=== PATIENT | male | born 1935 | race Caucasian/White ===

== ENCOUNTER 2019-08-19 17:44 | Observation (INO) | payer MEDICARE, OTHER, SELFPAY ==
[2019-08-19 17:51] VITALS: BP 131/77; PULSE 104; RESP 18; TEMP 36.7; O2SAT 94; BMI 32.8
--- NOTE | 2019-08-19 18:04 | XR_ITS ---
WS: [id number] Portable AP upright chest, 08/19/2019 Clinical Data: sob Comparison: PA and lateral chest, 03/17/2015. Findings: No nodules, masses or effusions are seen. The heart is normal. The pulmonary vascularity is not increased. No pneumonia or pneumothorax is seen. Severe osteoarthritis of the right shoulder amanda nt is noted. There is an old fracture of the lateral aspect of the right eighth rib. The aortic arch and descending aorta show mild tortuosity. The diaphragms are flattened. XR/XR chest 1V portable [id number] Impression: Atherosclerosis and hyperinflation.
--- NOTE | 2019-08-19 18:05 | ED_ITS ---
Documented by User: JOSE Baum 08/19/19 19:31 HPI - General Adult General: Chief complaint: General Medical Stated complaint: fluid build up Time Seen by Provider: 08/19/19 18:00 History of Present Illness: HPI narrative: Mr. Tim sent here by Dr. Justice for increasing shortness of breath and abnormal lung sounds. Dr. Justice did talk to Dr. Dawson. Patient said that he has been feeling worse last 2 to 3 days, had a spider bite to his abdomen also said he feels like he is filling up fluid and short of breath with exertion still complained about constipation but he took a large dose of milk of magnesia and he said he is cleared out now Onset (ago): day(s) Severity: moderate Associated symptoms: Reports no associated symptoms and dyspnea; Deny chest pain, headache(s), nausea, rash or vomiting Review of Systems Const: Denies: fever(s), chills or body aches Eyes: Denies: change in vision or blurry vision ENMT: Denies: throat pain or nasal congestion Card: Reports: other (Edema); Denies: chest pain or dyspnea on exertion Resp: Reports: dyspnea; Denies: productive cough or non-productive cough GI: Denies: abdominal pain, nausea or vomiting : Denies: difficulty urinating Musc: Denies: extremity pain Skin/Breast: Reports: other (Spider bite right abdomen); Denies: rash Neuro: Denies: headache(s) Psych: Denies: anxiety or depression Sergio/Lymph: Denies: easy bruising PFS ED PFSH: Medical History (Updated 08/19/19 @ 21:32 by Juliana Tamayo MD) ASHD (arteriosclerotic heart disease) Diabetes Edema, peripheral GERD (gastroesophageal reflux disease) Gout Hyperlipidemia Hypertension Osteoarthritis Hands, hips, knees and spine, lumbar spondylosis Surgical History History of cataract surgery History of cholecystectomy History of hemorrhoidectomy History of hip surgery History of knee surgery History of rotator cuff surgery Family History Other CAD (coronary artery disease) Cancer Diabetes Hyperlipidemia Hypertension Social History Smoking and tobacco status: former smoker Alcohol intake: never Physical Exam Const: COMMON NORMALS: no acute distress, average body habitus and patient o riented x3 HENMT: COMMON NORMALS: normocephalic HEAD & SCALP: normal to inspection and normocephalic FACE & SINUS: normal facial exam Eye: COMMON NORMALS: conjunctivae normal GENERAL EYE: appearance normal, both eyes and all related structures CONJUNCTIVA: Yes conjunctivae normal Neck/C-Spine: COMMON NORMALS: no JVD Chest: COMMONS NORMALS: normal inspection of the chest Resp: COMMON NORMALS: normal respiratory effort AUSCULTATION: rales Cardio: COMMON NORMALS: no JVD, regular rate and regular rhythm RATE: regular rate RHYTHM: regular rhythm OTHER: 2+ edema pitting lower extremities GI: INSPECTION: Yes other (Some bloating) AUSCULTATION: Yes normoactive bowel sounds PALPATION: Yes Firmness to palpation present (GI) PERCUSSION: normal to percussion Extremity: COMMON NORMALS: normal to inspection and full ROM Neuro: COMMON NORMALS: patient oriented x3 Course Vital Signs: Vital signs: Vital Signs Temperature 98.0 F 08/19/19 17:51 Pulse Rate 84 08/19/19 21:19 Respiratory Rate 22 H 08/19/19 21:19 Blood Pressure 104/55 08/19/19 21:19 Pulse Oximetry 95 08/19/19 21:19 MDM - General Adult MDM Narrative: Medical decision making narrative: Discussed lab results with Dr. Dawson Lab Data: Labs: Lab Results 08/19/19 08/19/19 08/19/19 Range/Units 18:45 18:45 18:45 WBC 12.7 H (4.0-10.0) 10^3/ uL RBC 3.39 L (4.1-5.3) 10^6/u L Hgb 10.1 L (11.7-16.6) g/dL Hct 32.1 L (42.0-52.0) % MCV 94.7 H (80-94) fL MCH 29.8 (28.0-34.0) pg MCHC 31.5 (30.0-36.0) g/dL RDW 13.6 (12.1-15.1) % Plt Count 237 (130-400) 10^3/c mm MPV 10.1 (7.4-10.4) fL Neut % (Auto) 76.7 % Lymph % (Auto) 7.7 % [place] % (Auto) 7.7 % Eos % (Auto) 7.2 % Baso % (Auto) 0.2 % Neut # (Auto) 9.8 H (1.8-7.7) 10^3/u L Lymph # (Auto) 1.0 (0.8-4.8) 10^3/u L [place] # (Auto) 1.0 H (0.2-0.9) 10^3/u L Eos # (Auto) 0.9 H (0.0-0.8) 10^3/u L Baso # (Auto) 0.0 (0.0-0.1) 10^3/u L Nucleated RBC % (a uto) 0 % Nucleated RBCs # 0.0 /100WBC Sodium 133 L (136-145) mmol/L Potassium 5.2 H (3.5-5.1) mmol/L Chloride 101 (98-107) mmol/L Carbon Dioxide 21 L (22-29) mmol/L Anion Gap 16.2 (5-19) BUN 56 H (8-23) mg/dL Creatinine 3.4 H (0.7-1.2) mg/dL Glucose 106 (65-115) mg/dL Calculated Osmolal ity 275 L (285-295) mOsm/k g Calcium 8.5 (8.5-10.5) mg/dL Total Bilirubin 1.2 (0.15-1.2) mg/dL AST 165 H (0-40) U/L ALT 171 H (0-41) U/L Alkaline Phosphata se 324 H (40-130) IU/L NT-Pro-B Natriuret Pep 1975 H (0-450) pg/mL Total Protein 6.8 (6.6-8.7) g/dL Albumin 3.6 (3.5-5.2) g/dL Globulin 3.2 (1.3-4.6) g/dL Urine Color Yellow (Yellow) Urine Appearance Clear (CLEAR) Urine pH 5 (5-7) Ur Specific Gravit y 1.005 (1.005-1.030) Urine Protein Neg (Negative) Urine Glucose (UA) Norm (Normal) Urine Ketones Negative (Negative) Urine Blood Neg (Negative) Urine Nitrate Negative (Negative) Urine Bilirubin 1+ H (NEGATIVE) Urine Urobilinogen Neg (Negative) mg/dL Ur Leukocyte Bernadette ase Negative (Negative) EKG Data^: EKG 1: EKG interpretation date: 08/19/19 EKG interpretation time: 18:25 Interpretation: Sinus rhythm ventricular rate 89 bpm CA interval 200 ms QRS dura tion 95 ms Computer generated interpretation: Abdomen CT 08/19/19 19:30 IMPRESSION: 1. 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 No evidence of bowel obstruction. 3. Recent appearing right hip replacement. 4. Small bilateral pleural effusions. COMMENTS: Consistent with the [employer]'s Incidental Findings Committee white paper (J Am Luzma Radiol 2018): Any incidental renal lesion less than 1.0 cm or classified as too small to characterize, or any incidental cystic renal lesion characterized as simple-appearing, is likely benign. No follow-up imaging is recommended for these lesions per consensus recommendations based on imaging criteria. Radiation Dose CTDIVOL = (mGy): DLP = 1255.35 (mGy-cm) Discharge Plan Discharge Patient Disposition: Admitted As Inpatient Admit Provider: Juliana Tamayo Clinical Impression: Hepatic congestion CHF (congestive heart failure) Qualifiers: Heart failure type: unspecified Heart failure chronicity: unspecified Qualified Code(s): I50.9 - Heart failure, unspecified Acute renal failure Qualifiers: Acute renal failure type: unspecified Qualified Code(s): N17.9 - Acute kidney failure, unspecified Condition: Stable Discharge Orders: Discharge Order (Routine); Ordered 08/19/19 Ordered By: Elmer Calloway Referrals: Salas Quevedo MD [Primary Care Provider] - Additional Instructions: Follow-up with medical provider as directed. Double furosemide potassium and follow-up with your doctor on Sunday return to the ER or your medical provider if condition worsens. Please read and understand discharge instructions. If any questions ask please. Coding Level of Care Code ED Study Coordinator for Chg Fwd Exam Comprehensive Documented by User: Korin Dawson MD 08/19/19 22:27 HPI - General Adult General: Chief complaint: General Medical Stated complaint: fluid build up Time Seen by Provider: 08/19/19 18:00 [facility] ED PFS: Medical History (Updated 08/19/19 @ 21:32 by Juliana Tamayo MD) ASHD (arteriosclerotic heart disease) Diabetes Edema, peripheral GERD (gastroesophageal reflux disease) Gout Hyperlipidemia Hypertension Osteoarthritis Hands, hips, knees and spine, lumbar spondylosis Surgical History History of cataract surgery History of cholecystectomy History of hemorrhoidectomy History of hip surgery History of knee surgery History of rotator cuff surgery Family History Other CAD (coronary artery disease) Cancer Diabetes Hyperlipidemia Hypertension Social History Smoking and tobacco status: former smoker Alcohol intake: never Course ED course: I am seeing this patient along with STAR Payne. The patient was sent to the ER by Dr. Justice. He has been having several days of shortness of breath and swelling. There is concern for CHF although he does not think he has had a history of that in the past. He does take Lasix on a daily basis. He says he has been having quite a bit of difficulty urinating and it is not clear whether that is actually because he is just not producing much urine. He has had some sort of TURP procedure in the past. He denies fever. He has had swelling in his legs. His labs today show poor renal failure with a BUN of 56 and a creatinine of 3.4. The most recent creatinine in the computer is from last year at which time the creatinine was normal. His CO2 is 21 and his potassium is 5.2. Hemoglobin is 10.1. BNP is elevated at 1975. LFTs are also elevated with an AST of 165, ALT of 171, alk phos of 324 and a total bilirubin of 1.2. With the increased fluid retention, poor renal function and elevated LFTs we will admit him to the hospitalist for further management. There is also a CT of his abdomen pending to evaluate the liver. This may be simply due to congestion related to CHF. Vital Signs: Vital signs: Vital Signs Temperature 98.0 F 08/19/19 17:51 Pulse Rate 84 08/19/19 21:19 Respiratory Rate 22 H 08/19/19 21:19 Blood Pressure 104/55 08/19/19 21:19 Pulse Oximetry 95 08/19/19 21:19 MDM - General Adult Lab Data: Labs: Lab Results 08/19/19 08/19/19 08/19/19 Range/Units 18:45 18:45 18:45 WBC 12.7 H (4.0-10.0) 10^3/ uL RBC 3.39 L (4.1-5.3) 10^6/u L Hgb 10.1 L (11.7-16.6) g/dL Hct 32.1 L (42.0-52.0) % MCV 94.7 H (80-94) fL MCH 29.8 (28.0-34.0) pg MCHC 31.5 (30.0-36.0) g/dL RDW 13.6 (12.1-15.1) % Plt Count 237 (130-400) 10^3/c mm MPV 10.1 (7.4-10.4) fL Neut % (Auto) 76.7 % Lymph % (Auto) 7.7 % [place] % (Auto) 7.7 % Eos % (Auto) 7.2 % Baso % (Auto) 0.2 % Neut # (Auto) 9.8 H (1.8-7.7) 10^3/u L Lymph # (Auto) 1.0 (0.8-4.8) 10^3/u L [place] # (Auto) 1.0 H (0.2-0.9) 10^3/u L Eos # (Auto) 0.9 H (0.0-0.8) 10^3/u L Baso # (Auto) 0.0 (0.0-0.1) 10^3/u L Nucleated RBC % (a uto) 0 % Nucleated RBCs # 0.0 /100WBC Sodium 133 L (136-145) mmol/L Potassium 5.2 H (3.5-5.1) mmol/L Chloride 101 (98-107) mmol/L Carbon Dioxide 21 L (22-29) mmol/L Anion Gap 16.2 (5-19) BUN 56 H (8-23) mg/dL Creatinine 3.4 H (0.7-1.2) mg/dL Glucose 106 (65-115) mg/dL Calculated Osmolal ity 275 L (285-295) mOsm/k g Calcium 8.5 (8.5-10.5) mg/dL Total Bilirubin 1.2 (0.15-1.2) mg/dL AST 165 H (0-40) U/L ALT 171 H (0-41) U/L Alkaline Phosphata se 324 H (40-130) IU/L NT-Pro-B Natriuret Pep 1975 H (0-450) pg/mL Total Protein 6.8 (6.6-8.7) g/dL Albumin 3.6 (3.5-5.2) g/dL Globulin 3.2 (1.3-4.6) g/dL Urine Color Yellow (Yellow) Urine Appearance Clear (CLEAR) Urine pH 5 (5-7) Ur Specific Gravit y 1.005 (1.005-1.030) Urine Protein Neg (Negative) Urine Glucose (UA) Norm (Normal) Urine Ketones Negative (Negative) Urine Blood Neg (Negative) Urine Nitrate Negative (Negative) Urine Bilirubin 1+ H (NEGATIVE) Urine Urobilinogen Neg (Negative) mg/dL Ur Leukocyte Bernadette ase Negative (Negative) EKG Data^: EKG 1: Computer generated interpretation: Abdomen CT 08/19/19 19:30 IMPRESSION: 1. 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 No evidence of bowel obstruction. 3. Recent appearing right hip replacement. 4. Small bilateral pleural effusions. COMMENTS: Consistent with the [employer]'s Incidental Findings Committee white paper (J Am Luzma Radiol 2018): Any incidental renal lesion less than 1.0 cm or classified as too small to characterize, or any incidental cystic renal lesion characterized as simple-appearing, is likely benign. No follow-up imaging is recommended for these lesions per consensus recommendations based on imaging criteria. Radiation Dose CTDIVOL = (mGy): DLP = 1255.35 (mGy-cm) Discharge Plan Discharge Patient Disposition: Admitted As Inpatient Admit Provider: Juliana Tamayo Clinical Impression: Hepatic congestion CHF (congestive heart failure) Qualifiers: Heart failure type: unspecified Heart failure chronicity: unspecified Qualified Code(s): I50.9 - Heart failure, unspecified Acute renal failure Qualifiers: Acute renal failure type: unspecified Qualified Code(s): N17.9 - Acute kidney failure, unspecified Condition: Stable Discharge Orders: Discharge Order (Routine); Ordered 08/19/19 Ordered By: Elmer Calloway Referrals: Salas Quevedo MD [Primary Care Provider] - Additional Instructions: Follow-up with medical provider as directed. Double furosemide potassium and follow-up with your doctor on Sunday return to the ER or your medical provider if condition worsens. Please read and understand discharge instructions. If any questions ask please. Coding Level of Care Code ED Study Coordinator for Telly Fwd Exam Comprehensive
--- NOTE | 2019-08-19 18:05 | ECG_ITS ---
Measurements Intervals Kuna Rate: 89 P: 59 GA: 200 QRS: 58 QRSD: 95 T: 55 QT: 337 QTc: 411 SINUS RHYTHM NONSPECIFIC T-WAVE ABNORMALITY Compared to ECG 08/31/2016 09:58:40 T-wave abnormality now present Sinus bradycardia no longer present Electronically Signed On 08-20-2019 6:57:57 CDT by Pedrito Singh M.D. [email or web address]
[2019-08-19 18:12] VITALS: BP 117/61; PULSE 90; RESP 20; O2SAT 95
[2019-08-19 18:53] LABS: Basophils % 0.2 %; Eosinophils # 0.9 10^3/uL (0.0-0.8); Eosinophils % 7.2 %; Hematocrit 32.1 % (42.0-52.0); Hemoglobin 10.1 g/dL (11.7-16.6); Lymphocytes % 7.7 %; Mean Corpuscular HGB Conc 31.5 g/dL (30.0-36.0); Mean Corpuscular Hemoglobin 29.8 pg (28.0-34.0); Mean Corpuscular Volume 94.7 fL (80-94); Mean Platelet Volume 10.1 fL (7.4-10.4); Monocytes % 7.7 %; Neutrophils # 9.8 10^3/uL (1.8-7.7); Neutrophils % 76.7 %; Nucleated Red Blood Cells % 0 %; Platelet Count 237 10^3/cmm (130-400); Red Blood Count 3.39 10^6/uL (4.1-5.3); Red Cell Distribution Width 13.6 % (12.1-15.1); White Blood Count 12.7 10^3/uL (4.0-10.0)
[2019-08-19 19:14] VITALS: BP 107/56; PULSE 86; RESP 18; O2SAT 93
[2019-08-19 19:18] LABS: Alanine Aminotransferase 171 U/L (0-41); Albumin Level 3.6 g/dL (3.5-5.2); Alkaline Phosphatase 324 IU/L (40-130); Anion Gap 16.2 (5-19); Aspartate Amino Transferase 165 U/L (0-40); Blood Urea Nitrogen 56 mg/dL (8-23); Calcium 8.5 mg/dL (8.5-10.5); Carbon Dioxide 21 mmol/L (22-29); Chloride 101 mmol/L (98-107); Globulin 3.2 g/dL (1.3-4.6); Glucose 106 mg/dL (65-115); NT Pro B Type Natriuretic Pept 1975 pg/mL (0-450); Osmolality Calculated 275 mOsm/kg (285-295); Potassium 5.2 mmol/L (3.5-5.1); Sodium 133 mmol/L (136-145); Total Bilirubin 1.2 mg/dL (0.15-1.2); Total Protein 6.8 g/dL (6.6-8.7)
[2019-08-19 19:24] LABS: Add Urine Microscopic? NO
--- NOTE | 2019-08-19 19:30 | CTR_ITS ---
PROCEDURE INFORMATION: Exam: CT Abdomen Without Contrast Exam date and time: 08/19/2019 8:12 PM Age: 83 years old Clinical indication: Bloating; Prior surgery; Additional info: Elevated transaminases, bloating TECHNIQUE: Imaging protocol: Computed tomography images of the abdomen without contrast. Radiation optimization: All CT scans at this facility use at least one of these dose optimization techniques: automated exposure control; mA and/or kV adjustment per patient size (includes targeted exams where dose is matched to clinical indication); or iterative reconstruction. COMPARISON: No relevant prior studies available. RADIATION DOSE METRICS: Total DLP: 1255.35 mGy-cm FINDINGS: Pleural space: There is small bilateral pleural effusions. Liver: There is no focal abnormality within the liver. Gallbladder and bile ducts: There has been a cholecystectomy. Pancreas: Pancreas is atrophic. Spleen: The spleen is normal. Adrenals: The adrenal glands are normal. Kidneys and ureters: There is a 5.6 cm sized benign-appearing simple cyst arising from the lower pole of the right kidney and also a 3 cm sized simple cyst. There are multiple simple left renal cysts. There is a focal cortical calcification in the left kidney which could be in the wall of a cyst. There is no evidence of hydronephrosis. There is no evidence of renal or ureteral calcifications. Stomach and bowel: There is no evidence of colitis/diverticulitis. There is no evidence of intestinal obstruction. Appendix: A normal appendix is identified. Intraperitoneal space: There is a focal sclerotic density in the mid mesentery such as an image number 46 with a few calcifications and a somewhat stellate appearance. This may represent some chronic mesenteric fibromatosis. Lymph nodes: Unremarkable. No enlarged lymph nodes. Vasculature: Unremarkable. No abdominal aortic aneurysm. Reproductive: The prostate demonstrates moderate nonspecific enlargement. The seminal vesicles are normal. Bones/joints: There is a right hip replacement which causes some streak artifact in the pelvis. The lumbar spine demonstrates marked degenerative changes at multiple levels. Soft tissues: Unremarkable. CT/CT abdomen wo con [id number] IMPRESSION: 1. 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 No evidence of bowel obstruction. 3. Recent appearing right hip replacement. 4. Small bilateral pleural effusions. COMMENTS: Consistent with the [employer]'s Incidental Findings Committee white paper (J Am Luzma Radiol 2018): Any incidental renal lesion less than 1.0 cm or classified as too small to characterize, or any incidental cystic renal lesion characterized as simple-appearing, is likely benign. No follow-up imaging is recommended for these lesions per consensus recommendations based on imaging criteria. Radiation Dose CTDIVOL = (mGy): DLP = 1255.35 (mGy-cm)
[2019-08-19 19:34] LABS: Bilirubin Urine 1+ (NEGATIVE); Blood Urine Neg (Negative); Glucose Urine UA Norm (Normal); Ketones Urine Negative (Negative); Leukocyte Esterase Urine Negative (Negative); Nitrate Urine Negative (Negative); Protein Urine Neg (Negative); Specific Gravity, Urine 1.005 (1.005-1.030); Urine Appearance Clear (CLEAR); Urine Color Yellow (Yellow); Urobilinogen Urine Neg (Negative); pH Urine 5 (5-7)
[2019-08-19 20:50] VITALS: BP 98/62; PULSE 83; RESP 18; O2SAT 95
[2019-08-19 21:19] VITALS: BP 104/55; PULSE 84; RESP 22; O2SAT 95
--- NOTE | 2019-08-19 21:28 | PM.HP ---
Providers/Chief Complaint Primary Care Provider: Salas Quevedo MD Chief Complaint: fluid build up History of Present Illness Ryan Tim is a 83 year old male who carries diagnosis of atherosclerotic heart disease, diabetes, hypertension came in today with chief complaint of shortness of breath. Patient is stating that about 4 weeks ago he noticed a spider bite on his abdominal wall, since then he has been having pruritus and some abdominal discomfort. He was started on Bactrim. Lately for last 1 week he has been feeling more short of breath, short of breath get worse on mild exertion, positive orthopnea and PND, he also noticed leg swelling, he thinks he is bloated. Recently he was started on Flomax for his BPH. He does not have any history of [place], CHF, stroke, coronary artery stents. Diagnostics in the ER revealed CHF with high BNP, Mild anemia ALANNAH with abnormal creatinine and potassium EKG does not show ischemic or infarctive changes CT abdomen revealed chronic mesenteric fibromatosis Small bilateral pleural effusions Review of Systems Const: Reports: chills, body aches, change in appetite, change in weight, fatigue and malaise; Denies: fever(s) Eyes: Denies: change in vision ENMT: Denies: throat pain Card: Reports: edema, swelling of feet/ankles, dyspnea on exertion and orthopnea; Denies: chest pain Resp: Reports: dyspnea and non-productive cough GI: Reports: nausea and bloating; Denies: abdominal pain or vomiting : Denies: flank pain Musc: Denies: neck pain Skin/Breast: Reports: rash and lesions Neuro: Denies: headache(s) Psych: Denies: anxiety Endo: Denies: polyuria Sergio/Lymph: Denies: easy bruising All/Imm: Denies: urticaria Medications/Allergies Home Medications Medication Instructions Recorded Confirmed Last Taken Type allopurinol 100 mg tablet 100 mg PO DAILY PRN 04/15/19 08/19/19 08/18/19 History aspirin 81 mg tablet,delayed 162 mg PO DAILY tab 04/15/19 08/19/19 08/19/19 History release carvedilol 12.5 mg tablet 12.5 mg PO BID 04/15/19 08/19/19 08/19/19 History furosemide 20 mg tablet 20 mg PO QAM PRN 04/15/19 08/19/19 08/18/19 History insulin glargine 100 unit/mL (3 25 unit SUBCUT DAILY 04/15/19 08/19/19 08/19/19 History mL) subcutaneous pen lisinopril 40 mg tablet 40 mg PO DAILY 04/15/19 08/19/19 08/19/19 History metformin 1,000 mg tablet 1,000 mg PO BID 04/15/19 08/19/19 08/19/19 History multivitamin 1 tab PO DAILY 04/15/19 08/19/19 08/19/19 History oxazepam 10 mg capsule 10 mg PO BID PRN 04/15/19 08/19/19 Unknown History pantoprazole 40 mg tablet,delayed 40 mg PO DAILY 04/15/19 08/19/19 08/19/19 History release potassium chloride 10 mEq 10 meq PO DAILY PRN 04/15/19 08/19/19 08/18/19 History tablet,extended release pravastatin 40 mg tablet 40 mg PO DAILY 04/15/19 08/19/19 08/18/19 History tamsulosin 0.4 mg PO DAILY 08/19/19 08/19/19 08/18/19 History Allergies Allergy/AdvReac Type Severity Reaction Status Date / Time aspirin Allergy Unknown unknown Verified 08/19/19 17:54 cefuroxime [From Ceftin] Allergy Unknown unknown Verified 08/19/19 17:54 fluvastatin [From Lescol] Allergy Unknown unknown Verified 08/19/19 17:54 Sulfa (Sulfonamide Allergy Unknown unknown Verified 08/19/19 17:54 Antibiotics) povidone-iodine Allergy Unknown Verified 08/19/19 17:54 [From Betadine] soap [From Betadine] Allergy Unknown Verified 08/19/19 17:54 PFSH Acute PFSH: Medical History ASHD (arteriosclerotic heart disease) Diabetes Edema, peripheral GERD (gastroesophageal reflux disease) Gout Hyperlipidemia Hypertension Osteoarthritis Hands, hips, knees and spine, lumbar spondylosis Surgical History History of cataract surgery History of cholecystectomy History of hemorrhoidectomy History of hip surgery History of knee surgery History of rotator cuff surgery Family History Other CAD (coronary artery disease) Cancer Diabetes Hyperlipidemia Hypertension Social History Smoking and tobacco status: former smoker Alcohol intake: never Vitals/I&O/Wt Last Vital Signs Temp 98.0 F 08/19/19 17:51 Pulse 84 08/19/19 21:19 Resp 22 H 08/19/19 21:19 BP 104/55 08/19/19 21:19 Pulse Ox 95 08/19/19 21:19 Weight last 48 hrs Weight 100.698 kg Physical Exam Narrative: EXAM NARRATIVE: Head to toe examination Pleasant male Sitting at the bedside without any active discomfort Saturating well on room Active signs of heart failure with positive bilateral lower extremity edema 2+ Positive JVD S1-S2 no tachycardia Bilateral breath sounds without adventitious sound, diminished breath sounds at the bases Abdomen soft, distended, bloated, non-tender, bowel sound present Mild hyperemia of left lower quadrant no active pruritus or cellulitis No extremity 2+ edema No signs of ischemia gangrene or Neurologically nonfocal Data : 08/19/19 18:45 08/19/19 18:45 A&P Assessment and plan (1) New onset of congestive heart failure: New onset CHF Patient not complaining of any chest pain, no active heart murmur EKG does not show ischemic or infarctive changes, We will check TSH level, troponin pending Low-dose Lasix because he will be na?ve to Lasix Echo in the morning Status: Acute (2) Acute renal failure: Seems secondary to cardiorenal and drug-induced He has been taking lisinopril and potassium supplementation: Currently on hold Anticipating improvement with diuresis Continue tamsulosin, CT abdomen did not reveal hydronephrosis Status: Acute Qualifiers: Acute renal failure type: unspecified Qualified Code(s): N17.9 - Acute kidney failure, unspecified (3) Hyperkalemia: Secondary to use of lisinopril and potassium supplementation EKG does not show any changes, would give him 1 dose of Kayexalate Status: Acute (4) Hepatic congestion: Secondary to CHF exacerbation Status: Acute (5) Edema, peripheral: Status: Acute (6) Hypertension: Monitor for now, would like to monitor his response to Lasix with Status: Acute Qualifiers: Hypertension type: essential hypertension Qualified Code(s): I10 - Essential (primary) hypertension (7) Hyperlipidemia: Status: Acute Qualifiers: Hyperlipidemia type: mixed hyperlipidemia Qualified Code(s): E78.2 - Mixed hyperlipidemia (8) Diabetes: Status: Acute Qualifiers: Diabetes mellitus type: type 2 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 Loo lisinopril, aspirin and pravastatin prescribed by him for atherosclerotic heart disease without coronary ischemia Status: Acute Attestations Medical Necessity Statement*: Anticipating discharge in less than 48 hours currently need Lasix for new onset CHF, needs echo in the morning Time Spent in Patient Care: 50mins Coding Level of Care Code Acute Crm Coordinator for g Fwd Diagnoses New onset of congestive heart failure I50.9 Acute renal failure N17.9 Acute renal failure type: unspecified Hyperkalemia E87.5 Hepatic congestion K76.1 Edema, peripheral R60.9 Hypertension I10 Hypertension type: essential hypertension Hyperlipidemia E78.2 Hyperlipidemia type: mixed hyperlipidemia Diabetes E11.65 Diabetes mellitus type: type 2 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
[2019-08-19 23:00] VITALS: BP 140/71; PULSE 87; RESP 20; TEMP 36.8
[2019-08-20 00:06] LABS: Thyroid Stimulating Hormone 1.94 uIU/mL (0.27-4.20)
--- NOTE | 2019-08-20 00:26 | PC.NURSE ---
Pt brought to room via wheelchair from ED. Pt noted to be slightly dyspneic with exertion from chair to bed. Repositioned and full skin assessment completed. Right lower abd noted to have redness and small dry spot that patient reports is a healing spider bite and actually improved. Pt states that he lives at home with his and does not normally have difficulties moving around or caring for himself. Pt noted to be in sinus rythm on the monior. Lungs diminished throughout and right lower lobe noted to have coarse sounds as well. 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 Denies any pain or discomfort at this time. Educated on use of call light and other controls. No further needs identified at this time.
[2019-08-20] MEDS: heparin 5,000 unit/mL INJ 1 mL 5000 UNIT SUBCUT (00:39)
[2019-08-20 04:15] VITALS: BP 125/61; PULSE 97; RESP 18; TEMP 37
[2019-08-20 04:49] LABS: Basophils % 0.4 %; Eosinophils # 0.9 10^3/uL (0.0-0.8); Eosinophils % 8.3 %; Hematocrit 30.9 % (42.0-52.0); Lymphocytes % 9.2 %; Mean Corpuscular HGB Conc 32.4 g/dL (30.0-36.0); Mean Corpuscular Hemoglobin 31.1 pg (28.0-34.0); Mean Platelet Volume 10.2 fL (7.4-10.4); Monocytes # 0.7 10^3/uL (0.2-0.9); Monocytes % 6.5 %; Neutrophils # 7.9 10^3/uL (1.8-7.7); Nucleated Red Blood Cells % 0 %; Platelet Count 223 10^3/cmm (130-400); Red Blood Count 3.22 10^6/uL (4.1-5.3); Red Cell Distribution Width 13.7 % (12.1-15.1); White Blood Count 10.6 10^3/uL (4.0-10.0)
[2019-08-20 05:12] LABS: Anion Gap 17.3 (5-19); Blood Urea Nitrogen 50 mg/dL (8-23); Carbon Dioxide 23 mmol/L (22-29); Chloride 102 mmol/L (98-107); Glucose 129 mg/dL (65-115); Osmolality Calculated 284 mOsm/kg (285-295); Potassium 5.3 mmol/L (3.5-5.1); Sodium 137 mmol/L (136-145)
[2019-08-20 05:13] LABS: Troponin T (5th) Once 54 ng/L (0-15)
[2019-08-20 06:36] LABS: Glucose Point of Care 120 mg/dL (70-110)
[2019-08-20 07:25] VITALS: BP 108/58; PULSE 94; RESP 18; TEMP 36.7; O2SAT 95
[2019-08-20 08:12] VITALS: BP 108/58; PULSE 94; RESP 18; TEMP 36.7; O2SAT 95
--- NOTE | 2019-08-20 08:55 | PC.NURSE ---
patient discharged home at this time Patient verbalized understanding of discharge instructions IV cath removed min bleeding noted patient assisted to private vehicle via wheel chair by staff all belongings and discharge instructions in hand
--- NOTE | 2019-08-20 10:04 | PC.NURSE ---
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 THIS MORNING, PATIENT STATED HE WAS READY FOR HIS DISCHARGE PAPERWORK. PATIENT STATED HE WAS BEING DISCHARGED. PATIENT WAS DISCHARGED WITH PAPERWORK IN HAND. ATTENDING DOCTOR CALLED FOR WHEREABOUTS OF PATIENT. PHYSICIAN WAS NOTIFIED PATIENT WAS DISCHARGED.
--- NOTE | 2019-08-20 12:12 | PM.DCS ---
Discharge Providers Date of Admission: 08/19/19 21:06 Date of Discharge: August 20, 2019 Attending Provider at Admission: Juliana Tamayo MD Attending Provider at Discharge: Ada Ferrer MD Primary Care Provider: Salas Quevedo MD Diagnoses at Discharge Discharge Diagnosis (1) New onset of congestive heart failure: Status: Acute Problem details: -Echo done, report pending -had previously been prescribed Lasix 20 mg daily PRN due to peripheral edema though no documented hx of CHF (2) Acute renal failure: Status: Acute Problem details: -baseline Cr appears to be around 1.6 -has been on ACEi and potassium supplementation Qualifiers: Acute renal failure type: unspecified Qualified Code(s): N17.9 - Acute kidney failure, unspecified (3) Hyperkalemia: Status: Acute Problem details: -likely secondary to KCl supplements (4) Hepatic congestion: Status: Acute Problem details: -likely secondary to acute CHF exacerbation -CT shows no acute pathology within the liver (5) Edema, peripheral: Status: Acute Problem details: -likely secondary to acute CHF exacerbation (6) Hypertension: Status: Chronic Problem details: -on oral antihypertensives Qualifiers: Hypertension type: essential hypertension Qualified Code(s): I10 - Essential (primary) hypertension (7) Hyperlipidemia: Status: Chronic Problem details: -on statin Qualifiers: Hyperlipidemia type: mixed hyperlipidemia Qualified Code(s): E78.2 - Mixed hyperlipidemia (8) Diabetes: Status: Chronic Problem details: -insulin requiring Qualifiers: Diabetes mellitus type: type 2 Diabetes mellitus half-way insulin use: with half-way use Diabetes mellitus complication status: with hyperglycemia Qualified Code(s): E11.65 - Type 2 diabetes mellitus with hyperglycemia; Z79.4 - MCFP (current) use of insulin (9) ASHD (arteriosclerotic heart disease): Status: Chronic Problem details: -follows up with Dr. Loo Reason for Visit Reason for Visit: fluid build up Hospital Course Hospital Course: Patient had been sent to the ER from his primary care physician's office due to increasing shortness of breath and lower extremity swelling concerning for congestive heart failure exacerbation. This was supported on evaluation with noted hepatic congestion, BNP elevation, extremity edema as previously documented. Plan was to diurese with Lasix, get baseline echo and monitor progress. Unfortunately patient was discharged early this morning before this provider could evaluate him. Physical Exam Narrative: EXAM NARRATIVE: Physical examination not done by this provider because patient was discharged before being seen Discharge Data Data Completed and Pending: Completed Studies During Hospitalization Category Date Time Status CT abdomen wo con [id number] Urgent Cat Scan 08/19/19 19:30 Completed XR chest 1V kenji ble [id number] Urgent Exams 08/19/19 18:04 Completed Pending at discharge Category Date Time Status CV echo complete* [id number] Routine Ultrasound 08/20/19 23:37 Taken Labs from last 24 hours 08/20/19 08/20/19 08/20/19 06:29 04:10 04:10 WBC RBC Hgb Hct MCV MCH MCHC RDW Plt Count MPV Neut % (Auto) Lymph % (Auto) [place] % (Auto) Eos % (Auto) Baso % (Auto) Neut # (Auto) Lymph # (Auto) [place] # (Auto) Eos # (Auto) Baso # (Auto) Nucleated RBC % (a uto) Nucleated RBCs # Sodium 137 Potassium 5.3 H Chloride 102 Carbon Dioxide 23 Anion Gap 17.3 BUN 50 H Creatinine 3.3 H Glucose 129 H POC Glucose 120 Calculated Osmolal ity 284 L Calcium 9.0 Total Bilirubin AST ALT Alkaline Phosphata se Troponin T Gen 5 n g/L 54 H NT-Pro-B Natriuret Pep Total Protein Albumin Globulin TSH Urine Color Urine Appearance Urine pH Ur Specific Gravit y Urine Protein Urine Glucose (UA) Urine Ketones Urine Blood Urine Nitrate Urine Bilirubin Urine Urobilinogen Ur Leukocyte Bernadette ase 08/20/19 08/19/19 08/19/19 04:10 18:45 18:45 WBC 10.6 H RBC 3.22 L Hgb 10.0 L Hct 30.9 L MCV 96.0 H MCH 31.1 MCHC 32.4 RDW 13.7 Plt Count 223 MPV 10.2 Neut % (Auto) 75.0 Lymph % (Auto) 9.2 [place] % (Auto) 6.5 Eos % (Auto) 8.3 Baso % (Auto) 0.4 Neut # (Auto) 7.9 H Lymph # (Auto) 1.0 [place] # (Auto) 0.7 Eos # (Auto) 0.9 H Baso # (Auto) 0.0 Nucleated RBC % (a uto) 0 Nucleated RBCs # 0.0 Sodium Potassium Chloride Carbon Dioxide Anion Gap BUN Creatinine Glucose POC Glucose Calculated Osmolal ity Calcium Total Bilirubin AST ALT Alkaline Phosphata se Troponin T Gen 5 n g/L NT-Pro-B Natriuret Pep Total Protein Albumin Globulin TSH 1.94 Urine Color Yellow Urine Appearance Clear Urine pH 5 Ur Specific Gravit y 1.005 Urine Protein Neg Urine Glucose (UA) Norm Urine Ketones Negative Urine Blood Neg Urine Nitrate Negative Urine Bilirubin 1+ H Urine Urobilinogen Neg Ur Leukocyte Bernadette ase Negative 08/19/19 08/19/19 18:45 18:45 WBC 12.7 H RBC 3.39 L Hgb 10.1 L Hct 32.1 L MCV 94.7 H MCH 29.8 MCHC 31.5 RDW 13.6 Plt Count 237 MPV 10.1 Neut % (Auto) 76.7 Lymph % (Auto) 7.7 [place] % (Auto) 7.7 Eos % (Auto) 7.2 Baso % (Auto) 0.2 Neut # (Auto) 9.8 H Lymph # (Auto) 1.0 [place] # (Auto) 1.0 H Eos # (Auto) 0.9 H Baso # (Auto) 0.0 Nucleated RBC % (a uto) 0 Nucleated RBCs # 0.0 Sodium 133 L Potassium 5.2 H Chloride 101 Carbon Dioxide 21 L Anion Gap 16.2 BUN 56 H Creatinine 3.4 H Glucose 106 POC Glucose Calculated Osmolal ity 275 L Calcium 8.5 Total Bilirubin 1.2 AST 165 H ALT 171 H Alkaline Phosphata se 324 H Troponin T Gen 5 n g/L NT-Pro-B Natriuret Pep 1975 H Total Protein 6.8 Albumin 3.6 Globulin 3.2 TSH Urine Color Urine Appearance Urine pH Ur Specific Gravit y Urine Protein Urine Glucose (UA) Urine Ketones Urine Blood Urine Nitrate Urine Bilirubin Urine Urobilinogen Ur Leukocyte Bernadette ase Vitals: Last Vital Signs Temp 98.0 F 08/20/19 08:12 Pulse 94 08/20/19 08:12 Resp 18 08/20/19 08:12 BP 108/58 08/20/19 08:12 Pulse Ox 95 08/20/19 08:12 Discharge Plan Discharge Patient Disposition: Home, Self-Care Condition: Stable Prescriptions: No Action lisinopril 40 mg tablet 40 mg PO DAILY RF: 0 carvedilol 12.5 mg tablet 12.5 mg PO BID RF: 0 pantoprazole 40 mg tablet,delayed release (DR/EC) 40 mg PO DAILY RF: 0 metformin 1,000 mg tablet 1,000 mg PO BID RF: 0 furosemide [Lasix] 20 mg tablet 20 mg PO QAM PRN (Reason: Edema) RF: 0 potassium chloride [Klor-Con 10] 10 mEq tablet extended release 10 meq PO DAILY PRN (Reason: unknown) RF: 0 aspirin [Adult Low Dose Aspirin] 81 mg tablet,delayed release (DR/EC) 162 mg PO DAILY RF: 0 multivitamin Tablet 1 tab PO DAILY RF: 0 oxazepam 10 mg capsule 10 mg PO BID PRN (Reason: unknown) RF: 0 pravastatin 40 mg tablet 40 mg PO DAILY RF: 0 Basaglar KwikPen U-100 Insulin 100 unit/mL (3 mL) insulin pen 25 unit SUBCUT DAILY RF: 0 allopurinol 100 mg tablet 100 mg PO DAILY PRN (Reason: unknown) RF: 0 tamsulosin 0.4 mg Capsule 0.4 mg PO DAILY RF: 0 Discharge Orders: Discharge Order (Routine); Ordered 08/19/19 Ordered By: Elmer Calloway Referrals: Salas Quevedo MD [Primary Care Provider] - (You have an follow-up appointment with Dr. Quevedo on Sunday, August 24 at 2:30p.m. If you have any questions or need to reschedule. Please, call ) Patient Instructions: Heart Failure (DC), Acute Kidney Injury (DC), Hypertension (DC), Hyperlipidemia (DC), CHF Stoplight Activity Restrictions/Additional Instructions: Follow-up with medical provider as directed. Double furosemide potassium and follow-up with your doctor on Sunday return to the ER or your medical provider if condition worsens. Please read and understand discharge instructions. If any questions ask please. Discharge Date/Time: 08/20/19 08:55 Discharge Attestations Time Spent in Discharge Care*: less than 30 min Specific Discharge Activities: Specific discharge activities: evaluating patient/reviewing data Quality Metrics Clinical Quality Measures During this hospital stay, did patient experience: None Coding Level of Care Code Acute Support Technician for Telly Fwkat Diagnoses New onset of congestive heart failure I50.9 Acute renal failure N17.9 Acute renal failure type: unspecified Hyperkalemia E87.5 Hepatic congestion K76.1 Edema, peripheral R60.9 Hypertension I10 Hypertension type: essential hypertension Hyperlipidemia E78.2 Hyperlipidemia type: mixed hyperlipidemia Diabetes E11.65; Z79.4 Diabetes mellitus type: type 2 Diabetes mellitus half-way insulin use: with half-way use Diabetes mellitus complication status: with hyperglycemia ASHD (arteriosclerotic heart disease) I25.10
--- NOTE | 2019-08-20 14:53 | PC.NURSE ---
Contacted patient about changes in his follow up appointment; spoke with patients ; reports that she feel that patient is doing poorly, has SOB and wheezing however, patient was resting at initial contact with the . encouraged to bring patient back to the ER if he was still SOB. Patient then awoke; spoke with patient when asked how he was feeling Patient stated I don't want to talk about that Patient encouraged and educated that he should not wait to come back to the ER if he is not feeling well. Patient Stated its not so much me but my would like me to come back. Patient encouraged not to wait until his breathing became worse; he should return back to the ER . Patient up dates on new appointment time with Dr Quevedo primary care provider Tomorrow: at 11:00A.M. Patient verbalized understanding and teach back of appointment time noted.
--- NOTE | 2019-08-20 23:37 | USCV_ITS ---
Ryan Tim Age: 83 Gender: M : 1935 Exam Date: 08/20/2019 05:48 Ordering Phys: Juliana Tamayo MD Technologist: Tasha Velez Exam Location: [facility] [place] Indication: NEW ON SET OF CHF BP: 125 / 61 HR: 90 Rhythm: Sinus Technical Quality: Adequate MEASUREMENTS (Male / Female) Normal Values 2D ECHO LV Diastolic Diameter PLAX 5.3 cm 4.2 - 5.9 / 3.9 - 5.3 cm LV Systolic Diameter PLAX 3.3 cm LV Chamber Size 3.3 cm IVS Diastolic Thickness 1.2 cm 0.6 - 1.0 / 0.6 - 0.9 cm IVS Systolic Thickness 1.6 cm LVPW Diastolic Thickness 1.2 cm 0.6 - 1.0 / 0.6 - 0.9 cm LVPW Systolic Thickness 1.3 cm RV Chamber Size 2.6 cm LVOT Diameter 2.1 cm LV Ejection Fraction 2D Teich 66.7 % LV Ejection Fraction MOD 2C 57.9 % LV Ejection Fraction 2C AL 57.8 % LA Diameter 4.7 cm LA Width 3.5 cm LA Height 5.0 cm RA Width 2.9 cm RA Height 3.9 cm Aorta at Sinotubular Diameter 3.4 cm M-MODE LV Diastolic Diameter MM 4.6 cm 4.2 - 5.9 / 3.9 - 5.3 cm LV Systolic Diameter MM 2.7 cm LV Ejection Fraction MM Teich 71.6 % IVS Diastolic Thickness MM 1.2 cm 0.6 - 1.0 / 0.6 - 0.9 cm IVS Systolic Thickness MM 1.6 cm LVPW Diastolic Thickness MM 0.9 cm 0.6 - 1.0 / 0.6 - 0.9 cm LVPW Systolic Thickness MM 1.7 cm RV Diastolic Diameter MM 1.6 cm Aortic Annulus Diameter 4.1 cm LA Ao Ratio MM 1.1 MV E Point Septal Separation 0.5 cm DOPPLER AV Peak Velocity 120.0 cm/s LVOT Peak Velocity 98.0 cm/s AV Area Cont Eq vti 3.3 cm squared AV Area Cont Eq pk 2.7 cm squared MV Area PHT 5.5 cm squared Mitral E to A Ratio 1.2 MV E' Velocity 9.0 cm/s Mitral E to MV E' Ratio 11.4 Mitral E to LV E' Lateral Ratio 12.1 Mitral E to LV E' Septal Ratio 10.7 TR Peak Velocity 287.2 cm/s TR Peak Gradient 33.0 mmHg TR Mean Velocity 219.6 cm/s TR Mean Gradient 20.8 mmHg TR Velocity Time Integral 73.2 cm TV Peak E Velocity 73.0 cm/s Right Atrial Pressure 3.0 mmHg Pulmonary Artery Systolic Pressu 36.0 mmHg PV Peak Velocity 84.0 cm/s FINDINGS Left Ventricle Normal left ventricular size and systolic function, EF 59 %. No regional wall motion abnormalities. Right Ventricle The right ventricle is normal in size and function. Right Atrium The right atrium is normal in size. Left Atrium The left atrium is normal in size. Mitral Valve Mild mitral annular calcification. Aortic Valve No gross abnormalities noted Tricuspid Valve No gross abnormalities noted Pulmonic Valve No gross abnormalities noted.trace pulmonary valve regurgitation. Pericardium Normal pericardium without effusion. Aorta Normal ascending aorta dimension. CONCLUSIONS Normal left ventricular size and systolic function, EF 59 %. No regional wall motion abnormalities. Mild mitral annular calcification. Trace pulmonary valve regurgitation. There are no prior echocardiogram studies to compare. Dr Kevin Loo MD [facility] (Electronically Signed) Final Date: 20 August 2019 16:06 S
== END 2019-08-20 08:55 | disposition home or self-care (01) ==
LOC: ER 21:07 → CSU 08-20 07:24
PROVIDERS: Nurse Practitioner Family; Admitting Provider Internal Medicine; Emergency Provider Emergency Medicine; PCP Family Medicine; Visit Provider Family Medicine
DX: I50.9 Heart failure, unspecified (principal); N17.9 Acute kidney failure, unspecified; E87.5 Hyperkalemia; K76.1 Chronic passive congestion of liver; R60.9 Edema, unspecified; I10 Essential (primary) hypertension; E78.2 Mixed hyperlipidemia; E11.65 Type 2 diabetes mellitus with hyperglycemia; Z79.4 Long term (current) use of insulin; I25.10 Atherosclerotic heart disease of native coronary artery without angina pectoris; K21.9 Gastro-esophageal reflux disease without esophagitis; M19.90 Unspecified osteoarthritis, unspecified site; Z87.891 Personal history of nicotine dependence; Z79.82 Long term (current) use of aspirin
CPT/HCPCS: 12345; 36415; 36416; 71045; 74150; 80048; 80053; 81003; 82962; 83880; 84443; 84484; 85025; 93005; 93306; 96372; 99283; 99285; A9270; G0378; J1644

== ENCOUNTER 2019-10-20 08:02 | Outpatient (CLI) | payer MEDICARE, OTHER, SELFPAY ==
--- NOTE | 2019-10-20 08:12 | CT_ITS ---
WS: [id number] CT ABDOMEN WITH CONTRAST HISTORY: GENERALIZED ABDOMINAL PAIN Contiguous single phase 5 mm axial imaging performed to the abdomen. Oral contrast has been provided. Coronal and sagittal reformats are submitted. All CT scans at [facility] use at least on e of these dose optimization techniques: automated exposure control; mA and/or kV adjustment per greg ent size (includes targeted exams where dose is matched to clinical indication); or iterative reconst ruction. CONTRAST: Visipaque 320; 95 mL IV. DLP: 943.93 mGycm COMPARISON: 08/19/2019 Lower thorax: Lung bases are clear. Mild dependent changes just above the diaphragms. Heart size is n ormal with a small pericardial effusion which is stable. Liver: Normal. No intrahepatic dilatation. Gallbladder: Prior cholecystectomy. Pancreas: Mild atrophy of the pancreas. No acute inflammatory process or mass. Spleen: Normal. Adrenals: Normal. Right kidney: Mild perinephric stranding and atrophy. There are several cysts with the largest medial ly from the inferior kidney measuring 5.6 cm. No solid mass or obstruction. Left kidney: Mild perinephric stranding and moderate atrophy. Cortical calcification in the upper namrata e measures 12 mm. There are small cysts in the mid to lower kidney. No solid mass. There is very slig ht prominence of the LEFT renal pelvis similar to the prior study. No ureteral obstruction. No hydron ephrosis. Aorta: Mild atherosclerosis. No aneurysm. GI tract: Normal appendix. Visualized GI tract is negative for obstruction. There are a few diverticu la noted in the descending colon without acute inflammation. In the central mesentery there is a linear area of increased soft tissue with mesenteric retraction a nd calcification measuring 5.7 x 1.6 cm. There is an additional irregular shaped mesenteric nodule me asuring 2.3 x 1.5 cm more centrally. No interval change in appearance. 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 Differential would include desmoid and fibrosis. No progression. No adjacent lymph n odes. Abdominal wall: No hernia. Visualized osseous structures: Advanced degenerative changes in the lower lumbar spine. L3 and L4 ret rolisthesis by [address]/CT abdomen w con* [id number] IMPRESSION: 1. Fibrosis with calcification and tethering in the central mesentery is uncha nged since 08/19/2019. 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 2. Bilateral renal cysts and bilateral mild renal atrophy. 3. Mild atherosclerosis aorta. 4. Prior cholecystectomy. 5. No interval change since 08/19/2019.
[2019-10-20] MEDS: iodixanol 320 mg/mL 100mL Btl IV (09:05)
== END 2019-10-20 08:03 | disposition home or self-care (01) ==
LOC: RADWPI 08:07
PROVIDERS: PCP Family Medicine; Visit Provider Family Medicine
DX: R10.84 Generalized abdominal pain (principal); I70.0 Atherosclerosis of aorta; N28.1 Cyst of kidney, acquired; N26.1 Atrophy of kidney (terminal)
CPT/HCPCS: 74160; Q9967

== ENCOUNTER 2020-03-26 08:29 | Outpatient (CLI) | payer MEDICARE, OTHER, SELFPAY ==
--- NOTE | 2020-03-26 08:57 | CT_ITS ---
WS: [id number] CT ABDOMEN WITH CONTRAST HISTORY: ABDOMINAL MASS Contiguous single phase 5 mm axial imaging performed to the abdomen. Oral contrast has been provided. Coronal and sagittal reformats are submitted. All CT scans at [facility] use at least on e of these dose optimization techniques: automated exposure control; mA and/or kV adjustment per greg ent size (includes targeted exams where dose is matched to clinical indication); or iterative reconst ruction. CONTRAST: Visipaque 320; 95 mL IV. DLP: 866.72 mGycm COMPARISON: 10/20/2019 and 08/19/2019 Lower thorax: Mild enlargement of the heart chambers. Small hiatal hernia. Liver: Normal. No intrahepatic dilatation. Gallbladder: 2 Pancreas: Moderate atrophy of the pancreas. No pancreatitis or mass. Spleen: Normal. Adrenals: Normal. Right kidney: Mild cortical thinning and perinephric stranding. Renal cysts with the largest extendin g medially measuring 5.7 x 4.6 cm. No solid mass or obstruction. Left kidney: Multiple renal cysts. Extrarenal pelvis on the LEFT. Nonobstructing calcification in the upper pole measures 8 mm. Aorta: 2 GI tract: As visualized no obstructive pattern. Increased fecal material in the RIGHT colon. No adenopathy or ascites. Again noted is the area of mesenteric thickening and fibrosis with calcific ation centrally measuring 5.9 x 1.0 cm. No progression since the prior study. Abdominal wall: No hernia. Visualized osseous structures: Moderate spondylitic changes in the lumbar spine. Disc space narrowing and desiccation. CT/CT abdomen w con* [id number] IMPRESSION: 1. 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 2. No increasing lymph nodes or adenopathy or ascites. 3. Prior cholecystectomy. 4. Small hiatal hernia. 5. Bilateral renal cysts.
[2020-03-26] MEDS: iohexol 300 mg/mL 50 mL Btl PO (09:18)
[2020-03-26] MEDS: iodixanol 320 mg/mL 100mL Btl IV (09:48)
== END 2020-03-26 08:30 | disposition home or self-care (01) ==
LOC: RADWPI 08:36
PROVIDERS: PCP Family Medicine; Visit Provider Family Medicine
DX: R19.00 Intra-abdominal and pelvic swelling, mass and lump, unspecified site (principal); N28.1 Cyst of kidney, acquired; K44.9 Diaphragmatic hernia without obstruction or gangrene; Z90.49 Acquired absence of other specified parts of digestive tract; M72.9 Fibroblastic disorder, unspecified
CPT/HCPCS: 74160; Q9967

== ENCOUNTER 2020-05-26 07:49 | Outpatient (CLI) | payer MEDICARE, OTHER, SELFPAY ==
[2020-05-26 08:09] VITALS: BMI 32.5
--- NOTE | 2020-05-26 08:53 | ECG_ITS ---
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 Interpretive Statements NAME OF STUDY: LEXISCAN SESTAMIBI STRESS TEST INDICATION: CHF, PROCEDURE: At the baseline, the EKG revealed normal sinus rhythm with some nonspecific ST changes in the precordial and inferior leads.. The baseline blood pressure was 168/86 mm Hg with a heart rate of 23 beats/min. Lexiscan was infused over a period of 20 seconds. A total of 0.4 milligrams of Lexiscan was infused. The stress phase was continued for a total of 5 minutes. Heart rate at the end of the stress phase was 92 with a blood pressure 162/71. The EKG at the peak infusion revealed more prominent ST changes in the inferior and precordial leads. Some PVCs also were noted during the Lexiscan infusion. Sestamibi was injected 20 seconds after the Lexiscan infusion. Blood pressure at the end of the recovery phase was 157/70 with a heart rate of 89 per minute. CONCLUSION: 1. Nonspecific EKG changes with the LexiScan infusion 2. No LexiScan induced chest pain or cardiac arrhythmia 3. Normal blood pressure and heart rate response 4. Sestamibi/sestamibi perfusion scan pending; see separate report. Electronically Signed On 05-27-2020 8:46:51 CDT by Kevin Loo M.D. [email or web address]
--- NOTE | 2020-05-26 08:53 | NMCV_ITS ---
NM carli perf SPECT r/s* [id number] Ryan Tim Age: 84 Gender: M : 1935 Exam Date: 05/26/2020 08:53 Ordering Phys: Kevin Loo MD ([email or web address]) Technologist: FREDERICK Munoz Exam Location: [facility] Indications: SOB STRESS TEST [facility] IMAGE PROTOCOL Rest/Stress 1 Lexiscan Day Radiopharmaceutical Dose (mCi) Administration Site Administered by Rest: Tc-99m 10.7 IV FREDERICK Munoz Sestamibi Stress:Tc-99m 32.8 IV FREDERICK Munoz Sestamiabdirizak Rest: 26-May-2020 60 Discovery 630 Stress: 26-May-2020 45 Discovery 630 0.4mg Lexiscan. Images obtained in supine and prone position. SPECT RESULTS Technical Quality: Good Raw Data Analysis: Normal Image Corrections: No attenuation or motion correction applied Summed Stress Score: 2 Summed Rest Score: 9 Summed Difference Score: 0 PERFUSION FINDINGS Moderate area of slightly decreased tracer uptake in the inferior, inferolateral and inferoseptal regions. No significant segmental wall motion analysis revealing no gross wall motion normalities. Reversibility was noted in these regions. FUNCTIONAL RESULTS (calculated via Gated SPECT) Stress Image LV EF (%): 74 Stress EDV (mL):84 TID: 0.87 Stress ESV (mL):22 FUNCTIONAL FINDINGS: Segmental wall motion analysis revealing no gross wall motion normalities IMPRESSIONS 1. Myocardial perfusion may revealing moderate area of slightly decreased persistent tracer uptake in the inferior, inferoseptal infero-lateral regions, suggestive of medical scarring versus attenuation artifact. 2. Normal ejection fraction 74%. 3. LV wall motion analysis revealing no gross wall motion normalities. 4. Normal LV volume. No significant coronary ischemia, based on the above findings Dr Kevin Loo MD [facility] (Electronically Signed) Final Date: 26 May 2020 19:01 S
[2020-05-26 10:07] VITALS: BP 157/70; PULSE 90
== END 2020-05-26 07:50 | disposition home or self-care (01) ==
LOC: CDL 07:57
PROVIDERS: PCP Family Medicine; Visit Provider Internal Medicine Cardiovascular Disease
DX: R06.02 Shortness of breath (principal); I25.10 Atherosclerotic heart disease of native coronary artery without angina pectoris; I50.9 Heart failure, unspecified
CPT/HCPCS: 78452; 93017; A9500; J2785

== ENCOUNTER → 2020-09-28 11:27 | Outpatient (BNVA) | payer MEDICARE, OTHER, SELFPAY | PROVIDERS: PCP Family Medicine; Referring Provider Family Medicine; Visit Provider Orthopaedic Surgery | DX: M19.011 Primary osteoarthritis, right shoulder (principal); M25.511 Pain in right shoulder | CPT/HCPCS: 73030 ==

== ENCOUNTER 2020-11-28 11:57 | Outpatient (CLI) | payer MEDICARE, OTHER, SELFPAY ==
--- NOTE | 2020-11-28 12:40 | XRR_ITS ---
PROCEDURE INFORMATION: Exam: XR Chest Exam date and time: 11/28/2020 12:40 PM Age: 84 years old Clinical indication: Shortness of breath; Additional info: Cough TECHNIQUE: Imaging protocol: XR of the chest. Views: 2 views. COMPARISON: CR XR chest 1V portable [id number] 08/19/2019 6:26 PM FINDINGS: Lungs: Bilateral lower lobe atelectasis No consolidation. Pleural spaces: Unremarkable. No pleural effusion. No pneumothorax. Heart/Mediastinum: Unremarkable. No cardiomegaly. Bones/joints: Metallic hardware cervical spine XR/XR chest 2V* [id number] IMPRESSION: 1. No acute findings. 2. Metallic hardware cervical spine
== END 2020-11-28 11:58 | disposition home or self-care (01) ==
PROVIDERS: PCP Family Medicine; Visit Provider Registered Nurse Neonatal Intensive Care
DX: R05 Cough (principal)
CPT/HCPCS: 71046

== ENCOUNTER 2020-11-28 15:32 | Emergency (ER) | payer MEDICARE, OTHER, SELFPAY ==
[2020-11-28 15:40] VITALS: BP 127/58; PULSE 75; RESP 18; TEMP 36.6; O2SAT 93; BMI 32.5
--- NOTE | 2020-11-28 15:45 | W.ED.SOB ---
Documented by User: Indra Miller MD 11/30/20 22:07 HPI - SOB/Dyspnea General: Chief Complaint: Shortness of Breath/Dyspnea Stated Complaint: Difficulty breathing, cough Time Seen by Provider: 11/28/20 15:44 History of Present Illness: HPI Narrative: Mr. Tim is an 84-year-old gentleman with history of hypertension, hyperlipidemia, heart failure, diabetes, and history of kidney disease who presents the emergency department due to shortness of breath and cough. Symptom onset was approximately 1 week ago. He began having respiratory symptoms after pulling up old carpet in the house with a lot of dust. He had congestion, cough, and shortness of breath with this that was moderate in intensity. He saw his PCP and was started on antibiotics and steroids which she completed today. He endorses continued symptoms however has also noted lower extremity edema and orthopnea the past 2 nights. Overall the course of symptoms has been worsening over the past 2 days. No infectious symptoms. No other changes in health reported. He does have Lasix at home but does not routinely take it and has not taken it for this. No other specific exacerbating or alleviating factors identified. Review of Systems General: Reports: 10 or more systems reviewed and unremarkable except in HPI and below PFSH ED PFSH: Medical History ASHD (arteriosclerotic heart disease) -follows up with Dr. Loo Atherosclerotic heart disease of [place] coronary artery without angina pectoris EKG in August 2019- NSR with some non specific T wave changes Diabetes -insulin requiring Edema, peripheral -likely secondary to acute CHF exacerbation GERD (gastroesophageal reflux disease) Gout Hyperlipidemia -on statin Hypertension -on oral antihypertensives Osteoarthritis Hands, hips, knees and spine, lumbar spondylosis Type 2 diabetes mellitus Surgical History History of cataract surgery History of cholecystectomy History of hemorrhoidectomy History of hip surgery History of knee surgery History of rotator cuff surgery Family History Other CAD (coronary artery disease) Cancer Diabetes Hyperlipidemia Hypertension Social History Smoking and tobacco status: former smoker Alcohol intake: never Physical Exam Narrative: EXAM NARRATIVE: GENERAL/CONSTITUTIONAL -mildly ill-appearing. No acute distress. Eyes - PERRL, no conjunctival injection ENMT - Atraumatic external nose and ears. Moist mucous membranes NECK - supple. trachea midline CARDIOVASCULAR - regular rate and rhythm. Peripheral pulses 2+ and equal RESPIRATORY -clear to auscultation bilaterally. No retractions or accessory muscle use. ABDOMEN/GI - Nontender/Nondistended. No tenderness to percussion or evidence of peritonitis MSK - Extremities without obvious deformity or tenderness to palpation SKIN - Warm, Dry NEURO - alert and appropriately oriented. strength and sensation intact. Moves all extremities equally. PSYCH - Appropriate mood and affect Course ED course: - Patient was seen and evaluated by me at bedside - Patient placed on cardiac monitors, IV access obtained - Initial evaluation notable for no acute distress, nontoxic appearance. -Patient previously vaccinated against Covid. - Labs notable for mild leukocytosis, difficult to interpret in the context of recent steroid use. Near baseline normocytic anemia. Creatinine improved from prior though this was greater than 1 year ago. - Imaging notable for no lobar consolidation - Upon serial reexamination after treatment the patient was similar - Patient care handed off to Dr. Vicente pending repeat troponin with likely plan to discharge on course of antibiotics. Vital Signs: Vital signs: Vital Signs Temperature 97.9 F 11/28/20 19:05 Pulse Rate 79 11/28/20 19:05 Respiratory Rate 20 H 11/28/20 19:05 Blood Pressure 125/61 11/28/20 19:05 Pulse Oximetry 93 11/28/20 19:05 MDM - SOB/Dyspnea Medical Records: Attestation: I reviewed the patient's medical records. Lab Data: Attestation: I reviewed the patient's lab results. Labs: Lab Results 11/28/20 11/28/20 11/28/20 16:06 16:06 16:06 WBC 12.7 10^3/uL H 10 ^3/uL (4.0-10.0) RBC 3.47 10^6/uL L 10 ^6/uL (4.1-5.3) Hgb 10.8 g/dL L g/dL (11.7-16.6) Hct 34.2 % L % (42.0-52.0) MCV 98.6 fl H fl (80-94) MCH 31.1 pg pg (28.0-34.0) MCHC 31.6 g/dL g/dL (30.0-36.0) RDW 14.2 % % (12.1-15.1) Plt Count 210 10^3/cmm 10^3 /cmm (130-400) MPV 9.9 fL fL (7.4-10.4) Neut % (Auto) 79.8 % % Lymph % (Auto) 10.1 % % [place] % (Auto) 7.1 % % Eos % (Auto) 2.1 % % Baso % (Auto) 0.4 % % Neut # (Auto) 10.16 10^3/uL H 1 0^3/uL (1.8-7.7) Lymph # (Auto) 1.3 10^3/uL 10^3/ uL (0.8-4.8) [place] # (Auto) 0.9 10^3/uL 10^3/ uL (0.2-0.9) Eos # (Auto) 0.3 10^3/uL 10^3/ uL (0.0-0.8) Baso # (Auto) 0.1 10^3/uL 10^3/ uL (0.0-0.1) Nucleated RBC % (a uto) 0 % % Nucleated RBCs # 0.0 /100WBC /100W BC Sodium 138 mmol/L mmol/L (136-145) Potassium 4.5 mmol/L mmol/L (3.5-5.1) Chloride 102 mmol/L mmol/L (98-107) Carbon Dioxide 25 mmol/L mmol/L (22-29) Anion Gap 15.5 (5-19) BUN 38 mg/dL H mg/dL (8-23) Creatinine 1.6 mg/dL H mg/dL (0.7-1.2) GFR Calculation Not Reportable Glucose 114 mg/dL mg/dL (65-115) Calculated Osmolal ity 296 mOsm/kg H mOs m/kg (285-295) Lactic Acid 1.4 mmol/L mmol/L (0.5-2.2) Calcium 8.2 mg/dL L mg/dL (8.5-10.5) Total Bilirubin 0.4 mg/dL mg/dL (0.15-1.2) AST 39 U/L U/L (0-40) ALT 29 U/L U/L (0-41) Alkaline Phosphata se 87 IU/L IU/L (40-130) Troponin T Baselin e Troponin T 120 Min [place] Delta Troponin T NT-Pro-B Natriuret Pep 277 pg/mL pg/mL (0-450) Total Protein 6.0 g/dL L g/dL (6.6-8.7) Albumin 3.3 g/dL L g/dL (3.5-5.2) Globulin 2.7 g/dL g/dL (1.3-4.6) 11/28/20 11/28/20 16:06 18:25 WBC RBC Hgb Hct MCV MCH MCHC RDW Plt Count MPV Neut % (Auto) Lymph % (Auto) [place] % (Auto) Eos % (Auto) Baso % (Auto) Neut # (Auto) Lymph # (Auto) [place] # (Auto) Eos # (Auto) Baso # (Auto) Nucleated RBC % (a uto) Nucleated RBCs # Sodium Potassium Chloride Carbon Dioxide Anion Gap BUN Creatinine GFR Calculation Glucose Calculated Osmolal ity Lactic Acid Calcium Total Bilirubin AST ALT Alkaline Phosphata se Troponin T Baselin e 57 ng/L H ng/L (0-15) Troponin T 120 Min [place] 46.25 ng/L H ng/L (0-15) Delta Troponin T -10.75 ABS# L ABS # (0-10) NT-Pro-B Natriuret Pep Total Protein Albumin Globulin EKG Data^: EKG 1: Attestation: I personally reviewed and interpreted this EKG as follows: EKG Interpretation Date: 11/28/20 EKG interpretation time: 16:00 Interpretation: Twelve-lead EKG shows a regular sinus rhythm at a rate of 75. CA interval 191, QRS duration 98, QTc 399. Normal axis. Interpretation sinus rhythm. Slightly limited evaluation of lead III secondary to baseline though no contiguous leads have concerning elevation. Discharge Plan Discharge Patient Disposition: Home Clinical Impression: Shortness of breath, Malaise and fatigue Condition: Stable Prescriptions: New doxycycline hyclate 100 mg tablet 100 mg PO BID 7 Days Qty: 14 RF: 0 No Action Levemir FlexTouch U-100 Insuln 100 unit/mL (3 mL) insulin pen 50 unit SUBCUT DAILY Qty: 15 RF: 3 benzonatate [Tessalon Perles] 100 mg capsule 100 mg PO BID PRN (Reason: cough) Qty: 10 RF: 0 lisinopril 40 mg tablet 40 mg PO DAILY RF: 0 pantoprazole 40 mg tablet,delayed release (DR/EC) 40 mg PO DAILY RF: 0 furosemide [Lasix] 20 mg tablet 20 mg PO DAILY PRN (Reason: Edema) RF: 0 potassium chloride [Klor-Con 10] 10 mEq tablet extended release 10 meq PO DAILY PRN (Reason: unknown) RF: 0 aspirin [Adult Low Dose Aspirin] 81 mg tablet,delayed release (DR/EC) 81 mg PO BID RF: 0 multivitamin Tablet 1 tab PO DAILY RF: 0 pravastatin 40 mg tablet 40 mg PO DAILY RF: 0 allopurinol 100 mg tablet 100 mg PO DAILY PRN (Reason: Gout) RF: 0 metformin 1,000 mg tablet 500 mg PO BID RF: 0 ezetimibe [Zetia] 10 mg tablet 10 mg PO DAILY Qty: 30 RF: 5 Mucinex D Maximum Strength 120-1,200 mg Tablet Extended Release 12 Hr 1 tab PO Q12H PRN (Reason: cold/cough symptoms) RF: 0 tamsulosin 0.4 mg Capsule 0.4 mg PO DAILY RF: 0 azithromycin 250 mg Tablet See Rx Instructions .ROUTE .COMPLEX RF: 0 montelukast 10 mg Tablet 10 mg PO DAILY RF: 0 carvedilol 12.5 mg tablet 12.5 mg PO BID RF: 0 Discharge Orders: Discharge ED (Routine); Ordered 11/28/20 Ordered By: Ta Vicente Referrals: Salas Quevedo MD [Primary Care Provider] - 1-3 days Discharge Diet: Usual diet Discharge Activity: Resume usual activity Patient Instructions: Dyspnea (ED), Fatigue (ED) Activity Restrictions/Additional Instructions: Thank you for visiting the emergency department. You were seen and evaluated for continued shortness of breath. The exact cause of your symptoms is unclear, it is possibly related to increased inflammation from environmental exposure, a viral illness, or atypical bacterial infection. Please followup with your PCP. Please return to the ED for worsening of symptoms or anything else that you are concerned about and feel needs ED evaluation. Coding Level of Care Code ED Fire[employer] C[employer] for Telly Fermind Documented by User: Ta Vicente MD 11/28/20 19:04 HPI - SOB/Dyspnea General: Chief Complaint: Shortness of Breath/Dyspnea Stated Complaint: Difficulty breathing, cough Time Seen by Provider: 11/28/20 15:44 PFSH ED PFSH: Medical History ASHD (arteriosclerotic heart disease) -follows up with Dr. Loo Atherosclerotic heart disease of [place] coronary artery without angina pectoris EKG in August 2019- NSR with some non specific T wave changes Diabetes -insulin requiring Edema, peripheral -likely secondary to acute CHF exacerbation GERD (gastroesophageal reflux disease) Gout Hyperlipidemia -on statin Hypertension -on oral antihypertensives Osteoarthritis Hands, hips, knees and spine, lumbar spondylosis Type 2 diabetes mellitus Surgical History History of cataract surgery History of cholecystectomy History of hemorrhoidectomy History of hip surgery History of knee surgery History of rotator cuff surgery Family History Other CAD (coronary artery disease) Cancer Diabetes Hyperlipidemia Hypertension Social History Smoking and tobacco status: former smoker Alcohol intake: never Course Vital Signs: Vital signs: Vital Signs Temperature 97.9 F 11/28/20 19:05 Pulse Rate 79 11/28/20 19:05 Respiratory Rate 20 H 11/28/20 19:05 Blood Pressure 125/61 11/28/20 19:05 Pulse Oximetry 93 11/28/20 19:05 MDM - SOB/Dyspnea MDM Narrative: Medical decision making narrative: Patient presents here with cough with likely bronchitis. He is well-appearing here and his blood work usually normal along with normal x-ray. We will place him on doxycycline. He is to follow-up his PCP and return if worsening. Lab Data: Labs: Lab Results 11/28/20 11/28/20 11/28/20 16:06 16:06 16:06 WBC 12.7 10^3/uL H 10 ^3/uL (4.0-10.0) RBC 3.47 10^6/uL L 10 ^6/uL (4.1-5.3) Hgb 10.8 g/dL L g/dL (11.7-16.6) Hct 34.2 % L % (42.0-52.0) MCV 98.6 fl H fl (80-94) MCH 31.1 pg pg (28.0-34.0) MCHC 31.6 g/dL g/dL (30.0-36.0) RDW 14.2 % % (12.1-15.1) Plt Count 210 10^3/cmm 10^3 /cmm (130-400) MPV 9.9 fL fL (7.4-10.4) Neut % (Auto) 79.8 % % Lymph % (Auto) 10.1 % % [place] % (Auto) 7.1 % % Eos % (Auto) 2.1 % % Baso % (Auto) 0.4 % % Neut # (Auto) 10.16 10^3/uL H 1 0^3/uL (1.8-7.7) Lymph # (Auto) 1.3 10^3/uL 10^3/ uL (0.8-4.8) [place] # (Auto) 0.9 10^3/uL 10^3/ uL (0.2-0.9) Eos # (Auto) 0.3 10^3/uL 10^3/ uL (0.0-0.8) Baso # (Auto) 0.1 10^3/uL 10^3/ uL (0.0-0.1) Nucleated RBC % (a uto) 0 % % Nucleated RBCs # 0.0 /100WBC /100W BC Sodium 138 mmol/L mmol/L (136-145) Potassium 4.5 mmol/L mmol/L (3.5-5.1) Chloride 102 mmol/L mmol/L (98-107) Carbon Dioxide 25 mmol/L mmol/L (22-29) Anion Gap 15.5 (5-19) BUN 38 mg/dL H mg/dL (8-23) Creatinine 1.6 mg/dL H mg/dL (0.7-1.2) GFR Calculation Not Reportable Glucose 114 mg/dL mg/dL (65-115) Calculated Osmolal ity 296 mOsm/kg H mOs m/kg (285-295) Lactic Acid 1.4 mmol/L mmol/L (0.5-2.2) Calcium 8.2 mg/dL L mg/dL (8.5-10.5) Total Bilirubin 0.4 mg/dL mg/dL (0.15-1.2) AST 39 U/L U/L (0-40) ALT 29 U/L U/L (0-41) Alkaline Phosphata se 87 IU/L IU/L (40-130) Troponin T Baselin e Troponin T 120 Min [place] Troponin T NT-Pro-B Natriuret Pep 277 pg/mL pg/mL (0-450) Total Protein 6.0 g/dL L g/dL (6.6-8.7) Albumin 3.3 g/dL L g/dL (3.5-5.2) Globulin 2.7 g/dL g/dL (1.3-4.6) 11/28/20 11/28/20 16:06 18:25 WBC RBC Hgb Hct MCV MCH MCHC RDW Plt Count MPV Neut % (Auto) Lymph % (Auto) [place] % (Auto) Eos % (Auto) Baso % (Auto) Neut # (Auto) Lymph # (Auto) [place] # (Auto) Eos # (Auto) Baso # (Auto) Nucleated RBC % (a uto) Nucleated RBCs # Sodium Potassium Chloride Carbon Dioxide Anion Gap BUN Creatinine GFR Calculation Glucose Calculated Osmolal ity Lactic Acid Calcium Total Bilirubin AST ALT Alkaline Phosphata se Troponin T Baselin e 57 ng/L H ng/L (0-15) Troponin T 120 Min [place] 46.25 ng/L H ng/L (0-15) Delta Troponin T -10.75 ABS# L ABS # (0-10) NT-Pro-B Natriuret Pep Total Protein Albumin Globulin Discharge Plan Discharge Patient Disposition: Home Clinical Impression: Shortness of breath, Malaise and fatigue Condition: Stable Prescriptions: New doxycycline hyclate 100 mg tablet 100 mg PO BID 7 Days Qty: 14 RF: 0 No Action Levemir FlexTouch U-100 Insuln 100 unit/mL (3 mL) insulin pen 50 unit SUBCUT DAILY Qty: 15 RF: 3 benzonatate [Tessalon Perles] 100 mg capsule 100 mg PO BID PRN (Reason: cough) Qty: 10 RF: 0 lisinopril 40 mg tablet 40 mg PO DAILY RF: 0 pantoprazole 40 mg tablet,delayed release (DR/EC) 40 mg PO DAILY RF: 0 furosemide [Lasix] 20 mg tablet 20 mg PO DAILY PRN (Reason: Edema) RF: 0 potassium chloride [Klor-Con 10] 10 mEq tablet extended release 10 meq PO DAILY PRN (Reason: unknown) RF: 0 aspirin [Adult Low Dose Aspirin] 81 mg tablet,delayed release (DR/EC) 81 mg PO BID RF: 0 multivitamin Tablet 1 tab PO DAILY RF: 0 pravastatin 40 mg tablet 40 mg PO DAILY RF: 0 allopurinol 100 mg tablet 100 mg PO DAILY PRN (Reason: Gout) RF: 0 metformin 1,000 mg tablet 500 mg PO BID RF: 0 ezetimibe [Zetia] 10 mg tablet 10 mg PO DAILY Qty: 30 RF: 5 Mucinex D Maximum Strength 120-1,200 mg Tablet Extended Release 12 Hr 1 tab PO Q12H PRN (Reason: cold/cough symptoms) RF: 0 tamsulosin 0.4 mg Capsule 0.4 mg PO DAILY RF: 0 azithromycin 250 mg Tablet See Rx Instructions .ROUTE .COMPLEX RF: 0 montelukast 10 mg Tablet 10 mg PO DAILY RF: 0 carvedilol 12.5 mg tablet 12.5 mg PO BID RF: 0 Discharge Orders: Discharge ED (Routine); Ordered 11/28/20 Ordered By: Ta Vicente Referrals: Salas Quevedo MD [Primary Care Provider] - 1-3 days Discharge Diet: Usual diet Discharge Activity: Resume usual activity Patient Instructions: Dyspnea (ED), Fatigue (ED) Activity Restrictions/Additional Instructions: Thank you for visiting the emergency department. You were seen and evaluated for continued shortness of breath. The exact cause of your symptoms is unclear, it is possibly related to increased inflammation from environmental exposure, a viral illness, or atypical bacterial infection. Please followup with your PCP. Please return to the ED for worsening of symptoms or anything else that you are concerned about and feel needs ED evaluation. Coding Level of Care Code ED [employer] C[employer] for Telly Tatum
--- NOTE | 2020-11-28 15:46 | ECG_ITS ---
[facility] Test Date: 2020-11-28 Pat Name: Ryan Tim Department: Room: Gender: Male Biological Inspector: : 1935 Requested By: Indra Miller Order Number: [id number] Vicente MD: Kevin Loo M.D. Measurements Intervals [place] Rate: 75 P: 47 WI: 191 QRS: 52 QRSD: 98 T: 55 QT: 356 QTc: 399 Interpretive Statements SINUS RHYTHM Compared to ECG 08/19/2019 18:30:21 T-wave abnormality no longer present Electronically Signed On 11-28-2020 18:07:22 CDT by Kevin Loo M.D. [id number]
[2020-11-28 16:24] VITALS: BP 115/55; PULSE 75; RESP 18; O2SAT 92
[2020-11-28 16:36] LABS: Basophils # 0.1 10^3/uL (0.0-0.1); Basophils % 0.4 %; Eosinophils # 0.3 10^3/uL (0.0-0.8); Eosinophils % 2.1 %; Hematocrit 34.2 % (42.0-52.0); Hemoglobin 10.8 g/dL (11.7-16.6); Lymphocytes # 1.3 10^3/uL (0.8-4.8); Lymphocytes % 10.1 %; Mean Corpuscular HGB Conc 31.6 g/dL (30.0-36.0); Mean Corpuscular Hemoglobin 31.1 pg (28.0-34.0); Mean Corpuscular Volume 98.6 fl (80-94); Mean Platelet Volume 9.9 fL (7.4-10.4); Monocytes # 0.9 10^3/uL (0.2-0.9); Monocytes % 7.1 %; Neutrophils # 10.16 10^3/uL (1.8-7.7); Neutrophils % 79.8 %; Nucleated Red Blood Cells % 0 %; Platelet Count 210 10^3/cmm (130-400); Red Blood Count 3.47 10^6/uL (4.1-5.3); Red Cell Distribution Width 14.2 % (12.1-15.1); White Blood Count 12.7 10^3/uL (4.0-10.0)
[2020-11-28 16:48] LABS: Lactic Sepsis W/Reflex 1.4 mmol/L (0.5-2.2)
[2020-11-28 16:50] LABS: Troponin(5th) Baseline 57 ng/L (0-15)
[2020-11-28 16:53] LABS: Alanine Aminotransferase 29 U/L (0-41); Albumin Level 3.3 g/dL (3.5-5.2); Alkaline Phosphatase 87 IU/L (40-130); Anion Gap 15.5 (5-19); Aspartate Amino Transferase 39 U/L (0-40); Blood Urea Nitrogen 38 mg/dL (8-23); Calcium 8.2 mg/dL (8.5-10.5); Carbon Dioxide 25 mmol/L (22-29); Chloride 102 mmol/L (98-107); Globulin 2.7 g/dL (1.3-4.6); Glucose 114 mg/dL (65-115); NT Pro B Type Natriuretic Pept 277 pg/mL (0-450); Osmolality Calculated 296 mOsm/kg (285-295); Potassium 4.5 mmol/L (3.5-5.1); Sodium 138 mmol/L (136-145); Total Bilirubin 0.4 mg/dL (0.15-1.2)
[2020-11-28 16:58] VITALS: BP 115/55; PULSE 70; RESP 19; O2SAT 95
[2020-11-28 18:50] LABS: Troponin 5 2HR 46.25 ng/L (0-15)
[2020-11-28 18:52] LABS: Troponin 5 2HR Delta -10.75 ABS# (0-10)
[2020-11-28 19:05] VITALS: BP 125/61; PULSE 79; RESP 20; TEMP 36.6; O2SAT 93
== END 2020-11-28 19:06 | disposition home or self-care (01) ==
PROVIDERS: Emergency Medicine; Emergency Provider Emergency Medicine; PCP Family Medicine
DX: R06.02 Shortness of breath (principal); R53.81 Other malaise; R53.83 Other fatigue; Z79.4 Long term (current) use of insulin; Z79.82 Long term (current) use of aspirin; I25.10 Atherosclerotic heart disease of native coronary artery without angina pectoris; E11.9 Type 2 diabetes mellitus without complications; E78.5 Hyperlipidemia, unspecified; I10 Essential (primary) hypertension; Z87.891 Personal history of nicotine dependence; R05 Cough
CPT/HCPCS: 80053; 83605; 83880; 84484; 85025; 93005; 99284

== ENCOUNTER 2020-11-30 12:10 | Inpatient (IN) | payer MEDICARE, OTHER, SELFPAY ==
[2020-11-30] VITALS (8 sets, daily range): BP systolic 122–151; BP diastolic 53–75; PULSE 77–88; RESP 17–20; TEMP 36.7–37.2; O2SAT 87–93; BMI 32.5
--- NOTE | 2020-11-30 13:06 | W.ED.SOB ---
HPI - SOB/Dyspnea General: Chief Complaint: Shortness of Breath/Dyspnea Stated Complaint: FEELING WORSE: LAST SEEN 11.28, DIFF BREATHING Time Seen by Provider: 11/30/20 13:05 History of Present Illness: HPI Narrative: Mr Tim is a 84 yo gentleman with history of htn, hld, chf, dm who returns to the ED for respiratory symptoms. Symptom onset about 1 week ago after pulling up old carpet. Cough and SOB which is worse with exertion associated general malaise. Moderate to severe intensity. Tried steroids and zpack outpatient and returned to ED 2 days ago and discharged on doxycycline. Worsening again since then. Worse at night. Moderate to severe intensity. No new symptoms otherwise reported. Review of Systems General: Reports: 10 or more systems reviewed and unremarkable except in HPI and below PFSH ED PFSH: Medical History ASHD (arteriosclerotic heart disease) -follows up with Dr. Loo Atherosclerotic heart disease of [place] coronary artery without angina pectoris EKG in August 2019- NSR with some non specific T wave changes Diabetes -insulin requiring Edema, peripheral -likely secondary to acute CHF exacerbation GERD (gastroesophageal reflux disease) Gout Hyperlipidemia -on statin Hypertension -on oral antihypertensives Osteoarthritis Hands, hips, knees and spine, lumbar spondylosis Type 2 diabetes mellitus Surgical History History of cataract surgery History of cholecystectomy History of hemorrhoidectomy History of hip surgery History of knee surgery History of rotator cuff surgery Family History Other CAD (coronary artery disease) Cancer Diabetes Hyperlipidemia Hypertension Social History Smoking and tobacco status: former smoker Alcohol intake: never Physical Exam Narrative: EXAM NARRATIVE: GENERAL/CONSTITUTIONAL - somewhat ill-appearing. No acute distress. O2 in place Eyes - PERRL, no conjunctival injection ENMT - Atraumatic external nose and ears. Moist mucous membranes NECK - supple. trachea midline CARDIOVASCULAR - regular rate and rhythm. Peripheral pulses 2+ and equal RESPIRATORY -deminished and course to auscultation bilaterally. No retractions or accessory muscle use. ABDOMEN/GI - Nontender/Nondistended. No tenderness to percussion or evidence of peritonitis MSK - Extremities without obvious deformity or tenderness to palpation SKIN - Warm, Dry NEURO - alert and appropriately oriented. strength and sensation intact. Moves all extremities equally. PSYCH - Appropriate mood and affect Course ED course: - Patient was seen and evaluated by me at bedside - Patient placed on cardiac monitors, IV access obtained - Initial evaluation notable for mildly ill, new O2 requirement - Labs notable for leukocytosis, covid positive. Procalcitonin borderline high. - Imaging notable for pneumonia - Upon serial reexamination after treatment the patient was mildly improved with symptom treatment - Based on patient history, evaluation, labs, and imaging as interpreted the most likely cause of the patient's condition is pneumonia with hypoxemia - The results of ED evaluation were discussed with the patient including plan for admission due to requirement for level of care not available if discharged to prevent significant worsening/deterioration. - Hospitalist service contacted and agreed to admit the patient - Patient was admitted without further deterioration or significant events. Vital Signs: Vital signs: Vital Signs Temperature 97.3 F L 12/02/20 11:20 Pulse Rate 76 12/02/20 11:20 Respiratory Rate 20 H 12/02/20 11:20 Blood Pressure 149/77 12/02/20 11:20 Pulse Oximetry 91 12/02/20 11:20 MDM - SOB/Dyspnea Medical Records: Attestation: I reviewed the patient's medical records. Lab Data: Attestation: I reviewed the patient's lab results. Labs: Lab Results 11/30/20 11/30/20 11/30/20 13:30 14:00 14:00 WBC 18.0 10^3/uL H 10 ^3/uL (4.0-10.0) RBC 3.51 10^6/uL L 10 ^6/uL (4.1-5.3) Hgb 10.8 g/dL L g/dL (11.7-16.6) Hct 33.9 % L % (42.0-52.0) MCV 96.6 fl H fl (80-94) MCH 30.8 pg pg (28.0-34.0) MCHC 31.9 g/dL g/dL (30.0-36.0) RDW 14.3 % % (12.1-15.1) Plt Count 275 10^3/cmm 10^3 /cmm (130-400) MPV 10.0 fL fL (7.4-10.4) Neut % (Auto) 89.2 % % Lymph % (Auto) 4.4 % % [place] % (Auto) 4.8 % % Eos % (Auto) 0.2 % % Baso % (Auto) 0.3 % % Neut # (Auto) 16.07 10^3/uL H 1 0^3/uL (1.8-7.7) Lymph # (Auto) 0.8 10^3/uL 10^3/ uL (0.8-4.8) [place] # (Auto) 0.9 10^3/uL 10^3/ uL (0.2-0.9) Eos # (Auto) 0.0 10^3/uL 10^3/ uL (0.0-0.8) Baso # (Auto) 0.1 10^3/uL 10^3/ uL (0.0-0.1) Nucleated RBC % (a uto) 0 % % Nucleated RBCs # 0.0 /100WBC /100W BC D-Dimer 1.10 ug/mIFEU H u g/mIFEU (0-0.59) Specimen Type Arterial Sample Site Radial, left ABG pH 7.44 (7.35-7.45) ABG pCO2 33.1 mmHg L mmHg (35-45) ABG pO2 61.3 mmHg L mmHg (80.0-100.0) ABG HCO3 22.6 mmol/L mmol/ L (22-26) ABG Base Excess -1.1 mmol/L mmol/ L (-2.0-2.0) Messi Test Pos Hematocrit 32.6 % L % (42-52) Hgb O2 Saturation 91.1 % L % (95-100) Carboxyhemoglobin 0.8 %THgb %THgb (0.4-20.1) Methemoglobin 0.3 % L % (0.4-1.5) Total Hemoglobin 10.6 g/dL L g/dL (14-18) O2 Delivery Device Nc O2 Liters/Min 3.0 % % FiO2 32.0 % % [employer] ID Ed Sodium Potassium Chloride Carbon Dioxide Anion Gap BUN Creatinine GFR Calculation Glucose Calculated Osmolal ity Lactic Acid Calcium Total Bilirubin AST ALT Alkaline Phosphata se Creatine Kinase Troponin T Baselin e Troponin T 120 Min [place] Troponin T C-Reactive Protein NT-Pro-B Natriuret Pep Total Protein Albumin Globulin Procalcitonin SARS-CoV-2 Ag (Rap id) 11/30/20 11/30/20 11/30/20 14:00 14:00 14:00 WBC RBC Hgb Hct MCV MCH MCHC RDW Plt Count MPV Neut % (Auto) Lymph % (Auto) [place] % (Auto) Eos % (Auto) Baso % (Auto) Neut # (Auto) Lymph # (Auto) [place] # (Auto) Eos # (Auto) Baso # (Auto) Nucleated RBC % (a uto) Nucleated RBCs # D-Dimer Specimen Type Sample Site ABG pH ABG pCO2 ABG pO2 ABG HCO3 ABG Base Excess Messi Test Hematocrit Hgb O2 Saturation Carboxyhemoglobin Methemoglobin Total Hemoglobin O2 Delivery Device O2 Liters/Min FiO2 [employer] [place] [employer] ID Sodium 136 mmol/L mmol/L (136-145) Potassium 5.0 mmol/L mmol/L (3.5-5.1) Chloride 101 mmol/L mmol/L (98-107) Carbon Dioxide 21 mmol/L L mmol/ L (22-29) Anion Gap 19.0 (5-19) BUN 44 mg/dL H mg/dL (8-23) Creatinine 1.7 mg/dL H mg/dL (0.7-1.2) GFR Calculation Not Reportable Glucose 131 mg/dL H mg/dL (65-115) Calculated Osmolal ity 295 mOsm/kg mOsm/ kg (285-295) Lactic Acid 1.4 mmol/L mmol/L (0.5-2.2) Calcium 8.6 mg/dL mg/dL (8.5-10.5) Total Bilirubin 0.4 mg/dL mg/dL (0.15-1.2) AST 36 U/L U/L (0-40) ALT 28 U/L U/L (0-41) Alkaline Phosphata se 125 IU/L IU/L (40-130) Creatine Kinase Troponin T Baselin e 49 ng/L H ng/L (0-15) Troponin T 120 Min [place] Troponin T C-Reactive Protein 290.8 mg/L H mg/L (0.0-4.9) NT-Pro-B Natriuret Pep 976 pg/mL H pg/mL (0-450) Total Protein 6.2 g/dL L g/dL (6.6-8.7) Albumin 3.2 g/dL L g/dL (3.5-5.2) Globulin 3.0 g/dL g/dL (1.3-4.6) Procalcitonin 0.50 ng/mL ng/mL (0-0.5) SARS-CoV-2 Ag (Rap id) 11/30/20 11/30/20 11/30/20 14:00 14:00 15:58 WBC RBC Hgb Hct MCV MCH MCHC RDW Plt Count MPV Neut % (Auto) Lymph % (Auto) [place] % (Auto) Eos % (Auto) Baso % (Auto) Neut # (Auto) Lymph # (Auto) [place] # (Auto) Eos # (Auto) Baso # (Auto) Nucleated RBC % (a uto) Nucleated RBCs # D-Dimer Specimen Type Sample Site ABG pH ABG pCO2 ABG pO2 ABG HCO3 ABG Base Excess Messi Test Hematocrit Hgb O2 Saturation Carboxyhemoglobin Methemoglobin Total Hemoglobin O2 Delivery Device O2 Liters/Min FiO2 [employer] [place] [employer] ID Sodium Potassium Chloride Carbon Dioxide Anion Gap BUN Creatinine GFR Calculation Glucose Calculated Osmolal ity Lactic Acid Calcium Total Bilirubin AST ALT Alkaline Phosphata se Creatine Kinase 150 U/L U/L (39-308) Troponin T Baselin e Troponin T 120 Min [place] 43.73 ng/L H ng/L (0-15) Delta Troponin T -5.27 ABS# L ABS# (0-10) C-Reactive Protein NT-Pro-B Natriuret Pep Total Protein Albumin Globulin Procalcitonin SARS-CoV-2 Ag (Rap id) Positive H (Negative) EKG Data^: EKG 1: Attestation: I personally reviewed and interpreted this EKG as follows: EKG Interpretation Date: 11/30/20 EKG interpretation time: 13:52 Interpretation: Twelve-lead EKG shows a regular rhythm at a rate of 78. NH interval 182. QRS duration 100. QTc 388. nasim Zullinger. . Interpretation: sinus Rhythm. EKG 2: Attestation: I personally reviewed and interpreted this EKG as follows: EKG Interpretation Date: 11/30/20 EKG interpretation time: 15:57 Interpretation: Twelve-lead EKG shows a sinus rhythm at a rate of 88. NH interval 184. QRS duration 99. QTc 400. normal Zullinger. . Interpretation: sinus Rhythm. similar to prior. Discharge Plan Discharge Admit Provider: Liu Pollack Coding Level of Care Code ED Air Brush Operator for Telly Tatum
--- NOTE | 2020-11-30 13:11 | XRR_ITS ---
PROCEDURE INFORMATION: Exam: XR Chest Exam date and time: 11/30/2020 1:11 PM Age: 84 years old Clinical indication: Shortness of breath; Additional info: SOB, hypoxemia TECHNIQUE: Imaging protocol: XR of the chest. Views: 1 view. COMPARISON: CR XR chest 2V* [id number] 11/28/2020 12:55 PM FINDINGS: Lungs: Mild airspace disease within the left lung base. Pleural spaces: Unremarkable. No pleural effusion. No pneumothorax. Heart/Mediastinum: Unremarkable. No cardiomegaly. Bones/joints: Prior surgical fixation of the caudal aspect of the cervical spine. XR/XR chest 1V portable [id number] IMPRESSION: Mild airspace disease within the left lung base. Subpulmonic effusions bilaterally. Mild atelectasis in the right costophrenic angle.
--- NOTE | 2020-11-30 13:12 | ECG_ITS ---
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 Measurements Intervals Oral Rate: 78 P: 35 RI: 182 QRS: 33 QRSD: 100 T: 38 QT: 355 QTc: 404 Interpretive Statements SINUS RHYTHM INTERPRETATION BASED ON A DEFAULT AGE OF 40 YEARS Compared to ECG 11/28/2020 15:53:43 No significant changes Electronically Signed On 12-01-2020 23:19:06 CDT by Kevin Loo M.D. [id number] f
[2020-11-30 13:39] LABS: ABG PCO2 33.1 mmHg (35-45); ABG PH Result 7.44 (7.35-7.45); Arterial Blood Gas Hematocrit 32.6 % (42-52); Base Excess ABG -1.1 mmol/L (-2.0-2.0); Blood Gas Allen Test Pos; Blood Gas Sample Type Arterial; Carboxyhemoglobin 0.8 %THgb (0.4-20.1); HCO3 ABG 22.6 mmol/L (22-26); HGB O2 Sat 91.1 % (95-100); Methemoglobin 0.3 % (0.4-1.5); PO2 ABG 61.3 mmHg (80.0-100.0); Total Hemoglobin 10.6 g/dL (14-18)
[2020-11-30 13:41] LABS: Blood Gas Operator Identificat ED; Blood Gas Sample Site Radial, left; Oxygen Device NC
[2020-11-30 14:19] LABS: Basophils # 0.1 10^3/uL (0.0-0.1); Basophils % 0.3 %; Eosinophils % 0.2 %; Hematocrit 33.9 % (42.0-52.0); Hemoglobin 10.8 g/dL (11.7-16.6); Lymphocytes # 0.8 10^3/uL (0.8-4.8); Lymphocytes % 4.4 %; Mean Corpuscular HGB Conc 31.9 g/dL (30.0-36.0); Mean Corpuscular Hemoglobin 30.8 pg (28.0-34.0); Mean Corpuscular Volume 96.6 fl (80-94); Monocytes # 0.9 10^3/uL (0.2-0.9); Monocytes % 4.8 %; Neutrophils # 16.07 10^3/uL (1.8-7.7); Neutrophils % 89.2 %; Nucleated Red Blood Cells % 0 %; Platelet Count 275 10^3/cmm (130-400); Red Blood Count 3.51 10^6/uL (4.1-5.3); Red Cell Distribution Width 14.3 % (12.1-15.1)
[2020-11-30 14:33] LABS: Lactic Sepsis W/Reflex 1.4 mmol/L (0.5-2.2)
[2020-11-30 14:34] LABS: Troponin(5th) Baseline 49 ng/L (0-15)
[2020-11-30 14:44] LABS: NT Pro B Type Natriuretic Pept 976 pg/mL (0-450)
[2020-11-30 14:55] LABS: Alanine Aminotransferase 28 U/L (0-41); Albumin Level 3.2 g/dL (3.5-5.2); Alkaline Phosphatase 125 IU/L (40-130); Blood Urea Nitrogen 44 mg/dL (8-23); C Reactive Protein 290.8 mg/L (0.0-4.9); Calcium 8.6 mg/dL (8.5-10.5); Carbon Dioxide 21 mmol/L (22-29); Chloride 101 mmol/L (98-107); Glucose 131 mg/dL (65-115); Osmolality Calculated 295 mOsm/kg (285-295); Sodium 136 mmol/L (136-145); Total Bilirubin 0.4 mg/dL (0.15-1.2); Total Protein 6.2 g/dL (6.6-8.7)
[2020-11-30 14:59] LABS: Aspartate Amino Transferase 36 U/L (0-40)
[2020-11-30 15:01] LABS: SARS Covid-2 Antigen Positive (Negative)
--- NOTE | 2020-11-30 15:12 | ECG_ITS ---
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 Measurements Intervals [place] Rate: 88 P: 46 PA: 184 QRS: 47 QRSD: 99 T: 46 QT: 354 QTc: 430 Interpretive Statements SINUS RHYTHM MINIMAL ST DEPRESSION [0.025+ mV ST DEPRESSION] INTERPRETATION BASED ON A DEFAULT AGE OF 40 YEARS Compared to ECG 11/30/2020 13:44:37 ST (T wave) deviation now present Electronically Signed On 12-01-2020 23:44:59 CDT by Kevin Loo M.D. [id number] f
--- NOTE | 2020-11-30 15:13 | CT_ITS ---
WS: [id number] CTA OF THE CHEST WITH PULMONARY EMBOLISM PROTOCOL TECHNIQUE: High-resolution contrast enhanced CTA of the chest with coronal and sagittal reformatted i mages with pulmonary embolism protocol. MIP images are also reviewed. CLINICAL INFORMATION: elevated d dimer COMPARISON: None. DLP: 617.[address] scans at [facility] use at least one of these dose optimization techniques: automated e xposure control; mA and/or kV adjustment per patient size (includes targeted exams where dose is matc hed to clinical indication); or iterative reconstruction. FINDINGS: Proximal main pulmonary arteries are normal. Normal segmental and subsegmental pulmonary arteries. No evidence of pulmonary embolus. Normal caliber thoracic aorta. Coronary calcification. Tiny pericardi al effusion. Small esophageal hiatal hernia. Moderate chronic emphysematous changes. Tiny bilateral pleural effusions with compressive atelectasis in the lung bases. Interstitial edema with compressive atelectasis right upper lobe. Right hilar bro nchovascular thickening with prominent hilar lymph nodes nonspecific but may be reactive. Right hilar lymph node measuring 15 mm. Enlarged subcarinal lymph nodes. Adrenal glands are normal. Cholecystectomy clips. Small esophageal hiatal hernia. Fatty atrophy of th e pancreas. Hypertrophic changes thoracic spine. CT/CT angio chest PE protcl [id number] IMPRESSION: 1. Proximal main pulmonary arteries are normal. No evidence of pulmonary embol us. 2. Moderate chronic emphysematous changes. 3. Interstitial thickening in the right upper lobe with compressive atelectasi s in the anteromedial right upper lobe. Recommend correlation for pneumonia and interval follow-up to assess for resolution. 4. Bronchovascular thickening right hilum with prominent right hilar lymph nod e measuring 15 mm nonspecific but may be reactive. Enlarged subcarinal lymph no aleshia. 5. Trace bilateral pleural fluid with compressive atelectasis in the lung base s.
[2020-11-30] MEDS: iodixanol 320 mg/mL 100mL Btl IV (15:41)
[2020-11-30 16:30] LABS: Troponin 5 2HR 43.73 ng/L (0-15)
[2020-11-30 16:34] LABS: Troponin 5 2HR Delta -5.27 ABS# (0-10)
[2020-11-30] MEDS: dexamethasone 10 mg/mL INJ 6 MG IVP (17:44)
[2020-11-30] MEDS: remdesivir 200 MG in sodium chloride 0.9% (100 ml) 60 ML 100 MG IV (17:44)
--- NOTE | 2020-11-30 18:19 | P.HP_ITS ---
Providers/Chief Complaint Primary Care Provider: Salas Quevedo MD Chief Complaint: FEELING WORSE: LAST SEEN 11.28, DIFF BREATHING History of Present Illness Ryan Tim is a 84 year old male with a past medical history of insulin- dependent type 2 diabetes mellitus, hypertension, hyperlipidemia, CAD, chronic kidney disease, history of Covid vaccinations in May, who presents to [facility] due to a week history of fevers, cough, shortness of breath. Patient tells me that for the last week he has been feeling feverish, cough, denies any chest pain, no palpitations, has a remote history of smoking, no calf pain, no calf swelling, no recent travel, he tells me that he was helping cleaning out the apartment of her friend, who they think was positive for Covid who later actually from an [place]. His is also sick, but has not tested positive for Covid. In the emergency room patient was found to have acute hypoxia secondary to COVID-19 pneumonia, concerns for secondary bacterial pneumonia, hospitalist team was called for admission Review of Systems Const: Reports: fever(s), chills, fatigue and malaise Eyes: Denies: change in vision or blurry vision ENMT: Denies: nasal congestion Card: Denies: chest pain or palpitations Resp: Reports: dyspnea and non-productive cough; Denies: productive cough or wheezing GI: Denies: abdominal pain, nausea, vomiting, hematemesis, diarrhea, constipation, hematochezia or melena : Denies: flank pain, difficulty urinating, dysuria or urinary frequency Musc: Denies: neck pain or back pain Skin/Breast: Denies: rash Neuro: Denies: headache(s), dizziness or vertigo Psych: Denies: anxiety or depression Endo: Denies: polyuria or polydipsia Medications/Allergies Home Medications Medication Instructions Recorded Confirmed Last Taken Type allopurinol 100 mg tablet 100 mg PO DAILY PRN 04/15/19 11/30/20 11/29/20 History aspirin 81 mg tablet,delayed 81 mg PO BID tab 04/15/19 11/30/20 11/29/20 History release furosemide 20 mg tablet 20 mg PO DAILY PRN 04/15/19 11/30/20 08/18/19 History lisinopril 40 mg tablet 40 mg PO DAILY 04/15/19 11/30/2021 History multivitamin 1 tab PO DAILY 04/15/19 11/30/20 11/29/20 History pantoprazole 40 mg tablet,delayed 40 mg PO DAILY 04/15/19 11/30/20 11/29/20 History release potassium chloride 10 mEq 10 meq PO DAILY PRN 04/15/19 11/30/20 08/18/19 History tablet,extended release pravastatin 40 mg tablet 40 mg PO DAILY 04/15/19 11/30/20 11/29/20 History tamsulosin 0.4 mg PO DAILY 08/19/19 11/30/20 11/29/20 History insulin detemir U-100 100 unit/mL 50 unit SUBCUT DAILY #15 ml 03/19/20 11/30/20 11/29/20 Rx (3 mL) subcutaneous pen metformin 1,000 mg tablet 500 mg PO BID tab 04/15/20 11/30/20 11/29/20 History ezetimibe 10 mg tablet 10 mg PO DAILY #30 tab 09/14/20 11/30/20 11/28/20 Rx benzonatate 100 mg capsule 100 mg PO BID PRN #10 cap 11/26/20 11/30/20 Unknown Rx azithromycin See Rx Instructions .ROUTE .COMPLEX 11/28/20 11/30/20 11/30/20 History carvedilol 12.5 mg PO BID 11/28/20 11/30/20 11/29/20 History doxycycline hyclate 100 mg PO BID 7 Days #14 tab 11/28/20 11/30/20 11/30/20 Rx montelukast 10 mg PO DAILY 11/28/20 11/30/20 11/29/20 History pseudoephedrine-guaifenesin 1 tab PO Q12H PRN 11/30/20 11/30/20 11/30/20 History [Mucinex D Maximum Strength] Allergies Allergy/AdvReac Type Severity Reaction Status Date / Time aspirin Allergy Unknown unknown Verified 11/28/20 11:05 cefuroxime [From Ceftin] Allergy Unknown unknown Verified 11/28/20 11:05 fluvastatin [From Lescol] Allergy Unknown unknown Verified 11/28/20 11:05 Sulfa (Sulfonamide Allergy Unknown unknown Verified 11/28/20 11:05 Antibiotics) povidone-iodine Allergy Unknown Verified 11/28/20 11:05 [From Betadine] soap [From Betadine] Allergy Unknown Verified 11/28/20 11:05 PFSH Acute PFSH: Medical History ASHD (arteriosclerotic heart disease) -follows up with Dr. Loo Atherosclerotic heart disease of [place] coronary artery without angina pectoris EKG in August 2019- NSR with some non specific T wave changes Diabetes -insulin requiring Edema, peripheral -likely secondary to acute CHF exacerbation GERD (gastroesophageal reflux disease) Gout Hyperlipidemia -on statin Hypertension -on oral antihypertensives Osteoarthritis Hands, hips, knees and spine, lumbar spondylosis Type 2 diabetes mellitus Surgical History History of cataract surgery History of cholecystectomy History of hemorrhoidectomy History of hip surgery History of knee surgery History of rotator cuff surgery Family History Other CAD (coronary artery disease) Cancer Diabetes Hyperlipidemia Hypertension Social History Smoking and tobacco status: former smoker Alcohol intake: never Vitals/I&O/Wt Last Vital Signs Temp 98.9 F 11/30/20 12:37 Pulse 88 11/30/20 17:58 Resp 18 11/30/20 17:58 BP 133/57 11/30/20 17:58 Pulse Ox 92 11/30/20 17:58 Weight last 48 hrs Weight 99.79 kg Physical Exam Const: COMMON NORMALS: no acute distress and patient oriented x3 GENERAL APPEARANCE: cooperative and comfortable HENMT: COMMON NORMALS: normocephalic HEAD & SCALP: normocephalic Eye: COMMON NORMALS: Equal, round and reactive pupils present and EOMs intact bilaterally GENERAL EYE: appearance normal, both eyes and all related structures PUPIL: Yes Equal, round and reactive pupils present Neck/C-Spine: COMMON NORMALS: full ROM and no lymphadenopathy THYROID: Thyroid normal Lymph: LYMPHATIC: no lymphadenopathy noted Resp: COMMON NORMALS: normal respiratory effort, No retractions, No use of accessory muscles and clear to auscultation bilaterally AUSCULTATION: clear to auscultation bilaterally Cardio: COMMON NORMALS: regular rate, regular rhythm, S1 normal heart sound present, S2 normal heart sound present, No gallops present (Cardio), No clicks present (Cardio) and No murmurs present (Cardio) RATE: regular rate RHYTHM: regular rhythm HEART SOUNDS: S1 normal heart sound present and S2 normal heart sound present GI: COMMON NORMALS: Normal to inspection, nondistended, normoactive bowel sounds present, Soft to palpation, non-tender and No hepatosplenomegaly present PALPATION: Yes Soft to palpation and Yes No hepatosplenomegaly present Extremity: COMMON NORMALS: normal to inspection, full ROM and no pedal edema Neuro: COMMON NORMALS: patient oriented x3, CN's II-XII intact bilaterally, moves all extremities and no focal motor deficits Psych: COMMON NORMALS: mental status grossly normal, Normal thought process present and cooperative THOUGHT PROCESS: Normal thought process present Data : 11/30/20 14:00 11/30/20 14:00 A&P Assessment and plan (1) Pneumonia due to COVID-19 virus: Pneumonia secondary COVID-19 -Decadron 6 mg IV push daily -Remdesivir -Broad-spectrum antibiotic therapy, vancomycin, Levaquin -Follow blood cultures, sputum cultures, urine bacterial antigens, -Vitamin D, zinc, vitamin C -Incentive spirometer, flutter valve -Oxygen therapy -Lovenox for DVT prophylaxis -Full code 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, creatinine has actually decreased to 1.7, continue to monitor Type 2 diabetes mellitus, continue Levemir 20 units daily, insulin sliding scale History of CHF, BNP slightly elevated, no evidence of fluid overload, hold off on Lasix Type II NSTEMI, elevated troponins, likely supply demand ischemia from hypoxia, however cannot rule out underlying cardiac etiology, continue aspirin, statin if CPK is normal, monitor for chest pain, telemetry monitoring Status: Acute (2) Secondary bacterial pneumonia: Status: Acute (3) Dyslipidemia (high LDL; low HDL): Status: Acute (4) Benign essential HTN: Status: Acute (5) Type 2 diabetes mellitus: Status: Acute Qualifiers: Diabetes mellitus mcc insulin use: with mcc use Diabetes mellitus complication status: without complication Qualified Code(s): E11.9 - Type 2 diabetes mellitus without complications; Z79.4 - long-term (current) use of insulin (6) Atherosclerotic heart disease of [place] coronary artery without angina pectoris: Status: Acute Qualifiers: [place] vs. transplanted heart: [place] heart Qualified Code(s): I25.10 - Atherosclerotic heart disease of [place] coronary artery without angina pectoris (7) New onset of congestive heart failure: Status: Acute (8) Acute renal failure: Status: Acute Qualifiers: Acute renal failure type: unspecified Qualified Code(s): N17.9 - Acute kidney failure, unspecified Attestations Medical Necessity Statement*: Patient course hospitalization, inpatient, greater than 2 midnights, due to hypoxia secondary to COVID-19 pneumonia Coding Level of Care Code Acute Measuring Clerk for [facility] Fwd Diagnoses Pneumonia due to COVID-19 virus U07.1; J12.82 Secondary bacterial pneumonia J15.9 Dyslipidemia (high LDL; low HDL) E78.5 Benign essential HTN I10 Type 2 diabetes mellitus E11.9; Z79.4 Diabetes mellitus mcc insulin use: with assistant terminal manager use Diabetes mellitus complication status: without complication Atherosclerotic heart disease of [place] coronary artery without angina pectoris I25.10 [place] vs. transplanted heart: [place] heart New onset of congestive heart failure I50.9 Acute renal failure N17.9 Acute renal failure type: unspecified
--- NOTE | 2020-11-30 19:12 | ECG_ITS ---
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 Measurements Intervals [place] Rate: 74 P: 98 LA: 189 QRS: 35 QRSD: 102 T: 96 QT: 405 QTc: 450 Interpretive Statements SINUS RHYTHM ABNORMAL QRS-T ANGLE [QRS-T AXIS DIFFERENCE > 60] Compared to ECG 11/30/2020 15:55:51 ST (T wave) deviation no longer present Electronically Signed On 12-01-2020 23:47:14 CDT by Kevin Loo M.D. [id number]
[2020-11-30] MEDS: levofloxacin-dextrose 5 % 750 MG/150 ML PREMIX 100 MG IV (19:13)
[2020-11-30 19:40] LABS: Glucose Point of Care 143 mg/dL (70-110)
[2020-11-30 19:41] LABS: Creatine Phosphokinase 150 U/L (39-308)
[2020-11-30 20:32] LABS: Troponin 5 6HR 40.98 ng/L (0-15)
[2020-11-30 20:34] LABS: Troponin 5 6HR Delta -8.02 ng/L (0-12)
--- NOTE | 2020-11-30 20:48 | PC.PHAR ---
Pharmacokinetic dosing service Date: 11/30/20 Time: 2100 Objective: Patient: Ryan Tim Floor: 273-1 Age: 84 yo Serum creatinine: 1.7 mg/dL Height: 69.0 Inches Weight (kg): 99.79 Diagnosis: Relevant medical/social history: Cultures and sensitivities: Other labs: Assessment: IBW (kg): 70.70 Dosing wt(kg): 99.79 Estimated Creatinine clearance (ml/min): 31.8 CRCL method: Cockcroft and Gault using ibw(default). Drug selected: Vancomycin Loading dose (mg): 0 Vd (liters): 89.8 (factor used: 0.9 L/kg) Lionel (hr-1): 0.031 Half life (hrs): 22.36 Recommended dose: 1500 mg Interval: 24 hrs Infusion time (hrs): 1.5 Predicted peak (mcg/mL): 31.1 Predicted trough (mcg/mL): 15.48 Total body weight is being used for vancomycin dosing. Renal function is stable [ ] /unstable [ ] Recommendations: Give Vancomycin 1500 mg q 24 hrs with an expected Cpeak of 31.1 mcg/ml and an expected Ctrough of 15.48 mcg/ml Renal dosing of other antibiotics (review renal dosing of other medications and list guidelines here): Thank you for the consult, will continue to follow. Signature: Bonnie Basilio [facility]
[2020-11-30 21:00] LABS: Thyroid Stimulating Hormone 1.58 uIU/mL (0.27-4.20)
[2020-11-30 21:04] LABS: Glucose Point of Care 206 mg/dL (70-110)
[2020-11-30] MEDS: aspirin 81 mg EC Tablet PO (22:55)
[2020-11-30] MEDS: enoxaparin 40 mg/0.4 mL Syringe SUBCUT (22:55)
[2020-11-30] MEDS: ascorbic acid 500 mg Tablet PO (22:55)
[2020-11-30] MEDS: vancomycin 1,500 MG/300 ML PIGGYBACK 200 MG IV (23:00)
[2020-11-30] MEDS: docusate sodium 100 mg Capsule PO (23:00)
[2020-12-01] VITALS (13 sets, daily range): BP systolic 120–154; BP diastolic 56–81; PULSE 66–92; RESP 18–22; TEMP 36.4–37.1; O2SAT 85–94
[2020-12-01 05:59] LABS: Basophils % 0.2 %; Eosinophils # 0.1 10^3/uL (0.0-0.8); Eosinophils % 0.3 %; Hematocrit 32.1 % (42.0-52.0); Hemoglobin 10.1 g/dL (11.7-16.6); Lymphocytes # 0.7 10^3/uL (0.8-4.8); Lymphocytes % 3.8 %; Mean Corpuscular HGB Conc 31.5 g/dL (30.0-36.0); Mean Corpuscular Hemoglobin 30.4 pg (28.0-34.0); Mean Corpuscular Volume 96.7 fl (80-94); Mean Platelet Volume 9.6 fL (7.4-10.4); Monocytes # 0.4 10^3/uL (0.2-0.9); Monocytes % 2.2 %; Neutrophils % 92.4 %; Nucleated Red Blood Cells % 0 %; Platelet Count 267 10^3/cmm (130-400); Red Blood Count 3.32 10^6/uL (4.1-5.3); Red Cell Distribution Width 14.2 % (12.1-15.1); White Blood Count 18.3 10^3/uL (4.0-10.0)
[2020-12-01 06:15] LABS: Alanine Aminotransferase 27 U/L (0-41); Albumin Level 2.9 g/dL (3.5-5.2); Alkaline Phosphatase 142 IU/L (40-130); Aspartate Amino Transferase 31 U/L (0-40); Blood Urea Nitrogen 53 mg/dL (8-23); C Reactive Protein 316.7 mg/L (0.0-4.9); Calcium 8.9 mg/dL (8.5-10.5); Carbon Dioxide 20 mmol/L (22-29); Chloride 102 mmol/L (98-107); Globulin 3.6 g/dL (1.3-4.6); Glucose 197 mg/dL (65-115); Magnesium 2.5 mg/dL (1.7-2.3); Osmolality Calculated 300 mOsm/kg (285-295); Phosphorus 3.9 mg/dL (2.5-4.5); Sodium 135 mmol/L (136-145); Total Bilirubin 0.2 mg/dL (0.15-1.2); Total Protein 6.5 g/dL (6.6-8.7)
[2020-12-01 06:24] LABS: NT Pro B Type Natriuretic Pept 1054 pg/mL (0-450); Procalcitonin 0.49 ng/mL (0-0.5)
[2020-12-01 06:31] LABS: Glucose Point of Care 221 mg/dL (70-110)
[2020-12-01 06:35] LABS: Creatine Phosphokinase 121 U/L (39-308)
[2020-12-01] MEDS: dexamethasone 10 mg/mL INJ 6 MG IVP (10:04)
[2020-12-01] MEDS: cholecalciferol (vitamin D3) 1,000 unit Tablet 1000 UNIT PO (10:05)
[2020-12-01] MEDS: pantoprazole DR 40 mg Tablet PO (10:05)
[2020-12-01] MEDS: tamsulosin 0.4 mg Capsule PO (10:05)
[2020-12-01] MEDS: ascorbic acid 500 mg Tablet PO ×2 (10:05→17:32)
[2020-12-01] MEDS: carvedilol 12.5 mg Tablet PO ×2 (10:05→17:33)
[2020-12-01] MEDS: zinc gluconate 50 mg Tablet PO (10:05)
[2020-12-01] MEDS: montelukast sodium 10 mg Tablet PO (10:05)
[2020-12-01] MEDS: aspirin 81 mg EC Tablet PO ×2 (10:05→17:33)
--- NOTE | 2020-12-01 10:05 | PC.RESP ---
RT Shift Note Frequent safety and respiratory rounds continue. Orders completed as indicated. Patient monitored pre and post treatments throughout shift. Patient [Did.] tolerate treatments appropriately. Condition [.DidNotChange]. Patient and/or patient accounting representative educated on respiratory treatment and medications. Patient and/or patient accounting representative [verbalized understanding]. Will continue to monitor patient progress.
--- NOTE | 2020-12-01 10:41 | PC.RESP ---
Pt palced on 8 lpm hfnc due to low sats.Spoke with Dr. Pollack in [facility].
[2020-12-01 12:08] LABS: Glucose Point of Care 222 mg/dL (70-110)
--- NOTE | 2020-12-01 15:22 | PM.PN ---
Subjective Subjective: Interval history: Patient was seen this morning, he tells me that he had a difficult night, did not get any sleep overnight, currently up to 8 L, no fevers, no chills, no nausea, no vomiting, no chest pain Vitals/I&O/Wt Last Vital Signs Temp 98.2 F 12/01/20 12:00 Pulse 70 12/01/20 12:00 Resp 18 12/01/20 12:00 BP 123/56 12/01/20 12:00 Pulse Ox 92 12/01/20 12:00 12/01/20 12/01/20 12/01/20 06:59 14:59 22:59 Intake Total 600 / 860 570 / 570 Output Total 200 / 400 Balance 400 / 460 570 / 570 Weight last 48 hrs Weight 99.79 kg Weight 99.79 kg Physical Exam Const: COMMON NORMALS: no acute distress and patient oriented x3 Resp: COMMON NORMALS: normal respiratory effort, No retractions, No use of accessory muscles and clear to auscultation bilaterally AUSCULTATION: clear to auscultation bilaterally Cardio: COMMON NORMALS: regular rate, regular rhythm, S1 normal heart sound present and S2 normal heart sound present RATE: regular rate RHYTHM: regular rhythm HEART SOUNDS: S1 normal heart sound present and S2 normal heart sound present GI: COMMON NORMALS: Normal to inspection, nondistended, normoactive bowel sounds present, Soft to palpation and non-tender PALPATION: Yes Soft to palpation Extremity: COMMON NORMALS: no pedal edema Neuro: COMMON NORMALS: patient oriented x3 Psych: COMMON NORMALS: mental status grossly normal Data : 12/01/20 05:45 12/01/20 05:45 Micro: Microbiology 11/30/20 22:12 Bacterial Antigens - Final Urine,Clean Catch 11/30/20 19:25 Blood Culture - Preliminary Blood SPECIMEN COLLECTED 11/30/20 19:10 Blood Culture - Preliminary Blood SPECIMEN COLLECTED A&P Assessment and plan (1) Pneumonia due to COVID-19 virus: Pneumonia secondary COVID-19 -Decadron 6 mg IV push daily -Remdesivir -Broad-spectrum antibiotic therapy, vancomycin, Levaquin -Follow blood cultures, sputum cultures, urine bacterial antigens, -Vitamin D, zinc, vitamin C -Incentive spirometer, flutter valve -Oxygen therapy -Lovenox for DVT prophylaxis -Full code 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, creatinine has actually decreased to 1.5, continue to monitor Evidence of fluid overload Type 2 diabetes mellitus, continue Levemir 20 units daily, insulin sliding scale History of CHF, BNP is elevated, no wheezing on exam, but is up to 8 L, will try 40 mg IV Lasix Type II NSTEMI, elevated troponins, likely supply demand ischemia from hypoxia, however cannot rule out underlying cardiac etiology, continue aspirin, statin if CPK is normal, monitor for chest pain, telemetry monitoring Plan for today, continue remdesivir, antibiotic therapy, Decadron, monitor cultures, treat fevers, monitor oxygen requirements trial of Lasix Status: Acute (2) Secondary bacterial pneumonia: Status: Acute (3) Dyslipidemia (high LDL; low HDL): Status: Acute (4) Benign essential HTN: Status: Acute (5) Type 2 diabetes mellitus: Status: Acute Qualifiers: Diabetes mellitus correction insulin use: with termite control technician use Diabetes mellitus complication status: without complication Qualified Code(s): E11.9 - Type 2 diabetes mellitus without complications; Z79.4 - continuous churn buttermaker (current) use of insulin (6) Atherosclerotic heart disease of [place] coronary artery without angina pectoris: Status: Acute Qualifiers: [place] vs. transplanted heart: [place] heart Qualified Code(s): I25.10 - Atherosclerotic heart disease of [place] coronary artery without angina pectoris (7) New onset of congestive heart failure: Status: Acute (8) Acute renal failure: Status: Acute Qualifiers: Acute renal failure type: unspecified Qualified Code(s): N17.9 - Acute kidney failure, unspecified Attestations Medical Necessity Statement*: Patient requires hospitalization for pneumonia secondary COVID-19, concerns for secondary bacterial pneumonia Coding Level of Care Code Acute Rental Counter Clerk for [facility] Diagnoses Pneumonia due to COVID-19 virus U07.1; J12.82 Secondary bacterial pneumonia J15.9 Dyslipidemia (high LDL; low HDL) E78.5 Benign essential HTN I10 Type 2 diabetes mellitus E11.9; Z79.4 Diabetes mellitus termite control technician insulin use: with correction use Diabetes mellitus complication status: without complication Atherosclerotic heart disease of [place] coronary artery without angina pectoris I25.10 [place] vs. transplanted heart: [place] heart New onset of congestive heart failure I50.9 Acute renal failure N17.9 Acute renal failure type: unspecified
[2020-12-01] MEDS: FUROsemide 10 mg/mL SDV 4mL 40 MG IVP (17:33)
[2020-12-01] MEDS: atorvastatin 40 mg Tablet 20 MG PO (17:36)
[2020-12-01] MEDS: remdesivir 100 MG in sodium chloride 0.9% (100 ml) 80 ML IV (17:36)
[2020-12-01 18:08] LABS: Glucose Point of Care 150 mg/dL (70-110)
[2020-12-01] MEDS: vancomycin 1,500 MG/300 ML PIGGYBACK 200 MG IV (21:56)
[2020-12-01] MEDS: enoxaparin 40 mg/0.4 mL Syringe SUBCUT (21:56)
[2020-12-01 22:37] LABS: Glucose Point of Care 197 mg/dL (70-110)
[2020-12-02] VITALS (14 sets, daily range): BP systolic 103–160; BP diastolic 60–79; PULSE 71–89; RESP 16–20; TEMP 36.3–36.8; O2SAT 87–92
[2020-12-02] MEDS: levofloxacin-dextrose 5 % 750 MG/150 ML PREMIX 100 MG IV (01:18)
[2020-12-02 05:49] LABS: Basophils % 0.2 %; Hematocrit 33.3 % (42.0-52.0); Hemoglobin 10.8 g/dL (11.7-16.6); Lymphocytes # 0.9 10^3/uL (0.8-4.8); Lymphocytes % 4.7 %; Mean Corpuscular HGB Conc 32.4 g/dL (30.0-36.0); Mean Corpuscular Hemoglobin 30.9 pg (28.0-34.0); Mean Corpuscular Volume 95.1 fl (80-94); Monocytes # 0.8 10^3/uL (0.2-0.9); Monocytes % 4.2 %; Neutrophils # 16.32 10^3/uL (1.8-7.7); Neutrophils % 89.9 %; Nucleated Red Blood Cells % 0 %; Platelet Count 322 10^3/cmm (130-400); Red Cell Distribution Width 14.1 % (12.1-15.1); White Blood Count 18.2 10^3/uL (4.0-10.0)
[2020-12-02 06:23] LABS: Alanine Aminotransferase 26 U/L (0-41); Albumin Level 2.9 g/dL (3.5-5.2); Alkaline Phosphatase 163 IU/L (40-130); Anion Gap 17.7 (5-19); Aspartate Amino Transferase 31 U/L (0-40); Blood Urea Nitrogen 63 mg/dL (8-23); C Reactive Protein 224.2 mg/L (0.0-4.9); Carbon Dioxide 21 mmol/L (22-29); Chloride 102 mmol/L (98-107); Glucose 151 mg/dL (65-115); Magnesium 2.3 mg/dL (1.7-2.3); Osmolality Calculated 303 mOsm/kg (285-295); Phosphorus 4.2 mg/dL (2.5-4.5); Potassium 4.7 mmol/L (3.5-5.1); Sodium 136 mmol/L (136-145); Total Bilirubin 0.2 mg/dL (0.15-1.2); Total Protein 6.9 g/dL (6.6-8.7)
[2020-12-02 06:26] LABS: Glucose Point of Care 153 mg/dL (70-110)
[2020-12-02 06:32] LABS: NT Pro B Type Natriuretic Pept 588 pg/mL (0-450); Procalcitonin 0.33 ng/mL (0-0.5)
[2020-12-02 06:43] LABS: Creatine Phosphokinase 90 U/L (39-308)
[2020-12-02] MEDS: tamsulosin 0.4 mg Capsule PO (08:27)
[2020-12-02] MEDS: pantoprazole DR 40 mg Tablet PO (08:27)
[2020-12-02] MEDS: dexamethasone 10 mg/mL INJ 6 MG IVP (08:27)
[2020-12-02] MEDS: cholecalciferol (vitamin D3) 1,000 unit Tablet 1000 UNIT PO (08:27)
[2020-12-02] MEDS: montelukast sodium 10 mg Tablet PO (08:27)
[2020-12-02] MEDS: zinc gluconate 50 mg Tablet PO (08:27)
[2020-12-02] MEDS: aspirin 81 mg EC Tablet PO ×2 (08:27→17:37)
[2020-12-02] MEDS: atorvastatin 40 mg Tablet 20 MG PO (08:27)
[2020-12-02] MEDS: ascorbic acid 500 mg Tablet PO ×2 (08:27→17:37)
[2020-12-02] MEDS: carvedilol 12.5 mg Tablet PO ×2 (08:27→17:37)
[2020-12-02] MEDS: FUROsemide 10 mg/mL SDV 2mL 20 MG IVP (11:36)
[2020-12-02 12:27] LABS: Glucose Point of Care 245 mg/dL (70-110)
[2020-12-02] MEDS: ipratropium-albuterol 3 mL Neb INHALATION ×2 (14:06→20:30)
--- NOTE | 2020-12-02 16:55 | P.PN_ITS ---
Subjective Subjective: Interval history: Patient was seen this morning, he tells me that he continues to feel fatigued, tired, no fevers night, he feels short of breath, feels a bit anxious at times, he tells me he wakes up in the middle night short of breath, he was placed on heated high flow in the afternoon 40 L, 50% Vitals/I&O/Wt Last Vital Signs Temp 97.8 F 12/02/20 15:20 Pulse 76 12/02/20 15:20 Resp 20 H 12/02/20 15:20 BP 121/70 12/02/20 15:20 Pulse Ox 90 12/02/20 15:20 12/02/20 12/02/20 12/02/20 06:59 14:59 22:59 Intake Total 690 / 2340 Output Total 1050 / 1450 Balance -360 / 890 Weight last 48 hrs Weight 99.79 kg Physical Exam Const: COMMON NORMALS: no acute distress and patient oriented x3 Resp: COMMON NORMALS: normal respiratory effort, No retractions and No use of accessory muscles AUSCULTATION: diminished lung sounds Cardio: COMMON NORMALS: regular rate, regular rhythm, S1 normal heart sound present and S2 normal heart sound present RATE: regular rate RHYTHM: regular rhythm HEART SOUNDS: S1 normal heart sound present and S2 normal heart sound present GI: COMMON NORMALS: Normal to inspection, nondistended, normoactive bowel sounds present, Soft to palpation and non-tender PALPATION: Yes Soft to palpation Extremity: COMMON NORMALS: no pedal edema Neuro: COMMON NORMALS: patient oriented x3 Psych: COMMON NORMALS: mental status grossly normal Data : 12/02/20 05:25 12/02/20 05:25 Micro: Microbiology 12/01/20 22:17 Gram Stain - Final Sputum - Expectorated Sputum 11/30/20 19:25 Blood Culture - Preliminary Blood NEGATIVE TO DATE 11/30/20 19:10 Blood Culture - Preliminary Blood NEGATIVE TO DATE A&P Assessment and plan (1) Pneumonia due to COVID-19 virus: Pneumonia secondary COVID-19 -Currently on high flow, wean as tolerated -Decadron 6 mg IV push daily -Remdesivir -Broad-spectrum antibiotic therapy, vancomycin, stop Levaquin, switched to Primaxin -As there is concerns for secondary bacterial pneumonia, patient does not qualify for Actemra -Follow blood cultures, sputum cultures, urine bacterial antigens, -Vitamin D, zinc, vitamin C -Incentive spirometer, flutter valve -Oxygen therapy -We will give 1 more dose of Lasix, order cardiac echocardiogram -Xanax 0.25 mg twice daily for anxiety -Lovenox for DVT prophylaxis -Full code 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, creatinine decreased to 1.4, continue to monitor Evidence of fluid overload Type 2 diabetes mellitus, continue Levemir 20 units daily, insulin sliding scale History of CHF, BNP is elevated, no wheezing on exam, but is up to 8 L, will try 40 mg IV Lasix Type II NSTEMI, elevated troponins, likely supply demand ischemia from hypoxia, however cannot rule out underlying cardiac etiology, continue aspirin, statin if CPK is normal, monitor for chest pain, telemetry monitoring Plan for today, continue remdesivir, antibiotic therapy, Decadron, 1 dose of Lasix, order cardiac echo monitor cultures, treat fevers, trial of Lasix Status: Acute (2) Secondary bacterial pneumonia: Status: Acute (3) Dyslipidemia (high LDL; low HDL): Status: Acute (4) Benign essential HTN: Status: Acute (5) Type 2 diabetes mellitus: Status: Acute Qualifiers: Diabetes mellitus water valve repairer insulin use: with water valve repairer use Diabetes mellitus complication status: without complication Qualified Code(s): E11.9 - Type 2 diabetes mellitus without complications; Z79.4 - retirement (current) use of insulin (6) Atherosclerotic heart disease of [place] coronary artery without angina pectoris: Status: Acute Qualifiers: [place] vs. transplanted heart: [place] heart Qualified Code(s): I25.10 - Atherosclerotic heart disease of [place] coronary artery without angina pectoris (7) New onset of congestive heart failure: Status: Acute (8) Acute renal failure: Status: Acute Qualifiers: Acute renal failure type: unspecified Qualified Code(s): N17.9 - Acute kidney failure, unspecified Attestations Medical Necessity Statement*: Patient requires hospitalization due to pneumonia secondary COVID-19, increased oxygen requirements, Coding Level of Care Code Acute Regional Account Manager for [facility] Diagnoses Pneumonia due to COVID-19 virus U07.1; J12.82 Secondary bacterial pneumonia J15.9 Dyslipidemia (high LDL; low HDL) E78.5 Benign essential HTN I10 Type 2 diabetes mellitus E11.9; Z79.4 Diabetes mellitus water valve repairer insulin use: with water valve repairer use Diabetes mellitus complication status: without complication Atherosclerotic heart disease of [place] coronary artery without angina pectoris I25.10 [place] vs. transplanted heart: [place] heart New onset of congestive heart failure I50.9 Acute renal failure N17.9 Acute renal failure type: unspecified
[2020-12-02] MEDS: docusate sodium 100 mg Capsule PO (17:37)
[2020-12-02 17:52] LABS: Glucose Point of Care 140 mg/dL (70-110)
[2020-12-02] MEDS: remdesivir 100 MG in sodium chloride 0.9% (100 ml) 80 ML IV (18:20)
[2020-12-02 20:36] LABS: Glucose Point of Care 270 mg/dL (70-110)
[2020-12-02] MEDS: enoxaparin 40 mg/0.4 mL Syringe SUBCUT (21:14)
[2020-12-02 21:57] LABS: Vancomycin Trough 13.1 ug/mL (10-15)
[2020-12-02] MEDS: vancomycin 1,500 MG/300 ML PIGGYBACK 200 MG IV (22:07)
[2020-12-03] VITALS (56 sets, daily range): BP systolic 109–165; BP diastolic 51–84; PULSE 66–91; RESP 16–32; TEMP 36.2–37.1; O2SAT 87–93
[2020-12-03] MEDS: ipratropium-albuterol 3 mL Neb INHALATION ×4 (03:16→20:41)
[2020-12-03 05:04] LABS: ABG PCO2 31.1 mmHg (35-45); ABG PH Result 7.43 (7.35-7.45); Arterial Blood Gas Hematocrit 35.9 % (42-52); Blood Gas Allen Test Pos; Blood Gas Sample Type Arterial; HCO3 ABG 20.5 mmol/L (22-26); PO2 ABG 53.1 mmHg (80.0-100.0)
[2020-12-03 05:05] LABS: Blood Gas Sample Site Radial, right; Oxygen Device HAG
--- NOTE | 2020-12-03 05:33 | PC.RESP ---
RT increased pt's Fi02 on HHF to 60% att.
[2020-12-03 05:38] LABS: Basophils % 0.1 %; Hematocrit 33.2 % (42.0-52.0); Hemoglobin 10.7 g/dL (11.7-16.6); Lymphocytes # 1.1 10^3/uL (0.8-4.8); Lymphocytes % 7.2 %; Mean Corpuscular HGB Conc 32.2 g/dL (30.0-36.0); Mean Corpuscular Hemoglobin 30.7 pg (28.0-34.0); Mean Corpuscular Volume 95.1 fl (80-94); Mean Platelet Volume 9.7 fL (7.4-10.4); Monocytes # 0.9 10^3/uL (0.2-0.9); Monocytes % 5.5 %; Neutrophils # 13.36 10^3/uL (1.8-7.7); Neutrophils % 85.9 %; Nucleated Red Blood Cells % 0 %; Platelet Count 334 10^3/cmm (130-400); Red Blood Count 3.49 10^6/uL (4.1-5.3); Red Cell Distribution Width 14.2 % (12.1-15.1); White Blood Count 15.6 10^3/uL (4.0-10.0)
[2020-12-03 05:50] LABS: INR 1.29 (0.8-1.2)
[2020-12-03 06:01] LABS: Lactate (Lactic Acid level) 0.9 mmol/L (0.5-2.2)
[2020-12-03 06:19] LABS: Alanine Aminotransferase 40 U/L (0-41); Albumin Level 2.7 g/dL (3.5-5.2); Alkaline Phosphatase 123 IU/L (40-130); Anion Gap 17.4 (5-19); Aspartate Amino Transferase 50 U/L (0-40); Blood Urea Nitrogen 59 mg/dL (8-23); C Reactive Protein 119.6 mg/L (0.0-4.9); Calcium 8.7 mg/dL (8.5-10.5); Carbon Dioxide 19 mmol/L (22-29); Chloride 103 mmol/L (98-107); Globulin 3.6 g/dL (1.3-4.6); Glucose 146 mg/dL (65-115); NT Pro B Type Natriuretic Pept 320 pg/mL (0-450); Osmolality Calculated 299 mOsm/kg (285-295); Phosphorus 3.9 mg/dL (2.5-4.5); Potassium 4.4 mmol/L (3.5-5.1); Sodium 135 mmol/L (136-145); Total Bilirubin 0.2 mg/dL (0.15-1.2); Total Protein 6.3 g/dL (6.6-8.7)
[2020-12-03 06:31] LABS: Creatine Phosphokinase 90 U/L (39-308); Ferritin 521 ng/mL (30-400)
[2020-12-03 06:33] LABS: Glucose Point of Care 147 mg/dL (70-110)
--- NOTE | 2020-12-03 07:00 | XRR_ITS ---
PROCEDURE INFORMATION: Exam: XR Chest Exam date and time: 12/03/2020 7:00 AM Age: 84 years old Clinical indication: Shortness of breath; Patient HX: Covid follow up; Difficulty breathing; Weak; Additional info: SOB TECHNIQUE: Imaging protocol: XR of the chest. Views: 1 view. COMPARISON: CR XR chest 1V portable [id number] 11/30/2020 1:20 PM FINDINGS: Lungs: Stable interstitial infiltrates are present predominantly in the right upper lobe and left base. Pleural spaces: Costophrenic angles are blunted consistent with small effusions. No pneumothorax. Heart/Mediastinum: Unremarkable. No cardiomegaly. Bones/joints: Unremarkable. XR/XR chest 1V portable [id number] IMPRESSION: Stable bilateral interstitial infiltrates and small effusions.
[2020-12-03] MEDS: zinc gluconate 50 mg Tablet PO (08:56)
[2020-12-03] MEDS: cholecalciferol (vitamin D3) 1,000 unit Tablet 1000 UNIT PO (08:56)
[2020-12-03] MEDS: dexamethasone 10 mg/mL INJ 6 MG IVP (08:56)
[2020-12-03] MEDS: atorvastatin 40 mg Tablet 20 MG PO (08:57)
[2020-12-03] MEDS: carvedilol 12.5 mg Tablet PO ×2 (08:57→17:22)
[2020-12-03] MEDS: aspirin 81 mg EC Tablet PO ×2 (08:57→17:22)
[2020-12-03] MEDS: tamsulosin 0.4 mg Capsule PO (08:57)
[2020-12-03] MEDS: ascorbic acid 500 mg Tablet PO ×2 (08:57→17:22)
[2020-12-03] MEDS: pantoprazole DR 40 mg Tablet PO (08:57)
--- NOTE | 2020-12-03 09:20 | PC.SOCIAL ---
Pg 2 IMM. Explained to pt Pg 2 IMM. No questions voiced. Provided pt a copy. Initialed, dated, & timed a copy & placed in chart.
--- NOTE | 2020-12-03 10:27 | PC.NURSE ---
1010 Pt arrived to ICU, on NRB, via bed with nursing and RT at bedside. Pt able to move self to ICU bed. Connected to ICU monitors. VSS. Placed on HHFNC at 50L/60%. Answers all questions appropriately. AAOx4. Ying cath in place draining clear bahman urine to BSD. No other issues noted. HOB elevated, SR up x 3, CLWR. IS and flutter valve at bedside. Will monitor.
[2020-12-03 11:01] LABS: Glucose Point of Care 239 mg/dL (70-110)
--- NOTE | 2020-12-03 11:25 | USCV_ITS ---
Glenroy Ryan Age: 84 Gender: M : 1935 Exam Date: 12/03/2020 13:35 Ordering Phys: Liu Pollack MD Technologist: [place] [facility] [place]: BILAT EDEMA HISTORY: Lower extremity edema. PROCEDURES: The venous duplex Doppler examination of both lower extremities was performed in the standard fashion. The following venous structures were evaluated: common femoral vein, profunda vein, proximal portion of the greater saphenous vein, superficial femoral vein, and the popliteal vein. Bilaterally, the common femoral, superficial femoral, profunda femoral, popliteal, posterior tibial, greater saphenous veins, and the peroneal trunk were identified and interrogated in the standard fashion. These veins were found to be easily compressible with spontaneous blood flow. No evidence of insufficiency or thrombus noted. FINDINGS: Normal 2-D Doppler and augmentation and compressibility throughout the lower extremity venous structures. Additional imaging through the proximal calf veins also reveals no thrombus. Limited evaluation of the greater saphenous vein is patent with no thrombus.. CONCLUSIONS No evidence of DVT in the above-mentioned identifiable veins. Dr Kevin Loo MD [facility] (Electronically Signed) Final Date: 06 December 2020 17:03 S
--- NOTE | 2020-12-03 11:25 | PM.PN ---
Subjective Subjective: Interval history: This morning patient was seen he is complaining of shortness of breath, overnight his oxygen requirements increased to 50 L, 60% O2, no fevers overnight, no chest pain, no palpitations, he is alert oriented x3, I discussed his worsening respiratory status, I readdressed his CODE STATUS, he wants to remain a full code, I discussed in case of his worsening respiratory status elective intubation, he is agreeable to elective intubation if required Vitals/I&O/Wt Last Vital Signs Temp 98.8 F 12/03/20 08:00 Pulse 75 12/03/20 08:41 Resp 18 12/03/20 08:25 BP 150/67 12/03/20 08:00 Pulse Ox 90 12/03/20 08:25 12/02/20 12/03/20 12/03/20 22:59 06:59 14:59 Intake Total 180 / 180 400 / 580 Output Total 1800 / 1800 Balance 180 / 180 -1400 / -1220 Physical Exam Const: GENERAL APPEARANCE: cooperative ORIENTATION/CONSCIOUSNESS: Yes awake, Yes oriented to person, Yes oriented to place and Yes oriented to time Resp: COMMON NORMALS: normal respiratory effort, No retractions and No use of accessory muscles AUSCULTATION: diminished lung sounds diffuse Cardio: COMMON NORMALS: regular rate, regular rhythm, S1 normal heart sound present and S2 normal heart sound present RATE: regular rate RHYTHM: regular rhythm HEART SOUNDS: S1 normal heart sound present and S2 normal heart sound present GI: COMMON NORMALS: Normal to inspection, nondistended, normoactive bowel sounds present, Soft to palpation and non-tender PALPATION: Yes Soft to palpation Extremity: COMMON NORMALS: no pedal edema Neuro: SENSORIUM/ORIENTATION: Yes oriented to person, Yes oriented to place and Yes oriented to time Urinary Catheter Management^: Ying: Cath Placed During This Visit: yes Urinary Catheter Date of Insertion: 12/03/20 Urinary Catheter Time of Insertion: 10:46 Data : 12/03/20 05:28 12/03/20 05:28 Micro: Microbiology 12/01/20 22:17 Gram Stain - Final Sputum - Expectorated Sputum Sputum Culture - Preliminary A&P Assessment and plan (1) Pneumonia due to COVID-19 virus: Acute hypoxic respiratory failure secondary to pneumonia secondary COVID-19 with evidence of acute respiratory distress syndrome -Due to increased oxygen requirements, complains of shortness of breath, will moved to ICU -Currently on high flow, 60 L 50% -Decadron 6 mg IV push daily -Remdesivir -Broad-spectrum antibiotic therapy, vancomycin, Primaxin -Initially there was concerns for secondary bacterial pneumonia, however his pro-Christopher remains negative, remains afebrile, all cultures have been unremarkable, will consider baricitinib -Follow blood cultures, sputum cultures, urine bacterial antigens, -Vitamin D, zinc, vitamin C -Incentive spirometer, flutter valve -Oxygen therapy -Appears euvolemic -Xanax 0.25 mg twice daily for anxiety -Order cardiac echocardiogram, bilateral lower extremity venous ultrasound -Lovenox for DVT prophylaxis -Full code 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, 1.5, continue to monitor Type 2 diabetes mellitus, continue Levemir 20 units daily, insulin sliding scale History of CHF, hold diuretic therapy Type II NSTEMI, elevated troponins, likely supply demand ischemia from hypoxia, however cannot rule out underlying cardiac etiology, continue aspirin, statin if CPK is normal, monitor for chest pain, telemetry monitoring Plan for today, continue remdesivir, antibiotic therapy, Decadron, follow ultrasound, consider baricitinib Status: Acute (2) Secondary bacterial pneumonia: -As pro-Christopher is negative, he remains afebrile, all his cultures have been unremarkable, it is very unlikely that he has a secondary bacterial pneumonia likely respiratory failure from COVID-19 pneumonia Status: Acute (3) Dyslipidemia (high LDL; low HDL): Status: Acute (4) Benign essential HTN: Status: Acute (5) Type 2 diabetes mellitus: Status: Acute Qualifiers: Diabetes mellitus fdc insulin use: with fdc use Diabetes mellitus complication status: without complication Qualified Code(s): E11.9 - Type 2 diabetes mellitus without complications; Z79.4 - rat exterminator (current) use of insulin (6) Atherosclerotic heart disease of [place] coronary artery without angina pectoris: Status: Acute Qualifiers: [place] vs. transplanted heart: [place] heart Qualified Code(s): I25.10 - Atherosclerotic heart disease of [place] coronary artery without angina pectoris (7) New onset of congestive heart failure: Status: Acute (8) Acute renal failure: Status: Acute Qualifiers: Acute renal failure type: unspecified Qualified Code(s): N17.9 - Acute kidney failure, unspecified (9) Acute on chronic respiratory failure with hypoxia: Status: Acute (10) Acute respiratory distress syndrome: Status: Acute Attestations Medical Necessity Statement*: Patient requires hospitalization for pneumonia sec to COVID-19, with acute respiratory failure, with acute respiratory distress syndrome Coding Level of Care Code Acute Ship Self Defense System Mk1 Operator for [facility] Diagnoses Pneumonia due to COVID-19 virus U07.1; J12.82 Secondary bacterial pneumonia J15.9 Dyslipidemia (high LDL; low HDL) E78.5 Benign essential HTN I10 Type 2 diabetes mellitus E11.9; Z79.4 Diabetes mellitus termite exterminator helper insulin use: with termite exterminator helper use Diabetes mellitus complication status: without complication Atherosclerotic heart disease of [place] coronary artery without angina pectoris I25.10 [place] vs. transplanted heart: [place] heart New onset of congestive heart failure I50.9 Acute renal failure N17.9 Acute renal failure type: unspecified Acute on chronic respiratory failure with hypoxia J96.21 Acute respiratory distress syndrome J80
--- NOTE | 2020-12-03 15:04 | PC.CHAP ---
Pastoral Care Encounter/Spiritual Assessment Type of Contact [] Declined lead ingot molder visit [] Patient/Family/Request visit [] Outpatient visit [xx] Follow-up visit [] Physician referral [] Code/Alert [] Routine visit [] Staff referral [] Actively dying [] Patient sleeping [] Family support [] [] Out of room [] Palliative care [] [] Receiving care in room [] Pre-surgical visit [] Trauma [xx] Long length of stay [xx] ICU visit [] Other: Relational/Emotional Strength [] Patient feels connected with others/family/visitors/staff [] Distress [] Loneliness/isolation [] Abandonment Spirituality of Patient [] Person of Carie [] Attends Rastafarian of their Carie [] Believes in Prayer [] Reads Bible or Latter Day materials [] There are Spiritual issues to be addressed Vinyl Installer Interventions [xx] Prayer [] Active listening [] Non-anxious presence [] Spiritual/emotional support [] Crisis/trauma care [] Spiritual counseling [] Bereavement support [] Provided bereavement packet [] Provided Bible/devotional materials [] Provided toy/stuffed animal, coloring book to patient or family member [] Provided Communion [] Anointing/[place]well [] Salvation [] Completed spiritual assessment [] Other: Impact on Illness or Injury [] Angry [] Fearful [] Anxious [] Often cries [] Exhaustion [] Unable to work [] Unable to attend orthodox [] Unable to walk/stand [] Unable to read [] Unable to drive [] Unable to eat/drink [] Unable to sleep [] Unable to be with family [] Patient intubated [] Other: Summary Patient was moved from Med/Surg. Vinyl Installer not allowed to visit in room. Vinyl Installer prayed outside room. Time spent with patient 2 minutes
--- NOTE | 2020-12-03 16:57 | USCV_ITS ---
Ryan Tim Age: 84 Gender: M : 1935 Exam Date: 12/03/2020 13:21 Ordering Phys: Liu Pollack MD Technologist: Exam Location: [facility] – [place] Indication: SOB BP: 140 / 73 HR: 74 Rhythm: Sinus Technical Quality: Adequate MEASUREMENTS (Male / Female) Normal Values 2D ECHO LV Diastolic Diameter PLAX 3.4 cm 4.2 - 5.9 / 3.9 - 5.3 cm LV Systolic Diameter PLAX 2.4 cm IVS Diastolic Thickness 1.0 cm 0.6 - 1.0 / 0.6 - 0.9 cm IVS Systolic Thickness 1.1 cm LVPW Diastolic Thickness 1.1 cm 0.6 - 1.0 / 0.6 - 0.9 cm LVPW Systolic Thickness 1.3 cm LVOT Diameter 2.0 cm LV Ejection Fraction 2D Teich 59.0 % LV Ejection Fraction MOD 2C 64.6 % LV Ejection Fraction 2C AL 64.8 % LA Diameter 3.6 cm LA Width 4.3 cm LA Height 5.3 cm RA Width 3.1 cm RA Height 4.2 cm Aorta at Sinotubular Diameter 3.1 cm DOPPLER AV Peak Velocity 129.0 cm/s LVOT Peak Velocity 107.0 cm/s AV Area Cont Eq vti 3.1 cm squared AV Area Cont Eq pk 2.6 cm squared MV Area PHT 5.0 cm squared Mitral E to A Ratio 0.7 MV E' Velocity 38.5 cm/s Mitral E to MV E' Ratio 10.8 Mitral E to LV E' Lateral Ratio 11.9 Mitral E to LV E' Septal Ratio 10.0 TR Peak Velocity 171.7 cm/s TR Peak Gradient 11.8 mmHg FINDINGS Left Ventricle Normal left ventricular size and systolic function, EF 59 %. No regional wall motion abnormalities. Grade I/IV diastolic dysfunction (abnormal relaxation filling pattern), normal to mildly elevated filling pressures. Right Ventricle The right ventricle is normal in size and function. Right Atrium The right atrium is normal in size. Left Atrium The left atrium is normal in size. Mitral Valve Thickened mitral valve. Mild mitral annular calcification. Trace mitral valve regurgitation. Aortic Valve Thickened aortic valve. Tricuspid Valve Trace tricuspid valve regurgitation. Pulmonic Valve Structurally normal pulmonic valve without significant stenosis. There is no pulmonic regurgitation. Pericardium Normal pericardium without effusion. Aorta Normal ascending aorta dimension. CONCLUSIONS Normal left ventricular size and systolic function, EF 59 %. No regional wall motion abnormalities. Grade I/IV diastolic dysfunction (abnormal relaxation filling pattern), normal to mildly elevated filling . Thickened mitral valve. Mild mitral annular calcification. Trace mitral valve regurgitation. Thickened aortic valve. Trace tricuspid valve regurgitation. Estimated pulmonary artery peak systolic pressure of 18 mmHg There is no pericardial effusion. There are no intracardiac masses. Compared to the study from 08/20/2019, there may not be a significant change Dr Kevin Loo MD [facility] (Electronically Signed) Final Date: 06 December 2020 17:01 S
[2020-12-03] MEDS: docusate sodium 100 mg Capsule PO (17:22)
[2020-12-03 17:31] LABS: Glucose Point of Care 204 mg/dL (70-110)
[2020-12-03] MEDS: remdesivir 100 MG in sodium chloride 0.9% (100 ml) 80 ML IV (17:58)
--- NOTE | 2020-12-03 18:18 | PC.NURSE ---
Shift Note Frequent safety and comfort rounds continue. Orders and/or nursing care completed as indicated. Patient monitored for response to intervention and treatment(s). Education provided includes treatment plan, medications and breathing exercises. Patient and/or sales representative metals [ResponseToTeaching]. Pt uses IS and flutter valve well. Denies any needs. Very [place]. Will continue to monitor.
[2020-12-03 19:39] LABS: Glucose Point of Care 281 mg/dL (70-110)
[2020-12-03] MEDS: vancomycin 1,500 MG/300 ML PIGGYBACK 200 MG IV (20:17)
[2020-12-03] MEDS: enoxaparin 40 mg/0.4 mL Syringe SUBCUT (20:18)
[2020-12-04] VITALS (60 sets, daily range): BP systolic 86–148; BP diastolic 50–82; PULSE 60–86; RESP 15–28; TEMP 36.8–37; O2SAT 84–93
[2020-12-04] MEDS: ipratropium-albuterol 3 mL Neb INHALATION ×4 (02:44→20:07)
--- NOTE | 2020-12-04 03:52 | PC.NURSE ---
NURSING NOTE: SHIFT SUMMARY: PT ALERT AND ORIENTED X4, MOVES ALL EXTREMITIES AND FOLLOWS COMMANDS. 02 @ 35L PER HHFNC., FI02 OF 45% WITH SATS BETWEEN 88% AND 94%. SOB WITH MINIMAL EXERTION WITH 02 SATS DROPPING TO MID 80'S/EVEN WHEN SPEAKING. PT DENIES PAIN THIS SHIFT. ALL VS AND ASSESSMENTS CHARTED. CURRENTLY RESTING WITH EYES CLOSED. BORREGO PATENT TO DD. NO DISTRESS NOTED AT THIS TIME. WILL CONTINUE TO MONITOR.
[2020-12-04 04:57] LABS: ABG PCO2 31.5 mmHg (35-45); ABG PH Result 7.42 (7.35-7.45); Arterial Blood Gas Hematocrit 21.2 % (42-52); Base Excess ABG -3.4 mmol/L (-2.0-2.0); Blood Gas Allen Test Pos; Blood Gas Sample Type Arterial; HCO3 ABG 20.6 mmol/L (22-26); PO2 ABG 56.2 mmHg (80.0-100.0)
[2020-12-04 04:58] LABS: Blood Gas Sample Site Radial, right
[2020-12-04 05:27] LABS: Basophils % 0.2 %; Eosinophils % 0.1 %; Hematocrit 33.9 % (42.0-52.0); Hemoglobin 10.9 g/dL (11.7-16.6); Lymphocytes # 1.4 10^3/uL (0.8-4.8); Lymphocytes % 9.1 %; Mean Corpuscular HGB Conc 32.2 g/dL (30.0-36.0); Mean Corpuscular Hemoglobin 30.4 pg (28.0-34.0); Mean Corpuscular Volume 94.7 fl (80-94); Mean Platelet Volume 10.3 fL (7.4-10.4); Monocytes % 6.5 %; Neutrophils # 12.31 10^3/uL (1.8-7.7); Neutrophils % 81.4 %; Nucleated Red Blood Cells % 0 %; Platelet Count 348 10^3/cmm (130-400); Red Blood Count 3.58 10^6/uL (4.1-5.3); Red Cell Distribution Width 14.3 % (12.1-15.1); White Blood Count 15.1 10^3/uL (4.0-10.0)
[2020-12-04 05:35] LABS: Oxygen Device HHFNC
[2020-12-04 05:40] LABS: INR 1.32 (0.8-1.2)
[2020-12-04 05:51] LABS: Alanine Aminotransferase 61 U/L (0-41); Albumin Level 2.7 g/dL (3.5-5.2); Alkaline Phosphatase 136 IU/L (40-130); Anion Gap 16.3 (5-19); Aspartate Amino Transferase 62 U/L (0-40); Blood Urea Nitrogen 55 mg/dL (8-23); C Reactive Protein 76.7 mg/L (0.0-4.9); Calcium 8.8 mg/dL (8.5-10.5); Carbon Dioxide 20 mmol/L (22-29); Chloride 107 mmol/L (98-107); Glucose 136 mg/dL (65-115); Magnesium 2.2 mg/dL (1.7-2.3); Osmolality Calculated 305 mOsm/kg (285-295); Phosphorus 3.9 mg/dL (2.5-4.5); Potassium 4.3 mmol/L (3.5-5.1); Sodium 139 mmol/L (136-145); Total Bilirubin 0.3 mg/dL (0.15-1.2); Total Protein 6.7 g/dL (6.6-8.7)
[2020-12-04 05:56] LABS: NT Pro B Type Natriuretic Pept 261 pg/mL (0-450); Procalcitonin 0.15 ng/mL (0-0.5)
[2020-12-04 06:08] LABS: Creatine Phosphokinase 100 U/L (39-308); Ferritin 523 ng/mL (30-400)
[2020-12-04 07:39] LABS: Glucose Point of Care 128 mg/dL (70-110)
[2020-12-04] MEDS: docusate sodium 100 mg Capsule PO ×2 (08:21→17:10)
[2020-12-04] MEDS: aspirin 81 mg EC Tablet PO ×2 (08:21→17:10)
[2020-12-04] MEDS: carvedilol 12.5 mg Tablet PO ×2 (08:21→17:10)
[2020-12-04] MEDS: cholecalciferol (vitamin D3) 1,000 unit Tablet 1000 UNIT PO (08:21)
[2020-12-04] MEDS: ascorbic acid 500 mg Tablet PO ×2 (08:21→17:10)
[2020-12-04] MEDS: tamsulosin 0.4 mg Capsule PO (08:21)
[2020-12-04] MEDS: atorvastatin 40 mg Tablet 20 MG PO (08:21)
[2020-12-04] MEDS: pantoprazole DR 40 mg Tablet PO (08:22)
[2020-12-04] MEDS: zinc gluconate 50 mg Tablet PO (08:22)
[2020-12-04] MEDS: montelukast sodium 10 mg Tablet PO (08:22)
[2020-12-04] MEDS: dexamethasone 10 mg/mL INJ 6 MG IVP (08:22)
[2020-12-04 11:30] LABS: Glucose Point of Care 174 mg/dL (70-110)
--- NOTE | 2020-12-04 12:08 | PC.NURSE ---
PT up to chairs for meals, tolerated fair. Desat into 70's this AM. At lunch, desat to 84%. Quickly recovered with no adjustment to FIO2. Will monitor.
--- NOTE | 2020-12-04 14:27 | P.PN_ITS ---
Subjective Subjective: Interval history: Patient was seen this morning, he sitting up in a chair, is on 65%, 40 L he tells me that he feels fine sitting up in the chair, no fevers, chills, nausea, vomiting, he is trying to stay positive he tells me Vitals/I&O/Wt Last Vital Signs Temp 98.2 F 12/04/20 12:00 Pulse 71 12/04/20 14:00 Resp 25 H 12/04/20 12:00 BP 122/63 12/04/20 12:00 Pulse Ox 90 12/04/20 12:00 12/03/20 12/04/20 12/04/20 22:59 06:59 14:59 Intake Total 1200 / 1300 220 / 1520 220 / 220 Output Total 925 / 925 1350 / 2275 Balance 275 / 375 -1130 / -755 220 / 220 Physical Exam Const: COMMON NORMALS: no acute distress and patient oriented x3 Resp: COMMON NORMALS: normal respiratory effort, No retractions, No use of accessory muscles and clear to auscultation bilaterally AUSCULTATION: clear to auscultation bilaterally Cardio: COMMON NORMALS: regular rate, regular rhythm, S1 normal heart sound present and S2 normal heart sound present RATE: regular rate RHYTHM: regular rhythm HEART SOUNDS: S1 normal heart sound present and S2 normal heart sound present GI: COMMON NORMALS: Normal to inspection, nondistended, normoactive bowel sounds present, Soft to palpation and non-tender PALPATION: Yes Soft to palpa tion Extremity: COMMON NORMALS: no pedal edema Neuro: COMMON NORMALS: patient oriented x3 Psych: COMMON NORMALS: mental status grossly normal Urinary Catheter Management^: Ying: Cath Placed During This Visit: yes Reason for Continuing Indwelling Catheter: Accurate Measurement of Urinary Output in Critically Ill Patients Urinary Catheter Date of Insertion: 12/03/20 Urinary Catheter Time of Insertion: 10:46 Data : 12/04/20 04:45 12/04/20 04:45 Micro: Microbiology 12/01/20 22:17 Gram Stain - Final Sputum - Expectorated Sputum Sputum Culture - Final 12/03/20 12:45 MRSA Culture - Final Nose A&P Assessment and plan (1) Pneumonia due to COVID-19 virus: Acute hypoxic respiratory failure secondary to pneumonia secondary COVID- 19 with evidence of acute respiratory distress syndrome -Due to increased oxygen requirements, complains of shortness of breath, will moved to ICU -Currently on high flow, 40 L, 65% -Decadron 6 mg IV push daily -Remdesivir -Broad-spectrum antibiotic therapy, vancomycin, Primaxin -Initially there was concerns for secondary bacterial pneumonia, however his pro-Christopher remains negative, remains afebrile, all cultures have been unremarkable, will monitor clinical progress in the next 24 hours, if respiratory status does not improve we will start barcitinib -Follow blood cultures, sputum cultures, urine bacterial antigens, -Vitamin D, zinc, vitamin C -Incentive spirometer, flutter valve -Oxygen therapy -Appears euvolemic, hold off on Lasix -Xanax 0.25 mg twice daily for anxiety -Order cardiac echocardiogram, bilateral lower extremity venous ultrasound -Lovenox for DVT prophylaxis -Full code 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, 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, continue to monitor Type 2 diabetes mellitus, continue Levemir 20 units daily, insulin sliding scale History of CHF, hold diuretic therapy Type II NSTEMI, elevated troponins, likely supply demand ischemia from hypoxia, however cannot rule out underlying cardiac etiology, continue aspirin, statin if CPK is normal, monitor for chest pain, telemetry monitoring Plan for today, continue remdesivir, antibiotic therapy, Decadron, follow ultrasound, consider baricitinib Status: Acute (2) Secondary bacterial pneumonia: -As pro-Christopher is negative, he remains afebrile, all his cultures have been unremarkable, it is very unlikely that he has a secondary bacterial pneumonia likely respiratory failure from COVID-19 pneumonia Status: Acute (3) Dyslipidemia (high LDL; low HDL): Status: Acute (4) Benign essential HTN: Status: Acute (5) Type 2 diabetes mellitus: Status: Acute Qualifiers: Diabetes mellitus jail insulin use: with jail use Diabetes mellitus complication status: without complication Qualified Code(s): E11.9 - Type 2 diabetes mellitus without complications; Z79.4 - terminologist (current) use of insulin (6) Atherosclerotic heart disease of [place] coronary artery without angina pectoris: Status: Acute Qualifiers: [place] vs. transplanted heart: [place] heart Qualified Code(s): I25.10 - Atherosclerotic heart disease of [place] coronary artery without angina pectoris (7) New onset of congestive heart failure: Status: Acute (8) Acute renal failure: Status: Acute Qualifiers: Acute renal failure type: unspecified Qualified Code(s): N17.9 - Acute kidney failure, unspecified (9) Acute on chronic respiratory failure with hypoxia: Status: Acute (10) Acute respiratory distress syndrome: Status: Acute Attestations Medical Necessity Statement*: Patient requires hospitalization for pneumonia sec to COVID-19, acute respiratory distress syndrome Coding Level of Care Code Acute Ux Specialist for [facility] Diagnoses Pneumonia due to COVID-19 virus U07.1; J12.82 Secondary bacterial pneumonia J15.9 Dyslipidemia (high LDL; low HDL) E78.5 Benign essential HTN I10 Type 2 diabetes mellitus E11.9; Z79.4 Diabetes mellitus termite technician insulin use: with jail use Diabetes mellitus complication status: without complication Atherosclerotic heart disease of [place] coronary artery without angina pectoris I25.10 [place] vs. transplanted heart: [place] heart New onset of congestive heart failure I50.9 Acute renal failure N17.9 Acute renal failure type: unspecified Acute on chronic respiratory failure with hypoxia J96.21 Acute respiratory distress syndrome J80
--- NOTE | 2020-12-04 14:41 | PC.RESP ---
RT Shift Note Frequent safety and respiratory rounds continue. Orders completed as indicated. Patient monitored pre and post treatments throughout shift. Patient [Did.] tolerate treatments appropriately. Condition [.DidNotChange]. Patient and/or surgical sales representative educated on respiratory treatment and medications. Patient and/or surgical sales representative [verbalized understanding]. Will continue to monitor patient progress.
--- NOTE | 2020-12-04 15:20 | PC.NURSE ---
Pt tolerating chair well. Stood with nurse for a minute and cushion placed under buttocks before sitting in chair.
[2020-12-04 17:20] LABS: Glucose Point of Care 206 mg/dL (70-110)
--- NOTE | 2020-12-04 17:37 | PC.NURSE ---
Shift Note Frequent safety and comfort rounds continue. Orders and/or nursing care completed as indicated. Patient monitored for response to intervention and treatment(s). Education includes treatment plan, medication regimen, ambulation safety and breathing techniques. Patient and/or collections representative verbalizes understanding. Denies any needs at this time. 45L and 70% FIO2. No s/s of SOB. Sitting up in bed eating dinner. 20g PIV started to LAC. Tolerated well. Pt ambulates fair with min to mod assist. Will continue to monitor.
[2020-12-04] MEDS: remdesivir 100 MG in sodium chloride 0.9% (100 ml) 80 ML IV (17:43)
[2020-12-04 20:14] LABS: Glucose Point of Care 286 mg/dL (70-110)
[2020-12-04] MEDS: vancomycin 1,500 MG/300 ML PIGGYBACK 200 MG IV (20:41)
[2020-12-04] MEDS: enoxaparin 40 mg/0.4 mL Syringe SUBCUT (20:41)
[2020-12-05] VITALS (48 sets, daily range): BP systolic 113–151; BP diastolic 55–81; PULSE 62–88; RESP 16–31; TEMP 36.7–36.8; O2SAT 84–100
[2020-12-05] MEDS: benzonatate 100 mg Capsule PO ×3 (00:03→20:27)
[2020-12-05] MEDS: ipratropium-albuterol 3 mL Neb INHALATION ×4 (03:18→20:12)
[2020-12-05 07:03] LABS: Basophils # 0.1 10^3/uL (0.0-0.1); Basophils % 0.3 %; Eosinophils # 0.1 10^3/uL (0.0-0.8); Eosinophils % 0.5 %; Hematocrit 34.5 % (42.0-52.0); Hemoglobin 11.3 g/dL (11.7-16.6); Lymphocytes # 1.4 10^3/uL (0.8-4.8); Lymphocytes % 7.2 %; Mean Corpuscular HGB Conc 32.8 g/dL (30.0-36.0); Mean Corpuscular Hemoglobin 30.8 pg (28.0-34.0); Mean Platelet Volume 9.4 fL (7.4-10.4); Monocytes # 0.8 10^3/uL (0.2-0.9); Monocytes % 4.3 %; Neutrophils # 16.37 10^3/uL (1.8-7.7); Neutrophils % 84.9 %; Nucleated Red Blood Cells % 0 %; Platelet Count 391 10^3/cmm (130-400); Red Blood Count 3.67 10^6/uL (4.1-5.3); Red Cell Distribution Width 14.3 % (12.1-15.1); White Blood Count 19.3 10^3/uL (4.0-10.0)
[2020-12-05 07:33] LABS: Alanine Aminotransferase 56 U/L (0-41); Albumin Level 2.7 g/dL (3.5-5.2); Alkaline Phosphatase 128 IU/L (40-130); Anion Gap 16.4 (5-19); Aspartate Amino Transferase 52 U/L (0-40); Blood Urea Nitrogen 49 mg/dL (8-23); C Reactive Protein 93.2 mg/L (0.0-4.9); Calcium 8.6 mg/dL (8.5-10.5); Carbon Dioxide 18 mmol/L (22-29); Chloride 107 mmol/L (98-107); Globulin 3.7 g/dL (1.3-4.6); Glucose 86 mg/dL (65-115); INR 1.22 (0.8-1.2); Magnesium 2.1 mg/dL (1.7-2.3); Osmolality Calculated 296 mOsm/kg (285-295); Phosphorus 3.5 mg/dL (2.5-4.5); Potassium 4.4 mmol/L (3.5-5.1); Sodium 137 mmol/L (136-145); Total Bilirubin 0.3 mg/dL (0.15-1.2); Total Protein 6.4 g/dL (6.6-8.7)
[2020-12-05 07:44] LABS: NT Pro B Type Natriuretic Pept 137 pg/mL (0-450); Procalcitonin 0.22 ng/mL (0-0.5)
[2020-12-05 07:55] LABS: Creatine Phosphokinase 89 U/L (39-308); Ferritin 579 ng/mL (30-400)
[2020-12-05 07:58] LABS: Lactate (Lactic Acid level) 2.1 mmol/L (0.5-2.2)
[2020-12-05] MEDS: aspirin 81 mg EC Tablet PO ×2 (08:15→17:44)
[2020-12-05] MEDS: cholecalciferol (vitamin D3) 1,000 unit Tablet 1000 UNIT PO (08:15)
[2020-12-05] MEDS: carvedilol 12.5 mg Tablet PO ×2 (08:15→17:44)
[2020-12-05] MEDS: pantoprazole DR 40 mg Tablet PO (08:15)
[2020-12-05] MEDS: docusate sodium 100 mg Capsule PO ×2 (08:15→17:44)
[2020-12-05] MEDS: zinc gluconate 50 mg Tablet PO (08:16)
[2020-12-05] MEDS: tamsulosin 0.4 mg Capsule PO (08:16)
[2020-12-05] MEDS: ascorbic acid 500 mg Tablet PO ×2 (08:16→17:44)
[2020-12-05] MEDS: atorvastatin 40 mg Tablet 20 MG PO (08:16)
[2020-12-05] MEDS: dexamethasone 10 mg/mL INJ 6 MG IVP (08:16)
[2020-12-05] MEDS: montelukast sodium 10 mg Tablet PO (08:37)
[2020-12-05 09:55] LABS: Glucose Point of Care 100 mg/dL (70-110)
--- NOTE | 2020-12-05 10:06 | PC.SOCIAL ---
IMM update IMM not updated as patient isn't expected to DC in the next 24-48 hours.
--- NOTE | 2020-12-05 11:04 | P.PN_ITS ---
Subjective Subjective: Interval history: Patient was seen this morning, he is a bit frustrated on his slow progress, he tells me he is short of breath, but no fevers overnight, has a cough, no fevers, chills, no chest pain Vitals/I&O/Wt Last Vital Signs Temp 98.6 F 12/04/20 19:00 Pulse 87 12/05/20 09:07 Resp 24 H 12/05/20 08:54 BP 150/75 12/05/20 08:30 Pulse Ox 89 L 12/05/20 08:54 12/04/20 12/05/20 12/05/20 22:59 06:59 14:59 Intake Total 900 / 1120 340 / 340 Output Total 850 / 850 1475 / 2325 Balance 50 / 270 -1475 / -1205 340 / 340 Physical Exam Const: COMMON NORMALS: no acute distress and patient oriented x3 Resp: COMMON NORMALS: normal respiratory effort, No retractions and No use of accessory muscles AUSCULTATION: diminished lung sounds diffuse Cardio: COMMON NORMALS: regular rate, regular rhythm, S1 normal heart sound present and S2 normal heart sound present RATE: regular rate RHYTHM: regular rhythm HEART SOUNDS: S1 normal heart sound present and S2 normal heart sound present GI: COMMON NORMALS: Normal to inspection, nondistended, normoactive bowel so unds present, Soft to palpation and non-tender PALPATION: Yes Soft to palpation Extremity: COMMON NORMALS: no pedal edema Neuro: COMMON NORMALS: patient oriented x3 Psych: COMMON NORMALS: mental status grossly normal Urinary Catheter Management^: Ying: Cath Placed During This Visit: yes Reason for Continuing Indwelling Catheter: Accurate Measurement of Urinary Output in Critically Ill Patients Urinary Catheter Date of Insertion: 12/03/20 Urinary Catheter Time of Insertion: 10:46 Data : 12/05/20 06:55 12/05/20 06:55 Micro: Microbiology 12/01/20 22:17 Gram Stain - Final Sputum - Expectorated Sputum Sputum Culture - Final A&P Assessment and plan (1) Pneumonia due to COVID-19 virus: Acute hypoxic respiratory failure secondary to pneumonia secondary COVID- 19 with evidence of acute respiratory distress syndrome -Plan -Currently being managed in ICU -Currently on high flow, on 45 L 75% FiO2 -Decadron 6 mg IV push daily -Completed remdesivir -Broad-spectrum antibiotic therapy, vancomycin, Primaxin -WBC up to 19.3, afebrile, pro-Christopher 0.22, CRP 93.2 -Initially there was concerns for secondary bacterial pneumonia, however his pro-Christopher remains negative, remains afebrile, all cultures have been unremarkable, discussed with patient baricitinib, discussed the risks and benefits, voiced understanding, all questions answered, agreed to proceed we will start barcitinib -We will consider adding antifungal coverage -Follow blood cultures, sputum cultures, urine bacterial antigens, -Vitamin D, zinc, vitamin C -Incentive spirometer, flutter valve -Oxygen therapy -Appears euvolemic, hold off on Lasix -Xanax 0.25 mg twice daily for anxiety -Order cardiac echocardiogram, bilateral lower extremity venous ultrasound pending -Lovenox for DVT prophylaxis -Full code 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, 1.1, continue to monitor Type 2 diabetes mellitus, continue Levemir 20 units daily, insulin sliding scale History of CHF, hold diuretic therapy Type II NSTEMI, elevated troponins, likely supply demand ischemia from hypoxia, however cannot rule out underlying cardiac etiology, continue aspirin, statin if CPK is normal, monitor for chest pain, telemetry monitoring Plan for today, add baricitinib, continue Decadron, awaiting cardiac echo and venous ultrasound Status: Acute (2) Secondary bacterial pneumonia: -As pro-Christopher is negative, he remains afebrile, all his cultures have been unremarkable, it is very unlikely that he has a secondary bacterial pneumonia likely respiratory failure from COVID-19 pneumonia Status: Acute (3) Dyslipidemia (high LDL; low HDL): Status: Acute (4) Benign essential HTN: Status: Acute (5) Type 2 diabetes mellitus: Status: Acute Qualifiers: Diabetes mellitus usp insulin use: with intermediate teacher use Diabetes mellitus complication status: without complication Qualified Code(s): E11.9 - Type 2 diabetes mellitus without complications; Z79.4 - half-way (current) use of insulin (6) Atherosclerotic heart disease of [place] coronary artery without angina pectoris: Status: Acute Qualifiers: [place] vs. transplanted heart: [place] heart Qualified Code(s): I25.10 - Atherosclerotic heart disease of [place] coronary artery without angina pectoris (7) New onset of congestive heart failure: Status: Acute (8) Acute renal failure: Status: Acute Qualifiers: Acute renal failure type: unspecified Qualified Code(s): N17.9 - Acute kidney failure, unspecified (9) Acute on chronic respiratory failure with hypoxia: Status: Acute (10) Acute respiratory distress syndrome: Status: Acute Attestations 2 Medical Necessity Statement*: Patient requires hospitalization for acute respiratory distress syndrome, acute hypoxic respiratory failure secondary COVID-19 pneumonia Coding Level of Care Code Acute Activity Therapy Teacher for [facility] Fwd Diagnoses Pneumonia due to COVID-19 virus U07.1; J12.82 Secondary bacterial pneumonia J15.9 Dyslipidemia (high LDL; low HDL) E78.5 Benign essential HTN I10 Type 2 diabetes mellitus E11.9; Z79.4 Diabetes mellitus usp insulin use: with intermediate teacher use Diabetes mellitus complication status: without complication Atherosclerotic heart disease of [place] coronary artery without angina pectoris I25.10 [place] vs. transplanted heart: [place] heart New onset of congestive heart failure I50.9 Acute renal failure N17.9 Acute renal failure type: unspecified Acute on chronic respiratory failure with hypoxia J96.21 Acute respiratory distress syndrome J80
[2020-12-05 12:39] LABS: Glucose Point of Care 157 mg/dL (70-110)
[2020-12-05 17:24] LABS: Glucose Point of Care 307 mg/dL (70-110)
[2020-12-05] MEDS: vancomycin 1,500 MG/300 ML PIGGYBACK 125 MG IV (19:59)
[2020-12-05] MEDS: enoxaparin 40 mg/0.4 mL Syringe SUBCUT (19:59)
[2020-12-05 20:27] LABS: Glucose Point of Care 283 mg/dL (70-110)
[2020-12-05 20:38] LABS: Vancomycin Trough 14.6 ug/mL (10-15)
[2020-12-06] VITALS (52 sets, daily range): BP systolic 99–142; BP diastolic 52–76; PULSE 62–757; RESP 14–28; TEMP 36.9–37.1; O2SAT 77–94
[2020-12-06] MEDS: ipratropium-albuterol 3 mL Neb INHALATION ×3 (03:17→14:23)
[2020-12-06 03:24] LABS: ABG PCO2 30.5 mmHg (35-45); ABG PH Result 7.42 (7.35-7.45); Arterial Blood Gas Hematocrit 33.8 % (42-52); Base Excess ABG -3.7 mmol/L (-2.0-2.0); Blood Gas Allen Test Pos; Blood Gas Sample Site Radial, right; Blood Gas Sample Type Arterial; HCO3 ABG 19.9 mmol/L (22-26); Oxygen Device NC; PO2 ABG 65.6 mmHg (80.0-100.0)
[2020-12-06 04:44] LABS: Basophils % 0.2 %; Eosinophils # 0.1 10^3/uL (0.0-0.8); Eosinophils % 0.3 %; Hematocrit 32.7 % (42.0-52.0); Hemoglobin 10.6 g/dL (11.7-16.6); Lymphocytes # 1.4 10^3/uL (0.8-4.8); Lymphocytes % 8.2 %; Mean Corpuscular HGB Conc 32.4 g/dL (30.0-36.0); Mean Corpuscular Hemoglobin 30.5 pg (28.0-34.0); Monocytes # 0.6 10^3/uL (0.2-0.9); Monocytes % 3.5 %; Neutrophils # 14.66 10^3/uL (1.8-7.7); Nucleated Red Blood Cells % 0 %; Platelet Count 389 10^3/cmm (130-400); Red Blood Count 3.48 10^6/uL (4.1-5.3); Red Cell Distribution Width 14.3 % (12.1-15.1); White Blood Count 17.4 10^3/uL (4.0-10.0)
[2020-12-06 05:18] LABS: Alanine Aminotransferase 44 U/L (0-41); Albumin Level 2.5 g/dL (3.5-5.2); Alkaline Phosphatase 125 IU/L (40-130); Anion Gap 16.6 (5-19); Aspartate Amino Transferase 40 U/L (0-40); Blood Urea Nitrogen 55 mg/dL (8-23); C Reactive Protein 69.6 mg/L (0.0-4.9); Calcium 8.4 mg/dL (8.5-10.5); Carbon Dioxide 19 mmol/L (22-29); Chloride 106 mmol/L (98-107); Globulin 3.7 g/dL (1.3-4.6); Glucose 151 mg/dL (65-115); Magnesium 2.4 mg/dL (1.7-2.3); Osmolality Calculated 302 mOsm/kg (285-295); Phosphorus 3.7 mg/dL (2.5-4.5); Potassium 4.6 mmol/L (3.5-5.1); Sodium 137 mmol/L (136-145); Total Bilirubin 0.3 mg/dL (0.15-1.2); Total Protein 6.2 g/dL (6.6-8.7)
[2020-12-06 05:26] LABS: NT Pro B Type Natriuretic Pept 164 pg/mL (0-450); Procalcitonin 0.18 ng/mL (0-0.5)
[2020-12-06 05:36] LABS: Creatine Phosphokinase 62 U/L (39-308)
[2020-12-06 05:38] LABS: INR 1.32 (0.8-1.2)
--- NOTE | 2020-12-06 07:00 | XRR_ITS ---
PROCEDURE INFORMATION: Exam: XR Chest Exam date and time: 12/06/2020 7:00 AM Age: 84 years old Clinical indication: Shortness of breath; Patient HX: Covid; Additional info: SOB TECHNIQUE: Imaging protocol: XR of the chest. Views: 1 view. COMPARISON: CR XR chest 1V portable [id number] 12/03/2020 6:23 AM FINDINGS: Lungs: Low lung volumes. Persistent hazy airspace opacities, predominantly in the right lung apex and left lung base. Pleural spaces: Possible trace bilateral pleural effusions. No pneumothorax. Heart/Mediastinum: Stable cardiomediastinal silhouette. Bones/joints: Degenerative changes of the spine and shoulder joints noted. Cervical spine fusion hardware noted. XR/XR chest 1V portable [id number] IMPRESSION: Nonspecific imaging findings, which can be seen with pulmonary congestion or pneumonia. Clinical correlation is recommended.
[2020-12-06] MEDS: dexamethasone 10 mg/mL INJ 6 MG IVP (07:39)
[2020-12-06] MEDS: tamsulosin 0.4 mg Capsule PO (08:51)
[2020-12-06] MEDS: docusate sodium 100 mg Capsule PO ×2 (08:51→17:22)
[2020-12-06] MEDS: aspirin 81 mg EC Tablet PO ×2 (08:51→17:22)
[2020-12-06] MEDS: ascorbic acid 500 mg Tablet PO ×2 (08:51→17:22)
[2020-12-06] MEDS: cholecalciferol (vitamin D3) 1,000 unit Tablet 1000 UNIT PO (08:51)
[2020-12-06] MEDS: zinc gluconate 50 mg Tablet PO (08:51)
[2020-12-06] MEDS: atorvastatin 40 mg Tablet 20 MG PO (08:51)
[2020-12-06] MEDS: pantoprazole DR 40 mg Tablet PO (08:52)
[2020-12-06] MEDS: carvedilol 12.5 mg Tablet PO ×2 (08:52→17:22)
[2020-12-06] MEDS: montelukast sodium 10 mg Tablet PO (08:56)
--- NOTE | 2020-12-06 09:54 | PC.CHAP ---
Pastoral Care Encounter/Spiritual Assessment Type of Contact [] Declined compensation intern visit [] Patient/Family/Request visit [] Outpatient visit [] Follow-up visit [] Physician referral [] Code/Alert [x] Routine visit [] Staff referral [] Actively dying [] Patient sleeping [] Family support [] [] Out of room [] Palliative care [] [] Receiving care in room [] Pre-surgical visit [] Trauma [] Long length of stay [x] ICU visit [x] Other: patient setting up in chair, eating breakfast Relational/Emotional Strength [] Patient feels connected with others/family/visitors/staff [] Distress [] Loneliness/isolation [] Abandonment Spirituality of Patient [] Person of Carie [] Attends Religious of their Carie [] Believes in Prayer [] Reads Bible or Holiness materials [] There are Spiritual issues to be addressed College Football Coach Interventions [x] Prayer [] Active listening [] Non-anxious presence [] Spiritual/emotional support [] Crisis/trauma care [] Spiritual counseling [] Bereavement support [] Provided bereavement packet [] Provided Bible/devotional materials [] Provided toy/stuffed animal, coloring book to patient or family member [] Provided Communion [] Anointing/[place] [] Salvation [x] Completed spiritual assessment [] Other: Impact on Illness or Injury [] Angry [] Fearful [] Anxious [] Often cries [] Exhaustion [] Unable to work [] Unable to attend pentecostalism [] Unable to walk/stand [] Unable to read [] Unable to drive [] Unable to eat/drink [] Unable to sleep [] Unable to be with family [] Patient intubated [] Other: Summary Time spent with patient
--- NOTE | 2020-12-06 10:26 | P.PN_ITS ---
Subjective Subjective: Interval history: Patient was seen this morning, says that still has sob which has not improved much, he is slow with I.s and flutter valve because of nagging cough. currently he is on 70 % FIO2 @ 45Ls/Min Medications: Reviewed: Yes Vitals/I&O/Wt Last Vital Signs Temp 98.8 F 12/06/20 08:00 Pulse 82 12/06/20 08:55 Resp 20 H 12/06/20 08:55 BP 136/59 12/06/20 08:00 Pulse Ox 90 12/06/20 08:55 12/05/20 12/06/20 12/06/20 22:59 06:59 14:59 Intake Total 640 / 1320 100 / 1420 Output Total 1000 / 1000 1100 / 2100 Balance -360 / 320 -1000 / -680 Physical Exam Const: COMMON NORMALS: patient oriented x3 HENMT: COMMON NORMALS: normocephalic and atraumatic HEAD & SCALP: normocephalic and atraumatic Resp: OTHER: Fine B/L Basal crackles, diminished air entry b/l Cardio: COMMON NORMALS: regular rate, regular rhythm, S1 normal heart sound present, S2 normal heart sound present, No gallops present (Cardio), No murmurs present (Cardio), No rub (Cardio) and Peripheral pulses 2+ throughout RATE: regular rate RHYTHM: regular rhythm HEART SOUNDS: S1 normal heart sound present and S2 normal heart sound present PERIPHERAL PULSES: Peripheral pulses 2+ throughout GI: COMMON NORMALS: Normal to inspection, nondistended, normoactive bowel sounds present, Soft to palpation, non-tender, No hepatosplenomegaly present and no masses AUSCULTATION: Yes normoactive bowel sounds PALPATION: Yes Soft to palpation and Yes No hepatosplenomegaly present RECTAL EXAM: Yes deferred Extremity: COMMON NORMALS: no clubbing, cyanosis or edema and no pedal edema Neuro: COMMON NORMALS: patient oriented x3 Urinary Catheter Management^: Ying: Cath Placed During This Visit: yes Reason for Continuing Indwelling Catheter: Accurate Measurement of Urinary Output in Critically Ill Patients Urinary Catheter Date of Insertion: 12/03/20 Urinary Catheter Time of Insertion: 10:46 Data : 12/06/20 03:39 12/06/20 03:39 Micro: Microbiology 11/30/20 19:25 Blood Culture - Final Blood NO GROWTH AFTER 5 DAYS 11/30/20 19:10 Blood Culture - Final Blood NO GROWTH AFTER 5 DAYS A&P Assessment and plan (1) Pneumonia due to COVID-19 virus: Acute hypoxic respiratory failure secondary to pneumonia secondary COVID- 19 with evidence of acute respiratory distress syndrome -Plan -Decadron 6 mg IV push daily for 10 days -Completed remdesivir -Broad-spectrum antibiotic therapy, vancomycin, Primaxin -WBC up to 19.3, afebrile, pro-Christopher 0.22, CRP 93.2 -Initially there was concerns for secondary bacterial pneumonia, however his pro-Christopher remains negative, remains afebrile, all cultures have been unremarkable, discussed with patient baricitinib, discussed the risks and benefits, voiced understanding, all questions answered, agreed to proceed we will start barcitinib -We will consider adding antifungal coverage -Follow blood cultures, sputum cultures, urine bacterial antigens, -Vitamin D, zinc, vitamin C -Incentive spirometer, flutter valve -Oxygen therapy -Appears euvolemic, hold off on Lasix -Xanax 0.25 mg twice daily for anxiety -2D Echocardiogram: Normal LV Size and systolic function with EF of 59 %.No RWMA,Grade I/IV diastolic dysfunction, No Gross valvular abnormality. - bilateral lower extremity venous ultrasound: No evidence of DVT -Lovenox for DVT prophylaxis -Full code 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, 1.1, continue to monitor Type 2 diabetes mellitus, continue Levemir 20 units daily, insulin sliding scale H/O HFpEF: Currently Euvolemic. Type II NSTEMI, elevated troponins, likely supply demand ischemia from hypoxia, however cannot rule out underlying cardiac etiology, continue aspirin, statin. Status: Acute (2) Secondary bacterial pneumonia: -As pro-Christopher is negative, he remains afebrile, all his cultures have been unremarkable, it is very unlikely that he has a secondary bacterial pneumonia likely respiratory failure from COVID-19 pneumonia Status: Acute (3) Dyslipidemia (high LDL; low HDL): Status: Acute (4) Benign essential HTN: Status: Acute (5) Type 2 diabetes mellitus: Status: Acute Qualifiers: Diabetes mellitus prison insulin use: with prison use Diabetes mellitus complication status: without complication Qualified Code(s): E11.9 - Type 2 diabetes mellitus without complications; Z79.4 - company doctor (current) use of insulin (6) Atherosclerotic heart disease of [place] coronary artery without angina pectoris: Status: Acute Qualifiers: [place] vs. transplanted heart: [place] heart Qualified Code(s): I25.10 - Atherosclerotic heart disease of 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 coronary artery without angina pectoris I25.10 [place] vs. transplanted heart: [place] heart New onset of congestive heart failure I50.9 Acute renal failure N17.9 Acute renal failure type: unspecified Acute on chronic respiratory failure with hypoxia J96.21 Acute respiratory distress syndrome J80
[2020-12-06 11:32] LABS: Glucose Point of Care 296 mg/dL (70-110)
[2020-12-06] MEDS: benzonatate 100 mg Capsule PO ×2 (11:33→22:08)
[2020-12-06 16:56] LABS: Glucose Point of Care 207 mg/dL (70-110)
[2020-12-06 20:14] LABS: Glucose Point of Care 221 mg/dL (70-110)
[2020-12-06] MEDS: enoxaparin 40 mg/0.4 mL Syringe SUBCUT (20:15)
[2020-12-07] VITALS (52 sets, daily range): BP systolic 101–157; BP diastolic 49–83; PULSE 7–88; RESP 12–33; TEMP 36.6–37.1; O2SAT 80–94; BMI 30.9
[2020-12-07] MEDS: ipratropium-albuterol 3 mL Neb INHALATION ×4 (03:00→21:40)
[2020-12-07] MEDS: benzonatate 100 mg Capsule PO ×2 (03:14→23:44)
[2020-12-07 04:45] LABS: Basophils % 0.1 %; Eosinophils % 0.2 %; Hemoglobin 10.8 g/dL (11.7-16.6); Lymphocytes # 1.4 10^3/uL (0.8-4.8); Lymphocytes % 8.3 %; Mean Corpuscular HGB Conc 31.8 g/dL (30.0-36.0); Mean Corpuscular Hemoglobin 29.8 pg (28.0-34.0); Mean Corpuscular Volume 93.9 fl (80-94); Mean Platelet Volume 9.7 fL (7.4-10.4); Monocytes # 0.6 10^3/uL (0.2-0.9); Monocytes % 3.5 %; Neutrophils # 13.74 10^3/uL (1.8-7.7); Neutrophils % 84.2 %; Nucleated Red Blood Cells % 0 %; Platelet Count 402 10^3/cmm (130-400); Red Blood Count 3.62 10^6/uL (4.1-5.3); Red Cell Distribution Width 14.2 % (12.1-15.1); White Blood Count 16.3 10^3/uL (4.0-10.0)
[2020-12-07 04:56] LABS: ABG PCO2 31.2 mmHg (35-45); ABG PH Result 7.43 (7.35-7.45); Blood Gas Allen Test Pos; Blood Gas Sample Site Radial, left; Blood Gas Sample Type Arterial; HCO3 ABG 20.6 mmol/L (22-26); PO2 ABG 65.8 mmHg (80.0-100.0)
[2020-12-07 04:57] LABS: Oxygen Device HAG
[2020-12-07 05:00] LABS: INR 1.18 (0.8-1.2)
[2020-12-07 05:11] LABS: NT Pro B Type Natriuretic Pept 145 pg/mL (0-450); Procalcitonin 0.11 ng/mL (0-0.5)
[2020-12-07 05:15] LABS: Alanine Aminotransferase 46 U/L (0-41); Albumin Level 2.6 g/dL (3.5-5.2); Alkaline Phosphatase 116 IU/L (40-130); Anion Gap 13.7 (5-19); Aspartate Amino Transferase 46 U/L (0-40); Blood Urea Nitrogen 54 mg/dL (8-23); C Reactive Protein 34.9 mg/L (0.0-4.9); Calcium 8.5 mg/dL (8.5-10.5); Carbon Dioxide 21 mmol/L (22-29); Chloride 108 mmol/L (98-107); Globulin 3.8 g/dL (1.3-4.6); Glucose 99 mg/dL (65-115); Magnesium 2.4 mg/dL (1.7-2.3); Osmolality Calculated 301 mOsm/kg (285-295); Phosphorus 3.9 mg/dL (2.5-4.5); Potassium 4.7 mmol/L (3.5-5.1); Sodium 138 mmol/L (136-145); Total Bilirubin 0.4 mg/dL (0.15-1.2); Total Protein 6.4 g/dL (6.6-8.7)
[2020-12-07 05:25] LABS: Creatine Phosphokinase 85 U/L (39-308)
--- NOTE | 2020-12-07 05:37 | PC.NURSE ---
Shift Note Frequent safety and comfort rounds continue. Orders and/or nursing care completed as indicated. Patient monitored for response to intervention and treatment(s). Education provided includes heated high flow requirements. Patient verbalizes understanding of teaching. Patient remains on heated high flow at 45L and 78% FiO2. Ying catheter drained 1100 mls of bright yellow urine all evening. No wounds or skin issues noted at this time. Patient A & O x4. Right forearm IV is saline locked at this time. Will continue to monitor.
[2020-12-07 07:27] LABS: Glucose Point of Care 100 mg/dL (70-110)
[2020-12-07] MEDS: dexamethasone 10 mg/mL INJ 6 MG IVP (08:53)
[2020-12-07] MEDS: zinc gluconate 50 mg Tablet PO (09:21)
[2020-12-07] MEDS: ascorbic acid 500 mg Tablet PO ×2 (09:21→17:58)
[2020-12-07] MEDS: atorvastatin 40 mg Tablet 20 MG PO (09:21)
[2020-12-07] MEDS: aspirin 81 mg EC Tablet PO ×2 (09:23→17:58)
[2020-12-07] MEDS: docusate sodium 100 mg Capsule PO ×2 (09:23→17:58)
[2020-12-07] MEDS: cholecalciferol (vitamin D3) 1,000 unit Tablet 1000 UNIT PO (09:23)
[2020-12-07] MEDS: pantoprazole DR 40 mg Tablet PO (09:24)
[2020-12-07] MEDS: tamsulosin 0.4 mg Capsule PO (09:24)
[2020-12-07] MEDS: carvedilol 12.5 mg Tablet PO ×2 (09:24→17:58)
[2020-12-07] MEDS: montelukast sodium 10 mg Tablet PO (09:38)
--- NOTE | 2020-12-07 10:15 | PC.SOCIAL ---
IMM Update Pg. 2 IMM updated and reviewed with patient's over the phone. Verbalized understanding. Initialed, dated, and timed copy in chart.
--- NOTE | 2020-12-07 11:06 | P.PN_ITS ---
Subjective Subjective: Interval history: Patient was seen and examined this morning,persistent SOB with Minimal exertion as well as Nagging cough,supplemental oxygen requirement continue to be high.Has good urine output.has remained afebrile. Medications: Reviewed: Yes Vitals/I&O/Wt Last Vital Signs Temp 97.8 F 12/07/20 07:51 Pulse 88 12/07/20 09:28 Resp 18 12/07/20 09:28 BP 135/59 12/07/20 07:51 Pulse Ox 90 12/07/20 09:28 12/06/20 12/07/20 12/07/20 22:59 06:59 14:59 Intake Total 300 / 600 200 / 800 Output Total 900 / 900 1100 / 2000 Balance -600 / -300 -900 / -1200 Weight last 48 hrs Weight 94.914 kg Physical Exam Const: COMMON NORMALS: patient oriented x3 HENMT: COMMON NORMALS: normocephalic and atraumatic HEAD & SCALP: normocephalic and atraumatic Resp: OTHER: Fine B/L Basal crackles, diminished air entry b/l Cardio: COMMON NORMALS: regular rate, regular rhythm, S1 normal heart sound present, S2 normal heart sound present, No gallops present (Cardio), No murmurs present (Cardio), No rub (Cardio) and Peripheral pulses 2+ throughout RATE: regular rate RHYTHM: regular rhythm HEART SOUNDS: S1 normal heart sound present and S2 normal heart sound present PERIPHERAL PULSES: Peripheral pulses 2+ throughout GI: COMMON NORMALS: Normal to inspection, nondistended, normoactive bowel sounds present, Soft to palpation, non-tender, No hepatosplenomegaly present and no masses AUSCULTATION: Yes normoactive bowel sounds PALPATION: Yes Soft to palpation and Yes No hepatosplenomegaly present RECTAL EXAM: Yes deferred Extremity: COMMON NORMALS: no clubbing, cyanosis or edema and no pedal edema Neuro: COMMON NORMALS: patient oriented x3 Urinary Catheter Management^: Ying: Cath Placed During This Visit: yes Reason for Continuing Indwelling Catheter: Accurate Measurement of Urinary Output in Critically Ill Patients Urinary Catheter Date of Insertion: 12/03/20 Urinary Catheter Time of Insertion: 10:46 Data : 12/07/20 04:07 12/07/20 04:07 A&P Assessment and plan (1) Pneumonia due to COVID-19 virus: Acute hypoxic respiratory failure secondary to pneumonia secondary COVID- 19 with evidence of acute respiratory distress syndrome -Plan -Decadron 6 mg IV push daily for 10 days -Completed 5 day course of remdesivir -Broad-spectrum antibiotic therapy, initially on vancomycin, Primaxin -WBC up to 19.3, afebrile, pro-Christopher 0.22, CRP 93.2 -Initially there was concerns for secondary bacterial pneumonia, however his pro-Christopher remains negative, remains afebrile, all cultures have been unremarkable, discussed with patient baricitinib, discussed the risks and benefits, voiced understanding, all questions answered, agreed to proceed we will start barcitinib -We will consider adding antifungal coverage -Follow blood cultures, sputum cultures, urine bacterial antigens, -Vitamin D, zinc, vitamin C -Incentive spirometer, flutter valve -Oxygen therapy -Appears euvolemic, hold off on Lasix -Xanax 0.25 mg twice daily for anxiety -2D Echocardiogram: Normal LV Size and systolic function with EF of 59 %.No RWMA,Grade I/IV diastolic dysfunction, No Gross valvular abnormality. 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 Type II NSTEMI, elevated troponins, likely supply demand ischemia from hypoxia, however cannot rule out underlying cardiac etiology, continue aspirin, statin. Status: Acute (2) Secondary bacterial pneumonia: -As pro-Christopher is negative, he remains afebrile, all his cultures have been unremarkable, it is very unlikely that he has a secondary bacterial pneumonia likely respiratory failure from COVID-19 pneumonia Status: Acute (3) Dyslipidemia (high LDL; low HDL): Status: Acute (4) Benign essential HTN: Status: Acute (5) Type 2 diabetes mellitus: Status: Acute Qualifiers: Diabetes mellitus chcf insulin use: with long term care administrator use Diabetes mellitus complication status: without complication Qualified Code(s): E11.9 - Type 2 diabetes mellitus without complications; Z79.4 - intermediate (current) use of insulin (6) Atherosclerotic heart disease of [place] coronary artery without angina pectoris: Status: Acute Qualifiers: [place] vs. transplanted heart: [place] heart Qualified Code(s): I25.10 - Atherosclerotic heart disease of [place] coronary artery without angina pectoris (7) New onset of congestive heart failure: Status: Acute (8) Acute renal failure: Status: Acute Qualifiers: Acute renal failure type: unspecified Qualified Code(s): N17.9 - Acute kidney failure, unspecified (9) Acute on chronic respiratory failure with hypoxia: Status: Acute (10) Acute respiratory distress syndrome: Status: Acute Attestations Medical Necessity Statement*: Patient needs to be in hospital for the management of PNA Coding Level of Care Code Acute Dowel Sander Operator for g Fwd Diagnoses Pneumonia due to COVID-19 virus U07.1; J12.82 Secondary bacterial pneumonia J15.9 Dyslipidemia (high LDL; low HDL) E78.5 Benign essential HTN I10 Type 2 diabetes mellitus E11.9; Z79.4 Diabetes mellitus long term care administrator insulin use: with long term care administrator use Diabetes mellitus complication status: without complication Atherosclerotic heart disease of [place] coronary artery without angina pectoris I25.10 [place] vs. transplanted heart: [place] heart New onset of congestive heart failure I50.9 Acute renal failure N17.9 Acute renal failure type: unspecified Acute on chronic respiratory failure with hypoxia J96.21 Acute respiratory distress syndrome J80
[2020-12-07 11:14] LABS: Glucose Point of Care 185 mg/dL (70-110)
[2020-12-07 17:52] LABS: Glucose Point of Care 175 mg/dL (70-110)
--- NOTE | 2020-12-07 18:55 | PC.NURSE ---
Family updated Pt's Shanda called multiple times today. She verbalized understanding at the end of each phone call. She is aware that pt is doing better. Pt has been sitting in the chair and speaking to his throughout most of the shift.
--- NOTE | 2020-12-07 19:15 | PC.NURSE ---
Up to chair Patient up to chair upon assessment. Patient tolerated well, and verbalized desire to get back in bed. Patient stood with help of nurse along with walker and transferred to bed smoothly. Patient tolerated activity well.
[2020-12-07 19:22] LABS: Glucose Point of Care 262 mg/dL (70-110)
[2020-12-07] MEDS: enoxaparin 40 mg/0.4 mL Syringe SUBCUT (20:40)
[2020-12-07 20:50] LABS: Glucose Point of Care 240 mg/dL (70-110)
--- NOTE | 2020-12-07 23:40 | PC.NURSE ---
Cough Patient requested cough medication due to cough interrupting his rest. Medication administered per MAY.
[2020-12-08] VITALS (49 sets, daily range): BP systolic 107–170; BP diastolic 57–89; PULSE 62–86; RESP 17–30; TEMP 36.1–37.1; O2SAT 77–94; BMI 29.0
[2020-12-08] MEDS: ipratropium-albuterol 3 mL Neb INHALATION ×4 (03:46→20:12)
[2020-12-08 04:47] LABS: Basophils % 0.1 %; Eosinophils # 0.1 10^3/uL (0.0-0.8); Eosinophils % 0.4 %; Hematocrit 34.2 % (42.0-52.0); Lymphocytes # 1.1 10^3/uL (0.8-4.8); Lymphocytes % 7.8 %; Mean Corpuscular HGB Conc 32.2 g/dL (30.0-36.0); Mean Corpuscular Hemoglobin 30.3 pg (28.0-34.0); Mean Corpuscular Volume 94.2 fl (80-94); Mean Platelet Volume 10.2 fL (7.4-10.4); Monocytes # 0.4 10^3/uL (0.2-0.9); Neutrophils # 11.45 10^3/uL (1.8-7.7); Neutrophils % 85.2 %; Nucleated Red Blood Cells % 0 %; Platelet Count 371 10^3/cmm (130-400); Red Blood Count 3.63 10^6/uL (4.1-5.3); Red Cell Distribution Width 14.2 % (12.1-15.1); White Blood Count 13.5 10^3/uL (4.0-10.0)
[2020-12-08 05:00] LABS: INR 1.24 (0.8-1.2)
[2020-12-08 05:06] LABS: Alanine Aminotransferase 55 U/L (0-41); Albumin Level 2.6 g/dL (3.5-5.2); Alkaline Phosphatase 123 IU/L (40-130); Anion Gap 12.9 (5-19); Aspartate Amino Transferase 56 U/L (0-40); Blood Urea Nitrogen 48 mg/dL (8-23); C Reactive Protein 22.5 mg/L (0.0-4.9); Calcium 8.2 mg/dL (8.5-10.5); Carbon Dioxide 21 mmol/L (22-29); Chloride 104 mmol/L (98-107); Globulin 3.5 g/dL (1.3-4.6); Glucose 124 mg/dL (65-115); Magnesium 2.3 mg/dL (1.7-2.3); Osmolality Calculated 290 mOsm/kg (285-295); Phosphorus 3.6 mg/dL (2.5-4.5); Potassium 4.9 mmol/L (3.5-5.1); Sodium 133 mmol/L (136-145); Total Bilirubin 0.4 mg/dL (0.15-1.2); Total Protein 6.1 g/dL (6.6-8.7)
[2020-12-08 05:17] LABS: ABG PCO2 32.2 mmHg (35-45); ABG PH Result 7.43 (7.35-7.45); Arterial Blood Gas Hematocrit 32.9 % (42-52); Base Excess ABG -2.4 mmol/L (-2.0-2.0); Blood Gas Allen Test Pos; Blood Gas Sample Site Radial, left; Blood Gas Sample Type Arterial; HCO3 ABG 21.3 mmol/L (22-26); PO2 ABG 58.8 mmHg (80.0-100.0)
[2020-12-08 05:18] LABS: Oxygen Device HAG
[2020-12-08 05:19] LABS: NT Pro B Type Natriuretic Pept 131 pg/mL (0-450); Procalcitonin 0.09 ng/mL (0-0.5)
[2020-12-08 05:30] LABS: Creatine Phosphokinase 72 U/L (39-308)
--- NOTE | 2020-12-08 07:05 | PC.NURSE ---
Shift Note Frequent safety and comfort rounds continue. Orders and/or nursing care completed as indicated. Patient monitored for response to intervention and treatment(s). Education provided includes SCD use, information on lovenox, and the importance of fredrick/catheter care. Patient verbalized understanding. Patient will continue to be monitored.
[2020-12-08 07:22] LABS: Glucose Point of Care 119 mg/dL (70-110)
[2020-12-08] MEDS: tamsulosin 0.4 mg Capsule PO (08:00)
[2020-12-08] MEDS: zinc gluconate 50 mg Tablet PO (08:00)
[2020-12-08] MEDS: docusate sodium 100 mg Capsule PO ×2 (08:01→17:28)
[2020-12-08] MEDS: ascorbic acid 500 mg Tablet PO ×2 (08:01→17:28)
[2020-12-08] MEDS: cholecalciferol (vitamin D3) 1,000 unit Tablet 1000 UNIT PO (08:01)
[2020-12-08] MEDS: carvedilol 12.5 mg Tablet PO ×2 (08:01→17:26)
[2020-12-08] MEDS: pantoprazole DR 40 mg Tablet PO (08:01)
[2020-12-08] MEDS: aspirin 81 mg EC Tablet PO ×2 (08:01→17:26)
[2020-12-08] MEDS: montelukast sodium 10 mg Tablet PO (08:01)
[2020-12-08] MEDS: atorvastatin 40 mg Tablet 20 MG PO (08:01)
[2020-12-08] MEDS: dexamethasone 10 mg/mL INJ 6 MG IVP (08:01)
--- NOTE | 2020-12-08 10:27 | PC.CHAP ---
Pastoral Care Encounter/Spiritual Assessment Type of Contact [] Declined sports team marketing intern visit [] Patient/Family/Request visit [] Outpatient visit [] Follow-up visit [] Physician referral [] Code/Alert [x] Routine visit [] Staff referral [] Actively dying [] Patient sleeping [] Family support [] [] Out of room [] Palliative care [] [] Receiving care in room [] Pre-surgical visit [] Trauma [] Long length of stay [x] ICU visit [] Other: Relational/Emotional Strength [] Patient feels connected with others/family/visitors/staff [] Distress [] Loneliness/isolation [] Abandonment Spirituality of Patient [] Person of Carie [] Attends Islam of their Carie [] Believes in Prayer [] Reads Bible or Taoism materials [] There are Spiritual issues to be addressed Shearer Operator Interventions [x] Prayer [] Active listening [] Non-anxious presence [] Spiritual/emotional support [] Crisis/trauma care [] Spiritual counseling [] Bereavement support [] Provided bereavement packet [] Provided Bible/devotional materials [] Provided toy/stuffed animal, coloring book to patient or family member [] Provided Communion [] Anointing/[place] [] Salvation [x] Completed spiritual assessment [] Other: Impact on Illness or Injury [] Angry [] Fearful [] Anxious [] Often cries [] Exhaustion [] Unable to work [] Unable to attend rastafari [] Unable to walk/stand [] Unable to read [] Unable to drive [] Unable to eat/drink [] Unable to sleep [] Unable to be with family [] Patient intubated [] Other: Summary Time spent with patient
[2020-12-08 11:59] LABS: Glucose Point of Care 176 mg/dL (70-110)
--- NOTE | 2020-12-08 12:11 | PM.PN ---
Subjective Subjective: Interval history: Patient was seen and examined this morning,continue to have significant desaturation even with minimal exertion, has continued to require high supplemental oxygen. Currently he net negative 5.3Ls. His other Vitals and labs have been reviewed. Medications: Reviewed: Yes Vitals/I&O/Wt Last Vital Signs Temp 98.5 F 12/08/20 04:00 Pulse 77 12/08/20 11:52 Resp 22 H 12/08/20 11:52 BP 124/62 12/08/20 07:00 Pulse Ox 88 L 12/08/20 11:52 12/07/20 12/08/20 12/08/20 22:59 06:59 14:59 Intake Total 590 / 690 337 / 1027 100 / 100 Output Total 1100 / 1100 1650 / 2750 Balance -510 / -410 -1313 / -1723 100 / 100 Weight last 48 hrs Weight 89.358 kg Weight 94.914 kg Physical Exam Const: COMMON NORMALS: patient oriented x3 HENMT: COMMON NORMALS: normocephalic and atraumatic HEAD & SCALP: normocephalic and atraumatic Resp: OTHER: Fine B/L Basal crackles, diminished air entry b/l Cardio: COMMON NORMALS: regular rate, regular rhythm, S1 normal heart sound present, S2 normal heart sound present, No gallops present (Cardio), No murmurs present (Cardio), No rub (Cardio) and Peripheral pulses 2+ throughout RATE: regular rate RHYTHM: regular rhythm HEART SOUNDS: S1 normal heart sound present and S2 normal heart sound present PERIPHERAL PULSES: Peripheral pulses 2+ throughout GI: COMMON NORMALS: Normal to inspection, nondistended, normoactive bowel sounds present, Soft to palpation, non-tender, No hepatosplenomegaly present and no masses AUSCULTATION: Yes normoactive bowel sounds PALPATION: Yes Soft to palpation and Yes No hepatosplenomegaly present RECTAL EXAM: Yes deferred Extremity: COMMON NORMALS: no clubbing, cyanosis or edema and no pedal edema Neuro: COMMON NORMALS: patient oriented x3 Urinary Catheter Management^: Ying: Cath Placed During This Visit: yes Reason for Continuing Indwelling Catheter: Accurate Measurement of Urinary Output in Critically Ill Patients Urinary Catheter Date of Insertion: 12/03/20 Urinary Catheter Time of Insertion: 10:46 Data : 12/08/20 04:05 12/08/20 04:05 A&P Assessment and plan (1) Pneumonia due to COVID-19 virus: Acute hypoxic respiratory failure secondary to pneumonia secondary COVID-19 with evidence of acute respiratory distress syndrome -Plan -Decadron 6 mg IV push daily for 10 days -Completed 5 day course of remdesivir -Broad-spectrum antibiotic therapy, initially on vancomycin, currently on Primaxin -WBC up to 19.3, afebrile, pro-Christopher 0.22, CRP 93.2 -Initially there was concerns for secondary bacterial pneumonia, however his pro-Christopher remains negative, remains afebrile, all cultures have been unremarkable, discussed with patient baricitinib, discussed the risks and benefits, voiced understanding, all questions answered, agreed to proceed we will start barcitinib -We will consider adding antifungal coverage -Follow blood cultures, sputum cultures, urine bacterial antigens, -Vitamin D, zinc, vitamin C -Incentive spirometer, flutter valve -Oxygen therapy -Appears euvolemic, hold off on Lasix -Xanax 0.25 mg twice daily for anxiety -2D Echocardiogram: Normal LV Size and systolic function with EF of 59 %.No RWMA,Grade I/IV diastolic dysfunction, No Gross valvular abnormality. - bilateral lower extremity venous ultrasound: No evidence of DVT -Lovenox for DVT prophylaxis -Full code 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, 1.1, :Resolved Type 2 diabetes mellitus, continue Levemir 15 units daily, insulin sliding scale H/O HFpEF: Currently Euvolemic. Type II NSTEMI, elevated troponins, likely supply demand ischemia from hypoxia, however cannot rule out underlying cardiac etiology, continue aspirin, statin. Status: Acute (2) Secondary bacterial pneumonia: -As pro-Christopher is negative, he remains afebrile, all his cultures have been unremarkable, it is very unlikely that he has a secondary bacterial pneumonia likely respiratory failure from COVID-19 pneumonia Status: Acute (3) Dyslipidemia (high LDL; low HDL): Status: Acute (4) Benign essential HTN: Status: Acute (5) Type 2 diabetes mellitus: Status: Acute Qualifiers: Diabetes mellitus complication status: without complication Diabetes mellitus assisted insulin use: with long term care administrator use Qualified Code(s): E11.9 - Type 2 diabetes mellitus without complications; Z79.4 - long-term (current) use of insulin (6) Atherosclerotic heart disease of [place] coronary artery without angina pectoris: Status: Acute Qualifiers: [place] vs. transplanted heart: [place] heart Qualified Code(s): I25.10 - Atherosclerotic heart disease of [place] coronary artery without angina pectoris (7) New onset of congestive heart failure: Status: Acute (8) Acute renal failure: Status: Acute Qualifiers: Acute renal failure type: unspecified Qualified Code(s): N17.9 - Acute kidney failure, unspecified (9) Acute on chronic respiratory failure with hypoxia: Status: Acute (10) Acute respiratory distress syndrome: Status: Acute Attestations Medical Necessity Statement*: Patient needs to be in hospital for the management of PNA Coding Level of Care Code Acute Personal Financial Advisor for [facility] Fwd Exam Detailed Diagnoses Pneumonia due to COVID-19 virus U07.1; J12.82 Secondary bacterial pneumonia J15.9 Dyslipidemia (high LDL; low HDL) E78.5 Benign essential HTN I10 Type 2 diabetes mellitus E11.9; Z79.4 Diabetes mellitus complication status: without complication Diabetes mellitus long term care administrator insulin use: with assisted use Atherosclerotic heart disease of [place] coronary artery without angina pectoris I25.10 [place] vs. transplanted heart: [place] heart New onset of congestive heart failure I50.9 Acute renal failure N17.9 Acute renal failure type: unspecified Acute on chronic respiratory failure with hypoxia J96.21 Acute respiratory distress syndrome J80
--- NOTE | 2020-12-08 14:11 | XR_ITS ---
WS: [id number] Exam: XR chest 1V portable [id number] Date/Time of Exam: 12/08/2020 2:14 PM Reason For Exam: pna Comparison 12/06/2020. Patchy infiltrates scattered throughout both lungs. There is been some increase in infiltrate in the left base since prior study. No other change. The lungs remain fully inflated. Normal cardiomediastin al silhouette. Regional bony elements are intact. XR/XR chest 1V portable [id number] IMPRESSION: 1. Increasing infiltrate in the lower left lung zone but no other significant c hange in the overall appearance the chest since the last exam.
[2020-12-08 17:18] LABS: Glucose Point of Care 299 mg/dL (70-110)
--- NOTE | 2020-12-08 19:07 | PC.NURSE ---
Shift Note Frequent safety and comfort rounds continue. Orders and/or nursing care completed as indicated. Patient monitored for response to intervention and treatment(s). Education provided includes lung exercises and activity. Patient expressed willingness to do lung exercises and desire to get better. Patient went from chair to bed after chair. Patient's oxygen level stayed in the 80s when he went from chair to bed.
[2020-12-08 19:43] LABS: Glucose Point of Care 241 mg/dL (70-110)
[2020-12-08] MEDS: benzonatate 100 mg Capsule PO (20:03)
[2020-12-08] MEDS: enoxaparin 40 mg/0.4 mL Syringe SUBCUT (20:03)
[2020-12-09] VITALS (61 sets, daily range): BP systolic 86–159; BP diastolic 57–87; PULSE 60–86; RESP 14–30; TEMP 36.7–37.1; O2SAT 76–96
[2020-12-09] MEDS: ipratropium-albuterol 3 mL Neb INHALATION ×4 (03:35→20:26)
[2020-12-09 05:11] LABS: Basophils % 0.1 %; Eosinophils # 0.2 10^3/uL (0.0-0.8); Hematocrit 34.3 % (42.0-52.0); Hemoglobin 11.1 g/dL (11.7-16.6); Lymphocytes # 1.2 10^3/uL (0.8-4.8); Lymphocytes % 7.6 %; Mean Corpuscular HGB Conc 32.4 g/dL (30.0-36.0); Mean Corpuscular Hemoglobin 30.2 pg (28.0-34.0); Mean Corpuscular Volume 93.5 fl (80-94); Monocytes # 0.5 10^3/uL (0.2-0.9); Monocytes % 3.2 %; Neutrophils # 13.15 10^3/uL (1.8-7.7); Neutrophils % 86.4 %; Nucleated Red Blood Cells % 0 %; Platelet Count 388 10^3/cmm (130-400); Red Blood Count 3.67 10^6/uL (4.1-5.3); Red Cell Distribution Width 14.2 % (12.1-15.1); White Blood Count 15.2 10^3/uL (4.0-10.0)
[2020-12-09 05:36] LABS: Alanine Aminotransferase 46 U/L (0-41); Albumin Level 2.7 g/dL (3.5-5.2); Alkaline Phosphatase 118 IU/L (40-130); Anion Gap 13.5 (5-19); Aspartate Amino Transferase 44 U/L (0-40); Blood Urea Nitrogen 50 mg/dL (8-23); Calcium 8.5 mg/dL (8.5-10.5); Carbon Dioxide 21 mmol/L (22-29); Chloride 106 mmol/L (98-107); Globulin 3.5 g/dL (1.3-4.6); Glucose 93 mg/dL (65-115); Osmolality Calculated 295 mOsm/kg (285-295); Potassium 4.5 mmol/L (3.5-5.1); Sodium 136 mmol/L (136-145); Total Bilirubin 0.4 mg/dL (0.15-1.2); Total Protein 6.2 g/dL (6.6-8.7)
[2020-12-09 06:10] LABS: Glucose Point of Care 91 mg/dL (70-110)
[2020-12-09] MEDS: cholecalciferol (vitamin D3) 1,000 unit Tablet 1000 UNIT PO (08:29)
[2020-12-09] MEDS: montelukast sodium 10 mg Tablet PO (08:29)
[2020-12-09] MEDS: tamsulosin 0.4 mg Capsule PO (08:29)
[2020-12-09] MEDS: atorvastatin 40 mg Tablet 20 MG PO (08:29)
[2020-12-09] MEDS: pantoprazole DR 40 mg Tablet PO (08:29)
[2020-12-09] MEDS: carvedilol 12.5 mg Tablet PO ×2 (08:29→18:06)
[2020-12-09] MEDS: ascorbic acid 500 mg Tablet PO ×2 (08:29→18:06)
[2020-12-09] MEDS: aspirin 81 mg EC Tablet PO ×2 (08:30→18:06)
[2020-12-09] MEDS: zinc gluconate 50 mg Tablet PO (08:30)
[2020-12-09] MEDS: benzonatate 100 mg Capsule PO ×2 (08:30→20:18)
[2020-12-09] MEDS: docusate sodium 100 mg Capsule PO ×2 (08:30→18:06)
[2020-12-09] MEDS: dexamethasone 10 mg/mL INJ 6 MG IVP (08:32)
--- NOTE | 2020-12-09 10:03 | PC.SOCIAL ---
IMM Update pg 2 of IMM updated w/ patients via telephone.
[2020-12-09 11:21] LABS: Glucose Point of Care 159 mg/dL (70-110)
--- NOTE | 2020-12-09 11:33 | PM.PN ---
Subjective Subjective: Interval history: Continue to have significant desaturation even with minimal exertion, still on 65 % Fio2 @40 Ls/Min Continue to have good urine output.Will deescalate Abxs today as cultures have remained negative.His other vitals and labs have been reveiwed Medications: Reviewed: Yes Vitals/I&O/Wt Last Vital Signs Temp 98.0 F 12/09/20 09:00 Pulse 79 12/09/20 11:04 Resp 22 H 12/09/20 11:04 BP 86/72 12/09/20 10:00 Pulse Ox 89 L 12/09/20 11:04 12/08/20 12/09/20 12/09/20 22:59 06:59 14:59 Intake Total 340 / 440 100 / 540 100 / 100 Output Total 1075 / 1075 1000 / 2075 Balance -735 / -635 -900 / -1535 100 / 100 Weight last 48 hrs Weight 93.468 kg Weight 89.358 kg Physical Exam Const: COMMON NORMALS: patient oriented x3 HENMT: COMMON NORMALS: normocephalic and atraumatic HEAD & SCALP: normocephalic and atraumatic Resp: OTHER: Fine B/L Basal crackles, diminished air entry b/l Cardio: COMMON NORMALS: regular rate, regular rhythm, S1 normal heart sound present, S2 normal heart sound present, No gallops present (Cardio), No murmurs present (Cardio), No rub (Cardio) and Peripheral pulses 2+ throughout RATE: regular rate RHYTHM: regular rhythm HEART SOUNDS: S1 normal heart sound present and S2 normal heart sound present PERIPHERAL PULSES: Peripheral pulses 2+ throughout GI: COMMON NORMALS: Normal to inspection, nondistended, normoactive bowel sounds present, Soft to palpation, non-tender, No hepatosplenomegaly present and no masses AUSCULTATION: Yes normoactive bowel sounds PALPATION: Yes Soft to palpation and Yes No hepatosplenomegaly present RECTAL EXAM: Yes deferred Extremity: COMMON NORMALS: no clubbing, cyanosis or edema and no pedal edema Neuro: COMMON NORMALS: patient oriented x3 Urinary Catheter Management^: Ying: Cath Placed During This Visit: yes Reason for Continuing Indwelling Catheter: Accurate Measurement of Urinary Output in Critically Ill Patients Urinary Catheter Date of Insertion: 12/03/20 Urinary Catheter Time of Insertion: 10:46 Data : 12/09/20 04:47 12/09/20 04:47 A&P Assessment and plan (1) Pneumonia due to COVID-19 virus: Acute hypoxic respiratory failure secondary to pneumonia secondary COVID-19 with evidence of acute respiratory distress syndrome -Plan -Decadron 6 mg IV push daily for 10 days -Completed 5 day course of remdesivir -Has been on Broad-spectrum antibiotic therapy, vancomycin, and Primaxin.Will deescalate to levofloxacin. -Initially there was concerns for secondary bacterial pneumonia, however his pro-Christopher remains negative, remains afebrile, all cultures have been unremarkable, discussed with patient baricitinib, discussed the risks and benefits, voiced understanding, all questions answered, agreed to proceed we will start barcitinib -Blood cultures, sputum cultures, urine bacterial antigens:Negative -Vitamin D, zinc, vitamin C -Incentive spirometer, flutter valve -Oxygen therapy -Xanax 0.25 mg twice daily for anxiety -2D Echocardiogram: Normal LV Size and systolic function with EF of 59 %.No RWMA,Grade I/IV diastolic dysfunction, No Gross valvular abnormality. - bilateral lower extremity venous ultrasound: No evidence of DVT -Lovenox for DVT prophylaxis 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, 1.1, :Resolved Type 2 diabetes mellitus, continue Levemir 15 units daily, insulin sliding scale H/O HFpEF: Currently Euvolemic. Type II NSTEMI, elevated troponins, likely supply demand ischemia from hypoxia, however cannot rule out underlying cardiac etiology, continue aspirin, statin. Status: Acute (2) Secondary bacterial pneumonia: -As pro-Christopher is negative, he remains afebrile, all his cultures have been unremarkable, it is very unlikely that he has a secondary bacterial pneumonia likely respiratory failure from COVID-19 pneumonia Status: Acute (3) Dyslipidemia (high LDL; low HDL): Status: Acute (4) Benign essential HTN: Status: Acute (5) Type 2 diabetes mellitus: Status: Acute Qualifiers: Diabetes mellitus care home insulin use: with care home use Diabetes mellitus complication status: without complication Qualified Code(s): E11.9 - Type 2 diabetes mellitus without complications; Z79.4 - half-way (current) use of insulin (6) Atherosclerotic heart disease of [place] coronary artery without angina pectoris: Status: Acute Qualifiers: [place] vs. transplanted heart: [place] heart Qualified Code(s): I25.10 - Atherosclerotic heart disease of [place] coronary artery without angina pectoris (7) New onset of congestive heart failure: Status: Acute (8) Acute renal failure: Status: Acute Qualifiers: Acute renal failure type: unspecified Qualified Code(s): N17.9 - Acute kidney failure, unspecified (9) Acute on chronic respiratory failure with hypoxia: Status: Acute (10) Acute respiratory distress syndrome: Status: Acute Additional A&P Information Code Status : Full Code DVT PPx: Lovenox 40 mg sc daily Attestations Medical Necessity Statement*: Patient needs to be in hospital for the management of PNA Coding Level of Care Code Acute Radiation Safety Officer for Chg Fwd Diagnoses Pneumonia due to COVID-19 virus U07.1; J12.82 Secondary bacterial pneumonia J15.9 Dyslipidemia (high LDL; low HDL) E78.5 Benign essential HTN I10 Type 2 diabetes mellitus E11.9; Z79.4 Diabetes mellitus terminal block assembler insulin use: with terminal block assembler use Diabetes mellitus complication status: without complication Atherosclerotic heart disease of [place] coronary artery without angina pectoris I25.10 [place] vs. transplanted heart: [place] heart New onset of congestive heart failure I50.9 Acute renal failure N17.9 Acute renal failure type: unspecified Acute on chronic respiratory failure with hypoxia J96.21 Acute respiratory distress syndrome J80
--- NOTE | 2020-12-09 14:14 | PC.RESP ---
RT Shift Note Frequent safety and respiratory rounds continue. Orders completed as indicated. Patient monitored pre and post treatments throughout shift. Patient [Did.] tolerate treatments appropriately. Condition [.DidNotChange]. Patient and/or business process representative educated on respiratory treatment and medications. Patient and/or business process representative [verbalized understanding]. Will continue to monitor patient progress.
[2020-12-09 18:06] LABS: Glucose Point of Care 205 mg/dL (70-110)
--- NOTE | 2020-12-09 18:39 | PC.NURSE ---
Shift Note Frequent safety and comfort rounds continue. Orders and nursing care completed as indicated. Patient still requiring HHF oxygen at this time. HHF at 45L with FI02 of 80%. Pt talked on phone with family members and friend most of the day, this making his oxygen decrease more. Pt stated he would take a nap in the afternoon to rest from his oxygen dropping so much with talking and eating, see vital signs.Pt had 1250ml out in urine this shift and ate over 50% of every meal today. Patient also noted that he choked on some of his turkey during lunch, physician notified. Patient monitored for response to intervention and treatments. Will continue to monitor.
[2020-12-09 19:50] LABS: Glucose Point of Care 309 mg/dL (70-110)
[2020-12-09] MEDS: enoxaparin 40 mg/0.4 mL Syringe SUBCUT (20:05)
[2020-12-10] VITALS (44 sets, daily range): BP systolic 107–152; BP diastolic 58–85; PULSE 58–88; RESP 15–31; TEMP 36.6–36.8; O2SAT 78–97
[2020-12-10] MEDS: benzonatate 100 mg Capsule PO ×2 (01:18→20:05)
[2020-12-10] MEDS: ipratropium-albuterol 3 mL Neb INHALATION ×4 (02:40→20:26)
[2020-12-10 05:27] LABS: Basophils % 0.1 %; Eosinophils # 0.2 10^3/uL (0.0-0.8); Eosinophils % 1.1 %; Hematocrit 34.6 % (42.0-52.0); Hemoglobin 11.4 g/dL (11.7-16.6); Lymphocytes % 6.8 %; Mean Corpuscular HGB Conc 32.9 g/dL (30.0-36.0); Mean Corpuscular Hemoglobin 30.6 pg (28.0-34.0); Mean Platelet Volume 10.4 fL (7.4-10.4); Monocytes # 0.5 10^3/uL (0.2-0.9); Monocytes % 3.1 %; Neutrophils # 13.12 10^3/uL (1.8-7.7); Neutrophils % 87.7 %; Nucleated Red Blood Cells % 0 %; Platelet Count 407 10^3/cmm (130-400); Red Blood Count 3.72 10^6/uL (4.1-5.3); Red Cell Distribution Width 14.1 % (12.1-15.1)
[2020-12-10 05:34] LABS: Alanine Aminotransferase 43 U/L (0-41); Albumin Level 2.6 g/dL (3.5-5.2); Alkaline Phosphatase 116 IU/L (40-130); Anion Gap 15.6 (5-19); Aspartate Amino Transferase 41 U/L (0-40); Blood Urea Nitrogen 44 mg/dL (8-23); Calcium 8.3 mg/dL (8.5-10.5); Carbon Dioxide 20 mmol/L (22-29); Chloride 107 mmol/L (98-107); Globulin 3.6 g/dL (1.3-4.6); Glucose 99 mg/dL (65-115); Osmolality Calculated 297 mOsm/kg (285-295); Potassium 4.6 mmol/L (3.5-5.1); Sodium 138 mmol/L (136-145); Total Bilirubin 0.5 mg/dL (0.15-1.2); Total Protein 6.2 g/dL (6.6-8.7)
[2020-12-10 07:38] LABS: Glucose Point of Care 88 mg/dL (70-110)
[2020-12-10] MEDS: tamsulosin 0.4 mg Capsule PO (08:49)
[2020-12-10] MEDS: ascorbic acid 500 mg Tablet PO ×2 (08:49→17:40)
[2020-12-10] MEDS: carvedilol 12.5 mg Tablet PO ×2 (08:49→17:40)
[2020-12-10] MEDS: atorvastatin 40 mg Tablet 20 MG PO (08:49)
[2020-12-10] MEDS: docusate sodium 100 mg Capsule PO ×2 (08:49→17:40)
[2020-12-10] MEDS: pantoprazole DR 40 mg Tablet PO (08:49)
[2020-12-10] MEDS: zinc gluconate 50 mg Tablet PO (08:49)
[2020-12-10] MEDS: aspirin 81 mg EC Tablet PO ×2 (08:49→17:40)
[2020-12-10] MEDS: montelukast sodium 10 mg Tablet PO (08:49)
[2020-12-10] MEDS: dexamethasone 10 mg/mL INJ 6 MG IVP (08:49)
[2020-12-10] MEDS: cholecalciferol (vitamin D3) 1,000 unit Tablet 1000 UNIT PO (08:49)
[2020-12-10 11:42] LABS: Glucose Point of Care 233 mg/dL (70-110)
[2020-12-10] MEDS: levofloxacin-dextrose 5 % 750 MG/150 ML PREMIX 100 MG IV (12:41)
--- NOTE | 2020-12-10 14:25 | P.PN_ITS ---
Subjective Subjective: Interval history: Continue to have significant desaturation even with minimal exertion, on 75 % Fio2 @45 Ls/Min Medications: Reviewed: Yes Vitals/I&O/Wt Last Vital Signs Temp 98.1 F 12/10/20 04:00 Pulse 77 12/10/20 14:24 Resp 18 12/10/20 14:22 BP 122/71 12/10/20 14:00 Pulse Ox 92 12/10/20 14:22 12/09/20 12/10/20 12/10/20 22:59 06:59 14:59 Intake Total 360 / 360 Output Total 1275 / 1275 1100 / 2375 Balance -1275 / -575 -1100 / -1675 360 / 360 Weight last 48 hrs Weight 91.371 kg Weight 93.468 kg Physical Exam Const: COMMON NORMALS: patient oriented x3 HENMT: COMMON NORMALS: normocephalic and atraumatic HEAD & SCALP: normocephalic and atraumatic Resp: OTHER: Fine B/L Basal crackles, diminished air entry b/l Cardio: COMMON NORMALS: regular rate, regular rhythm, S1 normal heart sound present, S2 normal heart sound present, No gallops present (Cardio), No murmurs present (Cardio), No rub (Cardio) and Peripheral pulses 2+ throughout RATE: regular rate RHYTHM: regular rhythm HEART SOUNDS: S1 normal heart sound present and S2 normal heart sound present PERIPHERAL PULSES: Peripheral pulses 2+ throughout GI: COMMON NORMALS: Normal to inspection, nondistended, normoactive bowel sounds present, Soft to palpation, non-tender, No hepatosplenomegaly present and no masses AUSCULTATION: Yes normoactive bowel sounds PALPATION: Yes Soft to palpation and Yes No hepatosplenomegaly present RECTAL EXAM: Yes deferred Extremity: COMMON NORMALS: no clubbing, cyanosis or edema and no pedal edema Neuro: COMMON NORMALS: patient oriented x3 Urinary Catheter Management^: Ying: Cath Placed During This Visit: yes Reason for Continuing Indwelling Catheter: Accurate Measurement of Urinary Output in Critically Ill Patients Urinary Catheter Date of Insertion: 12/03/20 Urinary Catheter Time of Insertion: 10:46 Data : 12/10/20 04:31 12/10/20 04:31 A&P Assessment and plan (1) Pneumonia due to COVID-19 virus: Acute hypoxic respiratory failure secondary to pneumonia secondary COVID- 19 with evidence of acute respiratory distress syndrome -Plan -Decadron 6 mg IV push daily for 10 days -Completed 5 day course of remdesivir -Has been on Broad-spectrum antibiotic therapy, vancomycin, and Primaxin.Will deescalate to levofloxacin. -Initially there was concerns for secondary bacterial pneumonia, however his pro-Christopher remains negative, remains afebrile, all cultures have been unremarkable, discussed with patient baricitinib, discussed the risks and benefits, voiced understanding, all questions answered, agreed to proceed we will start barcitinib -Blood cultures, sputum cultures, urine bacterial antigens:Negative -Vitamin D, zinc, vitamin C -Incentive spirometer, flutter valve -Oxygen therapy -Xanax 0.25 mg twice daily for anxiety -2D Echocardiogram: Normal LV Size and systolic function with EF of 59 %.No RWMA,Grade I/IV diastolic dysfunction, No Gross valvular abnormality. - bilateral lower extremity venous ultrasound: No evidence of DVT -Lovenox for DVT prophylaxis 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, 1.1, :Resolved Type 2 diabetes mellitus, continue Levemir 15 units daily, insulin sliding scale H/O HFpEF: Currently Euvolemic. Type II NSTEMI, elevated troponins, likely supply demand ischemia from hypoxia, however cannot rule out underlying cardiac etiology, continue aspirin, statin. 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 transplanted heart: [place] heart Qualified Code(s): I25.10 - Atherosclerotic heart disease of [place] coronary artery without angina pectoris (7) New onset of congestive heart failure: Status: Acute (8) Acute renal failure: Status: Acute Qualifiers: Acute renal failure type: unspecified Qualified Code(s): N17.9 - Acute kidney failure, unspecified (9) Acute on chronic respiratory failure with hypoxia: Status: Acute (10) Acute respiratory distress syndrome: Status: Acute Additional A&P Information Code Status : Full Code DVT PPx: Lovenox 40 mg sc daily Attestations Medical Necessity Statement*: Patient needs to be in hospital for the management of PNA Coding Level of Care Code Acute Inventory Control Planner for g Fwd Diagnoses Pneumonia due to COVID-19 virus U07.1; J12.82 Secondary bacterial pneumonia J15.9 Dyslipidemia (high LDL; low HDL) E78.5 Benign essential HTN I10 Type 2 diabetes mellitus E11.9; Z79.4 Diabetes mellitus snf insulin use: with snf use Diabetes mellitus complication status: without complication Atherosclerotic heart disease of [place] coronary artery without angina pectoris I25.10 [place] vs. transplanted heart: [place] heart New onset of congestive heart failure I50.9 Acute renal failure N17.9 Acute renal failure type: unspecified Acute on chronic respiratory failure with hypoxia J96.21 Acute respiratory distress syndrome J80
[2020-12-10 17:54] LABS: Glucose Point of Care 157 mg/dL (70-110)
--- NOTE | 2020-12-10 18:40 | PC.NURSE ---
Shift Note Frequent safety and comfort rounds continue. Orders and nursing care completed as indicated. Patient still requiring HHF oxygen at this time. HHF at 45L with FI02 of 75%. Pt up to chair for about 6 hours today, tolerated well. Pt stated he would take a nap in the afternoon to rest. This nurse spoke with Shanda this evening and updated her on the plan of care and how the patient did throughout the day, verbalized understanding. Patient monitored for response to intervention and treatments. Will continue to monitor.
[2020-12-10] MEDS: enoxaparin 40 mg/0.4 mL Syringe SUBCUT (20:05)
[2020-12-10 20:44] LABS: Glucose Point of Care 249 mg/dL (70-110)
[2020-12-11] VITALS (32 sets, daily range): BP systolic 99–155; BP diastolic 60–100; PULSE 62–90; RESP 15–29; TEMP 36.6–37.1; O2SAT 86–95
[2020-12-11] MEDS: ipratropium-albuterol 3 mL Neb INHALATION ×4 (02:37→20:46)
--- NOTE | 2020-12-11 05:00 | XRR_ITS ---
PROCEDURE INFORMATION: Exam: XR Chest Exam date and time: 12/11/2020 5:00 AM Age: 84 years old Clinical indication: Shortness of breath; Additional info: Pna TECHNIQUE: Imaging protocol: XR of the chest. Views: 1 view. COMPARISON: CR XR chest 1V portable [id number] 12/08/2020 2:22 PM FINDINGS: Lungs: COPD, interstitial disease, and stable airspace disease. Pleural spaces: Left pleural thickening and/or small effusion. Heart/Mediastinum: No cardiomegaly. Bones/joints: Osteopenia and degenerative change. XR/XR chest 1V portable [id number] IMPRESSION: 1. COPD, interstitial disease, and stable airspace disease. 2. Left pleural thickening and/or small effusion.
[2020-12-11 05:21] LABS: Basophils % 0.1 %; Eosinophils # 0.1 10^3/uL (0.0-0.8); Eosinophils % 0.5 %; Hematocrit 36.3 % (42.0-52.0); Hemoglobin 11.6 g/dL (11.7-16.6); Lymphocytes # 0.9 10^3/uL (0.8-4.8); Lymphocytes % 6.6 %; Mean Corpuscular Hemoglobin 30.8 pg (28.0-34.0); Mean Corpuscular Volume 96.3 fl (80-94); Mean Platelet Volume 10.7 fL (7.4-10.4); Monocytes # 0.4 10^3/uL (0.2-0.9); Monocytes % 3.2 %; Neutrophils # 11.41 10^3/uL (1.8-7.7); Neutrophils % 88.4 %; Nucleated Red Blood Cells % 0 %; Platelet Count 354 10^3/cmm (130-400); Red Blood Count 3.77 10^6/uL (4.1-5.3); Red Cell Distribution Width 13.9 % (12.1-15.1); White Blood Count 12.9 10^3/uL (4.0-10.0)
[2020-12-11 05:42] LABS: D Dimer 2.19 ug/mIFEU (0-0.59)
[2020-12-11 05:50] LABS: Alanine Aminotransferase 64 U/L (0-41); Albumin Level 2.4 g/dL (3.5-5.2); Alkaline Phosphatase 117 IU/L (40-130); Blood Urea Nitrogen 41 mg/dL (8-23); C Reactive Protein 11.6 mg/L (0.0-4.9); Calcium 8.4 mg/dL (8.5-10.5); Carbon Dioxide 21 mmol/L (22-29); Chloride 104 mmol/L (98-107); Ferritin 717 ng/mL (30-400); Globulin 3.8 g/dL (1.3-4.6); Glucose 150 mg/dL (65-115); Osmolality Calculated 293 mOsm/kg (285-295); Sodium 135 mmol/L (136-145); Total Bilirubin 0.4 mg/dL (0.15-1.2); Total Protein 6.2 g/dL (6.6-8.7)
[2020-12-11 05:53] LABS: Procalcitonin 0.07 ng/mL (0-0.5)
[2020-12-11 06:06] LABS: ABG PH Result 7.46 (7.35-7.45); Arterial Blood Gas Hematocrit 41.7 % (42-52); Base Excess ABG 0.9 mmol/L (-2.0-2.0); Blood Gas Allen Test Pos; Blood Gas Operator Identificat JB; Blood Gas Sample Site Brachial, right; Blood Gas Sample Type Arterial; HCO3 ABG 24.2 mmol/L (22-26); HGB O2 Sat 85.7 % (95-100); Ionized Calcium Level - ABG 1.2 mmol/L (1.1-1.4); Methemoglobin 0.8 % (0.4-1.5); Oxygen Device HAG; Oxygen Saturation ABG 86.4; PO2 ABG 50.7 mmHg (80.0-100.0); Potassium Level - ABG 4.3 mmol/L (3.5-5.0); Total Hemoglobin 13.6 g/dL (14-18)
[2020-12-11 06:07] LABS: Alveolar-Arterial Oxygen Gradi 57.4 mmHg (5-10)
[2020-12-11 06:08] LABS: Anion Gap 14.7 (5-19); Aspartate Amino Transferase 77 U/L (0-40); Potassium 4.7 mmol/L (3.5-5.1)
[2020-12-11 07:38] LABS: Glucose Point of Care 141 mg/dL (70-110)
[2020-12-11] MEDS: docusate sodium 100 mg Capsule PO ×2 (08:00→17:22)
[2020-12-11] MEDS: carvedilol 12.5 mg Tablet PO ×2 (08:00→17:22)
[2020-12-11] MEDS: tamsulosin 0.4 mg Capsule PO (08:00)
[2020-12-11] MEDS: pantoprazole DR 40 mg Tablet PO (08:00)
[2020-12-11] MEDS: zinc gluconate 50 mg Tablet PO (08:00)
[2020-12-11] MEDS: ascorbic acid 500 mg Tablet PO ×2 (08:00→17:22)
[2020-12-11] MEDS: aspirin 81 mg EC Tablet PO ×2 (08:00→17:22)
[2020-12-11] MEDS: cholecalciferol (vitamin D3) 1,000 unit Tablet 1000 UNIT PO (08:00)
[2020-12-11] MEDS: atorvastatin 40 mg Tablet 20 MG PO (08:00)
[2020-12-11] MEDS: montelukast sodium 10 mg Tablet PO (08:00)
[2020-12-11] MEDS: dexamethasone 10 mg/mL INJ 6 MG IVP (08:01)
[2020-12-11 11:23] LABS: Glucose Point of Care 246 mg/dL (70-110)
--- NOTE | 2020-12-11 11:35 | PC.SOCIAL ---
IMM Updated Updated pt's , Soledad, on Pg 2 IMM. No questions voiced. Provided pt a copy. Initialed, dated, & timed copy in chart.
--- NOTE | 2020-12-11 12:59 | P.PN_ITS ---
Subjective Subjective: Interval history: Patient was seen and examined this morning supplemental oxygen requirement has slightly gone down.Says he is trying hard, and don't want to give up. Neither he want us to give up on him.Continue to have good urine output.Currently he is negative: 9ls. His other vitals and labs have been reviewed. Medications: Reviewed: Yes Vitals/I&O/Wt Last Vital Signs Temp 97.9 F 12/11/20 06:00 Pulse 72 12/11/20 11:00 Resp 26 H 12/11/20 11:00 BP 115/63 12/11/20 11:00 Pulse Ox 86 L 12/11/20 11:00 12/10/20 12/11/20 12/11/20 22:59 06:59 14:59 Intake Total 420 / 930 660 / 1590 Output Total 1000 / 1000 1100 / 2100 Balance -580 / -70 -440 / -510 Weight last 48 hrs Weight 90.066 kg Weight 91.371 kg Physical Exam Const: COMMON NORMALS: patient oriented x3 HENMT: COMMON NORMALS: normocephalic and atraumatic HEAD & SCALP: normocephalic and atraumatic Resp: OTHER: Fine B/L Basal crackles, diminished air entry b/l Cardio: COMMON NORMALS: regular rate, regular rhythm, S1 normal heart sound present, S2 normal heart sound present, No gallops present (Cardio), No murmurs present (Cardio), No rub (Cardio) and Peripheral pulses 2+ throughout RATE: regular rate RHYTHM: regular rhythm HEART SOUNDS: S1 normal heart sound present and S2 normal heart sound present PERIPHERAL PULSES: Peripheral pulses 2+ throughout GI: COMMON NORMALS: Normal to inspection, nondistended, normoactive bowel sounds present, Soft to palpation, non-tender, No hepatosplenomegaly present and no masses AUSCULTATION: Yes normoactive bowel sounds PALPATION: Yes Soft to palpation and Yes No hepatosplenomegaly present RECTAL EXAM: Yes deferred Extremity: COMMON NORMALS: no clubbing, cyanosis or edema and no pedal edema Neuro: COMMON NORMALS: patient oriented x3 Urinary Catheter Management^: Ying: Cath Placed During This Visit: yes Reason for Continuing Indwelling Catheter: Accurate Measurement of Urinary Output in Critically Ill Patients Urinary Catheter Date of Insertion: 12/03/20 Urinary Catheter Time of Insertion: 10:46 Data : 12/11/20 04:20 12/11/20 04:20 A&P Assessment and plan (1) Pneumonia due to COVID-19 virus: ARDS/ Acute hypoxic respiratory failure secondary to pneumonia secondary COVID-19 -Plan -Decadron 6 mg IV push daily for 10 days -Completed 5 day course of remdesivir -Has been on Broad-spectrum antibiotic therapy, vancomycin, and Primaxin.Will deescalate to levofloxacin. -Initially there was concerns for secondary bacterial pneumonia, however his pro-Christopher remains negative, remains afebrile, all cultures have been unremarkable, discussed with patient baricitinib, discussed the risks and benefits, voiced understanding, all questions answered, agreed to proceed we will start barcitinib -Blood cultures, sputum cultures, urine bacterial antigens:Negative -Vitamin D, zinc, vitamin C -Incentive spirometer, flutter valve -Oxygen therapy -Xanax 0.25 mg twice daily for anxiety -2D Echocardiogram: Normal LV Size and systolic function with EF of 59 %.No RWM A,Grade I/IV diastolic dysfunction, No Gross valvular abnormality. - bilateral lower extremity venous ultrasound: No evidence of DVT -Lovenox for DVT prophylaxis 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, 1.1, :Resolved Type 2 diabetes mellitus, continue Levemir 15 units daily, insulin sliding scale H/O HFpEF: Currently Euvolemic. Type II NSTEMI, elevated troponins, likely supply demand ischemia from hypoxia, however cannot rule out underlying cardiac etiology, continue aspirin, statin. Status: Acute (2) Secondary bacterial pneumonia: -As pro-Christopher is negative, he remains afebrile, all his cultures have been unremarkable, it is very unlikely that he has a secondary bacterial pneumonia likely respiratory failure from COVID-19 pneumonia Status: Acute (3) Dyslipidemia (high LDL; low HDL): Status: Acute (4) Benign essential HTN: Status: Acute (5) Type 2 diabetes mellitus: Status: Acute Qualifiers: Diabetes mellitus complication status: without complication Diabetes mellitus intermediate insulin use: with intermediate use Qualified Code(s): E11.9 - Type 2 diabetes mellitus without complications; Z79.4 - extermination inspector (current) use of insulin (6) Atherosclerotic heart disease of [place] coronary artery without angina pectoris: Status: Acute Qualifiers: [place] vs. transplanted heart: [place] heart Qualified Code(s): I25.10 - Atherosclerotic heart disease of [place] coronary artery without angina pectoris (7) New onset of congestive heart failure: Status: Acute (8) Acute renal failure: Status: Acute Qualifiers: Acute renal failure type: unspecified Qualified Code(s): N17.9 - Acute kidney failure, unspecified (9) Acute on chronic respiratory failure with hypoxia: Status: Acute (10) Acute respiratory distress syndrome: Status: Acute Additional A&P Information Code Status : Full Code DVT PPx: Lovenox 40 mg sc daily Attestations Medical Necessity Statement*: Patient needs to be in hospital for the management of PNA Coding Level of Care Code Acute Oil Lease Broker for g Fwd Exam Detailed Diagnoses Pneumonia due to COVID-19 virus U07.1; J12.82 Secondary bacterial pneumonia J15.9 Dyslipidemia (high LDL; low HDL) E78.5 Benign essential HTN I10 Type 2 diabetes mellitus E11.9; Z79.4 Diabetes mellitus complication status: without complication Diabetes mellitus rn long term care insulin use: with intermediate use Atherosclerotic heart disease of [place] coronary artery without angina pectoris I25.10 [place] vs. transplanted heart: [place] heart New onset of congestive heart failure I50.9 Acute renal failure N17.9 Acute renal failure type: unspecified Acute on chronic respiratory failure with hypoxia J96.21 Acute respiratory distress syndrome J80
[2020-12-11] MEDS: levofloxacin-dextrose 5 % 750 MG/150 ML PREMIX 100 MG IV (13:11)
[2020-12-11 17:35] LABS: Glucose Point of Care 196 mg/dL (70-110)
--- NOTE | 2020-12-11 19:00 | PC.NURSE ---
Frequent safety and comfort rounds continue. Orders and nursing care completed as indicated. Patient still requiring HHF oxygen at this time. HHF at 45L with FI02 of 60%. Pt up to chair for about 4 hours today, tolerated well. Pt stated he would take a nap in the afternoon to rest. This nurse spoke with Shanda this evening and updated her on the plan of care and how the patient did throughout the day, verbalized understanding. Pt had a BM today and had 1000ml out in urine this shift. Patient monitored for response to intervention and treatments. Will continue to monitor.
[2020-12-11] MEDS: enoxaparin 40 mg/0.4 mL Syringe SUBCUT (20:50)
[2020-12-11] MEDS: benzonatate 100 mg Capsule PO (20:51)
[2020-12-11 20:57] LABS: Glucose Point of Care 267 mg/dL (70-110)
[2020-12-12] VITALS (32 sets, daily range): BP systolic 111–139; BP diastolic 55–90; PULSE 60–83; RESP 15–36; TEMP 36.9; O2SAT 86–97
[2020-12-12] MEDS: ipratropium-albuterol 3 mL Neb INHALATION ×4 (03:02→20:20)
[2020-12-12 06:16] LABS: C Reactive Protein 5.9 mg/L (0.0-4.9); Ferritin 684 ng/mL (30-400)
[2020-12-12 06:19] LABS: Procalcitonin 0.06 ng/mL (0-0.5)
[2020-12-12 06:26] LABS: D Dimer 10.66 ug/mIFEU (0-0.59)
[2020-12-12 08:45] LABS: Glucose Point of Care 113 mg/dL (70-110)
[2020-12-12] MEDS: ascorbic acid 500 mg Tablet PO ×2 (08:55→17:47)
[2020-12-12] MEDS: dexamethasone 10 mg/mL INJ 6 MG IVP (08:55)
[2020-12-12] MEDS: docusate sodium 100 mg Capsule PO ×2 (08:56→17:47)
[2020-12-12] MEDS: montelukast sodium 10 mg Tablet PO (08:56)
[2020-12-12] MEDS: cholecalciferol (vitamin D3) 1,000 unit Tablet 1000 UNIT PO (08:56)
[2020-12-12] MEDS: pantoprazole DR 40 mg Tablet PO (08:56)
[2020-12-12] MEDS: zinc gluconate 50 mg Tablet PO (08:56)
[2020-12-12] MEDS: carvedilol 12.5 mg Tablet PO ×2 (08:56→17:47)
[2020-12-12] MEDS: aspirin 81 mg EC Tablet PO ×2 (08:56→17:47)
[2020-12-12] MEDS: tamsulosin 0.4 mg Capsule PO (08:56)
[2020-12-12] MEDS: atorvastatin 40 mg Tablet 20 MG PO (08:56)
[2020-12-12 11:48] LABS: Glucose Point of Care 195 mg/dL (70-110)
--- NOTE | 2020-12-12 11:59 | PC.NURSE ---
Patients blood sugar checked. He requested to hold lunch tray until he asks for it and to give insulin late. Patient is resting in bed with eyes closed.
[2020-12-12] MEDS: levofloxacin-dextrose 5 % 750 MG/150 ML PREMIX 100 MG IV (14:19)
[2020-12-12 17:38] LABS: Glucose Point of Care 292 mg/dL (70-110)
--- NOTE | 2020-12-12 18:36 | PC.NURSE ---
Shift Note Frequent safety and comfort rounds continue. Orders and/or nursing care completed as indicated. Patient monitored for response to intervention and treatment(s). Education provided includes titrating fio2 settings and breathing exercises. Patient understood and all questions were answered. Will continue to monitor.
--- NOTE | 2020-12-12 18:53 | P.PN_ITS ---
Subjective Subjective: Interval history: Patient was seen and examined this morning supplemental oxygen requirement is decreasing.Though has significant desaturation on slight exertion. Medications: Reviewed: Yes Vitals/I&O/Wt Last Vital Signs Temp 98.5 F 12/12/20 17:02 Pulse 77 12/12/20 18:00 Resp 19 H 12/12/20 18:00 BP 126/63 12/12/20 18:00 Pulse Ox 91 12/12/20 18:00 12/12/20 12/12/20 12/12/20 06:59 14:59 22:59 Intake Total 0 / 0 660 / 660 Output Total 1150 / 2150 600 / 600 Balance -1150 / -1648.333 0 / 0 60 / 60 Weight last 48 hrs Weight 90.066 kg Physical Exam Const: COMMON NORMALS: patient oriented x3 HENMT: COMMON NORMALS: normocephalic and atraumatic HEAD & SCALP: normocephalic and atraumatic Resp: OTHER: Fine B/L Basal crackles, Cardio: COMMON NORMALS: regular rate, regular rhythm, S1 normal heart sound present, S2 normal heart sound present, No gallops present (Cardio), No murmurs present (Cardio), No rub (Cardio) and Peripheral pulses 2+ throughout RATE: regular rate RHYTHM: regular rhythm HEART SOUNDS: S1 normal heart sound present and S2 normal heart sound present PERIPHERAL PULSES: Peripheral pulses 2+ throughout GI: COMMON NORMALS: Normal to inspection, nondistended, normoactive bowel sounds present, Soft to palpation, non-tender, No hepatosplenomegaly present and no masses AUSCULTATION: Yes normoactive bowel sounds PALPATION: Yes Soft to palpation and Yes No hepatosplenomegaly present RECTAL EXAM: Yes deferred Extremity: COMMON NORMALS: no clubbing, cyanosis or edema and no pedal edema Neuro: COMMON NORMALS: patient oriented x3 Urinary Catheter Management^: Ying: Cath Placed During This Visit: yes Reason for Continuing Indwelling Catheter: Accurate Measurement of Urinary Output in Critically Ill Patients Urinary Catheter Date of Insertion: 12/03/20 Urinary Catheter Time of Insertion: 10:46 Data : 12/11/20 04:20 12/11/20 04:20 A&P Assessment and plan (1) Pneumonia due to COVID-19 virus: ARDS/ Acute hypoxic respiratory failure secondary to pneumonia secondary COVID-19 -Plan -Decadron 6 mg IV push daily for 10 days -Completed 5 day course of remdesivir -Has been on Broad-spectrum antibiotic therapy, vancomycin, and Primaxin.Will deescalate to levofloxacin. -Initially there was concerns for secondary bacterial pneumonia, however his pro-Christopher remains negative, remains afebrile, all cultures have been unremarkable, discussed with patient baricitinib, discussed the risks and benefits, voiced understanding, all questions answered, agreed to proceed we will start barcitin ib -Blood cultures, sputum cultures, urine bacterial antigens:Negative -Vitamin D, zinc, vitamin C -Incentive spirometer, flutter valve -Oxygen therapy -Xanax 0.25 mg twice daily for anxiety -2D Echocardiogram: Normal LV Size and systolic function with EF of 59 %.No RWMA,Grade I/IV diastolic dysfunction, No Gross valvular abnormality. - bilateral lower extremity venous ultrasound: No evidence of DVT -Lovenox for DVT prophylaxis 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, 1.1, :Resolved Type 2 diabetes mellitus, continue Levemir 15 units daily, insulin sliding scale H/O HFpEF: Currently Euvolemic. Type II NSTEMI, elevated troponins, likely supply demand ischemia from hypoxia, however cannot rule out underlying cardiac etiology, continue aspirin, statin. 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 transplanted heart: [place] heart Qualified Code(s): I25.10 - Atherosclerotic heart disease of [place] coronary artery without angina pectoris (7) New onset of congestive heart failure: Status: Acute (8) Acute renal failure: Status: Acute Qualifiers: Acute renal failure type: unspecified Qualified Code(s): N17.9 - Acute kidney failure, unspecified (9) Acute on chronic respiratory failure with hypoxia: Status: Acute (10) Acute respiratory distress syndrome: Status: Acute Additional A&P Information Code Status : Full Code DVT PPx: Lovenox 40 mg sc daily Attestations Medical Necessity Statement*: Patient needs to be in hospital for management of pneumonia. Coding Level of Care Code Acute Painting Instructor for g Fwd Diagnoses Pneumonia due to COVID-19 virus U07.1; J12.82 Secondary bacterial pneumonia J15.9 Dyslipidemia (high LDL; low HDL) E78.5 Benign essential HTN I10 Type 2 diabetes mellitus E11.9; Z79.4 Diabetes mellitus skilled nursing insulin use: with skilled nursing use Diabetes mellitus complication status: without complication Atherosclerotic heart disease of [place] coronary artery without angina pectoris I25.10 [place] vs. transplanted heart: [place] heart New onset of congestive heart failure I50.9 Acute renal failure N17.9 Acute renal failure type: unspecified Acute on chronic respiratory failure with hypoxia J96.21 Acute respiratory distress syndrome J80
[2020-12-12] MEDS: enoxaparin 40 mg/0.4 mL Syringe SUBCUT (21:00)
[2020-12-12 21:03] LABS: Glucose Point of Care 148 mg/dL (70-110)
[2020-12-13] VITALS (30 sets, daily range): BP systolic 100–145; BP diastolic 58–75; PULSE 62–92; RESP 17–30; TEMP 36.6–36.9; O2SAT 84–98; BMI 29.1
[2020-12-13] MEDS: ipratropium-albuterol 3 mL Neb INHALATION ×4 (03:01→20:30)
[2020-12-13 03:59] LABS: Basophils % 0.1 %; Eosinophils # 0.1 10^3/uL (0.0-0.8); Eosinophils % 0.7 %; Hematocrit 35.5 % (42.0-52.0); Hemoglobin 11.5 g/dL (11.7-16.6); Lymphocytes # 0.9 10^3/uL (0.8-4.8); Mean Corpuscular HGB Conc 32.4 g/dL (30.0-36.0); Mean Corpuscular Hemoglobin 30.5 pg (28.0-34.0); Mean Corpuscular Volume 94.2 fl (80-94); Mean Platelet Volume 10.2 fL (7.4-10.4); Monocytes # 0.5 10^3/uL (0.2-0.9); Monocytes % 4.3 %; Neutrophils # 9.64 10^3/uL (1.8-7.7); Neutrophils % 86.1 %; Nucleated Red Blood Cells % 0 %; Platelet Count 374 10^3/cmm (130-400); Red Blood Count 3.77 10^6/uL (4.1-5.3); Red Cell Distribution Width 13.7 % (12.1-15.1); White Blood Count 11.2 10^3/uL (4.0-10.0)
[2020-12-13 04:29] LABS: Anion Gap 14.6 (5-19); Blood Urea Nitrogen 40 mg/dL (8-23); C Reactive Protein 3.4 mg/L (0.0-4.9); Calcium 8.3 mg/dL (8.5-10.5); Carbon Dioxide 23 mmol/L (22-29); Chloride 106 mmol/L (98-107); Ferritin 588 ng/mL (30-400); Glucose 134 mg/dL (65-115); Osmolality Calculated 300 mOsm/kg (285-295); Potassium 4.6 mmol/L (3.5-5.1); Sodium 139 mmol/L (136-145)
[2020-12-13 04:32] LABS: Procalcitonin 0.06 ng/mL (0-0.5)
[2020-12-13] MEDS: dexamethasone 10 mg/mL INJ 6 MG IVP (08:47)
[2020-12-13] MEDS: zinc gluconate 50 mg Tablet PO (08:48)
[2020-12-13] MEDS: atorvastatin 40 mg Tablet 20 MG PO (08:48)
[2020-12-13] MEDS: montelukast sodium 10 mg Tablet PO (08:48)
[2020-12-13] MEDS: carvedilol 12.5 mg Tablet PO ×2 (08:48→17:30)
[2020-12-13] MEDS: docusate sodium 100 mg Capsule PO ×2 (08:49→17:30)
[2020-12-13] MEDS: ascorbic acid 500 mg Tablet PO ×2 (08:49→17:30)
[2020-12-13] MEDS: tamsulosin 0.4 mg Capsule PO (08:51)
[2020-12-13] MEDS: aspirin 81 mg EC Tablet PO ×2 (08:51→17:30)
[2020-12-13] MEDS: pantoprazole DR 40 mg Tablet PO (08:51)
[2020-12-13] MEDS: cholecalciferol (vitamin D3) 1,000 unit Tablet 1000 UNIT PO (08:53)
--- NOTE | 2020-12-13 10:00 | PC.CHAP ---
Pastoral Care Encounter/Spiritual Assessment Type of Contact [] Declined yard engineer visit [] Patient/Family/Request visit [] Outpatient visit [] Follow-up visit [] Physician referral [] Code/Alert [x] Routine visit [] Staff referral [] Actively dying [] Patient sleeping [] Family support [] [] Out of room [] Palliative care [] [] Receiving care in room [] Pre-surgical visit [] Trauma [] Long length of stay [x] ICU visit [x] Other: quarantined.. however aware of chaplains presence and prayer Relational/Emotional Strength [] Patient feels connected with others/family/visitors/staff [] Distress [] Loneliness/isolation [] Abandonment Spirituality of Patient [] Person of Carie [] Attends Religious of their Carie [] Believes in Prayer [] Reads Bible or Shinto materials [] There are Spiritual issues to be addressed Oven Press Tender Interventions [x] Prayer [] Active listening [] Non-anxious presence [] Spiritual/emotional support [] Crisis/trauma care [] Spiritual counseling [] Bereavement support [] Provided bereavement packet [] Provided Bible/devotional materials [] Provided toy/stuffed animal, coloring book to patient or family member [] Provided Communion [] Anointing/[place] [] Salvation [x] Completed spiritual assessment [] Other: Impact on Illness or Injury [] Angry [] Fearful [] Anxious [] Often cries [] Exhaustion [] Unable to work [] Unable to attend lutheran [] Unable to walk/stand [] Unable to read [] Unable to drive [] Unable to eat/drink [] Unable to sleep [] Unable to be with family [] Patient intubated [] Other: Summary Time spent with patient
--- NOTE | 2020-12-13 11:10 | PC.SOCIAL ---
IMM updated with patient. Copy Pg. 2 provided. Initialled, dated, timed and placed in chart.
[2020-12-13 11:31] LABS: Glucose Point of Care 234 mg/dL (70-110)
[2020-12-13] MEDS: levofloxacin-dextrose 5 % 750 MG/150 ML PREMIX 100 MG IV (13:08)
--- NOTE | 2020-12-13 13:24 | PC.NUTR ---
Nutrition reassessment: Average meal intake unclear at this time per chart, as is supplement intake. Recommend to encourage po intake of meals/Glucerna supplements and assist at meals as needed to optimize nutrition. Recommend provide meal preferences as available. See full RD assessment for further details. [ End ]
[2020-12-13 16:50] LABS: Glucose Point of Care 217 mg/dL (70-110)
--- NOTE | 2020-12-13 16:50 | PM.PN ---
Subjective Subjective: Interval history: Patient was seen this morning, he tells me he is doing well, but he does feel short of breath with minimal exertion, such as turning in bed, he does feel weak, but he remains optimistic, is on 45 L 70%, I had a discussion with patient about placement to a long-term care facility such as [facility], he is agreeable Vitals/I&O/Wt Last Vital Signs Temp 97.8 F 12/13/20 04:00 Pulse 75 12/13/20 16:21 Resp 20 H 12/13/20 16:21 BP 137/70 12/13/20 14:00 Pulse Ox 93 12/13/20 16:21 12/13/20 12/13/20 12/13/20 06:59 14:59 22:59 Intake Total 240 / 1050 90 / 90 Output Total 900 / 1500 Balance -660 / -450 90 / 90 Weight last 48 hrs Weight 89.443 kg Physical Exam Const: COMMON NORMALS: no acute distress ORIENTATION/CONSCIOUSNESS: Yes awake, Yes oriented to person, Yes oriented to place and Yes oriented to time Resp: COMMON NORMALS: normal respiratory effort, No retractions, No use of accessory muscles and clear to auscultation bilaterally AUSCULTATION: clear to auscultation bilaterally Cardio: COMMON NORMALS: regular rate, regular rhythm, S1 normal heart sound present and S2 normal heart sound present RATE: regular rate RHYTHM: regular rhythm HEART SOUNDS: S1 normal heart sound present and S2 normal heart sound present GI: COMMON NORMALS: Normal to inspection, nondistended, normoactive bowel sounds present, Soft to palpation and non-tender PALPATION: Yes Soft to palpation Extremity: COMMON NORMALS: no pedal edema Neuro: SENSORIUM/ORIENTATION: Yes oriented to person, Yes oriented to place and Yes oriented to time Urinary Catheter Management^: Ying: Cath Placed During This Visit: yes Reason for Continuing Indwelling Catheter: Accurate Measurement of Urinary Output in Critically Ill Patients Urinary Catheter Date of Insertion: 12/03/20 Urinary Catheter Time of Insertion: 10:46 Data : 12/13/20 03:44 12/13/20 03:44 A&P Assessment and plan (1) Pneumonia due to COVID-19 virus: ARDS/ Acute hypoxic respiratory failure secondary to pneumonia secondary COVID-19 -Plan -De-escalate to Decadron 3 mg p.o. daily -Completed 5 day course of remdesivir -Currently on Levaquin -Initially there was concerns for secondary bacterial pneumonia, however his pro-Christopher remains negative, remains afebrile, all cultures have been unremarkable, discussed with patient baricitinib, discussed the risks and benefits, voiced understanding, all questions answered, on day nine of barcitinib -Blood cultures, sputum cultures, urine bacterial antigens:Negative -Vitamin D, zinc, vitamin C -Incentive spirometer, flutter valve -Oxygen therapy -Xanax 0.25 mg twice daily for anxiety -2D Echocardiogram: Normal LV Size and systolic function with EF of 59 %.No RWMA,Grade I/IV diastolic dysfunction, No Gross valvular abnormality. - bilateral lower extremity venous ultrasound: No evidence of DVT -Lovenox for DVT prophylaxis -Working on placement to [facility] on CKD, 1.1, :Resolved Type 2 diabetes mellitus, continue Levemir 15 units daily, insulin sliding scale H/O HFpEF: Currently Euvolemic. Type II NSTEMI, elevated troponins, likely supply demand ischemia from hypoxia, however cannot rule out underlying cardiac etiology, continue aspirin, statin. Status: Acute (2) Secondary bacterial pneumonia: -As pro-Christopher is negative, he remains afebrile, all his cultures have been unremarkable, it is very unlikely that he has a secondary bacterial pneumonia likely respiratory failure from COVID-19 pneumonia Status: Acute (3) Dyslipidemia (high LDL; low HDL): Status: Acute (4) Benign essential HTN: Status: Acute (5) Type 2 diabetes mellitus: Status: Acute Qualifiers: Diabetes mellitus nursing home insulin use: with nursing home use Diabetes mellitus complication status: without complication Qualified Code(s): E11.9 - Type 2 diabetes mellitus without complications; Z79.4 - exterminator (current) use of insulin (6) Atherosclerotic heart disease of [place] coronary artery without angina pectoris: Status: Acute Qualifiers: [place] vs. transplanted heart: [place] heart Qualified Code(s): I25.10 - Atherosclerotic heart disease of [place] coronary artery without angina pectoris (7) New onset of congestive heart failure: Status: Acute (8) Acute renal failure: Status: Acute Qualifiers: Acute renal failure type: unspecified Qualified Code(s): N17.9 - Acute kidney failure, unspecified (9) Acute on chronic respiratory failure with hypoxia: Status: Acute (10) Acute respiratory distress syndrome: Status: Acute Additional A&P Information Code Status : Full Code DVT PPx: Lovenox 40 mg sc daily Attestations Medical Necessity Statement*: Patient requires hospitalization for acute hypoxic respiratory failure secondary to COVID-19 pneumonia Coding Level of Care Code Acute Contract Negotiation Manager for Chg Fwd Diagnoses Pneumonia due to COVID-19 virus U07.1; J12.82 Secondary bacterial pneumonia J15.9 Dyslipidemia (high LDL; low HDL) E78.5 Benign essential HTN I10 Type 2 diabetes mellitus E11.9; Z79.4 Diabetes mellitus nursing home insulin use: with termite control service representative use Diabetes mellitus complication status: without complication Atherosclerotic heart disease of [place] coronary artery without angina pectoris I25.10 [place] vs. transplanted heart: [place] heart New onset of congestive heart failure I50.9 Acute renal failure N17.9 Acute renal failure type: unspecified Acute on chronic respiratory failure with hypoxia J96.21 Acute respiratory distress syndrome J80
[2020-12-13 20:22] LABS: Glucose Point of Care 270 mg/dL (70-110)
[2020-12-13] MEDS: enoxaparin 40 mg/0.4 mL Syringe SUBCUT (20:32)
[2020-12-14] VITALS (25 sets, daily range): BP systolic 115–140; BP diastolic 57–75; PULSE 62–89; RESP 16–28; TEMP 36.6–36.8; O2SAT 83–98; BMI 29.2
[2020-12-14] MEDS: ipratropium-albuterol 3 mL Neb INHALATION ×3 (03:03→15:01)
[2020-12-14 05:02] LABS: Eosinophils % 0.3 %; Hematocrit 36.6 % (42.0-52.0); Hemoglobin 11.7 g/dL (11.7-16.6); Lymphocytes # 0.7 10^3/uL (0.8-4.8); Lymphocytes % 6.6 %; Mean Corpuscular Hemoglobin 30.6 pg (28.0-34.0); Mean Corpuscular Volume 95.8 fl (80-94); Monocytes # 0.5 10^3/uL (0.2-0.9); Monocytes % 4.4 %; Neutrophils # 9.62 10^3/uL (1.8-7.7); Neutrophils % 87.8 %; Nucleated Red Blood Cells % 0 %; Platelet Count 344 10^3/cmm (130-400); Red Blood Count 3.82 10^6/uL (4.1-5.3); Red Cell Distribution Width 13.8 % (12.1-15.1)
--- NOTE | 2020-12-14 06:38 | PC.NURSE ---
Shift Note Frequent safety and comfort rounds continue. Orders and/or nursing care completed as indicated. Patient monitored for response to intervention and treatment(s). Education provided includes oxygen requirements. Patient verbalize understanding of teaching. Patient remains on heated high flow 45L and 71% FiO2. Ying catheter drained 600 mls of bright yellow urine overnight. No wounds or skin issues noted at this time. Will continue to monitor.
--- NOTE | 2020-12-14 07:00 | XR_ITS ---
WS: [id number] XR chest 1V portable [id number] REASON FOR EXAM: sob FINDINGS: The chest is unchanged compared to previous examination of 12/11/2020. Peripheral reticular interstitial/patchy groundglass infiltrates. Areas of more focal consolidation/a telectasis in the left lower lung. No new abnormalities. XR/XR chest 1V portable [id number] IMPRESSION: Stable abnormal chest.
[2020-12-14 07:24] LABS: NT Pro B Type Natriuretic Pept 165 pg/mL (0-450); Procalcitonin 0.06 ng/mL (0-0.5)
[2020-12-14 07:35] LABS: Alanine Aminotransferase 130 U/L (0-41); Albumin Level 2.7 g/dL (3.5-5.2); Alkaline Phosphatase 110 IU/L (40-130); Aspartate Amino Transferase 103 U/L (0-40); Blood Urea Nitrogen 40 mg/dL (8-23); C Reactive Protein 1.8 mg/L (0.0-4.9); Calcium 8.3 mg/dL (8.5-10.5); Carbon Dioxide 21 mmol/L (22-29); Chloride 102 mmol/L (98-107); Globulin 3.2 g/dL (1.3-4.6); Glucose 126 mg/dL (65-115); Magnesium 2.3 mg/dL (1.7-2.3); Osmolality Calculated 289 mOsm/kg (285-295); Phosphorus 3.2 mg/dL (2.5-4.5); Sodium 134 mmol/L (136-145); Total Bilirubin 0.4 mg/dL (0.15-1.2); Total Protein 5.9 g/dL (6.6-8.7)
[2020-12-14 07:36] LABS: Anion Gap 15.5 (5-19); Potassium 4.5 mmol/L (3.5-5.1)
[2020-12-14 07:46] LABS: Glucose Point of Care 116 mg/dL (70-110)
[2020-12-14] MEDS: aspirin 81 mg EC Tablet PO ×2 (07:58→17:06)
[2020-12-14] MEDS: pantoprazole DR 40 mg Tablet PO (07:58)
[2020-12-14] MEDS: cholecalciferol (vitamin D3) 1,000 unit Tablet 1000 UNIT PO (07:58)
[2020-12-14] MEDS: ascorbic acid 500 mg Tablet PO ×2 (07:58→17:06)
[2020-12-14] MEDS: benzonatate 100 mg Capsule PO (07:59)
[2020-12-14] MEDS: tamsulosin 0.4 mg Capsule PO (07:59)
[2020-12-14] MEDS: montelukast sodium 10 mg Tablet PO (07:59)
[2020-12-14] MEDS: dexamethasone 4 mg Tablet 3 MG PO (07:59)
[2020-12-14] MEDS: atorvastatin 40 mg Tablet 20 MG PO (07:59)
[2020-12-14] MEDS: zinc gluconate 50 mg Tablet PO (07:59)
[2020-12-14] MEDS: carvedilol 12.5 mg Tablet PO ×2 (07:59→17:06)
[2020-12-14] MEDS: docusate sodium 100 mg Capsule PO ×2 (07:59→17:06)
[2020-12-14] MEDS: fluoxetine 20 mg Capsule PO (09:25)
[2020-12-14] MEDS: ALPRAZolam 0.5 mg Tablet 0.25 MG PO (09:25)
[2020-12-14 11:57] LABS: Glucose Point of Care 186 mg/dL (70-110)
[2020-12-14] MEDS: lactulose oral liq 20 gm/30 mL UDC 10 GM PO (14:24)
[2020-12-14] MEDS: acetaminophen 325 mg Tablet 650 MG PO (14:35)
--- NOTE | 2020-12-14 16:17 | P.TS_ITS ---
Transfer Summary Providers Date of Admission: 11/30/20 16:52 Date of Discharge: 12/14/20 Attending Provider at Admission: Liu Pollack MD Attending Provider at Transfer: Liu Pollack MD Primary Care Provider: Salas Quevedo MD Anticipated Date of Transfer: Anticipated date of transfer: 12/14/20 Receiving Facility & Provider: Receiving Provider: [] Receiving facility: [] Diagnoses at Discharge Discharge Diagnosis (1) Pneumonia due to COVID-19 virus: Status: Acute (2) Secondary bacterial pneumonia: Status: Acute (3) Dyslipidemia (high LDL; low HDL): Status: Acute (4) Benign essential HTN: Status: Acute (5) Type 2 diabetes mellitus: Status: Acute Qualifiers: Diabetes mellitus termite control servicer insulin use: with termite control servicer use Diabetes mellitus complication status: without complication Qualified Code(s): E11.9 - Type 2 diabetes mellitus without complications; Z79.4 - jail (current) use of insulin (6) Atherosclerotic heart disease of [place] coronary artery without angina pectoris: Status: Acute Permanent problem details: EKG in August 2019- NSR with some non specific T wave changes Qualifiers: [place] vs. transplanted heart: [place] heart Qualified Code(s): I25.10 - Atherosclerotic heart disease of [place] coronary artery without angina pectoris (7) New onset of congestive heart failure: Status: Acute (8) Acute renal failure: Status: Acute Permanent problem details: -baseline Cr appears to be around 1.6 -has been on ACEi and potassium supplementation Qualifiers: Acute renal failure type: unspecified Qualified Code(s): N17.9 - Acute kidney failure, unspecified (9) Acute on chronic respiratory failure with hypoxia: Status: Acute (10) Acute respiratory distress syndrome: Status: Acute Reason for Visit Reason for Visit: FEELING WORSE: LAST SEEN 11.28, DIFF BREATHING Hospital Course Hospital Course Ryan Tim is a 84 year old male with a past medical history of insulin- dependent type 2 diabetes mellitus, hypertension, hyperlipidemia, CAD, chronic kidney disease, history of Covid vaccinations in May, who presents to [facility] due to a week history of fevers, cough, shortness of breath. Patient was admitted to [facility] for acute hypoxic respiratory failure secondary to COVID-19 pneumonia, managed with remdesivir, broad-spectrum antibiotic therapy, baricitinib, inhaler therapy, pulmonary toilet, vitamin D, zinc, vitamin C and clinically monitored. Given his increased oxygen requirements, and tenuous respiratory status, increased weakness he was monitored in the ICU. Patient's clinical condition slowly improved, however he continued to have persistent increased oxygen requirements. Given his increased oxygen requirements, deconditioning, increase skills need, after discussion with patient, decision was made to pursue placement to long-term care facility that can manage his increased oxygen requirement such as [facility] in [place], he was accepted at [facility], on discharge he was on 65% FiO2. -We will slowly wean him off Decadron, currently on 3 mg daily -Continue Lovenox for DVT prophylaxis, 40 mg, subcut, due to immobility -Low-dose insulin sliding scale for type 2 diabetes mellitus, Levemir 15 units subcu daily -4 remaining doses of baricitinib -Continue inhaler therapy, duo nebs -Prozac and Xanax for anxiety and depression Physical Exam Const: COMMON NORMALS: no acute distress and patient oriented x3 Resp: COMMON NORMALS: normal respiratory effort, No retractions, No use of accessory muscles and clear to auscultation bilaterally AUSCULTATION: clear to auscultation bilaterally Cardio: COMMON NORMALS: regular rate, regular rhythm, S1 normal heart sound present and S2 normal heart sound present RATE: regular rate RHYTHM: regular rhythm HEART SOUNDS: S1 normal heart sound present and S2 normal heart sound present GI: COMMON NORMALS: Normal to inspection, nondistended, normoactive bowel sounds present, Soft to palpation and non-tender PALPATION: Yes Soft to palpation Extremity: COMMON NORMALS: no pedal edema Neuro: COMMON NORMALS: patient oriented x3 Psych: COMMON NORMALS: mental status grossly normal Urinary Catheter Management^: Ying: Cath Placed During This Visit: yes Reason for Continuing Indwelling Catheter: Accurate Measurement of Urinary Output in Critically Ill Patients Urinary Catheter Date of Insertion: 12/03/20 Urinary Catheter Time of Insertion: 10:46 TS Data Data Completed and Pending: Completed Studies During Hospitalization Category Date Time Status CT angio chest PE protcl [id number] Urge nt Cat Scan 11/30/20 15:13 Completed XR chest 1V kenji ble [id number] Routine Exams 12/03/20 07:00 Completed XR chest 1V kenji ble [id number] Routine Exams 12/06/20 07:00 Completed XR chest 1V kenji ble [id number] Routine Exams 12/08/20 14:11 Completed XR chest 1V kenji ble [id number] Routine Exams 12/11/20 05:00 Completed XR chest 1V kenji ble [id number] Routine Exams 12/14/20 07:00 Completed XR chest 1V kenji ble [id number] Urgent Exams 11/30/20 13:11 [place] [id number] Routin e Ultrasound 12/03/20 11:25 Completed CV. echo complete * [id number] Routine Ultrasound 12/03/20 16:57 Completed Pending at discharge Category Date Time Status Basic Metabolic P mir AM LABS Lab 12/15/20 04:00 Ordered C Reactive Protei n AM LABS Lab 12/15/20 04:00 Ordered C Reactive Protei n AM LABS Lab 12/16/20 04:00 Ordered Complete Blood Co unt w/Auto AM LABS Lab 12/15/20 04:00 Ordered Complete Blood Co unt w/Auto AM LABS Lab 12/15/20 04:00 Ordered Complete Blood Co unt w/Auto AM LABS Lab 12/16/20 04:00 Ordered Comprehensive Met abolic Panel AM LA BS Lab 12/15/20 04:00 Ordered Comprehensive Met abolic Panel AM LA BS Lab 12/16/20 04:00 Ordered Erythrocyte Sedim entation Rate AM L ABS Lab 12/11/20 04:20 Received Erythrocyte Sedim entation Rate AM L ABS Lab 12/12/20 04:53 Received Erythrocyte Sedim entation Rate AM L ABS Lab 12/13/20 03:44 Received Magnesium AM LABS Lab 12/15/20 04:00 Ordered Magnesium AM LABS Lab 12/16/20 04:00 Ordered NT Pro B Type Rossy riuretic Pept QAM Lab 12/15/20 06:00 Ordered NT Pro B Type Rossy riuretic Pept QAM Lab 12/16/20 06:00 Ordered Phosphorus AM LAB S Lab 12/15/20 04:00 Ordered Phosphorus AM LAB S Lab 12/16/20 04:00 Ordered Procalcitonin AM LABS Lab 12/15/20 04:00 Ordered Procalcitonin AM LABS Lab 12/16/20 04:00 Ordered Labs from last 24 hours 12/14/20 12/14/20 12/14/20 11:43 07:40 06:36 WBC RBC Hgb Hct MCV MCH MCHC RDW Plt Count MPV Neut % (Auto) Lymph % (Auto) Grant % (Auto) Eos % (Auto) Baso % (Auto) Neut # (Auto) Lymph # (Auto) Grant # (Auto) Eos # (Auto) Baso # (Auto) Nucleated RBC % (a uto) Nucleated RBCs # Sodium 134 L Potassium 4.5 Chloride 102 Carbon Dioxide 21 L Anion Gap 15.5 BUN 40 H Creatinine 1.0 GFR Calculation Not Reportable Glucose 126 H POC Glucose 186 H 116 H Calculated Osmolal ity 289 Calcium 8.3 L Phosphorus 3.2 Magnesium 2.3 Total Bilirubin 0.4 AST 103 H ALT 130 H Alkaline Phosphata se 110 C-Reactive Protein 1.8 NT-Pro-B Natriuret Pep 165 Total Protein 5.9 L Albumin 2.7 L Globulin 3.2 Procalcitonin 0.06 12/14/20 12/14/20 12/13/20 04:36 04:36 20:19 WBC 11.0 H RBC 3.82 L Hgb 11.7 Hct 36.6 L MCV 95.8 H MCH 30.6 MCHC 32.0 RDW 13.8 Plt Count 344 MPV 11.0 H Neut % (Auto) 87.8 Lymph % (Auto) 6.6 Grant % (Auto) 4.4 Eos % (Auto) 0.3 Baso % (Auto) 0.0 Neut # (Auto) 9.62 H Lymph # (Auto) 0.7 L Grant # (Auto) 0.5 Eos # (Auto) 0.0 Baso # (Auto) 0.0 Nucleated RBC % (a uto) 0 Nucleated RBCs # 0.0 Sodium Cancelled Potassium Cancelled Chloride Cancelled Carbon Dioxide Cancelled Anion Gap Cancelled BUN Cancelled Creatinine Cancelled GFR Calculation Cancelled Glucose Cancelled POC Glucose 270 H Calculated Osmolal ity Cancelled Calcium Cancelled Phosphorus Cancelled Magnesium Cancelled Total Bilirubin Cancelled AST Cancelled ALT Cancelled Alkaline Phosphata se Cancelled C-Reactive Protein Cancelled NT-Pro-B Natriuret Pep Cancelled Total Protein Cancelled Albumin Cancelled Globulin Cancelled Procalcitonin Cancelled 12/13/20 16:46 WBC RBC Hgb Hct MCV MCH MCHC RDW Plt Count MPV Neut % (Auto) Lymph % (Auto) Grant % (Auto) Eos % (Auto) Baso % (Auto) Neut # (Auto) Lymph # (Auto) Grant # (Auto) Eos # (Auto) Baso # (Auto) Nucleated RBC % (a uto) Nucleated RBCs # Sodium Potassium Chloride Carbon Dioxide Anion Gap BUN Creatinine GFR Calculation Glucose POC Glucose 217 H Calculated Osmolal ity Calcium Phosphorus Magnesium Total Bilirubin AST ALT Alkaline Phosphata se C-Reactive Protein NT-Pro-B Natriuret Pep Total Protein Albumin Globulin Procalcitonin Vitals: Last Vital Signs Temp 97.9 F 12/14/20 04:00 Pulse 88 12/14/20 15:17 Resp 22 H 12/14/20 15:03 BP 127/64 12/14/20 14:00 Pulse Ox 91 12/14/20 15:03 TS Medications Medications Home Medications allopurinol 100 mg tablet 100 mg PO DAILY PRN 04/15/19 [History Confirmed 11/30/20] aspirin 81 mg tablet,delayed release 81 mg PO BID tab 04/15/19 [History Confirmed 11/30/20] furosemide 20 mg tablet 20 mg PO DAILY PRN 04/15/19 [History Confirmed 11/30/20] lisinopril 40 mg tablet 40 mg PO DAILY 04/15/19 [History Confirmed 11/30/20] multivitamin 1 tab PO DAILY 04/15/19 [History Confirmed 11/30/20] pantoprazole 40 mg tablet,delayed release 40 mg PO DAILY 04/15/19 [History Confirmed 11/30/20] potassium chloride 10 mEq tablet,extended release 10 meq PO DAILY PRN 04/15/19 [History Confirmed 11/30/20] pravastatin 40 mg tablet 40 mg PO DAILY 04/15/19 [History Confirmed 11/30/20] tamsulosin 0.4 mg PO DAILY 08/19/19 [History Confirmed 11/30/20] insulin detemir U-100 100 unit/mL (3 mL) subcutaneous pen 50 unit SUBCUT DAILY #15 ml 03/19/20 [Rx Confirmed 11/30/20] metformin 1,000 mg tablet 500 mg PO BID tab 04/15/20 [History Confirmed 11/30/20] ezetimibe 10 mg tablet 10 mg PO DAILY #30 tab 09/14/20 [Rx Confirmed 11/30/20] benzonatate 100 mg capsule 100 mg PO BID PRN #10 cap 11/26/20 [Rx Confirmed 11/30/20] azithromycin See Rx Instructions .ROUTE .COMPLEX 11/28/20 [History Confirmed ] carvedilol 12.5 mg PO BID 11/28/20 [History Confirmed 11/30/20] doxycycline hyclate 100 mg PO BID 7 Days #14 tab 11/28/20 [Rx Confirmed 11/30/20] montelukast 10 mg PO DAILY 11/28/20 [History Confirmed 11/30/20] pseudoephedrine-guaifenesin [Mucinex D Maximum Strength] 1 tab PO Q12H PRN 11/30/20 [History Confirmed 11/30/20] Active Medications Acetaminophen (Acetaminophen 325 Mg Tablet) 650 mg PO Q6H PRN PRN Reason: Mild/Mod Pain Or Temp >/= 101 Last Admin: 12/14/20 14:35 Dose: 650 mg Documented by: Albuterol/Ipratropium (Ipratropium-Albuterol 3 Ml Neb) 3 ml INHALATION Q6H.RESPIRATORY CLINT Last Admin: 12/14/20 15:01 Dose: 3 ml Documented by: Alprazolam (Alprazolam 0.5 Mg Tablet) 0.25 mg PO BID PRN PRN Reason: anxiety Last Admin: 12/14/20 09:25 Dose: 0.25 mg Documented by: Ascorbic Acid (Ascorbic Acid 500 Mg Tablet) 500 mg PO BID [facility] Last Admin: 12/14/20 07:58 Dose: 500 mg Documented by: Aspirin (Aspirin 81 Mg Ec Tablet) 81 mg PO BID [facility] Last Admin: 12/14/20 07:58 Dose: 81 mg Documented by: Atorvastatin Calcium (Atorvastatin 40 Mg Tablet) 20 mg PO DAILY [facility] Last Admin: 12/14/20 07:59 Dose: 20 mg Documented by: Baricitinib (Baricitinib 2 Mg Tablet) 4 mg PO Q24H [facility] Stop: 12/18/20 10:01 Last Admin: 12/14/20 07:59 Dose: 4 mg Documented by: Benzonatate (Benzonatate 100 Mg Capsule) 100 mg PO TID PRN PRN Reason: COUGH Last Admin: 12/14/20 07:59 Dose: 100 mg Documented by: Carvedilol (Carvedilol 12.5 Mg Tablet) 12.5 mg PO BID [facility] Last Admin: 12/14/20 07:59 Dose: 12.5 mg Documented by: Dexamethasone (Dexamethasone 4 Mg Tablet) 3 mg PO Q24H [facility] Last Admin: 12/14/20 07:59 Dose: 3 mg Documented by: Dextrose (Dextrose 50% Syringe 50 Ml) 25 ml IVP ONCE PRN; Protocol PRN Reason: hypoglycemia protocol Dextrose (Dextrose 50% Syringe 50 Ml) 50 ml IVP PRN PRN; Protocol PRN Reason: hypoglycemia protocol Docusate Sodium (Docusate Sodium 100 Mg Capsule) 100 mg PO BID [facility] Last Admin: 12/14/20 07:59 Dose: 100 mg Documented by: Enoxaparin Sodium (Enoxaparin 40 Mg/0.4 Ml Syringe) 40 mg SUBCUT Q24H [facility] Last Admin: 12/13/20 20:32 Dose: 40 mg Documented by: Fluoxetine HCl (Fluoxetine 20 Mg Capsule) 20 mg PO DAILY [facility] Last Admin: 12/14/20 09:25 Dose: 20 mg Documented by: Glucagon (Glucagon 1 Mg/Ml Inj 1 Ml) 1 mg IM ONCE PRN; Protocol PRN Reason: Adult Acute Hypoglycemia Prot. Dextrose (D5w) 500 mls @ 100 mls/hr IV ONCE PRN; Protocol PRN Reason: Adult Acute Hypoglycemia Prot Insulin Aspart (Insulin Aspart 100 Unit/1 Ml) 0 unit SUBCUT WM&BEDTIME [facility]; Protocol Last Admin: 12/14/20 12:04 Dose: 4 unit Documented by: Insulin Detemir (Insulin Detemir 100 Units/1 Ml) 15 unit SUBCUT DAILY [facility] Last Admin: 12/14/20 08:04 Dose: 15 unit Documented by: Lactulose (Lactulose Oral Liq 20 Gm/30 Ml Udc) 10 gm PO DAILY PRN; Protocol PRN Reason: Constipation (see protocol) Last Admin: 12/14/20 14:24 Dose: 10 gm Documented by: Montelukast Sodium (Montelukast Sodium 10 Mg Tablet) 10 mg PO DAILY [facility] Last Admin: 12/14/20 07:59 Dose: 10 mg Documented by: Ondansetron HCl (Ondansetron 2 Mg/Ml Sdv 2 Ml) 4 mg IVP Q8H PRN PRN Reason: vomiting, or N/V if npo Pantoprazole Sodium (Pantoprazole Dr 40 Mg Tablet) 40 mg PO DAILY [facility] Last Admin: 12/14/20 07:58 Dose: 40 mg Documented by: Tamsulosin HCl (Tamsulosin 0.4 Mg Capsule) 0.4 mg PO DAILY [facility] Last Admin: 12/14/20 07:59 Dose: 0.4 mg Documented by: Vitamin D (Cholecalciferol (Vitamin D3) 1,000 Unit Tablet) 1,000 unit PO DAILY [facility] Last Admin: 12/14/20 07:58 Dose: 1,000 unit Documented by: Zinc Gluconate (Zinc Gluconate 50 Mg Tablet) 50 mg PO DAILY [facility] Last Admin: 12/14/20 07:59 Dose: 50 mg Documented by: Discharge Plan Discharge Patient Disposition: Home Condition: Stable Prescriptions: New alprazolam 0.5 mg Tablet 0.25 mg PO BID PRN (Reason: anxiety) 7 Days Qty: 14 RF: 0 cholecalciferol (vitamin D3) 25 mcg (1,000 unit) Tablet 1,000 unit PO DAILY Qty: 30 RF: 0 enoxaparin 40 mg/0.4 mL Syringe 40 mg SUBCUT Q24H Qty: 4 RF: 0 zinc gluconate 50 mg Tablet 50 mg PO DAILY Qty: 60 RF: 0 acetaminophen 325 mg Tablet 650 mg PO Q6H PRN (Reason: Mild/Mod Pain Or Temp >/= 101) Qty: 60 RF: 0 lactulose 20 gram/30 mL Solution 10 g PO DAILY PRN (Reason: Constipation (see protocol)) Qty: 2880 RF: 0 ipratropium-albuterol 0.5 mg-3 mg(2.5 mg base)/3 mL Solution For Nebulization 3 ml inhalation Q6H.RESPIRATORY Qty: 90 RF: 0 insulin aspart U-100 [Novolog U-100 Insulin aspart] 100 unit/mL Solution See Rx Instructions .ROUTE .COMPLEX Qty: 10 RF: 0 Levemir U-100 Insulin 100 unit/mL Solution 15 unit SUBCUT DAILY Qty: 10 RF: 0 fluoxetine 20 mg Capsule 20 mg PO DAILY 30 Days Qty: 30 RF: 0 ascorbic acid (vitamin C) [Vitamin C] 500 mg Tablet 500 mg PO BID 30 Days Qty: 60 RF: 0 docusate sodium 100 mg Capsule 100 mg PO BID 30 Days Qty: 60 RF: 0 benzonatate 100 mg Capsule 100 mg PO TID PRN (Reason: Cough) Qty: 60 RF: 0 Olumiant 2 mg Tablet 4 mg PO Q24H 4 Days Qty: 8 RF: 0 dexamethasone 4 mg Tablet See Rx Instructions .ROUTE .COMPLEX Qty: 30 RF: 0 Continued pantoprazole 40 mg tablet,delayed release (DR/EC) 40 mg PO DAILY RF: 0 aspirin [Adult Low Dose Aspirin] 81 mg tablet,delayed release (DR/EC) 81 mg PO BID RF: 0 pravastatin 40 mg tablet 40 mg PO DAILY RF: 0 tamsulosin 0.4 mg Capsule 0.4 mg PO DAILY RF: 0 montelukast 10 mg Tablet 10 mg PO DAILY RF: 0 carvedilol 12.5 mg tablet 12.5 mg PO BID RF: 0 Discontinued Levemir FlexTouch U-100 Insuln 100 unit/mL (3 mL) insulin pen 50 unit SUBCUT DAILY Qty: 15 RF: 3 benzonatate [Tessalon Perles] 100 mg capsule 100 mg PO BID PRN (Reason: cough) Qty: 10 RF: 0 lisinopril 40 mg tablet 40 mg PO DAILY RF: 0 furosemide [Lasix] 20 mg tablet 20 mg PO DAILY PRN (Reason: Edema) RF: 0 potassium chloride [Klor-Con 10] 10 mEq tablet extended release 10 meq PO DAILY PRN (Reason: unknown) RF: 0 multivitamin Tablet 1 tab PO DAILY RF: 0 allopurinol 100 mg tablet 100 mg PO DAILY PRN (Reason: Gout) RF: 0 metformin 1,000 mg tablet 500 mg PO BID RF: 0 ezetimibe [Zetia] 10 mg tablet 10 mg PO DAILY Qty: 30 RF: 5 Mucinex D Maximum Strength 120-1,200 mg Tablet Extended Release 12 Hr 1 tab PO Q12H PRN (Reason: cold/cough symptoms) RF: 0 azithromycin 250 mg Tablet See Rx Instructions .ROUTE .COMPLEX RF: 0 doxycycline hyclate 100 mg tablet 100 mg PO BID 7 Days Qty: 14 RF: 0 Patient Instructions: Opioid Safety Transfer Attestations Time Spent in Transfer Care*: less than 30 min Quality Metrics Clinical Quality Measures: During this hospital stay, did patient experience: None Coding Level of Care Code Acute Recreational Sports Director for [facility] Fwd Diagnoses Pneumonia due to COVID-19 virus U07.1; J12.82 Secondary bacterial pneumonia J15.9 Dyslipidemia (high LDL; low HDL) E78.5 Benign essential HTN I10 Type 2 diabetes mellitus E11.9; Z79.4 Diabetes mellitus custodial insulin use: with custodial use Diabetes mellitus complication status: without complication Atherosclerotic heart disease of [place] coronary artery without angina pectoris I25.10 [place] vs. transplanted heart: [place] heart New onset of congestive heart failure I50.9 Acute renal failure N17.9 Acute renal failure type: unspecified Acute on chronic respiratory failure with hypoxia J96.21 Acute respiratory distress syndrome J80
[2020-12-14 17:06] LABS: Glucose Point of Care 213 mg/dL (70-110)
--- NOTE | 2020-12-14 18:54 | PC.NURSE ---
Shift Note Frequent safety and comfort rounds continue. Orders and nursing care completed as indicated. Patient monitored for response to intervention and treatments. Pt to be transferred to [facility] in [place] this evening. Report called to DOLORES Arriaza this afternoon. at bedside gathering belongings and noted to be taking them home with her. Transport called and to arrive later this evening. Pt requested laxative to assist ith having a bowel movement this evening, PRN lactose given. Pt had 700ml out in urine this shift. Pt currently on HHF at 45L at 70%.Education provided includes oxygen safety, and frequent position changes. Patient and verbalized understanding. Will continue to monitor.
--- NOTE | 2020-12-15 13:14 | PC.SOCIAL ---
discharge follow up call made,spoke with patients nurse Laney, at [facility]. patient stood with therapy, he is smiling, happy and doing well.
[2020-12-15 13:22] LABS: Erythrocyte Sedimentation Rate 17 mm/hr (0-10)
[2020-12-15 13:22] LABS: Erythrocyte Sedimentation Rate 17 mm/hr (0-10)
[2020-12-15 13:24] LABS: Erythrocyte Sedimentation Rate 17 mm/hr (0-10)
== END 2020-12-14 19:30 | DRG 177 ==
LOC: ER 13:05 → MEDSURG 18:27 → ICU 12-03 10:09
PROVIDERS: Internal Medicine; Admitting Provider Family Medicine; Emergency Provider Emergency Medicine; PCP Family Medicine; Visit Provider Family Medicine
DX: U07.1 COVID-19 (principal); J12.82 Pneumonia due to coronavirus disease 2019; I50.33 Acute on chronic diastolic (congestive) heart failure; J15.9 Unspecified bacterial pneumonia; I21.A1 Myocardial infarction type 2; J80 Acute respiratory distress syndrome; I13.0 Hypertensive heart and chronic kidney disease with heart failure and stage 1 through stage 4 chronic kidney disease, or unspecified chronic kidney disease; N17.9 Acute kidney failure, unspecified; N18.9 Chronic kidney disease, unspecified; E11.22 Type 2 diabetes mellitus with diabetic chronic kidney disease; E78.5 Hyperlipidemia, unspecified; I25.10 Atherosclerotic heart disease of native coronary artery without angina pectoris; K21.9 Gastro-esophageal reflux disease without esophagitis; M10.9 Gout, unspecified; M19.90 Unspecified osteoarthritis, unspecified site; Z87.891 Personal history of nicotine dependence; F41.8 Other specified anxiety disorders; Z79.4 Long term (current) use of insulin; Z79.82 Long term (current) use of aspirin
CPT/HCPCS: 36415; 36416; 36600; 51702; 71045; 71046; 71275; 80048; 80051; 80053; 80202; 82330; 82550; 82728; 82803; 82805; 82962; 83605; 83735; 83880; 84100; 84145; 84443; 84484; 85025; 85378; 85610; 85651; 86140; 86403; 87040; 87070; 87205; 87426; 87641; 92610; 93005; 93306; 93970; 94640; 94664; 96365; 96367; 96372; 96375; 99284; 99285; J0743; J1100; J1650; J1815; J1940; J1956; J3370; J8540; Q9967

== ENCOUNTER 2021-02-16 09:25 | Inpatient (IN) | payer MEDICARE, OTHER, SELFPAY ==
[2021-02-16] VITALS (9 sets, daily range): BP systolic 125–147; BP diastolic 63–75; PULSE 64–96; RESP 16–28; TEMP 36.6–36.7; O2SAT 89–99; BMI 29.5
--- NOTE | 2021-02-16 09:43 | CT_ITS ---
WS: [id number] CTA OF THE CHEST WITH PULMONARY EMBOLISM PROTOCOL TECHNIQUE: High-resolution contrast enhanced CTA of the chest with coronal and sagittal reformatted i dheeraj with pulmonary embolism protocol. MIP images are also reviewed. CLINICAL INFORMATION: hypoxia COMPARISON: November 30, 2020 DLP: 546.[address] scans at [facility] use at least one of these dose optimization techniques: automated e xposure control; mA and/or kV adjustment per patient size (includes targeted exams where dose is matc hed to clinical indication); or iterative reconstruction. FINDINGS: Proximal main pulmonary arteries are normal. No evidence of pulmonary embolus. Small pericardial effu delonte. Normal caliber thoracic aorta. Coronary calcification. Tiny bilateral pleural effusions. Diffuse bilateral Groundglass airspace infiltrates more prominent i n the upper lobes. A few prominent anterior mediastinal, subcarinal, and enlarged right greater than left hilar lymph nodes nonspecific but likely reactive. Bronchovascular thickening bilaterally.Cholec ystectomy. Adrenal glands are normal. CT/CT angio chest PE protcl [id number] IMPRESSION: 1. No evidence for pulmonary embolus. 2. Diffuse bilateral airspace infiltrates worse in the upper lobes. Recommend correlation for COVID 19 pneumonia. Infiltrates have progressed since November 2020 3. Tiny bilateral pleural effusions. 4. Enlarged anterior mediastinal and hilar lymph nodes with bronchovascular th ickening nonspecific but likely reactive. 5. Prior cholecystectomy.
--- NOTE | 2021-02-16 09:43 | ECG_ITS ---
[facility] Test Date: 2021-02-16 Pat Name: Ryan Tim Department: Room: Gender: Male Furniture Duster: : 1935 Requested By: Ronni Banks Order Number: [id number] Vicente MD: Tammy Payne M.D. Measurements Intervals Mora Rate: 87 P: 24 LA: 193 QRS: 19 QRSD: 98 T: 28 QT: 350 QTc: 421 Interpretive Statements SINUS RHYTHM MINIMAL ST DEPRESSION [0.025+ mV ST DEPRESSION] Compared to ECG 11/30/2020 22:13:25 ST (T wave) deviation now present Electronically Signed On 02-16-2021 16:25:44 EXHIBITION ORGANISER by Tammy Payne M.D. [id number]
--- NOTE | 2021-02-16 09:44 | XR_ITS ---
WS: [id number] Exam: XR chest 1V portable [id number] Date/Time of Exam: 02/16/2021 9:49 AM Reason For Exam: dyspnea/cough Comparison 12/14/2020. Extensive bilateral pulmonary infiltrates are noted. Active pneumonia is considered likely however so me changes could be chronic in nature. The heart is upper limits normal size. No pleural effusions or pneumothorax. The mediastinum is unremarkable for portable technique. Regional bony elements are int act. XR/XR chest 1V portable [id number] IMPRESSION: 1. Widespread bilateral pulmonary infiltrates suggesting active pneumonia. Ther e may be some superimposed chronic pulmonary changes also.
--- NOTE | 2021-02-16 09:47 | ED_ITS ---
HPI - SOB/Dyspnea General: Chief Complaint: Shortness of Breath/Dyspnea Stated Complaint: RESP DISTRESS Time Seen by Provider: 02/16/21 09:30 History of Present Illness: HPI Narrative: 85-year-old male presents emergency room complaining of shortness of breath. 6 weeks ago patient was admitted to the hospital for Covid pneumonia. He was transferred to [place] on December 14. He recovered and was discharged home around December 29 on oxygen when he went home at 2 L/min he had been doing well until yesterday and even more so today he notices that with minimal exertion he gets significantly short of breath things that just a few days ago he could do without any difficulty are now causing him to be so dyspneic he cannot complete simple tasks he denies any chest pain. He is not on any anticoagulants he has no previous history of pulmonary emboli. Patient is diabetic he was given 6 mg dexamethasone and albuterol nebulizer in route. He denies any fever sweats or chills is not having any chest pain at this time. MD elicited complaint: shortness of breath and cough Pertinent past history: pneumonia (Covid pneumonia) Onset (ago): day(s) Context: recent illness Timing: constant Exacerbating factors: exertion and coughing Relieving factors: oxygen and rest Known history of: other (Recent COVID) Associated symptoms: Reports chest congestion, cough, diaphoresis and lig htheadedness; Deny abdominal pain, chest pain, dizziness, extremity pain, fever(s), hemoptysis, myalgias, nausea, orthopnea, palpitations, paresthesias, polydipsia, polyuria, rash, sense of impending doom, syncope or vomiting Treatment prior to arrival: none Review of Systems Const: Reports: diaphoresis; Denies: fever(s) ENMT: Denies: throat pain, ear or mastoid pain, nasal discharge or nasal congestion Card: Reports: lightheadedness; Denies: chest pain, palpitations, syncope or orthopnea Resp: Reports: chest congestion; Denies: hemoptysis GI: Denies: abdominal pain, nausea or vomiting : Denies: flank pain, dysuria, urinary frequency or urinary urgency Musc: Denies: extremity pain Skin/Breast: Denies: rash or pruritus Neuro: Denies: dizziness Endo: Denies: polyuria or polydipsia [facility] ED PFSH: Medical History ASHD (arteriosclerotic heart disease) -follows up with Dr. Loo Atherosclerotic heart disease of [place] coronary artery without angina pectoris EKG in August 2019- NSR with some non specific T wave changes Diabetes -insulin requiring Edema, peripheral -likely secondary to acute CHF exacerbation GERD (gastroesophageal reflux disease) Gout Hyperlipidemia -on statin Hypertension -on oral antihypertensives Osteoarthritis Hands, hips, knees and spine, lumbar spondylosis Type 2 diabetes mellitus Surgical History History of cataract surgery History of cholecystectomy History of hemorrhoidectomy History of hip surgery History of knee surgery History of rotator cuff surgery Family History Other CAD (coronary artery disease) Cancer Diabetes Hyperlipidemia Hypertension Social History Smoking and tobacco status: former smoker Alcohol intake: never Physical Exam Const: COMMON NORMALS: no acute distress GENERAL APPEARANCE: cooperative and comfortable ORIENTATION/CONSCIOUSNESS: Yes awake, Yes oriented to person, Yes oriented to place and Yes oriented to time HENMT: COMMON NORMALS: normocephalic, atraumatic and hearing grossly normal bilaterally HEAD & SCALP: normocephalic and atraumatic Neck/C-Spine: COMMON NORMALS: no JVD Resp: AUSCULTATION: rhonchi and wheezes Cardio: COMMON NORMALS: no JVD, regular rate, regular rhythm and No murmurs present (Cardio) RATE: regular rate RHYTHM: regular rhythm GI: COMMON NORMALS: Soft to palpation and No hepatosplenomegaly present AUSCULTATION: Yes normoactive bowel sounds PALPATION: Yes Soft to palpation, No Tenderness to palpation present (GI), No Guarding due to palpation present (GI) and Yes No hepatosplenomegaly present Extremity: COMMON NORMALS: normal to inspection, capillary refill normal, no clubbing, cyanosis or edema, no calf tenderness and no pedal edema Neuro: SENSORIUM/ORIENTATION: Yes oriented to person, Yes oriented to place and Yes oriented to time Skin: COMMON NORMALS: no rashes or lesions noted GENERAL SKIN EXAM: no rashes or lesions noted Course Vital Signs: Vital signs: Vital Signs Temperature 98.2 F 12/10/21 08:00 Pulse Rate 98 02/18/21 08:00 Respiratory Rate 16 02/18/21 08:00 Blood Pressure 145/73 02/18/21 08:00 Pulse Oximetry 92 02/18/21 08:00 MDM - SOB/Dyspnea MDM Narrative: Medical decision making narrative: Chest x-ray shows bilateral pneumonia. CTA of the chest was negative for pulmonary emboli but did show diffuse infiltrates suspicious for COVID-19 however given the timeframe since he was known to have COVID-19 they should have resolved suspect secondary infection and he is having significant oxygen need were to go ahead and admit him for pneumonia with acute respiratory failure. Discussed with hospitalist orders are written Lab Data: Labs: Lab Results 02/16/21 02/16/21 02/16/21 09:10 09:10 09:10 WBC 13.7 10^3/uL H 10 ^3/uL (4.0-10.0) RBC 3.23 10^6/uL L 10 ^6/uL (4.1-5.3) Hgb 9.7 g/dL L g/dL (11.7-16.6) Hct 31.4 % L % (42.0-52.0) MCV 97.2 fl H fl (80-94) MCH 30.0 pg pg (28.0-34.0) MCHC 30.9 g/dL g/dL (30.0-36.0) RDW 13.5 % % (12.1-15.1) Plt Count 353 10^3/cmm 10^3 /cmm (130-400) MPV 9.4 fL fL (7.4-10.4) Neut % (Auto) 62.9 % % Lymph % (Auto) 19.1 % % [place] % (Auto) 9.8 % % Eos % (Auto) 6.9 % % Baso % (Auto) 0.7 % % Neut # (Auto) 8.58 10^3/uL H 10 ^3/uL (1.8-7.7) Lymph # (Auto) 2.6 10^3/uL 10^3/ uL (0.8-4.8) [place] # (Auto) 1.3 10^3/uL H 10^ 3/uL (0.2-0.9) Eos # (Auto) 0.9 10^3/uL H 10^ 3/uL (0.0-0.8) Baso # (Auto) 0.1 10^3/uL 10^3/ uL (0.0-0.1) Nucleated RBC % (a uto) 0 % % Nucleated RBCs # 0.0 /100WBC /100W BC PT 15.20 SECONDS H S ECONDS (12.1-14.9) INR 1.16 (0.8-1.2) APTT 44.2 SECONDS H SE CONDS (23.9-36.7) Sodium 138 mmol/L mmol/L (136-145) Potassium 4.6 mmol/L mmol/L (3.5-5.1) Chloride 103 mmol/L mmol/L (98-107) Carbon Dioxide 22 mmol/L mmol/L (22-29) Anion Gap 17.6 (5-19) BUN 19 mg/dL mg/dL (8-23) Creatinine 1.1 mg/dL mg/dL (0.7-1.2) GFR Calculation Not Reportable Glucose 119 mg/dL H mg/dL (65-115) Calculated Osmolal ity 289 mOsm/kg mOsm/ kg (285-295) Calcium 8.2 mg/dL L mg/dL (8.5-10.5) Total Bilirubin 0.3 mg/dL mg/dL (0.15-1.2) AST 17 U/L U/L (0-40) ALT 10 U/L U/L (0-41) Alkaline Phosphata se 97 IU/L IU/L (40-130) Troponin T Baselin e NT-Pro-B Natriuret Pep Total Protein 6.7 g/dL g/dL (6.6-8.7) Albumin 2.9 g/dL L g/dL (3.5-5.2) Globulin 3.8 g/dL g/dL (1.3-4.6) 02/16/21 02/16/21 09:10 09:10 WBC RBC Hgb Hct MCV MCH MCHC RDW Plt Count MPV Neut % (Auto) Lymph % (Auto) [place] % (Auto) Eos % (Auto) Baso % (Auto) Neut # (Auto) Lymph # (Auto) [place] # (Auto) Eos # (Auto) Baso # (Auto) Nucleated RBC % (a uto) Nucleated RBCs # PT INR APTT Sodium Potassium Chloride Carbon Dioxide Anion Gap BUN Creatinine GFR Calculation Glucose Calculated Osmolal ity Calcium Total Bilirubin AST ALT Alkaline Phosphata se Troponin T Baselin e Cancelled NT-Pro-B Natriuret Pep 569 pg/mL H pg/mL (0-450) Total Protein Albumin Globulin Discharge Plan Discharge Patient Disposition: Admitted As Inpatient Admit Provider: Kirk Garcia Clinical Impression: Pneumonia, Acute respiratory failure with hypoxia Condition: Stable Coding Level of Care Code ED Etl Bi Developer for Chg Fwd Exam Comprehensive
[2021-02-16 10:17] LABS: Basophils # 0.1 10^3/uL (0.0-0.1); Basophils % 0.7 %; Eosinophils # 0.9 10^3/uL (0.0-0.8); Eosinophils % 6.9 %; Hematocrit 31.4 % (42.0-52.0); Hemoglobin 9.7 g/dL (11.7-16.6); Lymphocytes # 2.6 10^3/uL (0.8-4.8); Lymphocytes % 19.1 %; Mean Corpuscular HGB Conc 30.9 g/dL (30.0-36.0); Mean Corpuscular Volume 97.2 fl (80-94); Mean Platelet Volume 9.4 fL (7.4-10.4); Monocytes # 1.3 10^3/uL (0.2-0.9); Monocytes % 9.8 %; Neutrophils # 8.58 10^3/uL (1.8-7.7); Neutrophils % 62.9 %; Nucleated Red Blood Cells % 0 %; Platelet Count 353 10^3/cmm (130-400); Red Blood Count 3.23 10^6/uL (4.1-5.3); Red Cell Distribution Width 13.5 % (12.1-15.1); White Blood Count 13.7 10^3/uL (4.0-10.0)
[2021-02-16 10:24] LABS: INR 1.16 (0.8-1.2)
[2021-02-16 10:25] LABS: Partial Thromboplastin Time 44.2 SECONDS (23.9-36.7)
[2021-02-16 10:28] LABS: Alanine Aminotransferase 10 U/L (0-41); Albumin Level 2.9 g/dL (3.5-5.2); Alkaline Phosphatase 97 IU/L (40-130); Anion Gap 17.6 (5-19); Aspartate Amino Transferase 17 U/L (0-40); Blood Urea Nitrogen 19 mg/dL (8-23); Calcium 8.2 mg/dL (8.5-10.5); Carbon Dioxide 22 mmol/L (22-29); Chloride 103 mmol/L (98-107); Globulin 3.8 g/dL (1.3-4.6); Glucose 119 mg/dL (65-115); Osmolality Calculated 289 mOsm/kg (285-295); Potassium 4.6 mmol/L (3.5-5.1); Sodium 138 mmol/L (136-145); Total Bilirubin 0.3 mg/dL (0.15-1.2); Total Protein 6.7 g/dL (6.6-8.7)
--- NOTE | 2021-02-16 10:52 | PC.PHAR ---
pts family verified pts medications-pts family states the metformin was dced-pts family states the pt is not taking allopurinol for 5 weeks-notes are made in the pharmacy comments
[2021-02-16] MEDS: iodixanol 320 mg/mL 100mL Btl IV (10:59)
--- NOTE | 2021-02-16 12:03 | ECG_ITS ---
[facility] Test Date: 2021-02-16 Pat Name: Ryan Tim Department: Room: 259 Gender: Male Leadlighter: : 1935 Requested By: Ronni Banks Order Number: [id number] Vicente MD: Tammy Payne M.D. Measurements Intervals [place] Rate: 87 P: 28 NV: 205 QRS: 12 QRSD: 81 T: 26 QT: 353 QTc: 427 Interpretive Statements SINUS RHYTHM Compared to ECG 02/16/2021 10:59:06 ST (T wave) deviation no longer present Electronically Signed On 02-16-2021 16:24:49 CUSTOMER OPERATIONS SPECIALIST by Tammy Payne M.D. [id number]
[2021-02-16] MEDS: piperacillin-tazobactam 3.375 GM in sodium chloride 0.9% (plus) 50 ML IV ×2 (12:28→18:41)
[2021-02-16] MEDS: vancomycin 1,000 MG in sodium chloride 0.9% 250 ML 250 MG IV (13:23)
[2021-02-16 13:44] LABS: NT Pro B Type Natriuretic Pept 569 pg/mL (0-450)
--- NOTE | 2021-02-16 14:03 | ECG_ITS ---
[facility] Test Date: 2021-02-16 Pat Name: Ryan Tim Department: Room: 259 Gender: Male Referral Coordinator: : 1935 Requested By: Ronni Banks Order Number: [id number] Vicente MD: Tammy Payne M.D. Measurements Intervals [place] Rate: 90 P: 26 NM: 193 QRS: 9 QRSD: 101 T: 6 QT: 360 QTc: 443 Interpretive Statements SINUS RHYTHM POSSIBLE LEFT ATRIAL ENLARGEMENT [-0.1mV P-WAVE IN V1/V2] Compared to ECG 02/16/2021 15:40:53 No significant changes Electronically Signed On 02-16-2021 16:40:48 MECHANICAL TECHNICAL SERVICE SPECIALIST by Tammy Payne M.D. [id number]
--- NOTE | 2021-02-16 14:46 | P.HP_ITS ---
Providers/Chief Complaint Primary Care Provider: Salas Quevedo MD Chief Complaint: RESP DISTRESS History of Present Illness Ryan Tim is a 85 year old male who was recently hospitalized for Covid pneumonia requiring high amounts of oxygen from November 30 December 14 at [facility] at which time he transition to [facility] from December 14 to December 29. Since that time he had been on 2 L of oxygen, which she was really using as needed at home. He was doing well up until about 3 days ago when he had some gradual onset of shortness of breath, and cough. It got significant over the last 24 hours where he was very dyspneic on exertion. He has had no fevers. He has had no vomiting. No significant reflux, or choking with eating. Cough is worse at night. No ill contacts at home. He reports he is vaccinated for Covid. He denies any chest discomfort. He has not been wheezing. He has not been on any steroids since discharge from [facility]. He was given baricitinib while here with his previous hospital stay in November. Review of Systems General: Reports: 10 or more systems reviewed and unremarkable except in HPI and below Const: Reports: malaise; Denies: fever(s) or chills Eyes: Denies: change in vision ENMT: Denies: throat pain Card: Denies: chest pain Resp: Reports: dyspnea and non-productive cough GI: Denies: abdominal pain, nausea or vomiting : Denies: flank pain Musc: Denies: neck pain Skin/Breast: Denies: rash Neuro: Denies: headache(s) Psych: Denies: anxiety Endo: Denies: polyuria Sergio/Lymph: Denies: easy bruising All/Imm: Denies: urticaria Medications/Allergies Home Medications Medication Instructions Recorded Confirmed Last Taken Type aspirin 81 mg tablet,delayed 81 mg PO QAM tab 04/15/19 02/16/21 02/15/21 History release pantoprazole 40 mg tablet,delayed 40 mg PO QAM 04/15/19 02/16/21 02/15/21 History release pravastatin 40 mg tablet 40 mg PO QPM 04/15/19 02/16/21 02/15/21 History tamsulosin 0.4 mg PO QPM 08/19/19 02/16/21 02/15/21 History carvedilol 12.5 mg PO BID 11/28/20 02/16/21 02/15/21 History montelukast 10 mg PO QAM 11/28/20 02/16/21 02/15/21 History benzonatate 100 mg PO TID PRN #60 cap 12/14/20 02/16/21 Unknown Rx insulin aspart U-100 [Novolog See Rx Instructions .ROUTE 12/14/20 02/16/21 Unknown Rx U-100 Insulin aspart] .COMPLEX #10 ml acetaminophen 325 mg PO BEDTIME 02/16/21 02/16/21 Unknown History allopurinol 100 mg PO .NOT TAKEN IN 5 WEEK 02/16/21 02/16/21 Unknown History alprazolam 0.25 mg PO TID PRN 02/16/21 02/16/21 Unknown History cholecalciferol (vitamin D3) 1,000 unit PO QAM 02/16/21 02/16/21 02/15/21 History docusate sodium [Stool Softener] 100 mg PO QAM 02/16/21 02/16/21 02/15/21 History ezetimibe 10 mg PO QAM 02/16/21 02/16/21 02/15/21 History fluoxetine 20 mg PO QPM 02/16/21 02/16/21 02/15/21 History furosemide 20 mg PO QAM 02/16/21 02/16/21 02/15/21 History insulin detemir U-100 [Levemir 40 unit SUBCUT QAM 02/16/21 02/16/21 02/15/21 History FlexTouch U-100 Insuln] lisinopril 40 mg PO QAM 02/16/21 02/16/21 02/15/21 History potassium chloride [Klor-Con M10] 10 meq PO QAM 02/16/21 02/16/21 02/15/21 History Allergies Allergy/AdvReac Type Severity Reaction Status Date / Time aspirin Allergy Unknown unknown Verified 02/16/21 10:54 cefuroxime [From Ceftin] Allergy Unknown unknown Verified 02/16/21 10:54 fluvastatin [From Lescol] Allergy Unknown unknown Verified 02/16/21 10:54 Sulfa (Sulfonamide Allergy Unknown unknown Verified 02/16/21 10:54 Antibiotics) povidone-iodine Allergy Unknown Verified 02/16/21 10:54 [From Betadine] soap [From Betadine] Allergy Unknown Verified 02/16/21 10:54 PFSH Acute PFSH: Medical History ASHD (arteriosclerotic heart disease) -follows up with Dr. Loo Atherosclerotic heart disease of [place] coronary artery without angina pectoris EKG in August 2019- NSR with some non specific T wave changes Diabetes -insulin requiring Edema, peripheral -likely secondary to acute CHF exacerbation GERD (gastroesophageal reflux disease) Gout Hyperlipidemia -on statin Hypertension -on oral antihypertensives Osteoarthritis Hands, hips, knees and spine, lumbar spondylosis Type 2 diabetes mellitus Surgical History History of cataract surgery History of cholecystectomy History of hemorrhoidectomy History of hip surgery History of knee surgery History of rotator cuff surgery Family History Other CAD (coronary artery disease) Cancer Diabetes Hyperlipidemia Hypertension Social History Smoking and tobacco status: former smoker Alcohol intake: never Vitals/I&O/Wt Last Vital Signs Temp 98.1 F 02/16/21 09:32 Pulse 85 02/16/21 12:09 Resp 20 H 02/16/21 12:09 BP 147/69 02/16/21 12:09 Pulse Ox 99 02/16/21 12:09 02/15/21 02/16/21 02/16/21 22:59 06:59 14:59 Intake Total 50 / 50 Balance 50 / 50 Weight last 48 hrs Weight 90.718 kg Physical Exam Narrative: EXAM NARRATIVE: General exam is a white male, with mild to moderate accessory muscle use, tachypneic with rate above 20 requiring 6 L earlier but now on a facemask with 12 L. HEENT: Atraumatic normocephalic. Pupils equally round. Oropharynx clear. Neck is supple no lymphadenopathy or thyromegaly Cardiovascular regular rate and rhythm, no murmur. Lungs fine crackles bilaterally Abdomen is soft with positive bowel sounds. Nontender. No obvious organomegaly exam is deferred Extremities show trace edema. No cyanosis or clubbing. Skin no rash Neuro no focal deficits Data : 02/16/21 09:10 02/16/21 09:10 Micro: Microbiology 02/16/21 10:40 Blood Culture - Preliminary Blood SPECIMEN COLLECTED 02/16/21 10:32 Blood Culture - Preliminary Blood SPECIMEN COLLECTED Other data: Chest x-ray by my read with bilateral infiltrates, interstitial changes. This appears worse than his last x-ray here when he had Covid. Blood cultures been obtained CTA demonstrates no pulmonary embolism, diffuse bilateral airspace disease worse in the upper lobes, teeny bilateral pleural effusions, enlarged hilar lymph nodes EKG demonstrates normal sinus rhythm, normal axis, nonspecific ST-T wave changes LFTs normal Troponin 89 BNP 569 A&P Assessment and plan (1) Acute respiratory failure with hypoxia: Patient with evidence of accessory muscle use, significant hypoxia requiring high amount of oxygen over baseline, could tachypnea Status: Acute (2) Pneumonia: He appears to have pneumonia, probably bacterial, for which she is predisposed secondary to 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 Incentive spirometry DuoNeb, budesonide IV antibiotics consisting of vancomycin, Levaquin and Zosyn considering recent hospitalization, Covid, and hospitalization at [facility]. Hopefully these antibiotics can be narrowed quickly Check blood culture, sputum culture, MRSA PCR, Legionella antigen, bacterial antigens considering his complicated history. I think it is less likely that he has developed fungal pneumonia but will check Fungitell, pneumocystis, sputum fungal culture Status: Acute (3) Fibrotic lung diseases: I believe it is very likely he has some fibrotic lung disease/scarring following his Covid infection in November that predisposes him to pneumonia. Pulmonary toilet, incentive spirometry At this point he does not have active wheezing and I will try to avoid IV steroids Status: Acute (4) Type 2 diabetes mellitus: Continue long-acting insulin Sliding scale insulin Status: Acute Qualifiers: Diabetes mellitus nursing home insulin use: with laborer marine terminal use Diabetes mellitus complication status: without complication Qualified Code(s): E11.9 - Type 2 diabetes mellitus without complications; Z79.4 - assisted (current) use of insulin (5) Benign essential HTN: Continue home medications Status: Acute (6) Atherosclerotic heart disease of [place] coronary artery without angina pectoris: Continue aspirin, beta-franny, statin Status: Acute Qualifiers: [place] vs. transplanted heart: [place] heart Qualified Code(s): I25.10 - Atherosclerotic heart disease of [place] coronary artery without angina pectoris Additional A&P Information Elevated BNP. Lasix 20 mg IV x1, reassess Multiple other medical problems as outlined in past medical history Full code Lovenox for DVT prophylaxis Attestations Medical Necessity Statement*: Will need greater than 2 midnight hospital stay for treatment of pneumonia with IV antibiotics. 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 transplanted heart: [place] heart
--- NOTE | 2021-02-16 14:53 | USCV_ITS ---
Glenroy Ryan Age: 85 Gender: M : 1935 Exam Date: 02/16/2021 15:17 Ordering Phys: Kirk Garcia MD Technologist: VLAERIE Exam Location: [facility] [place] Indication: DYSPNEA BP: 141 / 81 HR: 83 Rhythm: Sinus Technical Quality: Adequate MEASUREMENTS (Male / Female) Normal Values 2D ECHO LV Diastolic Diameter PLAX 4.1 cm 4.2 - 5.9 / 3.9 - 5.3 cm LV Systolic Diameter PLAX 2.8 cm IVS Diastolic Thickness 0.8 cm 0.6 - 1.0 / 0.6 - 0.9 cm IVS Systolic Thickness 1.1 cm LVPW Diastolic Thickness 1.1 cm 0.6 - 1.0 / 0.6 - 0.9 cm LVPW Systolic Thickness 1.3 cm RV Chamber Size 3.4 cm LVOT Diameter 2.0 cm LV Ejection Fraction 2D Teich 60.8 % LA Diameter 3.6 cm LA Width 3.6 cm LA Height 4.9 cm RA Width 3.6 cm RA Height 5.0 cm Aorta at Sinotubular Diameter 2.7 cm M-MODE Aortic Annulus Diameter 3.4 cm LA Ao Ratio MM 1.3 MV E Point Septal Separation 0.3 cm FINDINGS Left Ventricle Normal left ventricular size and systolic function, EF 60%.no regional wall motion abnormalities. Right Ventricle The right ventricle is normal in size and function. Right Atrium The right atrium is normal in size. Left Atrium The left atrium is normal in size. Mitral Valve Thickened mitral valve. Mild mitral annular calcification. Aortic Valve Thickened aortic valve. Tricuspid Valve No gross abnormalities noted Pulmonic Valve No gross abnormalities noted Pericardium Normal pericardium without effusion. Aorta Normal ascending aorta dimension. CONCLUSIONS Normal left ventricular size and systolic function, EF 60%. No regional wall motion abnormalities. Thickened mitral valve. Mild mitral annular calcification. Thickened aortic valve. There is no pericardial effusion. There are no intracardiac masses. Compared to the study from 12/03/2020, there may not be a significant change Dr Kevin Loo MD FAC (Electronically Signed) Final Date: 17 February 2021 08:51 S
[2021-02-16] MEDS: FUROsemide 10 mg/mL SDV 2mL 20 MG IVP (16:04)
[2021-02-16 16:56] LABS: Glucose Point of Care 296 mg/dL (70-110)
[2021-02-16 17:26] LABS: Troponin(5th) Baseline 68 ng/L (0-15)
[2021-02-16] MEDS: atorvastatin 40 mg Tablet 20 MG PO (17:34)
[2021-02-16] MEDS: fluoxetine 20 mg Capsule PO (17:34)
[2021-02-16] MEDS: carvedilol 12.5 mg Tablet PO (17:35)
[2021-02-16] MEDS: tamsulosin 0.4 mg Capsule PO (17:35)
[2021-02-16] MEDS: insulin lispro 100 unit/1 mL SUBCUT ×2 (17:36→21:25)
[2021-02-16] MEDS: enoxaparin 40 mg/0.4 mL Syringe SUBCUT (17:46)
[2021-02-16 19:18] LABS: Troponin 5 2HR 61.04 ng/L (0-15)
[2021-02-16 19:23] LABS: Troponin 5 2HR Delta -6.96 ABS# (0-10)
[2021-02-16 21:22] LABS: Glucose Point of Care 299 mg/dL (70-110)
[2021-02-16 21:29] LABS: Troponin 5 6HR 59.55 ng/L (0-15)
[2021-02-16 21:31] LABS: Troponin 5 6HR Delta -8.45 ng/L (0-12)
[2021-02-16] MEDS: ipratropium-albuterol 3 mL Neb INHALATION ×2 (21:43→23:44)
[2021-02-16] MEDS: ALPRAZolam 0.5 mg Tablet 0.25 MG PO (22:15)
[2021-02-16] MEDS: fluticasone nasal spray 16gm Btl 1 SPRAY NASAL (22:18)
[2021-02-16 23:20] LABS: Glucose Point of Care 197 mg/dL (70-110)
[2021-02-17] VITALS (15 sets, daily range): BP systolic 114–134; BP diastolic 49–65; PULSE 64–86; RESP 16–20; TEMP 36.4–36.8; O2SAT 90–94
[2021-02-17] MEDS: vancomycin 1,500 MG/300 ML PIGGYBACK 200 MG IV ×2 (00:16→19:20)
[2021-02-17] MEDS: acetaminophen 325 mg Tablet 650 MG PO (00:16)
[2021-02-17] MEDS: piperacillin-tazobactam 3.375 GM in sodium chloride 0.9% (plus) 50 ML IV ×3 (02:01→21:50)
[2021-02-17] MEDS: ipratropium-albuterol 3 mL Neb INHALATION ×5 (04:03→20:28)
[2021-02-17] MEDS: docusate sodium 100 mg Capsule PO (05:10)
[2021-02-17] MEDS: montelukast sodium 10 mg Tablet PO (05:10)
[2021-02-17] MEDS: aspirin 81 mg EC Tablet PO (05:10)
[2021-02-17] MEDS: FUROsemide 20 mg Tablet PO (05:10)
[2021-02-17] MEDS: lisinopril 20 mg Tablet 40 MG PO (05:10)
[2021-02-17] MEDS: pantoprazole DR 40 mg Tablet PO (05:10)
[2021-02-17] MEDS: potassium chloride ER 10 mEq Tablet PO (05:10)
[2021-02-17] MEDS: ezetimibe 10 mg Tablet PO (05:13)
[2021-02-17 05:58] LABS: Basophils % 0.2 %; Hematocrit 29.2 % (42.0-52.0); Hemoglobin 9.1 g/dL (11.7-16.6); Lymphocytes # 1.8 10^3/uL (0.8-4.8); Mean Corpuscular HGB Conc 31.2 g/dL (30.0-36.0); Mean Corpuscular Hemoglobin 29.7 pg (28.0-34.0); Mean Corpuscular Volume 95.4 fl (80-94); Mean Platelet Volume 9.3 fL (7.4-10.4); Monocytes # 0.5 10^3/uL (0.2-0.9); Monocytes % 4.4 %; Neutrophils # 9.56 10^3/uL (1.8-7.7); Neutrophils % 79.3 %; Nucleated Red Blood Cells % 0 %; Platelet Count 369 10^3/cmm (130-400); Red Blood Count 3.06 10^6/uL (4.1-5.3); Red Cell Distribution Width 13.3 % (12.1-15.1); White Blood Count 12.1 10^3/uL (4.0-10.0)
[2021-02-17 06:14] LABS: Alanine Aminotransferase 10 U/L (0-41); Albumin Level 2.7 g/dL (3.5-5.2); Alkaline Phosphatase 98 IU/L (40-130); Anion Gap 17.5 (5-19); Aspartate Amino Transferase 13 U/L (0-40); Blood Urea Nitrogen 26 mg/dL (8-23); Calcium 8.1 mg/dL (8.5-10.5); Carbon Dioxide 24 mmol/L (22-29); Chloride 102 mmol/L (98-107); Globulin 3.8 g/dL (1.3-4.6); Glucose 187 mg/dL (65-115); Osmolality Calculated 298 mOsm/kg (285-295); Potassium 4.5 mmol/L (3.5-5.1); Sodium 139 mmol/L (136-145); Total Bilirubin 0.3 mg/dL (0.15-1.2); Total Protein 6.5 g/dL (6.6-8.7)
[2021-02-17] MEDS: budesonide 0.5 mg/2 mL Neb INHALATION ×2 (07:19→20:28)
[2021-02-17 07:39] LABS: Glucose Point of Care 202 mg/dL (70-110)
--- NOTE | 2021-02-17 10:14 | PM.PN ---
Subjective Subjective: Interval history: Ryan reports that he is feeling a bit better. He coughed a lot off mucus up last night. Less short of breath. Medications: Reviewed: Yes Vitals/I&O/Wt Last Vital Signs Temp 97.5 F L 02/17/21 08:00 Pulse 75 02/17/21 09:29 Resp 18 02/17/21 09:29 BP 119/49 02/17/21 08:00 Pulse Ox 91 02/17/21 09:29 02/16/21 02/17/21 02/17/21 22:59 06:59 14:59 Intake Total 300 / 350 350 / 700 480 / 480 Output Total 525 / 525 300 / 825 Balance -225 / -175 50 / -125 480 / 480 Weight last 48 hrs Weight 90.718 kg Physical Exam Narrative: EXAM NARRATIVE: General exam is a white male who appears less short of breath now on 4 L of oxygen Neck is supple no lymphadenopathy or thyromegaly Cardiovascular regular rate and rhythm, no murmur. Lungs fine crackles bilaterally Abdomen is soft with positive bowel sounds. Nontender. No obvious organomegaly Extremities show trace edema. No cyanosis or clubbing. Data : 02/17/21 05:23 02/17/21 05:23 Micro: Microbiology 02/16/21 18:24 Bacterial Antigens - Final Urine,Voided 02/16/21 10:40 Blood Culture - Preliminary Blood SPECIMEN COLLECTED 02/16/21 10:32 Blood Culture - Preliminary Blood SPECIMEN COLLECTED A&P Assessment and plan (1) Acute respiratory failure with hypoxia: Patient with evidence of accessory muscle use, significant hypoxia requiring high amount of oxygen over baseline, tachypnea Overall he is improved today and oxygen requirement has gone down to 4 L. 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 Continue incentive spirometry Continue DuoNeb, budesonide Continue IV antibiotics consisting of vancomycin, Levaquin and Zosyn considering recent hospitalization, Covid, and hospitalization at long-term [facility]. Hopefully these antibiotics can be narrowed quickly Blood, sputum culture, MRSA PCR, Legionella antigen all pending. Bacterial antigens negative. I think it is less likely that he has developed fungal pneumonia but will check Fungitell, pneumocystis, sputum fungal culture Status: Acute (3) Fibrotic lung diseases: I believe it is very likely he has some fibrotic lung disease/scarring following his Covid infection in November that predisposes him to pneumonia. Pulmonary toilet, incentive spirometry At this point he does not have active wheezing and I will try to avoid IV steroids Status: Acute (4) Type 2 diabetes mellitus: Continue long-acting insulin Sliding scale insulin Status: Acute Qualifiers: Diabetes mellitus usp insulin use: with usp use Diabetes mellitus complication status: without complication Qualified Code(s): E11.9 - Type 2 diabetes mellitus without complications; Z79.4 - assisted (current) use of insulin (5) Benign essential HTN: Continue home medications Status: Acute (6) Atherosclerotic heart disease of [place] coronary artery without angina pectoris: Continue aspirin, beta-franny, statin Status: Acute Qualifiers: [place] vs. transplanted heart: [place] heart Qualified Code(s): I25.10 - Atherosclerotic heart disease of [place] coronary artery without angina pectoris Additional A&P Information Elevated BNP. Lasix 20 mg IV x1 given yesterday. No evidence of fluid overload today. Multiple other medical problems as outlined in past medical history Full code Lovenox for DVT prophylaxis Attestations Medical Necessity Statement*: Needs continued hospitalization for IV antibiotics related to pneumonia. 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 transplanted heart: [place] heart
[2021-02-17] MEDS: carvedilol 12.5 mg Tablet PO ×2 (10:20→17:49)
[2021-02-17] MEDS: levofloxacin-dextrose 5 % 750 MG/150 ML PREMIX 100 MG IV (10:20)
[2021-02-17] MEDS: insulin lispro 100 unit/1 mL SUBCUT ×2 (10:24→12:28)
--- NOTE | 2021-02-17 10:28 | PC.CHAP ---
Pastoral Care Encounter/Spiritual Assessment Type of Contact [] Declined licensed social worker visit [] Patient/Family/Request visit [] Outpatient visit [] Follow-up visit [] Physician referral [] Code/Alert [x] Routine visit [] Staff referral [] Actively dying [] Patient sleeping [] Family support [] [] Out of room [] Palliative care [] [x] Receiving care in room [] Pre-surgical visit [] Trauma [x] Long length of stay [] ICU visit [] Other: Relational/Emotional Strength [] Patient feels connected with others/family/visitors/staff [x] Distress [] Loneliness/isolation [] Abandonment Spirituality of Patient [x] Person of Carie [] Attends Mandaen of their Carie [x] Believes in Prayer [] Reads Bible or Confucianist materials [] There are Spiritual issues to be addressed Adjunct Teacher Interventions [x] Prayer [x] Active listening [x] Non-anxious presence [x] Spiritual/emotional support [] Crisis/trauma care [x] Spiritual counseling [] Bereavement support [] Provided bereavement packet [] Provided Bible/devotional materials [] Provided toy/stuffed animal, coloring book to patient or family member [] Provided Communion [] Anointing/[place] [] Salvation [x] Completed spiritual assessment [] Other: Impact on Illness or Injury [] Angry [] Fearful [x] Anxious [] Often cries [] Exhaustion [x] Unable to work [] Unable to attend hoahaoism [] Unable to walk/stand [] Unable to read [] Unable to drive [] Unable to eat/drink [] Unable to sleep [] Unable to be with family [] Patient intubated [] Other: Summary pres disstress doesn't know about his health at this point wants to go home has negative attitude Time spent with patient 10 mins
[2021-02-17 12:17] LABS: Glucose Point of Care 237 mg/dL (70-110)
[2021-02-17] MEDS: tamsulosin 0.4 mg Capsule PO (17:49)
[2021-02-17] MEDS: atorvastatin 40 mg Tablet 20 MG PO (17:49)
[2021-02-17] MEDS: enoxaparin 40 mg/0.4 mL Syringe SUBCUT (17:49)
[2021-02-17] MEDS: fluoxetine 20 mg Capsule PO (17:49)
[2021-02-17] MEDS: fluticasone nasal spray 16gm Btl 1 SPRAY NASAL (17:51)
[2021-02-17 18:04] LABS: Glucose Point of Care 72 mg/dL (70-110)
[2021-02-17 21:46] LABS: Glucose Point of Care 163 mg/dL (70-110)
[2021-02-17] MEDS: ALPRAZolam 0.5 mg Tablet 0.25 MG PO (22:42)
[2021-02-18] VITALS (18 sets, daily range): BP systolic 100–145; BP diastolic 56–74; PULSE 76–104; RESP 14–34; TEMP 36.7–37.6; O2SAT 80–94
[2021-02-18 00:30] LABS: Glucose Point of Care 190 mg/dL (70-110)
[2021-02-18] MEDS: acetaminophen 325 mg Tablet 650 MG PO (02:16)
[2021-02-18] MEDS: ipratropium-albuterol 3 mL Neb INHALATION ×6 (04:24→23:50)
[2021-02-18] MEDS: piperacillin-tazobactam 3.375 GM in sodium chloride 0.9% (plus) 50 ML IV ×3 (05:25→19:58)
[2021-02-18] MEDS: aspirin 81 mg EC Tablet PO (05:27)
[2021-02-18] MEDS: potassium chloride ER 10 mEq Tablet PO (05:27)
[2021-02-18] MEDS: montelukast sodium 10 mg Tablet PO (05:27)
[2021-02-18] MEDS: docusate sodium 100 mg Capsule PO (05:27)
[2021-02-18] MEDS: ezetimibe 10 mg Tablet PO (05:27)
[2021-02-18] MEDS: lisinopril 20 mg Tablet 40 MG PO (05:27)
[2021-02-18] MEDS: FUROsemide 20 mg Tablet PO (05:28)
[2021-02-18] MEDS: pantoprazole DR 40 mg Tablet PO (05:28)
[2021-02-18 06:37] LABS: Basophils # 0.1 10^3/uL (0.0-0.1); Basophils % 0.4 %; Eosinophils # 0.2 10^3/uL (0.0-0.8); Eosinophils % 1.4 %; Hematocrit 30.2 % (42.0-52.0); Hemoglobin 9.6 g/dL (11.7-16.6); Lymphocytes # 2.2 10^3/uL (0.8-4.8); Lymphocytes % 13.9 %; Mean Corpuscular HGB Conc 31.8 g/dL (30.0-36.0); Mean Corpuscular Hemoglobin 30.3 pg (28.0-34.0); Mean Corpuscular Volume 95.3 fl (80-94); Mean Platelet Volume 9.2 fL (7.4-10.4); Monocytes # 1.4 10^3/uL (0.2-0.9); Monocytes % 8.5 %; Neutrophils # 11.96 10^3/uL (1.8-7.7); Neutrophils % 74.8 %; Nucleated Red Blood Cells % 0 %; Platelet Count 424 10^3/cmm (130-400); Red Blood Count 3.17 10^6/uL (4.1-5.3); Red Cell Distribution Width 13.5 % (12.1-15.1)
[2021-02-18 07:08] LABS: Glucose Point of Care 121 mg/dL (70-110)
[2021-02-18 07:09] LABS: Blood Urea Nitrogen 29 mg/dL (8-23); Calcium 8.2 mg/dL (8.5-10.5); Carbon Dioxide 24 mmol/L (22-29); Chloride 105 mmol/L (98-107); Glucose 119 mg/dL (65-115); Osmolality Calculated 297 mOsm/kg (285-295); Sodium 140 mmol/L (136-145)
[2021-02-18] MEDS: fluticasone nasal spray 16gm Btl 1 SPRAY NASAL ×2 (08:36→18:57)
[2021-02-18] MEDS: carvedilol 12.5 mg Tablet PO ×2 (08:36→18:09)
[2021-02-18] MEDS: FUROsemide 10 mg/mL SDV 4mL 40 MG IVP ×2 (08:36→19:57)
[2021-02-18] MEDS: LORazepam 2 mg/mL INJ 1 mL 0.5 MG IVP ×2 (08:36→15:15)
[2021-02-18] MEDS: budesonide 0.5 mg/2 mL Neb INHALATION ×2 (08:40→20:06)
[2021-02-18 09:19] LABS: Glucose Point of Care 119 mg/dL (70-110)
[2021-02-18] MEDS: levofloxacin-dextrose 5 % 750 MG/150 ML PREMIX 100 MG IV (10:17)
--- NOTE | 2021-02-18 10:38 | PM.PN ---
Subjective Subjective: Interval history: After initially making some improvement yesterday, patient reports he worsened through the night with increased shortness of breath, anxiety, difficulty sleeping, and some coughing although it was not productive. No current chest pain. Medications: Reviewed: Yes Vitals/I&O/Wt Last Vital Signs Temp 98.2 F 02/18/21 08:00 Pulse 99 02/18/21 08:56 Resp 30 H 02/18/21 08:45 BP 145/73 02/18/21 08:00 Pulse Ox 92 02/18/21 08:56 02/17/21 02/18/21 02/18/21 22:59 06:59 14:59 Intake Total 770 / 1640 350 / 1990 50 / 50 Output Total 225 / 225 555 / 780 1400 / 1400 Balance 545 / 1415 -205 / 1210 -1350 / -1350 Physical Exam Narrative: EXAM NARRATIVE: General exam is a white male who is moderately short of breath on at least 8 L of oxygen with accessory muscle use. Neck is supple no lymphadenopathy or thyromegaly Cardiovascular regular rate and rhythm, no murmur. Lungs fine crackles bilaterally. A few faint wheezes are heard. Abdomen is soft with positive bowel sounds. Nontender. No obvious organomegaly Extremities show trace edema. No cyanosis or clubbing. Data : 02/18/21 05:44 02/18/21 05:44 Micro: Microbiology 02/16/21 10:32 Blood Culture - Preliminary Blood NEGATIVE TO DATE 02/16/21 10:40 Blood Culture - Preliminary Blood NEGATIVE TO DATE 02/16/21 18:24 Bacterial Antigens - Final Urine,Voided A&P Assessment and plan (1) Acute respiratory failure with hypoxia: Worsened today. Placed on BiPAP. 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 Continue incentive spirometry Continue DuoNeb, budesonide Continue IV antibiotics consisting of vancomycin, Levaquin and Zosyn considering recent hospitalization, Covid, and hospitalization at long-term [facility]. Hopefully these antibiotics can be narrowed quickly Blood, sputum culture, MRSA PCR, Legionella antigen all pending. Bacterial antigens negative. I think it is less likely that he has developed fungal pneumonia but will check Fungitell, pneumocystis, sputum fungal culture He appears to have worsened overnight. I am going to initiate some Lasix 40 mg IV every 12 hours to see if this improves his pulmonary status. He did receive Lasix on coming into the hospital. Echocardiogram ordered Limited views this hospital stay demonstrated preserved EF Secondary to significant clinical worsening, high FiO2 requirement considering pulmonary consultation. Status: Acute (3) Fibrotic lung diseases: I believe it is very likely he has some fibrotic lung disease/scarring following his Covid infection in November that predisposes him to pneumonia. Pulmonary toilet, incentive spirometry We will go ahead and initiate IV steroids at this time secondary to clinical worsening. This was not started on admission, as he had no active wheezing. A few wheezes are heard today. Status: Acute (4) Type 2 diabetes mellitus: Continue long-acting insulin Sliding scale insulin Status: Acute Qualifiers: Diabetes mellitus senior care insulin use: with senior care use Diabetes mellitus complication status: without complication Qualified Code(s): E11.9 - Type 2 diabetes mellitus without complications; Z79.4 - assisted (current) use of insulin (5) Benign essential HTN: Continue home medications Status: Acute (6) Atherosclerotic heart disease of [place] coronary artery without angina pectoris: Continue aspirin, beta-franny, statin Status: Acute Qualifiers: [place] vs. transplanted heart: [place] heart Qualified Code(s): I25.10 - Atherosclerotic heart disease of [place] coronary artery without angina pectoris Additional A&P Information Elevated BNP. Lasix 40 mg IV every 12 hours initiated Multiple other medical problems as outlined in past medical history Full code Lovenox for DVT prophylaxis Attestations Medical Necessity Statement*: Needs continued hospital stay, for IV antibiotics secondary to pneumonia with associated respiratory failure requiring a high amount of FiO2. 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 transplanted heart: [place] heart
[2021-02-18 11:35] LABS: Glucose Point of Care 111 mg/dL (70-110)
[2021-02-18] MEDS: vancomycin 1,500 MG/300 ML PIGGYBACK 200 MG IV (12:40)
[2021-02-18 13:56] LABS: Glucose Point of Care 147 mg/dL (70-110)
--- NOTE | 2021-02-18 14:01 | PC.CHAP ---
Pastoral Care Encounter/Spiritual Assessment Type of Contact [xx] Declined passenger service manager visit [] Patient/Family/Request visit [] Outpatient visit [] Follow-up visit [] Physician referral [] Code/Alert [] Routine visit [] Staff referral [] Actively dying [] Patient sleeping [] Family support [] [] Out of room [] Palliative care [] [] Receiving care in room [] Pre-surgical visit [] Trauma [] Long length of stay [] ICU visit [] Other: Relational/Emotional Strength [] Patient feels connected with others/family/visitors/staff [] Distress [] Loneliness/isolation [] Abandonment Spirituality of Patient [] Person of Carie [] Attends Congregational of their Carie [] Believes in Prayer [] Reads Bible or Episcopalian materials [] There are Spiritual issues to be addressed Student Counselor Interventions [] Prayer [] Active listening [] Non-anxious presence [] Spiritual/emotional support [] Crisis/trauma care [] Spiritual counseling [] Bereavement support [] Provided bereavement packet [] Provided Bible/devotional materials [] Provided toy/stuffed animal, coloring book to patient or family member [] Provided Communion [] Anointing/[place] [] Salvation [] Completed spiritual assessment [] Other: Impact on Illness or Injury [] Angry [] Fearful [] Anxious [] Often cries [] Exhaustion [] Unable to work [] Unable to attend druze [] Unable to walk/stand [] Unable to read [] Unable to drive [] Unable to eat/drink [] Unable to sleep [] Unable to be with family [] Patient intubated [] Other: Summary Patient declined visit with a female passenger service manager Time spent with patient 1 minute
[2021-02-18 14:13] LABS: ABG PCO2 30.8 mmHg (35-45); ABG PH Result 7.52 (7.35-7.45); Alveolar-Arterial Oxygen Gradi 63.2 mmHg (5-10); Arterial Blood Gas Hematocrit 32.5 % (42-52); Base Excess ABG 2.8 mmol/L (-2.0-2.0); Blood Gas Allen Test Pos; Blood Gas Operator Identificat MONRO; Blood Gas Sample Site Radial, right; Blood Gas Sample Type Arterial; Carboxyhemoglobin 0.7 %THgb (0.4-20.1); HCO3 ABG 25.3 mmol/L (22-26); HGB O2 Sat 94.5 % (95-100); Ionized Calcium Level - ABG 1.1 mmol/L (1.1-1.4); Methemoglobin 0.2 % (0.4-1.5); Oxygen Device HAG; Oxygen Saturation ABG 95.4; PO2 ABG 70.5 mmHg (80.0-100.0); Potassium Level - ABG 3.8 mmol/L (3.5-5.0); Total Hemoglobin 10.6 g/dL (14-18)
[2021-02-18 17:16] LABS: Glucose Point of Care 193 mg/dL (70-110)
--- NOTE | 2021-02-18 17:48 | P.CONIM_ITS ---
Providers/Reason For Consult Consulting Physician/Specialty*: Pulmonary and critical care medicine Reason for Consult*: Acute on chronic hypoxic respiratory failure Attending Physician: Kirk Garcia MD Primary Care Provider: Salas Quevedo MD History of Present Illness History of Present Illness Ryan Tim is a 85 year old male who presented to the hospital with worsening respiratory failure. The patient suffered from COVID-19 in November 2020 and was eventually discharged to [facility] in December. The patient received baricitinib at that time. The patient spent about 2 weeks in [facility] and was eventually sent home on December 29 on 2 L oxygen. It appears that the patient had been doing fairly well at home and over the past 3 days has developed cough and shortness of breath. In the hospital, the patient is requiring high flow nasal cannula to maintain adequate oxygenation. The patient had a CT angiogram of the chest on February 16 which revealed bilateral infiltrate. The infiltrates were worse in bilateral upper lobes. The patient has reticulation in lower lobes as well. The infiltrate are more consistent with fibrosis than groundglass opacity. However, I have compared this with the CT scan that the patient had in November when he was admitted with Covid. The current CAT scan definitely looks worse than at that time. The patient also has leukocytosis of 16,000. I performed a bedside ultrasound. The patient has bilateral B-lines. There is no pleural effusion. The cardiac function appears to be normal. The E by E prime ratio was not elevated. The IVC was not dilated either. Review of Systems Narrative: General: No fevers chills Skin: No rash HEENT: No nasal congestion, rhinitis, sinusitis Neck: There is no neck swelling Respiratory: Please see my HPI. Cardiovascular: No chest pain, orthopnea, no paroxysmal nocturnal dyspnea Gastrointestinal: No abdominal pain, nausea, vomiting Musculoskeletal: No joint pain or swelling Neurological: Patient is awake alert and oriented x3, no paralysis, gross motor function is normal. Psychiatric: No anxiety or depression. Meds/Allergies Home Medications and Allergies Home Medications Medication Instructions Recorded Confirmed Last Taken Type aspirin 81 mg tablet,delayed 81 mg PO QAM tab 04/15/19 02/16/21 02/15/21 History release pantoprazole 40 mg tablet,delayed 40 mg PO QAM 04/15/19 02/16/21 02/15/21 History release pravastatin 40 mg tablet 40 mg PO QPM 04/15/19 02/16/21 02/15/21 History tamsulosin 0.4 mg PO QPM 08/19/19 02/16/21 02/15/21 History carvedilol 12.5 mg PO BID 11/28/20 02/16/21 02/15/21 History montelukast 10 mg PO QAM 11/28/20 02/16/21 02/15/21 History benzonatate 100 mg PO TID PRN #60 cap 12/14/20 02/16/21 Unknown Rx insulin aspart U-100 [Novolog See Rx Instructions .ROUTE 12/14/20 02/16/21 Unknown Rx U-100 Insulin aspart] .COMPLEX #10 ml acetaminophen 325 mg PO BEDTIME 02/16/21 02/16/21 Unknown History allopurinol 100 mg PO .NOT TAKEN IN 5 WEEK 02/16/21 02/16/21 Unknown History alprazolam 0.25 mg PO TID PRN 02/16/21 02/16/21 Unknown History cholecalciferol (vitamin D3) 1,000 unit PO QAM 02/16/21 02/16/21 02/15/21 History docusate sodium [Stool Softener] 100 mg PO QAM 02/16/21 02/16/21 02/15/21 History ezetimibe 10 mg PO QAM 02/16/21 02/16/21 02/15/21 History fluoxetine 20 mg PO QPM 02/16/21 02/16/21 02/15/21 History furosemide 20 mg PO QAM 02/16/21 02/16/21 02/15/21 History insulin detemir U-100 [Levemir 40 unit SUBCUT QAM 02/16/21 02/16/21 02/15/21 History FlexTouch U-100 Insuln] lisinopril 40 mg PO QAM 02/16/21 02/16/21 02/15/21 History potassium chloride [Klor-Con M10] 10 meq PO QAM 02/16/21 02/16/21 02/15/21 History Allergies Allergy/AdvReac Type Severity Reaction Status Date / Time aspirin Allergy Unknown unknown Verified 02/16/21 10:54 cefuroxime [From Ceftin] Allergy Unknown unknown Verified 02/16/21 10:54 fluvastatin [From Lescol] Allergy Unknown unknown Verified 02/16/21 10:54 Sulfa (Sulfonamide Allergy Unknown unknown Verified 02/16/21 10:54 Antibiotics) povidone-iodine Allergy Unknown Verified 02/16/21 10:54 [From Betadine] soap [From Betadine] Allergy Unknown Verified 02/16/21 10:54 Current Medications Current Medications Generic Name Dose Route Start Last Admin Trade Name Freq PRN Reason Stop Dose Admin Acetaminophen 650 mg 02/16/21 16:32 02/18/21 02:16 Acetaminophen 325 Mg Tablet PO 650 mg Q6H PRN Administration Mild/Mod Pain Or Temp >/= 101 Albuterol/Ipratropium 3 ml 02/16/21 16:32 02/18/21 15:32 Ipratropium-Albuterol 3 Ml Neb INHALATION 3 ml Q4H CLINT Administration Aspirin 81 mg 02/17/21 06:00 02/18/21 05:27 Aspirin 81 Mg Ec Tablet PO 81 mg QAM CLINT Administration Atorvastatin Calcium 20 mg 02/16/21 18:00 02/17/21 17:49 Atorvastatin 40 Mg Tablet PO 20 mg QPM CLINT Administration Budesonide 0.5 mg 02/16/21 18:00 02/18/21 08:40 Budesonide 0.5 Mg/2 Ml Neb INHALATION 0.5 mg BID CLINT Administration Carvedilol 12.5 mg 02/16/21 18:00 02/18/21 08:36 Carvedilol 12.5 Mg Tablet PO 12.5 mg BID CLINT Administration Docusate Sodium 100 mg 02/17/21 06:00 02/18/21 05:27 Docusate Sodium 100 Mg Capsule PO 100 mg QAM CLINT Administration Ezetimibe 10 mg 02/17/21 06:00 02/18/21 05:27 Ezetimibe 10 Mg Tablet PO 10 mg QAM CLINT Administration Enoxaparin Sodium 40 mg 02/16/21 17:00 02/17/21 17:49 Enoxaparin 40 Mg/0.4 Ml Syringe SUBCUT 40 mg Q24H CLINT Administration Fluoxetine HCl 20 mg 02/16/21 18:00 02/17/21 17:49 Fluoxetine 20 Mg Capsule PO 20 mg QPM CLINT Administration Fluticasone Propionate 1 spray 02/16/21 21:57 02/18/21 08:36 Fluticasone Nasal Sigurd 16gm Btl NASAL 1 spray BID CLINT Administration Furosemide 40 mg 02/18/21 08:30 02/18/21 08:36 Furosemide 10 Mg/Ml Sdv 4ml IVP 40 mg Q12H CLINT Administration Piperacillin Sod/Tazobactam 50 mls @ 12.5 mls/hr 02/16/21 19:00 02/18/21 17:08 Sod 3.375 gm/ Sodium Chloride IV Infused Q8H [facility]INT Infusion Protocol Levofloxacin/Dextrose 750 mg in 150 mls @ 100 mls/hr 02/17/21 09:00 02/18/21 11:59 Levaquin-D5w IV Infused Q24H CLINT Infusion Protocol Vancomycin/PEG/NADA/Lysine/Water 1,500 mg in 300 mls @ 200 mls/hr 02/17/21 01:00 02/18/21 14:56 Vancocin IV Infused Q18H CLINT Infusion Insulin Detemir 40 unit 02/17/21 06:00 02/18/21 05:38 Insulin Detemir 100 Units/1 Ml SUBCUT 40 unit QAM CLINT Administration Insulin Human Lispro 0 unit 02/16/21 18:00 02/18/21 11:55 Insulin Lispro 100 Unit/1 Ml SUBCUT Not Given WM&BEDTIME [facility] Protocol Lisinopril 40 mg 02/17/21 06:00 02/18/21 05:27 Lisinopril 20 Mg Tablet PO 40 mg QAM CLINT Administration Lorazepam 0.5 mg 02/18/21 07:51 02/18/21 15:15 Lorazepam 2 Mg/Ml Inj 1 Ml IVP 0.5 mg Q6H PRN Administration ANXIETY Methylprednisolone Sodium Succinate 60 mg 02/18/21 11:00 02/18/21 12:36 Methylprednisolone Sod Succ 125 Mg/2 Ml Inj IVP 60 mg Q24H CLINT Administration Montelukast Sodium 10 mg 02/17/21 06:00 02/18/21 05:27 Montelukast Sodium 10 Mg Tablet PO 10 mg QAM CLINT Administration Pantoprazole Sodium 40 mg 02/17/21 06:00 02/18/21 05:[address] 40 Mg Tablet PO 40 mg QAM CLINT Administration Potassium Chloride 10 meq 02/17/21 06:00 02/18/21 05:27 Potassium Chloride Er 10 Meq Tablet PO 10 meq QAM CLINT Administration Tamsulosin HCl 0.4 mg 02/16/21 18:00 02/17/21 17:49 Tamsulosin 0.4 Mg Capsule PO 0.4 mg QPM CLINT Administration PFSH Acute PFSH: Medical History ASHD (arteriosclerotic heart disease) -follows up with Dr. Loo Atherosclerotic heart disease of [place] coronary artery without angina pectoris EKG in August 2019- NSR with some non specific T wave changes Diabetes -insulin requiring Edema, peripheral -likely secondary to acute CHF exacerbation GERD (gastroesophageal reflux disease) Gout Hyperlipidemia -on statin Hypertension -on oral antihypertensives Osteoarthritis Hands, hips, knees and spine, lumbar spondylosis Type 2 diabetes mellitus Surgical History History of cataract surgery History of cholecystectomy History of hemorrhoidectomy History of hip surgery History of knee surgery History of rotator cuff surgery Family History Other CAD (coronary artery disease) Cancer Diabetes Hyperlipidemia Hypertension Social History Smoking and tobacco status: former smoker Alcohol intake: never Vitals/I&O/Wt Last Vital Signs Temp 98.6 F 02/18/21 16:00 Pulse 87 02/18/21 16:00 Resp 19 H 02/18/21 16:00 BP 124/72 02/18/21 16:00 Pulse Ox 89 L 02/18/21 16:00 02/18/21 02/18/21 02/18/21 06:59 14:59 22:59 Intake Total 350 / 1990 740 / 740 50 / 790 Output Total 555 / 780 1400 / 1400 Balance -205 / 1210 -660 / -660 50 / -610 Physical Exam Narrative: EXAM NARRATIVE: General: Patient is awake alert and oriented, tachypneic Neck: No JVD Respiratory: Auscultation: Crackles at bilateral lung bases, no wheezing or rhonchi Cardiovascular: Regular rate and rhythm, S1-S2 present, no murmur, no peripheral edema. Abdomen: Soft, nontender, nondistended, positive bowel sound Skin: No rash Neuro: Mental status is normal, no gross cranial nerve deficit, no gross motor deficit Urinary Catheter Management^: Ying: Cath Placed During This Visit: yes Urinary Catheter Date of Insertion: 02/18/21 Urinary Catheter Time of Insertion: 11:00 Data Other Data: Attestation for Other Data: I personally reviewed and interpreted the following: Other data: I have reviewed the patient's laboratory, microbiologic and radiologic data. Please see the HPI for detail A&P Assessment and plan (1) Pneumonia: This is an 85-year-old gentleman who presented to the hospital with cough and worsening shortness of breath for the past 3 days. He had suffered from COVID-19 in November with a prolonged hospital admission. Subsequently he was discharged to [facility] and he got back home on December 29. Patient had been on 2 L oxygen which has gotten worse significantly. Currently the patient is on high flow nasal cannula requiring 60% oxygen. The primary clinical diagnosis at this point is a bacterial pneumonia. It is difficult to interpret the CT scan results as the patient likely has significant changes secondary to COVID-19. However, the CT scan of the chest is significantly worse than how it was when he was initially admitted with Covid in November. The patient is currently broadly covered. The other concern I have is for organizing pneumonia which has been reported in patients with COVID-19 and can mimic bacterial pneumonia. The patient is on corticosteroids which should be helping. The patient does not have any evidence of volume overload. In the next 48 to 72 hours will have a better idea about the patient's trajectory. Status: Acute (2) Acute respiratory failure with hypoxia: The patient is currently on high flow nasal cannula. We will continue to titrate it based on his oxygen saturation level. 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
[2021-02-18] MEDS: tamsulosin 0.4 mg Capsule PO (18:09)
[2021-02-18] MEDS: enoxaparin 40 mg/0.4 mL Syringe SUBCUT (18:09)
[2021-02-18] MEDS: atorvastatin 40 mg Tablet 20 MG PO (18:09)
[2021-02-18] MEDS: fluoxetine 20 mg Capsule PO (18:09)
[2021-02-18] MEDS: insulin lispro 100 unit/1 mL SUBCUT ×2 (18:10→20:37)
[2021-02-18 18:30] LABS: ABG PCO2 40.1 mmHg (35-45); ABG PH Result 7.45 (7.35-7.45); Alveolar-Arterial Oxygen Gradi 4.4 mmHg (5-10); Arterial Blood Gas Hematocrit 32.9 % (42-52); Base Excess ABG 3.5 mmol/L (-2.0-2.0); Blood Gas Allen Test Pos; Blood Gas Sample Site Radial, left; Blood Gas Sample Type Arterial; Carboxyhemoglobin 1.1 %THgb (0.4-20.1); HCO3 ABG 27.8 mmol/L (22-26); HGB O2 Sat 91.5 % (95-100); Ionized Calcium Level - ABG 1.1 mmol/L (1.1-1.4); Oxygen Device NC; Oxygen Saturation ABG 93.4; PO2 ABG 66.4 mmHg (80.0-100.0); Potassium Level - ABG 4.4 mmol/L (3.5-5.0); Total Hemoglobin 10.7 g/dL (14-18)
[2021-02-18 19:55] LABS: Glucose Point of Care 264 mg/dL (70-110)
[2021-02-19] VITALS (11 sets, daily range): BP systolic 104–127; BP diastolic 57–68; PULSE 78–93; RESP 18–27; TEMP 36.4–36.9; O2SAT 89–95
[2021-02-19] MEDS: ipratropium-albuterol 3 mL Neb INHALATION ×6 (03:27→23:07)
[2021-02-19] MEDS: piperacillin-tazobactam 3.375 GM in sodium chloride 0.9% (plus) 50 ML IV ×3 (04:31→21:29)
[2021-02-19] MEDS: montelukast sodium 10 mg Tablet PO (06:01)
[2021-02-19] MEDS: potassium chloride ER 10 mEq Tablet PO (06:01)
[2021-02-19] MEDS: docusate sodium 100 mg Capsule PO (06:01)
[2021-02-19] MEDS: pantoprazole DR 40 mg Tablet PO (06:01)
[2021-02-19] MEDS: aspirin 81 mg EC Tablet PO (06:01)
[2021-02-19] MEDS: lisinopril 20 mg Tablet 40 MG PO (06:02)
[2021-02-19] MEDS: ezetimibe 10 mg Tablet PO (06:19)
[2021-02-19 06:20] LABS: Glucose Point of Care 189 mg/dL (70-110)
[2021-02-19 06:50] LABS: Basophils % 0.1 %; Hematocrit 31.7 % (42.0-52.0); Lymphocytes % 11.5 %; Mean Corpuscular HGB Conc 31.5 g/dL (30.0-36.0); Mean Corpuscular Hemoglobin 29.9 pg (28.0-34.0); Mean Corpuscular Volume 94.9 fl (80-94); Mean Platelet Volume 9.3 fL (7.4-10.4); Monocytes # 0.9 10^3/uL (0.2-0.9); Monocytes % 5.3 %; Neutrophils # 14.56 10^3/uL (1.8-7.7); Neutrophils % 82.2 %; Nucleated Red Blood Cells % 0 %; Platelet Count 425 10^3/cmm (130-400); Red Blood Count 3.34 10^6/uL (4.1-5.3); Red Cell Distribution Width 13.6 % (12.1-15.1); White Blood Count 17.7 10^3/uL (4.0-10.0)
[2021-02-19 07:12] LABS: Alanine Aminotransferase 10 U/L (0-41); Albumin Level 2.7 g/dL (3.5-5.2); Alkaline Phosphatase 94 IU/L (40-130); Anion Gap 18.6 (5-19); Aspartate Amino Transferase 17 U/L (0-40); Blood Urea Nitrogen 34 mg/dL (8-23); Calcium 8.2 mg/dL (8.5-10.5); Carbon Dioxide 24 mmol/L (22-29); Chloride 99 mmol/L (98-107); Glucose 181 mg/dL (65-115); Osmolality Calculated 298 mOsm/kg (285-295); Potassium 3.6 mmol/L (3.5-5.1); Sodium 138 mmol/L (136-145); Total Bilirubin 0.3 mg/dL (0.15-1.2); Total Protein 6.7 g/dL (6.6-8.7)
[2021-02-19 07:33] LABS: Vancomycin Trough 26.8 ug/mL (10-15)
[2021-02-19] MEDS: budesonide 0.5 mg/2 mL Neb INHALATION ×3 (07:52→19:30)
[2021-02-19] MEDS: insulin lispro 100 unit/1 mL SUBCUT ×4 (08:54→21:30)
[2021-02-19] MEDS: FUROsemide 10 mg/mL SDV 4mL 40 MG IVP (08:54)
[2021-02-19] MEDS: carvedilol 12.5 mg Tablet PO ×2 (08:54→17:36)
[2021-02-19] MEDS: levofloxacin-dextrose 5 % 750 MG/150 ML PREMIX 100 MG IV (08:58)
[2021-02-19] MEDS: fluticasone nasal spray 16gm Btl 1 SPRAY NASAL ×2 (09:04→17:36)
--- NOTE | 2021-02-19 10:16 | PC.SOCIAL ---
IMM Update Discussed medicare rights with patient, verbalized understanding. Provided patient with a copy and placed initialed, timed, dated copy in patient's chart.
[2021-02-19] MEDS: LORazepam 2 mg/mL INJ 1 mL 0.5 MG IVP ×2 (11:16→22:08)
[2021-02-19 12:29] LABS: Glucose Point of Care 155 mg/dL (70-110)
[2021-02-19 17:04] LABS: Glucose Point of Care 247 mg/dL (70-110)
[2021-02-19] MEDS: enoxaparin 40 mg/0.4 mL Syringe SUBCUT (17:35)
[2021-02-19] MEDS: fluoxetine 20 mg Capsule PO (17:36)
[2021-02-19] MEDS: atorvastatin 40 mg Tablet 20 MG PO (17:36)
[2021-02-19] MEDS: tamsulosin 0.4 mg Capsule PO (17:36)
--- NOTE | 2021-02-19 17:36 | XRR_ITS ---
PROCEDURE INFORMATION: Exam: XR Chest Exam date and time: 02/19/2021 5:36 PM Age: 85 years old Clinical indication: Shortness of breath; Additional info: Respiratory failure TECHNIQUE: Imaging protocol: XR of the chest. Views: 1 view. COMPARISON: CR XR chest 1V portable [id number] 02/16/2021 9:53 AM FINDINGS: Lungs: Diffuse airspace infiltrates increased compared to prior exam. Pleural spaces: Small bilateral pleural effusions. Heart/Mediastinum: Cardiomegaly. Bones/joints: Unremarkable. XR/XR chest 1V portable [id number] IMPRESSION: 1. Diffuse airspace infiltrates increased compared to prior exam. 2. Small bilateral pleural effusions.
--- NOTE | 2021-02-19 19:00 | P.PN_ITS ---
Subjective Subjective: Interval history: Reports subjectively he is feeling slightly better today, he feels congestion is loosening up somewhat and he is bringing up some phlegm. Denies chest pain. No headache, nausea vomiting or diarrhea. Vitals/I&O/Wt Last Vital Signs Temp 98.2 F 02/19/21 15:07 Pulse 80 02/19/21 15:08 Resp 20 H 02/19/21 15:08 BP 108/62 02/19/21 15:07 Pulse Ox 92 02/19/21 15:08 02/19/21 02/19/21 02/19/21 06:59 14:59 22:59 Intake Total 330 / 1360 680 / 680 1210 / 1890 Output Total 300 / 3700 650 / 650 1200 / 1850 Balance 30 / -2340 Physical Exam Const: COMMON NORMALS: no acute distress and patient oriented x3 HENMT: COMMON NORMALS: oropharynx normal Neck/C-Spine: COMMON NORMALS: no JVD Resp: COMMON NORMALS: normal respiratory effort and clear to auscultation bilaterally AUSCULTATION: clear to auscultation bilaterally and diminished lung sounds Cardio: COMMON NORMALS: no JVD, regular rhythm, S1 normal heart sound present, S2 normal heart sound present and No murmurs present (Cardio) RHYTHM: regular rhythm HEART SOUNDS: S1 normal heart sound present and S2 normal heart sound present GI: COMMON NORMALS: Normal to inspection, nondistended, normoactive bowel sounds present, Soft to palpation and non-tender PALPATION: Yes Soft to palpation Extremity: COMMON NORMALS: no joint enlargement and no pedal edema Neuro: COMMON NORMALS: patient oriented x3 and moves all extremities Skin: COMMON NORMALS: no rashes or lesions noted GENERAL SKIN EXAM: no rashes or lesions noted Urinary Catheter Management^: Ying: Cath Placed During This Visit: yes Reason for Continuing Indwelling Catheter: Acute Urinary Retention or Obstructi on Urinary Catheter Date of Insertion: 02/18/21 Urinary Catheter Time of Insertion: 11:00 Data : 02/19/21 05:56 02/19/21 05:56 A&P Assessment and plan (1) Acute respiratory failure with hypoxia: Subjectively slightly better today. Persistent hypoxia. Came off BiPAP. Heated high flow. Continue empiric antibiotic coverage. Pulmonary recommendations appreciated. Follow-up microbiologic studies were able to obtain. Continue steroids for now. Hold Lasix. TTE EF 60%, no regional wall motion abnormalities. Thickened MV. Thickened AV. No pericardial effusion. Status: Acute (2) Pneumonia: As above. Bacterial antigens negative. Blood culture so far negative. 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 Continue incentive spirometry Continue DuoNeb, budesonide Continue IV antibiotics consisting of vancomycin, Levaquin and Zosyn considering recent hospitalization, Covid, and hospitalization at [facility]. Hopefully these antibiotics can be narrowed quickly Blood, sputum culture, MRSA PCR, Legionella antigen all pending. 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 Continue steroid. Pulmonary toilet, incentive spirometry Status: Acute (4) Type 2 diabetes mellitus: Continue long-acting insulin Sliding scale insulin Status: Acute Qualifiers: Diabetes mellitus remote computer terminal operator insulin use: with remote computer terminal operator use Diabetes mellitus complication status: without complication Qualified Code(s): E11.9 - Type 2 diabetes mellitus without complications; Z79.4 - buttermaker continuous churn (current) use of insulin (5) Benign essential HTN: Continue home medications Status: Acute (6) Atherosclerotic heart disease of [place] coronary artery without angina pectoris: Continue aspirin, beta-franny, statin Status: Acute Qualifiers: [place] vs. transplanted heart: [place] heart Qualified Code(s): I25.10 - Atherosclerotic heart disease of [place] coronary artery without angina pectoris Additional A&P Information Elevated BNP. Likely secondary to pulmonary disease. Multiple other medical problems as outlined in past medical history Full code Lovenox for DVT prophylaxis Attestations Medical Necessity Statement*: Continue admission for assessment management of hypoxic respiratory failure. Coding Level of Care Code Acute Button Buttonhole Marker for [facility] Diagnoses Acute respiratory failure with hypoxia J96.01 Pneumonia J18.9 Fibrotic lung diseases J84.10 Type 2 diabetes mellitus E11.9; Z79.4 Diabetes mellitus chcf insulin use: with remote computer terminal operator use Diabetes mellitus complication status: without complication Benign essential HTN I10 Atherosclerotic heart disease of [place] coronary artery without angina pectoris I25.10 [place] vs. transplanted heart: [place] heart
[2021-02-19 20:45] LABS: Glucose Point of Care 239 mg/dL (70-110)
[2021-02-20] VITALS (14 sets, daily range): BP systolic 120–144; BP diastolic 65–75; PULSE 72–94; RESP 15–28; TEMP 36.7–36.9; O2SAT 90–95
[2021-02-20] MEDS: acetaminophen 325 mg Tablet 650 MG PO (00:16)
[2021-02-20] MEDS: ipratropium-albuterol 3 mL Neb INHALATION ×5 (03:42→20:22)
[2021-02-20] MEDS: piperacillin-tazobactam 3.375 GM in sodium chloride 0.9% (plus) 50 ML IV ×3 (03:51→20:03)
[2021-02-20 05:30] LABS: Basophils % 0.1 %; Hematocrit 30.8 % (42.0-52.0); Hemoglobin 9.7 g/dL (11.7-16.6); Lymphocytes % 12.2 %; Mean Corpuscular HGB Conc 31.5 g/dL (30.0-36.0); Mean Corpuscular Hemoglobin 29.7 pg (28.0-34.0); Mean Corpuscular Volume 94.2 fl (80-94); Mean Platelet Volume 9.3 fL (7.4-10.4); Monocytes % 6.1 %; Neutrophils # 13.04 10^3/uL (1.8-7.7); Neutrophils % 80.5 %; Nucleated Red Blood Cells % 0 %; Platelet Count 429 10^3/cmm (130-400); Red Blood Count 3.27 10^6/uL (4.1-5.3); Red Cell Distribution Width 13.8 % (12.1-15.1); White Blood Count 16.2 10^3/uL (4.0-10.0)
[2021-02-20 05:53] LABS: Alanine Aminotransferase 16 U/L (0-41); Albumin Level 2.7 g/dL (3.5-5.2); Alkaline Phosphatase 93 IU/L (40-130); Anion Gap 14.7 (5-19); Aspartate Amino Transferase 25 U/L (0-40); Blood Urea Nitrogen 46 mg/dL (8-23); Calcium 8.2 mg/dL (8.5-10.5); Carbon Dioxide 28 mmol/L (22-29); Chloride 103 mmol/L (98-107); Glucose 161 mg/dL (65-115); Osmolality Calculated 309 mOsm/kg (285-295); Potassium 3.7 mmol/L (3.5-5.1); Sodium 142 mmol/L (136-145); Total Bilirubin 0.2 mg/dL (0.15-1.2); Total Protein 6.7 g/dL (6.6-8.7)
[2021-02-20 06:19] LABS: Glucose Point of Care 206 mg/dL (70-110)
[2021-02-20] MEDS: montelukast sodium 10 mg Tablet PO (06:21)
[2021-02-20] MEDS: aspirin 81 mg EC Tablet PO (06:21)
[2021-02-20] MEDS: lisinopril 20 mg Tablet 40 MG PO (06:21)
[2021-02-20] MEDS: potassium chloride ER 10 mEq Tablet PO (06:21)
[2021-02-20] MEDS: docusate sodium 100 mg Capsule PO (06:21)
[2021-02-20] MEDS: pantoprazole DR 40 mg Tablet PO (06:21)
[2021-02-20] MEDS: ezetimibe 10 mg Tablet PO (06:21)
[2021-02-20] MEDS: vancomycin 1,000 MG in sodium chloride 0.9% 250 ML 250 MG IV (06:22)
[2021-02-20] MEDS: budesonide 0.5 mg/2 mL Neb INHALATION ×2 (07:50→20:22)
[2021-02-20] MEDS: fluticasone nasal spray 16gm Btl 1 SPRAY NASAL ×2 (08:57→17:23)
[2021-02-20] MEDS: carvedilol 12.5 mg Tablet PO ×2 (08:58→17:22)
[2021-02-20] MEDS: insulin lispro 100 unit/1 mL SUBCUT ×4 (08:58→22:40)
[2021-02-20] MEDS: levofloxacin-dextrose 5 % 750 MG/150 ML PREMIX 100 MG IV (11:22)
[2021-02-20 11:29] LABS: Glucose Point of Care 218 mg/dL (70-110)
[2021-02-20] MEDS: LORazepam 2 mg/mL INJ 1 mL 0.5 MG IVP ×3 (14:09→22:42)
--- NOTE | 2021-02-20 15:07 | P.PN_ITS ---
Subjective Subjective: Interval history: Feeling a little bit rough today, looking identify specifically. Some cough. Denies chest pain or pressure. Vitals/I&O/Wt Last Vital Signs Temp 98.4 F 02/20/21 11:35 Pulse 78 02/20/21 12:20 Resp 20 H 02/20/21 12:20 BP 125/74 02/20/21 11:35 Pulse Ox 94 02/20/21 12:20 02/20/21 02/20/21 02/20/21 06:59 14:59 22:59 Intake Total 83.333 / 2093.333 876.667 / 876.667 Output Total 700 / 2550 1999 Balance -616.667 / -456.667 -1123.333 / -1123.333 Physical Exam Const: COMMON NORMALS: no acute distress, patient oriented x3 and alert GENERAL APPEARANCE: cooperative and frail appearing ORIENTATION/CONSCIOUSNESS: Yes awake HENMT: COMMON NORMALS: oropharynx normal Neck/C-Spine: COMMON NORMALS: no JVD Resp: COMMON NORMALS: normal respiratory effort and clear to auscultation bilaterally AUSCULTATION: clear to auscultation bilaterally Cardio: COMMON NORMALS: no JVD, regular rhythm, S1 normal heart sound present, S2 normal heart sound present and No murmurs present (Cardio) RHYTHM: regular rhythm HEART SOUNDS: S1 normal heart sound present and S2 normal heart sound present GI: COMMON NORMALS: Normal to inspection, nondistended, normoactive bowel sounds present, Soft to palpation and non-tender PALPATION: Yes Soft to palpation Extremity: COMMON NORMALS: no joint enlargement and no pedal edema Neuro: COMMON NORMALS: patient oriented x3 and moves all extremities SENSORIUM/ORIENTATION: Yes alert Skin: COMMON NORMALS: no rashes or lesions noted GENERAL SKIN EXAM: no rashes or lesions noted Urinary Catheter Management^: Ying: Cath Placed During This Visit: yes Reason for Continuing Indwelling Catheter: Other Urinary Catheter Date of Insertion: 02/18/21 Urinary Catheter Time of Insertion: 11:00 Data : 02/20/21 05:05 02/20/21 05:05 A&P Assessment and plan (1) Acute respiratory failure with hypoxia: Subjectively slightly better today. Persistent hypoxia. Came off BiPAP. Continue heated high flow. Wean down as tolerating. Slightly better today, down to 78%, 45 L flow.. Continue empiric antibiotic coverage. Pulmonary recommendations appreciated. Follow-up microbiologic studies where able to obtain. Continue steroids for now. Hold Lasix. TTE EF 60%, no regional wall motion abnormalities. Thickened MV. Thickened AV. No pericardial effusion. Status: Acute (2) ALANNAH (acute kidney injury): Cr up to 1.8 Lasix held. Producing urine. 25g, 25% albumin Hold lisinopril. Check CK CTA on 02/16, possible contrast is nephropathy. Status: Acute (3) Pneumonia: Continue antibiotic regimen as above. Bacterial antigens negative. Blood culture so far negative. 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 Continue incentive spirometry Continue DuoNeb, budesonide Continue IV antibiotics consisting of vancomycin, Levaquin and Zosyn considering recent hospitalization, Covid, and hospitalization at [facility]. Hopefully these antibiotics can be narrowed quickly Blood, sputum culture, MRSA PCR, Legionella antigen all pending. Fungitell, pneumocystis, sputum fungal culture D/W pulm and his spouse. 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 Continue steroid. Pulmonary toilet, incentive spirometry Status: Acute (5) Type 2 diabetes mellitus: Continue long-acting insulin Sliding scale insulin Status: Acute Qualifiers: Diabetes mellitus exterminator helper insulin use: with exterminator helper use Diabetes mellitus complication status: without complication Qualified Code(s): E11.9 - Type 2 diabetes mellitus without complications; Z79.4 - terminologist (current) use of insulin (6) Benign essential HTN: Continue home medications Status: Acute (7) Atherosclerotic heart disease of [place] coronary artery without angina pectoris: Continue aspirin, beta-franny, statin Status: Acute Qualifiers: [place] vs. transplanted heart: [place] heart Qualified Code(s): I25.10 - Atherosclerotic heart disease of [place] coronary artery without angina pectoris Additional A&P Information Elevated BNP. Likely secondary to pulmonary disease. Multiple other medical problems as outlined in past medical history Full code Lovenox for DVT prophylaxis Attestations Medical Necessity Statement*: Continue admission for hypoxic respiratory failure. Coding Level of Care Code Acute Garden Labourer for [facility] Diagnoses Acute respiratory failure with hypoxia J96.01 ALANNAH (acute kidney injury) N17.9 Pneumonia J18.9 Fibrotic lung diseases J84.10 Type 2 diabetes mellitus E11.9; Z79.4 Diabetes mellitus exterminator helper insulin use: with exterminator helper use Diabetes mellitus complication status: without complication Benign essential HTN I10 Atherosclerotic heart disease of [place] coronary artery without angina pectoris I25.10 [place] vs. transplanted heart: [place] heart
[2021-02-20 16:30] LABS: Creatine Phosphokinase 16 U/L (39-308); Magnesium 1.9 mg/dL (1.7-2.3)
[2021-02-20] MEDS: atorvastatin 40 mg Tablet 20 MG PO (17:22)
[2021-02-20] MEDS: fluoxetine 20 mg Capsule PO (17:22)
[2021-02-20] MEDS: enoxaparin 40 mg/0.4 mL Syringe SUBCUT (17:22)
[2021-02-20] MEDS: tamsulosin 0.4 mg Capsule PO (17:23)
[2021-02-20 22:33] LABS: Glucose Point of Care 257 mg/dL (70-110)
[2021-02-20 22:33] LABS: Glucose Point of Care 205 mg/dL (70-110)
[2021-02-21] VITALS (13 sets, daily range): BP systolic 128–156; BP diastolic 63–76; PULSE 62–101; RESP 16–24; TEMP 36.4–36.9; O2SAT 90–94
[2021-02-21] MEDS: ipratropium-albuterol 3 mL Neb INHALATION ×6 (00:51→20:54)
[2021-02-21] MEDS: piperacillin-tazobactam 3.375 GM in sodium chloride 0.9% (plus) 50 ML IV ×3 (03:57→20:07)
[2021-02-21 05:44] LABS: Basophils % 0.1 %; Eosinophils % 0.1 %; Hematocrit 30.3 % (42.0-52.0); Hemoglobin 9.5 g/dL (11.7-16.6); Lymphocytes # 2.3 10^3/uL (0.8-4.8); Lymphocytes % 14.9 %; Mean Corpuscular HGB Conc 31.4 g/dL (30.0-36.0); Mean Corpuscular Hemoglobin 29.8 pg (28.0-34.0); Mean Platelet Volume 9.3 fL (7.4-10.4); Monocytes # 0.9 10^3/uL (0.2-0.9); Neutrophils # 12.14 10^3/uL (1.8-7.7); Neutrophils % 77.4 %; Nucleated Red Blood Cells % 0 %; Platelet Count 493 10^3/cmm (130-400); Red Blood Count 3.19 10^6/uL (4.1-5.3); Red Cell Distribution Width 13.7 % (12.1-15.1); White Blood Count 15.7 10^3/uL (4.0-10.0)
[2021-02-21] MEDS: potassium chloride ER 10 mEq Tablet PO (05:48)
[2021-02-21] MEDS: ezetimibe 10 mg Tablet PO (05:48)
[2021-02-21] MEDS: montelukast sodium 10 mg Tablet PO (05:48)
[2021-02-21] MEDS: aspirin 81 mg EC Tablet PO (05:48)
[2021-02-21] MEDS: docusate sodium 100 mg Capsule PO (05:48)
[2021-02-21] MEDS: acetaminophen 325 mg Tablet 650 MG PO (05:49)
[2021-02-21] MEDS: pantoprazole DR 40 mg Tablet PO (05:49)
[2021-02-21] MEDS: vancomycin 1,000 MG in sodium chloride 0.9% 250 ML 250 MG IV (05:49)
[2021-02-21 05:59] LABS: Alanine Aminotransferase 25 U/L (0-41); Albumin Level 3.1 g/dL (3.5-5.2); Alkaline Phosphatase 120 IU/L (40-130); Anion Gap 17.8 (5-19); Aspartate Amino Transferase 36 U/L (0-40); Blood Urea Nitrogen 39 mg/dL (8-23); Calcium 8.4 mg/dL (8.5-10.5); Carbon Dioxide 23 mmol/L (22-29); Chloride 107 mmol/L (98-107); Globulin 3.3 g/dL (1.3-4.6); Glucose 108 mg/dL (65-115); Osmolality Calculated 308 mOsm/kg (285-295); Potassium 3.8 mmol/L (3.5-5.1); Sodium 144 mmol/L (136-145); Total Bilirubin 0.2 mg/dL (0.15-1.2); Total Protein 6.4 g/dL (6.6-8.7)
[2021-02-21 06:35] LABS: Glucose Point of Care 129 mg/dL (70-110)
[2021-02-21] MEDS: budesonide 0.5 mg/2 mL Neb INHALATION ×2 (07:45→16:00)
--- NOTE | 2021-02-21 09:19 | P.PN_ITS ---
Subjective Subjective: Interval history: Ryan believes his breathing is little bit better. FiO2 has been weaning over the weekend. Worried about his strength, as he feels weak. Medications: Reviewed: Yes Vitals/I&O/Wt Last Vital Signs Temp 98.1 F 02/21/21 07:35 Pulse 76 02/21/21 07:45 Resp 20 H 02/21/21 07:45 BP 142/63 02/21/21 07:35 Pulse Ox 93 02/21/21 07:45 02/20/21 02/21/21 02/21/21 22:59 06:59 14:59 Intake Total 290 / 1166.667 530 / 1696.667 420 / 420 Output Total 1200 / 3200 2200 / 5400 Balance -910 / -2033.333 -1670 / -3703.333 420 / 420 Physical Exam Narrative: EXAM NARRATIVE: General exam is a white male who is moderately short of breath on at least 8 L of oxygen with accessory muscle use. Neck is supple no lymphadenopathy or thyromegaly Cardiovascular regular rate and rhythm, no murmur. Lungs fine crackles bilaterally. A few faint wheezes are heard. Abdomen is soft with positive bowel sounds. Nontender. No obvious organomegaly Extremities show trace edema. No cyanosis or clubbing. Urinary Catheter Management^: Ying: Cath Placed During This Visit: yes Reason for Continuing Indwelling Catheter: Other Urinary Catheter Date of Insertion: 02/18/21 Urinary Catheter Time of Insertion: 11:00 Data : 02/21/21 04:29 02/21/21 04:29 A&P Assessment and plan (1) Acute respiratory failure with hypoxia: Currently on heated high flow, 60%. This is improved from the last several days Continue empiric antibiotic coverage. Pulmonary recommendations appreciated. Cultures negative to date, still awaiting MRSA PCR, fungal studies, Legionella Continue steroids for now. Lasix was held secondary to worsening creatinine. This is improved. TTE EF 60%, no regional wall motion abnormalities. Thickened MV. Thickened AV. No pericardial effusion. Status: Acute (2) ALANNAH (acute kidney injury): Creatinine peaked at 1.8 and now is down to 1.2 Lisinopril held Status: Acute (3) Pneumonia: Continue current antibiotics. Hopefully discontinue vancomycin if MRSA PCR negative He appears to have pneumonia, probably bacterial, for which he is predisposed s econdary to 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 Continue incentive spirometry Continue DuoNeb, budesonide Currently on vancomycin, Zosyn, Levaquin Multiple cultures still pending D/W pulm and his spouse. 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 Continue steroid. Pulmonary toilet, incentive spirometry Status: Acute (5) Type 2 diabetes mellitus: Continue long-acting insulin Sliding scale insulin Status: Acute Qualifiers: Diabetes mellitus longterm insulin use: with longterm use Diabetes mellitus complication status: without complication Qualified Code(s): E11.9 - Type 2 diabetes mellitus without complications; Z79.4 - senior living (current) use of insulin (6) Benign essential HTN: Continue home medications Status: Acute (7) Atherosclerotic heart disease of [place] coronary artery without angina p ectoris: Continue aspirin, beta-franny, statin Status: Acute Qualifiers: [place] vs. transplanted heart: [place] heart Qualified Code(s): I25.10 - Atherosclerotic heart disease of [place] coronary artery without angina pectoris Additional A&P Information Elevated BNP. Likely secondary to pulmonary disease. Weakness. Consult physical therapy today. Multiple other medical problems as outlined in past medical history Full code Lovenox for DVT prophylaxis Attestations Medical Necessity Statement*: Needs continued hospital stay, for continued treatment of pneumonia with IV antibiotics and steroids pending improvement Coding Level of Care Code Acute Hand Braille Transcriber for [facility] Diagnoses Acute respiratory failure with hypoxia J96.01 ALANNAH (acute kidney injury) N17.9 Pneumonia J18.9 Fibrotic lung diseases J84.10 Type 2 diabetes mellitus E11.9; Z79.4 Diabetes mellitus assistant terminal manager insulin use: with assistant terminal manager use Diabetes mellitus complication status: without complication Benign essential HTN I10 Atherosclerotic heart disease of [place] coronary artery without angina pectoris I25.10 [place] vs. transplanted heart: [place] heart
[2021-02-21] MEDS: fluticasone nasal spray 16gm Btl 1 SPRAY NASAL ×2 (10:28→18:27)
[2021-02-21] MEDS: carvedilol 12.5 mg Tablet PO ×2 (10:28→18:26)
[2021-02-21] MEDS: levofloxacin-dextrose 5 % 750 MG/150 ML PREMIX 150 MG IV (10:29)
--- NOTE | 2021-02-21 11:30 | PC.SOCIAL ---
IMM Update pg 2 of IMM updated and reviewed w/ patient. Copy provided.
[2021-02-21 11:54] LABS: Glucose Point of Care 222 mg/dL (70-110)
[2021-02-21] MEDS: insulin lispro 100 unit/1 mL SUBCUT ×3 (12:09→22:47)
[2021-02-21] MEDS: LORazepam 2 mg/mL INJ 1 mL 0.5 MG IVP ×2 (14:17→16:27)
[2021-02-21] MEDS: enoxaparin 40 mg/0.4 mL Syringe SUBCUT (16:28)
[2021-02-21 17:43] LABS: Glucose Point of Care 194 mg/dL (70-110)
[2021-02-21] MEDS: fluoxetine 20 mg Capsule PO (18:26)
[2021-02-21] MEDS: atorvastatin 40 mg Tablet 20 MG PO (18:26)
[2021-02-21] MEDS: tamsulosin 0.4 mg Capsule PO (18:27)
--- NOTE | 2021-02-21 19:40 | PC.NURSE ---
i reported low temp 97.5 to nurse
[2021-02-21 20:52] LABS: Glucose Point of Care 276 mg/dL (70-110)
[2021-02-22] VITALS (24 sets, daily range): BP systolic 138–163; BP diastolic 65–79; PULSE 64–98; RESP 16–30; TEMP 36.4–36.7; O2SAT 85–97
[2021-02-22] MEDS: ipratropium-albuterol 3 mL Neb INHALATION ×5 (00:21→16:05)
[2021-02-22] MEDS: LORazepam 2 mg/mL INJ 1 mL 0.5 MG IVP ×2 (03:06→15:34)
[2021-02-22] MEDS: piperacillin-tazobactam 3.375 GM in sodium chloride 0.9% (plus) 50 ML IV ×2 (04:32→13:34)
[2021-02-22 05:12] LABS: Basophils % 0.2 %; Eosinophils % 0.1 %; Hemoglobin 9.8 g/dL (11.7-16.6); Lymphocytes # 2.6 10^3/uL (0.8-4.8); Lymphocytes % 16.7 %; Mean Corpuscular HGB Conc 31.6 g/dL (30.0-36.0); Mean Corpuscular Volume 94.8 fl (80-94); Mean Platelet Volume 8.9 fL (7.4-10.4); Monocytes # 1.2 10^3/uL (0.2-0.9); Monocytes % 7.8 %; Neutrophils # 11.08 10^3/uL (1.8-7.7); Neutrophils % 72.5 %; Nucleated Red Blood Cells % 0 %; Platelet Count 458 10^3/cmm (130-400); Red Blood Count 3.27 10^6/uL (4.1-5.3); Red Cell Distribution Width 13.5 % (12.1-15.1); White Blood Count 15.3 10^3/uL (4.0-10.0)
[2021-02-22] MEDS: montelukast sodium 10 mg Tablet PO (05:32)
[2021-02-22] MEDS: docusate sodium 100 mg Capsule PO (05:32)
[2021-02-22] MEDS: aspirin 81 mg EC Tablet PO (05:33)
[2021-02-22] MEDS: pantoprazole DR 40 mg Tablet PO (05:33)
[2021-02-22] MEDS: potassium chloride ER 10 mEq Tablet PO (05:33)
[2021-02-22 05:43] LABS: Alanine Aminotransferase 30 U/L (0-41); Albumin Level 3.1 g/dL (3.5-5.2); Alkaline Phosphatase 99 IU/L (40-130); Aspartate Amino Transferase 35 U/L (0-40); Blood Urea Nitrogen 32 mg/dL (8-23); Calcium 8.1 mg/dL (8.5-10.5); Carbon Dioxide 23 mmol/L (22-29); Chloride 110 mmol/L (98-107); Globulin 3.1 g/dL (1.3-4.6); Glucose 79 mg/dL (65-115); Osmolality Calculated 306 mOsm/kg (285-295); Sodium 145 mmol/L (136-145); Total Bilirubin 0.2 mg/dL (0.15-1.2); Total Protein 6.2 g/dL (6.6-8.7)
[2021-02-22 05:51] LABS: Vancomycin Trough 16.1 ug/mL (10-15)
[2021-02-22] MEDS: vancomycin 1,000 MG in sodium chloride 0.9% 250 ML 250 MG IV (06:21)
[2021-02-22] MEDS: ezetimibe 10 mg Tablet PO (06:21)
[2021-02-22 06:56] LABS: Glucose Point of Care 120 mg/dL (70-110)
[2021-02-22] MEDS: budesonide 0.5 mg/2 mL Neb INHALATION (07:35)
--- NOTE | 2021-02-22 08:02 | P.PN_ITS ---
Subjective Subjective: Interval history: Ryan feels like he might be doing a little worse today. Coughed earlier this morning and brought up some sputum. Still feels somewhat short of breath. Medications: Reviewed: Yes Vitals/I&O/Wt Last Vital Signs Temp 98.0 F 02/22/21 04:00 Pulse 68 02/22/21 07:40 Resp 18 02/22/21 07:40 BP 138/65 02/22/21 04:00 Pulse Ox 95 02/22/21 07:40 02/21/21 02/22/21 02/22/21 22:59 06:59 14:59 Intake Total 690 / 1710 50 / 1760 Output Total 800 / 800 950 / 1750 Balance -110 / 910 -900 / 10 Physical Exam Narrative: EXAM NARRATIVE: General exam is a white male with mild tachypnea Neck is supple no lymphadenopathy or thyromegaly Cardiovascular regular rate and rhythm, no murmur. Lungs fine crackles bilaterally. A few faint wheezes are heard. Abdomen is soft with positive bowel sounds. Nontender. No obvious organomegaly Extremities show trace edema. No cyanosis or clubbing. Urinary Catheter Management^: Ying: Cath Placed During This Visit: yes Reason for Continuing Indwelling Catheter: Accurate Measurement of Urinary Output in Critically Ill Patients Urinary Catheter Date of Insertion: 02/18/21 Urinary Catheter Time of Insertion: 11:00 Data : 02/22/21 04:58 02/22/21 04:58 Micro: Microbiology 02/20/21 06:53 MRSA Culture - Final Nose 02/20/21 17:50 Gram Stain - Final Sputum - Expectorated Sputum 02/16/21 10:32 Blood Culture - Final Blood NO GROWTH AFTER 5 DAYS 02/16/21 10:40 Blood Culture - Final Blood NO GROWTH AFTER 5 DAYS A&P Assessment and plan (1) Acute respiratory failure with hypoxia: Currently on heated high flow, 60%. Oxygen saturation is 85 or 86%. Pulmonary has been notified. Continue empiric antibiotic coverage. Pulmonary recommendations appreciated. Cultures negative to date. Bacterial antigens negative MRSA PCR negative. Sputum culture pending Continue steroids for now. Lasix was held secondary to worsening creatinine. This is improved. Resume oral Lasix TTE EF 60%, no regional wall motion abnormalities. Thickened MV. Thickened AV. No pericardial effusion. Status: Acute (2) ALANNAH (acute kidney injury): Holding lisinopril Creatinine is returned to baseline Status: Acute (3) Pneumonia: Continue Zosyn and Levaquin Discontinue vancomycin He appears to have pneumonia, probably bacterial, for which he is predisposed secondary to 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 Continue incentive spirometry Continue DuoNeb, budesonide Await cultures D/W pulm and his spouse. 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 Continue steroid. Pulmonary toilet, incentive spirometry Status: Acute (5) Type 2 diabetes mellitus: Continue long-acting insulin Sliding scale insulin Status: Acute Qualifiers: Diabetes mellitus ocean transportation intermediary insulin use: with ocean transportation intermediary use Diabetes mellitus complication status: without complication Qualified Code(s): E11.9 - Type 2 diabetes mellitus without complications; Z79.4 - prison (current) use of insulin (6) Benign essential HTN: Continue home medications Status: Acute (7) Atherosclerotic heart disease of [place] coronary artery without angina pectoris: Continue aspirin, beta-franny, statin Status: Acute Qualifiers: [place] vs. transplanted heart: [place] heart Qualified Code(s): I25.10 - Atherosclerotic heart disease of [place] coronary artery without angina pectoris Additional A&P Information Elevated BNP. Likely secondary to pulmonary disease. Weakness. Consult physical therapy today. Multiple other medical problems as outlined in past medical history Full code Lovenox for DVT prophylaxis I have visited with him regarding the possibility of [facility] again. He is interested. Will notify discharge planning. Attestations Medical Necessity Statement*: Needs continued hospitalization for IV antibiotics secondary to pneumonia, organizing pneumonia not excluded. Coding Level of Care Code Acute Lamination Inspector for [facility] Diagnoses Acute respiratory failure with hypoxia J96.01 ALANNAH (acute kidney injury) N17.9 Pneumonia J18.9 Fibrotic lung diseases J84.10 Type 2 diabetes mellitus E11.9; Z79.4 Diabetes mellitus snf insulin use: with snf use Diabetes mellitus complication status: without complication Benign essential HTN I10 Atherosclerotic heart disease of [place] coronary artery without angina pectoris I25.10 [place] vs. transplanted heart: [place] heart
--- NOTE | 2021-02-22 08:07 | PC.NURSE ---
I reported to the nurse. called rt
--- NOTE | 2021-02-22 08:11 | PC.NURSE ---
Day shift LAWN MOWER was obtaining vital signs when this nurse entered the room to date patient's IV. LAWN MOWER notified this nurse that patient's oxygen saturation was 85% and Dr. Garcia had just left the room. Patient was currently on 40L at 60% HHFNC. LAWN MOWER left room to notify day shift nurse to allow her to call respiratory. This nurse placed patient back on pulse ox and noted that patient was now at 81% while laying back. Patient was sat up in high villareal's position and encouraged to cough. Patient's oxygen saturation dropped to 79%. Patient was placed on flushed non-rebreather mask along with the HHFNC. Patient took about 5-7 minutes to recover to 89%. Respiratory entered room and examined patient as well. Patient placed on continuous pulse ox and had recovered to 93% after another 2-3 minutes.
--- NOTE | 2021-02-22 09:18 | PC.CHAP ---
Pastoral Care Encounter/Spiritual Assessment Type of Contact [] Declined machine adjuster helper visit [] Patient/Family/Request visit [] Outpatient visit [] Follow-up visit [] Physician referral [] Code/Alert [x] Routine visit [] Staff referral [] Actively dying [] Patient sleeping [] Family support [] [] Out of room [] Palliative care [] [] Receiving care in room [] Pre-surgical visit [] Trauma [] Long length of stay [] ICU visit [] Other: Relational/Emotional Strength [x] Patient feels connected with others/family/visitors/staff [] Distress [] Loneliness/isolation [] Abandonment Spirituality of Patient [x] Person of Carie [x] Attends Episcopalian of their [place] [x] Believes in Prayer [] Reads Bible or Presybeterian materials [] There are Spiritual issues to be addressed Latex Ribbon Machine Operator Interventions [x] Prayer [x] Active listening [x] Non-anxious presence [x] Spiritual/emotional support [] Crisis/trauma care [] Spiritual counseling [] Bereavement support [] Provided bereavement packet [] Provided Bible/devotional materials [] Provided toy/stuffed animal, coloring book to patient or family member [] Provided Communion [] Anointing/Heath [] Salvation [x] Completed spiritual assessment [] Other: Impact on Illness or Injury [] Angry [] Fearful [] Anxious [] Often cries [] Exhaustion [] Unable to work [] Unable to attend restoration [] Unable to walk/stand [] Unable to read [] Unable to drive [] Unable to eat/drink [] Unable to sleep [] Unable to be with family [] Patient intubated [] Other: Summary Pt had infusion sensor going off in room which made it difficult to communicate. He said it was driving him crazy. Also the light was in his eyes. Latex Ribbon Machine Operator turned off light for him. He said he had called the nurses but no one had came. Latex Ribbon Machine Operator told him many alarms currently going off and many people with lights on, so it appears staff are currently being overrun with calls. Tried to re assure him. Pt said he had had two Covid vaccines but still came down with Covid and has been and out of the hospital since November both here and in [place]. Currently has pneumonia. He stated his had it also but she had one treatment and was fine. However, she is stressed due to having to take care of everything while he has been in hospital. She also visits him daily and assists in feeding him his meals. He welcomed the offer of prayer. Time spent with patient 15m
[2021-02-22] MEDS: carvedilol 12.5 mg Tablet PO ×2 (09:32→17:24)
[2021-02-22] MEDS: predniSONE 20 mg Tablet 40 MG PO (09:32)
[2021-02-22] MEDS: levofloxacin-dextrose 5 % 750 MG/150 ML PREMIX 150 MG IV (09:34)
--- NOTE | 2021-02-22 12:09 | PC.NURSE ---
Report to Vee LEMONS at this time.
[2021-02-22 12:11] LABS: Glucose Point of Care 230 mg/dL (70-110)
[2021-02-22] MEDS: insulin lispro 100 unit/1 mL SUBCUT ×2 (13:34→17:24)
--- NOTE | 2021-02-22 14:27 | P.DS_ITS ---
Discharge Providers Date of Admission: 02/16/21 15:40 Date of Discharge: February 22, 2021 Attending Provider at Admission: Kirk Garcia MD Attending Provider at Discharge: Kirk Garcia MD Primary Care Provider: Salas Quevedo MD Diagnoses at Discharge Discharge Diagnosis (1) Acute respiratory failure with hypoxia: Status: Acute (2) ALANNAH (acute kidney injury): Status: Acute (3) Pneumonia: Status: Acute (4) Fibrotic lung diseases: Status: Acute (5) Type 2 diabetes mellitus: Status: Acute Qualifiers: Diabetes mellitus complication status: without complication Diabetes mellitus ad terminal makeup operator insulin use: with long-term use Qualified Code(s): E11.9 - Type 2 diabetes mellitus without complications; Z79.4 - half-way (current) use of insulin (6) Benign essential HTN: Status: Acute (7) Atherosclerotic heart disease of [place] coronary artery without angina pectoris: Status: Acute Permanent problem details: EKG in August 2019- NSR with some non specific T wave changes Qualifiers: [place] vs. transplanted heart: [place] heart Qualified Code(s): I25.10 - Atherosclerotic heart disease of [place] coronary artery without angina pectoris Reason for Visit Reason for Visit: RESP DISTRESS Hospital Course Hospital Course Ryan is an 85-year-old white male who presented to the hospital with shortness of breath on February 16. He had previously been ill with Covid and hospitalized November 30 December 14 at [facility] on December 14 December 29 at [facility]. On discharge, he was on 2 L of oxygen. On arrival here he required BiPAP. It was suspected he had secondary pneumonia and was placed on vancomycin, Levaquin, and Zosyn. Cultures were obtained. He initially showed some improvement but then worsened. Pulmonary evaluated his case and believed he might have organizing pneumonia. Steroids were added to his regimen. With this he was able to wean off BiPAP and on high flow oxygen, being maintained on 60 to 70% FiO2 for the last several days of his hospital stay at [facility]. Other studies done at the hospital included an MRSA PCR which was negative, so vancomycin was discontinued. Fungal cultures, pneumocystis serology, Fungitell all were pending at time of discharge. Pulmonary believed that steroids should continue for at least 3 weeks but the dose could be gradually tapered to 20 mg. Other studies during this hospital stay included a CTA of the chest which demonstrated no pulmonary embolism, bilateral airspace disease. Echocardiogram was performed which demonstrated an EF of 60%, no severe valvular abnormalities. Dr. Ponce is the accepting physician at [facility]. For ease of transfer he will transfer on BiPAP. Physical Exam Narrative: EXAM NARRATIVE: See exam done earlier today Urinary Catheter Management^: Ying: Cath Placed During This Visit: yes Reason for Continuing Indwelling Catheter: Accurate Measurement of Urinary Output in Critically Ill Patients Urinary Catheter Date of Insertion: 02/18/21 Urinary Catheter Time of Insertion: 11:00 Discharge Data Data Completed and Pending: Completed Studies During Hospitalization Category Date Time Status CT angio chest PE protcl [id number] Stat Cat Scan 02/16/21 09:43 Completed XR chest 1V kenji ble [id number] Routine Exams 02/19/21 17:36 Completed XR chest 1V kenji ble [id number] Stat Exams 02/16/21 09:44 Completed CV. echo limited [id number] Routine Ultrasound 02/16/21 14:53 Completed Pending at discharge Category Date Time Status Basic Metabolic P mir AM LABS Lab 02/23/21 04:00 Ordered Fungal Culture no t HR/SK/BL Routine Lab 02/20/21 17:50 Received Fungitell Glucan Assay Routine Lab 02/21/21 11:08 Received Legionella Antibo dy Routine Lab 02/16/21 09:10 Received Pneumocystis jiro veci Qual PCR Rout ine Lab 02/16/21 17:50 Received Sputum Culture an d Gram Stain Routi ne Lab 02/20/21 17:50 Results Labs from last 24 hours 02/22/21 02/22/21 02/22/21 10:48 06:23 04:58 WBC RBC Hgb Hct MCV MCH MCHC RDW Plt Count MPV Neut % (Auto) Lymph % (Auto) [place] % (Auto) Eos % (Auto) Baso % (Auto) Neut # (Auto) Lymph # (Auto) [place] # (Auto) Eos # (Auto) Baso # (Auto) Nucleated RBC % (a uto) Nucleated RBCs # Sodium 145 Potassium 4.0 Chloride 110 H Carbon Dioxide 23 Anion Gap 16.0 BUN 32 H Creatinine 1.1 GFR Calculation Not Reportable Glucose 79 POC Glucose 230 H 120 H Calculated Osmolal ity 306 H Calcium 8.1 L Total Bilirubin 0.2 AST 35 ALT 30 Alkaline Phosphata se 99 Total Protein 6.2 L Albumin 3.1 L Globulin 3.1 Vancomycin Trough 02/22/21 02/22/21 02/21/21 04:58 04:58 20:47 WBC 15.3 H RBC 3.27 L Hgb 9.8 L Hct 31.0 L MCV 94.8 H MCH 30.0 MCHC 31.6 RDW 13.5 Plt Count 458 H MPV 8.9 Neut % (Auto) 72.5 Lymph % (Auto) 16.7 [place] % (Auto) 7.8 Eos % (Auto) 0.1 Baso % (Auto) 0.2 Neut # (Auto) 11.08 H Lymph # (Auto) 2.6 [place] # (Auto) 1.2 H Eos # (Auto) 0.0 Baso # (Auto) 0.0 Nucleated RBC % (a uto) 0 Nucleated RBCs # 0.0 Sodium Potassium Chloride Carbon Dioxide Anion Gap BUN Creatinine GFR Calculation Glucose POC Glucose 276 H Calculated Osmolal ity Calcium Total Bilirubin AST ALT Alkaline Phosphata se Total Protein Albumin Globulin Vancomycin Trough 16.1 H 02/21/21 17:16 WBC RBC Hgb Hct MCV MCH MCHC RDW Plt Count MPV Neut % (Auto) Lymph % (Auto) [place] % (Auto) Eos % (Auto) Baso % (Auto) Neut # (Auto) Lymph # (Auto) [place] # (Auto) Eos # (Auto) Baso # (Auto) Nucleated RBC % (a uto) Nucleated RBCs # Sodium Potassium Chloride Carbon Dioxide Anion Gap BUN Creatinine GFR Calculation Glucose POC Glucose 194 H Calculated Osmolal ity Calcium Total Bilirubin AST ALT Alkaline Phosphata se Total Protein Albumin Globulin Vancomycin Trough Vitals: Last Vital Signs Temp 97.5 F L 02/22/21 10:50 Pulse 75 02/22/21 12:03 Resp 18 02/22/21 12:03 BP 158/77 02/22/21 10:50 Pulse Ox 94 02/22/21 12:03 Discharge Plan Discharge Patient Disposition: Xfer Short-Term Hosp Condition: Stable Prescriptions: No Action pantoprazole 40 mg tablet,delayed release (DR/EC) 40 mg PO QAM RF: 0 aspirin [Adult Low Dose Aspirin] 81 mg tablet,delayed release (DR/EC) 81 mg PO QAM RF: 0 pravastatin 40 mg tablet 40 mg PO QPM RF: 0 benzonatate 100 mg Capsule 100 mg PO TID PRN (Reason: Cough) Qty: 60 RF: 0 insulin aspart U-100 [Novolog U-100 Insulin aspart] 100 unit/mL Solution See Rx Instructions .ROUTE .COMPLEX Qty: 10 RF: 0 tamsulosin 0.4 mg Capsule 0.4 mg PO QPM RF: 0 montelukast 10 mg Tablet 10 mg PO QAM RF: 0 carvedilol 12.5 mg tablet 12.5 mg PO BID RF: 0 allopurinol 100 mg tablet 100 mg PO .NOT TAKEN IN 5 WEEK RF: 0 alprazolam 0.25 mg tablet 0.25 mg PO TID PRN (Reason: Anxiety) RF: 0 furosemide 20 mg tablet 20 mg PO QAM RF: 0 lisinopril 40 mg tablet 40 mg PO QAM RF: 0 fluoxetine 20 mg capsule 20 mg PO QPM RF: 0 Stool Softener 100 mg Tablet 100 mg PO QAM RF: 0 ezetimibe 10 mg tablet 10 mg PO QAM RF: 0 Klor-Con M10 10 mEq tablet,ER particles/crystals 10 meq PO QAM RF: 0 Levemir FlexTouch U-100 Insuln 100 unit/mL (3 mL) insulin pen 40 unit SUBCUT QAM RF: 0 acetaminophen 325 mg tablet 325 mg PO BEDTIME RF: 0 cholecalciferol (vitamin D3) 25 mcg (1,000 unit) tablet 1,000 unit PO QAM RF: 0 Discharge Orders: Transfer Out of Facility (Order); Ordered 02/22/21 Ordered By: Kirk Garcia Referrals: [facility] [Outside] Salas Quevedo MD [Primary Care Provider] - Activity Restrictions/Additional Instructions: Transferred to long-term [facility], [facility] in [facility]. Discharge Attestations Time Spent in Discharge Care*: greater than 30 min Quality Metrics Clinical Quality Measures During this hospital stay, did patient experience: None Coding Level of Care Code Acute Chg FW DC note Diagnoses Acute respiratory failure with hypoxia J96.01 ALANNAH (acute kidney injury) N17.9 Pneumonia J18.9 Fibrotic lung diseases J84.10 Type 2 diabetes mellitus E11.9; Z79.4 Diabetes mellitus complication status: without complication Diabetes mellitus ad terminal makeup operator insulin use: with long-term use Benign essential HTN I10 Atherosclerotic heart disease of [place] coronary artery without angina pectoris I25.10 [place] vs. transplanted heart: [place] heart
[2021-02-22 16:48] LABS: Glucose Point of Care 165 mg/dL (70-110)
[2021-02-22] MEDS: tamsulosin 0.4 mg Capsule PO (17:24)
[2021-02-22] MEDS: enoxaparin 40 mg/0.4 mL Syringe SUBCUT (17:24)
[2021-02-22] MEDS: atorvastatin 40 mg Tablet 20 MG PO (17:24)
[2021-02-22] MEDS: fluoxetine 20 mg Capsule PO (17:24)
[2021-02-22] MEDS: fluticasone nasal spray 16gm Btl 1 SPRAY NASAL (17:25)
[2021-02-22 22:08] LABS: Legionella Antibody <1:256 TITER
[2021-02-23 20:12] LABS: Fungitell 1-3-B Glucan Assay 33 pg/mL; Interpretation NEGATIVE
[2021-02-26 09:23] LABS: P. Jirovecii DNA QL PCR DETECTED; P. Jirovecii DNA QL PCR Source SPUTUM
--- NOTE | 2021-02-28 09:35 | PC.SOCIAL ---
Dr Garcia notified this nurse of lab results for Pneumocystis Jiroveci PCR detected. Printed off sputum culture results this lab and the fungal culture and sent to the requested fax number of [phone] to [facility] Attn: Elina. Talked with patient care nurse Elina to notify of results prior to faxing and asked that she call back this nurse if fax is not received in next 15-20 min. Elina will watch for fax and verified fax number is correct. Received electronic confirmation that fax was sent successfully. Patient is still at [facility] room 110.
== END 2021-02-22 20:15 | DRG 193 ==
LOC: ER 12:05 → MEDSURG 15:40
PROVIDERS: Internal Medicine; Admitting Provider Internal Medicine; Emergency Provider Family Medicine; PCP Family Medicine; Visit Provider Internal Medicine
DX: J18.9 Pneumonia, unspecified organism (principal); J96.01 Acute respiratory failure with hypoxia; N17.9 Acute kidney failure, unspecified; J84.10 Pulmonary fibrosis, unspecified; I10 Essential (primary) hypertension; I25.10 Atherosclerotic heart disease of native coronary artery without angina pectoris; E11.9 Type 2 diabetes mellitus without complications; E78.5 Hyperlipidemia, unspecified; K21.9 Gastro-esophageal reflux disease without esophagitis; M10.9 Gout, unspecified; M15.9 Polyosteoarthritis, unspecified; Z86.16 Personal history of COVID-19; Z79.82 Long term (current) use of aspirin; Z79.4 Long term (current) use of insulin; Z87.891 Personal history of nicotine dependence
CPT/HCPCS: 36415; 36416; 36600; 51702; 71045; 71275; 80048; 80051; 80053; 80202; 82330; 82550; 82805; 82962; 83735; 83880; 84484; 85025; 85610; 85730; 86403; 86713; 87040; 87070; 87102; 87106; 87205; 87206; 87449; 87641; 87798; 93005; 93308; 94640; 94660; 94669; 96365; 96367; 96372; 96375; 96376; 97110; 97116; 97162; 97530; 99285; J1650; J1815; J1940; J1956; J2060; J2543; J2930; J3370; J7050; J7512; J7626; P9047; Q9967

== ENCOUNTER 2021-04-26 14:58 | Outpatient (CLI) | payer MEDICARE, OTHER, SELFPAY ==
--- NOTE | 2021-04-26 15:06 | XRR_ITS ---
PROCEDURE INFORMATION: Exam: XR Chest Exam date and time: 04/26/2021 3:06 PM Age: 85 years old Clinical indication: Cardiovascular condition or disease; Congestive heart failure (chf); Cause unknown; Type unknown TECHNIQUE: Imaging protocol: XR of the chest. Views: 2 views. COMPARISON: CR XR chest 1V portable [id number] 02/19/2021 5:50 PM FINDINGS: Lungs: Hypoinflated lungs. Diffuse coarsening of the lung parenchyma. Patulous ill-defined opacities within the lungs. This appears mildly improved from prior study. Pleural spaces: Unremarkable. No pleural effusion. No pneumothorax. Heart/Mediastinum: Stable mild cardiomegaly. Bones/joints: Visualized osseous structures are intact. XR/XR chest 2V* [id number] IMPRESSION: Similar hypoinflated lungs with diffuse coarsening of the lung parenchyma. Patulous ill-defined opacities are again noted which are mildly improved from prior study. Stable mild cardiomegaly.
== END 2021-04-26 14:59 | disposition home or self-care (01) ==
PROVIDERS: PCP Family Medicine; Visit Provider Family Medicine
DX: I50.9 Heart failure, unspecified (principal); I51.7 Cardiomegaly
CPT/HCPCS: 71046

== ENCOUNTER 2021-05-16 08:10 | Outpatient (CLI) | payer MEDICARE, OTHER, SELFPAY ==
--- NOTE | 2021-05-16 08:24 | FL_ITS ---
WS: [id number] ESOPHAGRAM TECHNIQUE: Single contrast examination was performed with thin and thick barium. Upright images only were obtained due to patient's condition. CLINICAL INFORMATION: DYSPHAGIA COMPARISON: None. FINDINGS: No evidence of aspiration or penetration. Swallowing: Normal oropharyngeal phase. Mild pooling in the vallecula which cleared with additional s wallows. Esophagus: Mild esophageal dysmotility. No stricture or mass. Gastroesophageal reflux: None visualized Fluoroscopy time: 1.9 minutes. FL/FL barium swallow [id number] IMPRESSION: 1. Mild esophageal dysmotility. No evidence of high-grade stricture or obstruc ting mass. 2. Mild pooling in the vallecula which cleared with additional swallows. 3. No evidence of aspiration/penetration with rapid swallowing technique 4. Prior postoperative changes ACDF in the lower cervical spine at C6-C7
== END 2021-05-16 08:11 | disposition home or self-care (01) ==
PROVIDERS: PCP Family Medicine; Visit Provider Family Medicine
DX: R13.10 Dysphagia, unspecified (principal); I50.9 Heart failure, unspecified
CPT/HCPCS: 74220

== ENCOUNTER 2021-07-12 12:32 | Outpatient (CLI) | payer MEDICARE, OTHER, SELFPAY ==
--- NOTE | 2021-07-12 13:12 | CT_ITS ---
WS: [id number] CT CHEST WITHOUT INTRAVENOUS CONTRAST HISTORY: HYPOXIA/DYSPNEA AT REST TECHNIQUE: Contiguous 5 mm axial imaging performed on the thorax. Coronal and sagittal reformats are submitted. All CT scans at [facility] use at least one of these dose optimization techniques: automated exposure control; mA and/or kV adjustment per patient size (includes targeted exams where dose is matched to clinical indication); or iterative reconstruction. CONTRAST: None DLP: 668.32 mGy.cm COMPARISON: 02/16/2021 Lungs and central airway: Decreased lung volumes and significant reticular nodular infiltrates in a p eripheral distribution and greatest at the lung bases. Overall there has been improvement in the area s of consolidation and subsolid opacification since the prior examination. There are a few areas of b ronchiectasis which are mild in the RIGHT upper and lower lung spring bilaterally. Suspect very early changes of developing honeycombing but at this time cannot confirm with certainty. No mass or massli ke consolidation. Normal vasculature. Pleura: No effusions. Heart and pericardium: Mild cardiomegaly. Mild pericardial thickening. Mediastinum and shanna: Small lymph nodes in the mediastinum and hilar regions but improved in size and number since the prior study. These were probably reactive on the prior study. Vessels: Mild atherosclerosis aorta. Pulmonary artery is mildly dilated. Extensive coronary artery ca lcifications. Chest wall and lower neck: No soft tissue masses. Upper abdomen: Mild atrophy of the visualized pancreas. Osseous structures: Moderate changes of spondylosis throughout the thoracic spine. CT/CT chest wo con [id number] IMPRESSION: 1. Overall moderate improvement in aeration bilaterally since 02/16/2021. 2. Persistent upper and lower lobe peripheral reticular nodular infiltrates in a distribution suggesting early changes of pulmonary fibrosis. There are a few areas of very mild bronchiectasis and probable early honeycombing at the lung bases. 3. Lung volumes are decreased. 4. Decrease in size and number of the mediastinal and hilar lymph nodes since the prior study. These lymph nodes were probably reactive.
== END 2021-07-12 12:33 | disposition home or self-care (01) ==
LOC: RAD 12:37
PROVIDERS: PCP Family Medicine; Visit Provider Family Medicine
DX: R06.02 Shortness of breath (principal); R09.02 Hypoxemia; I70.0 Atherosclerosis of aorta; I51.7 Cardiomegaly; I25.10 Atherosclerotic heart disease of native coronary artery without angina pectoris
CPT/HCPCS: 71250

== ENCOUNTER 2021-07-14 12:22 | Outpatient (CLI) | payer MEDICARE, OTHER, SELFPAY ==
--- NOTE | 2021-07-14 13:20 | PFTS_ITS ---
Date of Study:07/14/21 Date of Dictation: 07/15/2021 MECHANICS: Postbronchodilator forced vital capacity (FVC) is reduced. Postbronchodilator forced expiratory volume in one second (FEV1) is moderately reduced. FEV1/FVC is normal. There is significant postbronchodilator response FLOW VOLUME LOOP: Normal . LUNG VOLUMES: Total lung capacity (TLC) is moderately reduced. Residual volume (RV) is reduced. DIFFUSING CAPACITY FOR CARBON MONOXIDE: Severely reduced . INTERPRETATION: The Spirometry consistent with moderate restriction.? s.? Lung volumes suggestive of air trapping. there is severe gas transfer defect.? Constellation of findings consistent with interstitial lung disease and also given severity of gas transfer defect coexisting pulmonary vascular disease cannot be ruled out. There is significant response to bronchodilator. Correlate clinically. MTDD
== END 2021-07-14 12:23 | disposition home or self-care (01) ==
LOC: RT 12:24
PROVIDERS: PCP Family Medicine; Visit Provider Family Medicine
DX: R09.02 Hypoxemia (principal); F17.210 Nicotine dependence, cigarettes, uncomplicated
CPT/HCPCS: 94060; 94726; 94729; J7611

== ENCOUNTER → 2021-07-18 14:15 | Outpatient (BNVA) | payer MEDICARE, OTHER, SELFPAY | PROVIDERS: PCP Family Medicine; Visit Provider Internal Medicine Cardiovascular Disease | DX: I25.10 Atherosclerotic heart disease of native coronary artery without angina pectoris (principal); I11.0 Hypertensive heart disease with heart failure; I50.33 Acute on chronic diastolic (congestive) heart failure; R60.9 Edema, unspecified; E11.9 Type 2 diabetes mellitus without complications; Z79.4 Long term (current) use of insulin; E78.5 Hyperlipidemia, unspecified; Z87.891 Personal history of nicotine dependence | CPT/HCPCS: 80048; 83880; 99214 ==

== ENCOUNTER → 2021-07-28 10:09 | Outpatient (BNVA) | payer MEDICARE, OTHER, SELFPAY | PROVIDERS: PCP Family Medicine; Visit Provider Internal Medicine Critical Care Medicine | DX: J98.4 Other disorders of lung (principal); J45.909 Unspecified asthma, uncomplicated; J84.10 Pulmonary fibrosis, unspecified; J96.11 Chronic respiratory failure with hypoxia; Z87.891 Personal history of nicotine dependence; K21.9 Gastro-esophageal reflux disease without esophagitis; I10 Essential (primary) hypertension; E78.5 Hyperlipidemia, unspecified; Z99.81 Dependence on supplemental oxygen | CPT/HCPCS: 99214 ==

== ENCOUNTER → 2021-09-05 16:28 | Outpatient (BNVA) | payer MEDICARE, OTHER, SELFPAY | PROVIDERS: PCP Family Medicine; Visit Provider Family Medicine | DX: U07.1 COVID-19 (principal) | CPT/HCPCS: 87426 ==

== ENCOUNTER → 2021-09-20 13:35 | Outpatient (BNVA) | payer MEDICARE, OTHER, SELFPAY | PROVIDERS: PCP Family Medicine; Visit Provider Family Medicine | DX: R09.02 Hypoxemia (principal); I50.9 Heart failure, unspecified | CPT/HCPCS: 80053; 85025 ==

== ENCOUNTER → 2021-12-01 10:04 | Outpatient (BNVA) | payer MEDICARE, OTHER, SELFPAY | PROVIDERS: PCP Family Medicine; Visit Provider Internal Medicine Critical Care Medicine | DX: J98.4 Other disorders of lung (principal); J45.909 Unspecified asthma, uncomplicated; J84.10 Pulmonary fibrosis, unspecified; J96.11 Chronic respiratory failure with hypoxia; Z86.16 Personal history of COVID-19; Z99.81 Dependence on supplemental oxygen; Z87.891 Personal history of nicotine dependence | CPT/HCPCS: 71046; 99214 ==

== ENCOUNTER → 2021-12-13 15:35 | Outpatient (BNVA) | payer MEDICARE, OTHER, SELFPAY | PROVIDERS: PCP Family Medicine; Visit Provider Orthopaedic Surgery | DX: M75.101 Unspecified rotator cuff tear or rupture of right shoulder, not specified as traumatic (principal); M12.811 Other specific arthropathies, not elsewhere classified, right shoulder | CPT/HCPCS: 73030; 99214 ==

== ENCOUNTER 2022-01-20 13:28 | Outpatient (CLI) | payer MEDICARE, OTHER, SELFPAY | END 2022-01-20 13:29 | disposition home or self-care (01) | LOC: RT 01-24 13:30 | PROVIDERS: PCP Family Medicine; Visit Provider Orthopaedic Surgery | DX: Z01.89 Encounter for other specified special examinations (principal) | CPT/HCPCS: 93005 ==

== ENCOUNTER 2022-01-24 08:14 | Outpatient (CLI) | payer MEDICARE, OTHER, SELFPAY ==
--- NOTE | 2022-01-24 09:00 | CT_ITS ---
WS: [id number] NONCONTRAST CT RIGHT SHOULDER TECHNIQUE: Noncontrast CT RIGHT shoulder with coronal and sagittal reformatted images. CLINICAL INFORMATION: pain COMPARISON: None. DLP: 665.[address] scans at [facility] use at least one of these dose optimization techniques: automated e xposure control; mA and/or kV adjustment per patient size (includes targeted exams where dose is matc hed to clinical indication); or iterative reconstruction. FINDINGS: Osteopenia. Advanced degenerative arthritis RIGHT shoulder with narrowing of the glenohumeral joint. Hypertrophic spurring along the humeral neck. Subchondral cystic change involving the humerus and adj acent glenoid. Complete loss of the joint space and [id number] articulation. A few calcified intra- articular loose bodies. Advanced arthritis AC joint with synovial thickening. Moderate downsloping ac romion with narrowing of the subacromial space. Small joint effusion. Partially visualized fibrotic changes and emphysematous changes RIGHT lung. Spondylitic changes parti ally visualized thoracic spine. CT/CT shoulder RT wo con* [id number] IMPRESSION: 1. Advanced degenerative arthritis glenohumeral joint with hypertrophic spurri ng and extensive subchondral cystic change. A few intra-articular loose bodies. 2. Advanced degenerative arthritis AC joint with moderate downsloping of the a cromion 3. Partially visualized fibrotic and emphysematous changes RIGHT lung. 4. Small joint effusion.
== END 2022-01-24 08:15 | disposition home or self-care (01) ==
PROVIDERS: PCP Family Medicine; Visit Provider Orthopaedic Surgery
DX: M19.011 Primary osteoarthritis, right shoulder (principal); M25.411 Effusion, right shoulder
CPT/HCPCS: 73200

== ENCOUNTER → 2022-01-26 10:29 | Outpatient (BNVA) | payer MEDICARE, OTHER, SELFPAY | PROVIDERS: PCP Family Medicine; Visit Provider Nurse Practitioner Family | DX: I11.0 Hypertensive heart disease with heart failure (principal); I50.9 Heart failure, unspecified; I25.10 Atherosclerotic heart disease of native coronary artery without angina pectoris; Z87.891 Personal history of nicotine dependence | CPT/HCPCS: 99214 ==

== ENCOUNTER 2022-01-30 10:24 | Observation (INO) | payer MEDICARE, OTHER, SELFPAY ==
[2022-01-20 10:37] VITALS: BMI 26.6
--- NOTE | 2022-01-20 10:57 | ECG_ITS ---
[facility] Test Date: 2022-01-20 Pat Name: Ryan Tim Department: Room: Gender: Male Records Officer: : 1935 Requested By: Ede Fitch Order Number: [id number] Vicente MD: Kevin Loo M.D. Measurements Intervals [place] Rate: 61 P: 29 CA: 186 QRS: 22 QRSD: 99 T: 28 QT: 389 QTc: 393 Interpretive Statements SINUS RHYTHM Compared to ECG 02/16/2021 15:57:13 No significant changes Electronically Signed On 01-21-2022 15:23:25 [employer]DUCTOR PULLMAN by Kevin Loo M.D. [id number]
[2022-01-20 11:39] LABS: Basophils # 0.1 10^3/uL (0.0-0.1); Eosinophils # 0.4 10^3/uL (0.0-0.8); Eosinophils % 4.3 %; Hematocrit 33.3 % (42.0-52.0); Hemoglobin 10.6 g/dL (11.7-16.6); Lymphocytes # 1.8 10^3/uL (0.8-4.8); Lymphocytes % 22.1 %; Mean Corpuscular HGB Conc 31.8 g/dL (30.0-36.0); Mean Corpuscular Volume 100.6 fl (80-94); Monocytes # 0.6 10^3/uL (0.2-0.9); Monocytes % 6.9 %; Neutrophils # 5.38 10^3/uL (1.8-7.7); Neutrophils % 65.5 %; Nucleated Red Blood Cells % 0 %; Platelet Count 231 10^3/cmm (130-400); Red Blood Count 3.31 10^6/uL (4.1-5.3); Red Cell Distribution Width 13.9 % (12.1-15.1); White Blood Count 8.2 10^3/uL (4.0-10.0)
[2022-01-20 11:55] LABS: Anion Gap 12.4 (5-19); Blood Urea Nitrogen 31 mg/dL (8-23); Calcium 9.2 mg/dL (8.5-10.5); Carbon Dioxide 27 mmol/L (22-29); Chloride 101 mmol/L (98-107); Glucose 158 mg/dL (65-115); Osmolality Calculated 292 mOsm/kg (285-295); Potassium 4.4 mmol/L (3.5-5.1); Sodium 136 mmol/L (136-145)
--- NOTE | 2022-01-20 16:07 | ANES.PREANE2 ---
Pre-Anesthetic Assessment Height/Weight: Height 1.75 m Weight 81.647 kg Operation Date: 01/30/22 07:00 Proposed Procedures p right reverse total shoulder arthroplasty/ 60658 M19.011(Right) - Maximo Marin MD Familial anesthetic complications: none Was Beta Coleman taken within 24 hours: Yes Was Clonidine taken within 24 hours: N/A Last intake: none Social No alcohol and No tobacco Exam alert, oriented x 3 and regular rate & rhythm Airway Submandibular: within normal limits Cervical ROM: Other (some limitation to extension) Mallampati: Class II Dentition: false Pulmonary Chronic Obstructive Pulmonary Disease Post COVID, home O2 1L, restrictive lung dz CV/HEM Coronary Artery Disease, Congestive Heart Failure and Hypertension CONCLUSIONS ?Normal left ventricular size and systolic function, EF 60%. ?No regional wall motion abnormalities. ?Thickened mitral valve. Mild mitral annular calcification. ?Thickened aortic valve. ?There is no pericardial effusion. ?There are no intracardiac masses. ?Compared to the study from 12/03/2020, there may not be a ?significant change ?Dr Kevin Loo MD FAC ?(Electronically Signed) ?Final Date:? ? ? 17 February 2021 GI Gastroesophageal Reflux Disease Metabolic Diabetes Mellitus Anesthetic Plan ASA status: 3 Anesthesia: General and Regional (specify below) (Interscalene blk) Medications/Allergies Home Medications Medication Instructions Recorded Confirmed Last Taken Type aspirin 81 mg tablet,delayed 81 mg PO BID 04/15/19 01/20/22 01/20/22 08:00 History release (Adult Low Dose Aspirin) tamsulosin 0.4 mg capsule 0.4 mg PO QPM 08/19/19 01/20/22 01/19/22 18:30 History carvedilol 12.5 mg tablet 12.5 mg PO BID 11/28/20 01/20/22 01/20/22 08:00 History montelukast 10 mg tablet 10 mg PO QAM 11/28/20 01/20/22 01/20/22 08:00 History acetaminophen 325 mg tablet 325 mg PO BEDTIME 02/16/21 01/20/22 01/19/22 21:30 History docusate sodium 100 mg tablet 100 mg PO QAM 02/16/21 01/20/22 01/20/22 08:00 History (Stool Softener) fluoxetine 20 mg capsule (Prozac) 20 mg PO QPM 02/16/21 01/20/22 01/19/22 18:30 History lisinopril 40 mg tablet 40 mg PO QAM 02/16/21 01/20/22 01/20/22 08:00 History insulin aspart U-100 100 unit/mL 10 unit (0.1 mL) SUBCUT TID PRN 05/23/21 01/20/22 Unknown Rx subcutaneous solution (Novolog hyperglycemia #10 mL U-100 Insulin aspart) atorvastatin 20 mg tablet 20 mg PO DAILY 07/18/21 01/20/22 01/20/22 08:00 History diazepam 5 mg tablet (Valium) 5 mg PO .hs 07/18/21 01/20/22 01/13/22 History metformin 500 mg tablet 1,000 mg PO BID 10/20/21 01/20/22 01/20/22 08:00 History fluticasone furoate 200 1 inh inhalation DAILY #60 ea 10/24/21 01/20/22 Unknown Rx mcg-vilanterol 25 mcg/dose inhalation powder (Breo Ellipta) allopurinol 100 mg tablet 100 mg PO DAILY rx filled on 11/18/21 01/20/22 01/20/22 08:00 Rx 12/13/20 90d/s pts family states the hasnt taken in 5 weeks #30 tabs furosemide 20 mg tablet 20 mg PO QAM #30 tabs 01/03/22 01/20/22 01/20/22 08:00 Rx budesonide-formoterol HFA 80 1 inh inhalation BID #10.2 grams 01/19/22 01/20/22 01/20/22 08:00 Rx mcg-4.5 mcg/actuation aerosol inhaler (Symbicort) ascorbic acid (vitamin C) 500 mg 500 mg PO DAILY 01/20/22 01/20/22 01/20/22 08:00 History chewable tablet (Vitamin C) benzonatate 100 mg capsule 100 mg PO PRN PRN Cough 01/20/22 01/20/22 01/20/22 08:00 History ezetimibe 10 mg tablet 10 mg PO DAILY 01/20/22 01/20/22 01/19/22 18:30 History insulin detemir U-100 100 unit/mL 40 unit SUBCUT DAILY 01/20/22 01/20/22 01/20/22 08:00 History (3 mL) subcutaneous pen (Levemir FlexTouch U-100 Insulin) pantoprazole 40 mg tablet,delayed 40 mg PO QAM 01/20/22 01/20/22 01/20/22 08:00 History release (Protonix) Allergies Allergy/AdvReac Type Severity Reaction Status Date / Time aspirin Allergy Unknown unknown Verified 01/20/22 10:22 cefuroxime [From Ceftin] Allergy Unknown unknown Verified 01/20/22 10:22 fluvastatin [From Lescol] Allergy Unknown unknown Verified 01/20/22 10:22 Sulfa (Sulfonamide Allergy Unknown unknown Verified 01/20/22 10:22 Antibiotics) povidone-iodine Allergy Unknown Verified 01/20/22 10:22 [From Betadine] soap [From Betadine] Allergy Unknown Verified 01/20/22 10:22 gabapentin AdvReac Intermediate hallucinati Verified 01/20/22 10:22 on sulfamethoxazole AdvReac Intermediate kidney Verified 01/20/22 10:22 [From Bactrim] failure trimethoprim [From Bactrim] AdvReac Intermediate kidney Verified 01/20/22 10:22 failure [facility] Anesthesia Medical History ASHD (arteriosclerotic heart disease) -follows up with Dr. Loo Atherosclerotic heart disease of [place] coronary artery without angina pectoris EKG in August 2019- NSR with some non specific T wave changes Diabetes -insulin requiring Edema, peripheral -likely secondary to acute CHF exacerbation GERD (gastroesophageal reflux disease) Gout Hyperlipidemia -on statin Hypertension -on oral antihypertensives Osteoarthritis Hands, hips, knees and spine, lumbar spondylosis Type 2 diabetes mellitus Surgical History History of cataract surgery History of cholecystectomy History of hemorrhoidectomy History of hip surgery History of knee surgery History of rotator cuff surgery Family History Other CAD (coronary artery disease) Cancer Diabetes Hyperlipidemia Hypertension Social History Smoking and tobacco status: former smoker Alcohol intake: never Data Anesthesia : 01/20/22 11:00 01/20/22 11:00 Short CBC 01/20/22 Range/Units 11:00 WBC 8.2 (4.0-10.0) 10^3/uL Hgb 10.6 L (11.7-16.6) g/dL Hct 33.3 L (42.0-52.0) % MCV 100.6 H (80-94) fl Plt Count 231 (130-400) 10^3/cmm Neut % (Auto) 65.5 % Neut # (Auto) 5.38 (1.8-7.7) 10^3/uL BMP 01/20/22 11:00 Sodium 136 Potassium 4.4 Chloride 101 Carbon Dioxide 27 BUN 31 H Creatinine 1.3 H Glucose 158 H Calcium 9.2 Cardiac Studies: Echocardiogram 12/03/20 Echocardiogram Limited Views 02/16/21 Echocardiogram Ultrasound 08/20/19 Sestamibi Stress Test (Cardiology) 05/26/20
[2022-01-30] VITALS (15 sets, daily range): BP systolic 125–171; BP diastolic 66–85; PULSE 80–96; RESP 10–18; TEMP 36.2–36.5; O2SAT 92–100; BMI 28.5
[2022-01-30] MEDS: sodium chloride 0.9% 1,000 ML 30 ML IV (05:56)
[2022-01-30] MEDS: oxyCODONE 20 mg ER (12 HR) Tablet PO (05:56)
[2022-01-30 06:04] LABS: Glucose Point of Care 108 mg/dL (70-110)
[2022-01-30] MEDS: CELEcoxib 200 mg Capsule 400 MG PO (06:06)
[2022-01-30] MEDS: acetaminophen 500 mg Tablet 1000 MG PO ×3 (06:06→21:15)
[2022-01-30] MEDS: gabapentin 300 mg Capsule PO (06:06)
--- NOTE | 2022-01-30 07:01 | P.HP_ITS ---
Same Day Surgery H&P Indication for Procedure/HPI DATE OF PROCEDURE: January 30, 2022 CHIEF COMPLAINT/INDICATIONFOR SURGICAL PROCEDURE: Due to cuff tear arthropathy here for right reverse total shoulder PREOP DIAGNOSIS: Osteoarthritis right shoulder PLANNED PROCEDURE: Operation Date: 01/30/22 07:00 Proposed Procedures p right reverse total shoulder arthroplasty/ 68670 M19.011(Right) - Maximo Marin MD 85 year old male patient here for evaluation of his right reverse total shoulder. Patient states that he has had pain for many years. He has constant pain in the anterior shoulder. He has pain with any movement of the shoulder.? He states he is unable to comb his hair or do any active use with his arm.? He states if he shakes some of his hand with his right arm there is severe discomfort.? He states that he was previously discussing shoulder replacement surgery, however he became sick with Covid-19 and pnumonia.? He describes nearly a year of hospitalization before he was ultimately discharged home.? He states he knows his demands are lower but he is absolutely miserable with shoulder pain and is here to reconsider surgery Medications/Allergies* Home Medications Medication Instructions Recorded Confirmed Type aspirin 81 mg tablet,delayed 81 mg PO BID 04/15/19 01/26/22 History release (Adult Low Dose Aspirin) tamsulosin 0.4 mg capsule 0.4 mg PO QPM 08/19/19 01/26/22 History carvedilol 12.5 mg tablet 12.5 mg PO BID 11/28/20 01/26/22 History montelukast 10 mg tablet 10 mg PO QAM 11/28/20 01/26/22 History acetaminophen 325 mg tablet 325 mg PO BEDTIME 02/16/21 01/26/22 History docusate sodium 100 mg tablet 100 mg PO QAM 02/16/21 01/26/22 History (Stool Softener) fluoxetine 20 mg capsule (Prozac) 20 mg PO QPM 02/16/21 01/26/22 History lisinopril 40 mg tablet 40 mg PO QAM 02/16/21 01/26/22 History atorvastatin 20 mg tablet 20 mg PO DAILY 07/18/21 01/26/22 History diazepam 5 mg tablet (Valium) 5 mg PO .hs 07/18/21 01/26/22 History metformin 500 mg tablet 1,000 mg PO BID 10/20/21 01/26/22 History ascorbic acid (vitamin C) 500 mg 500 mg PO DAILY 01/20/22 01/26/22 History chewable tablet (Vitamin C) benzonatate 100 mg capsule 100 mg PO PRN PRN Cough 01/20/22 01/26/22 History ezetimibe 10 mg tablet 10 mg PO DAILY 01/20/22 01/26/22 History insulin detemir U-100 100 unit/mL 40 unit SUBCUT DAILY 01/20/22 01/26/22 History (3 mL) subcutaneous pen (Levemir FlexTouch U-100 Insulin) pantoprazole 40 mg tablet,delayed 40 mg PO QAM 01/20/22 01/26/22 History release (Protonix) Allergies/Adverse Reactions Allergy/AdvReac Type Severity Reaction Status Date / Time aspirin Allergy Unknown unknown Verified 01/26/22 08:35 cefuroxime [From Ceftin] Allergy Unknown unknown Verified 01/26/22 08:35 fluvastatin [From Lescol] Allergy Unknown unknown Verified 01/26/22 08:35 Sulfa (Sulfonamide Allergy Unknown unknown Verified 01/26/22 08:35 Antibiotics) povidone-iodine Allergy Unknown Verified 01/26/22 08:35 [From Betadine] soap [From Betadine] Allergy Unknown Verified 01/26/22 08:35 gabapentin AdvReac Intermediate hallucinati Verified 01/26/22 08:35 on sulfamethoxazole AdvReac Intermediate kidney Verified 01/26/22 08:35 [From Bactrim] failure trimethoprim [From Bactrim] AdvReac Intermediate kidney Verified 01/26/22 08:35 failure Current Medications: Generic Name Dose Route Start Last Admin Trade Name Freq PRN Reason Stop Dose Admin Sodium Chloride 1,000 mls @ 30 mls/hr 01/30/22 05:45 01/30/22 05:56 Sodium Chloride 0.9% IV 01/31/22 05:44 30 mls/hr .Q24H CLINT Administration Pertinent History/Comorbid Conditions* Medical History (Updated 12/13/21 @ 16:30 by Maximo Marin MD) ASHD (arteriosclerotic heart disease) -follows up with Dr. Loo Atherosclerotic heart disease of [place] coronary artery without angina pectoris EKG in August 2019- NSR with some non specific T wave changes Diabetes -insulin requiring Edema, peripheral -likely secondary to acute CHF exacerbation GERD (gastroesophageal reflux disease) Gout Hyperlipidemia -on statin Hypertension -on oral antihypertensives Osteoarthritis Hands, hips, knees and spine, lumbar spondylosis Type 2 diabetes mellitus Surgical History (Updated 04/15/19 @ 12:37 by Kevin Loo MD) History of cataract surgery History of cholecystectomy History of hemorrhoidectomy History of hip surgery History of knee surgery History of rotator cuff surgery Family History (Updated 04/15/19 @ 12:29 by Brenda Lee RN) Diabetes CAD (coronary artery disease) Hyperlipidemia Cancer Hypertension Social History Smoking and tobacco status: former smoker Alcohol intake: never Pertinent Exam Findings alert, oriented x 3, clear to auscultation bilaterally and regular rate & rhythm ?SHOULDER [right]:? Tender over anterior shoulder RANGE OF MOTION:? EXAMINED EXTREMITY ? Flexion: 80 ? External Rotation: 20 ? Abduction: 50 Reputations throughout range of motion INSTABILITY: ? No instability ? ROTATOR CUFF STRENGTH: ? ? ? EXAMINED EXTREMITY ? Abduction Supination: Diminished with pain ? Abduction Pronation: Diminished with pain ? External Rotation: Diminished with pain ? Belly Press: Negative ? ? ? CONTRALATERAL EXTREMITY: ? Abduction Supination: Good without pain ? Abduction Pronation: Good without pain ? External Rotation: Good without pain ? Belly Press: Negative VASCULAR: Strong radial pulses bilaterally. MOTOR:? 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 SENSATION: Intact to light touch ? Recommendations Surgery/Procedure today Coding Level of Care Code Acute Electric System Operator for Telly Tatum
[2022-01-30] MEDS: ceFAZolin 2,000 MG in sodium chloride 0.9% (plus) 50 ML 100 MG IV ×3 (07:15→22:32)
[2022-01-30] MEDS: tranexamic acid 1,000 mg/10mL SDV 1000 MG IV (07:15)
--- NOTE | 2022-01-30 08:31 | P.ANESUD_ITS ---
Pre-Anesthetic Update Pre-Anesthetic Assessment: Date of Surgery/Procedure: 01/30/22 Preop Margarette gnosis: Osteoarthritis right shoulder Proposed Procedure: Operation Date: 01/30/22 07:00 Proposed Procedures p right reverse total shoulder arthroplasty/ 76623 M19.011(Right) - Maximo Marin MD Any changes to Pre-Anesthetic Assessment?: No Last Intake: Intake Last Liquid Date 01/29/22 Last Liquid Time 19:00 Last Solid Date 01/29/22 Last Solid Time 19:00 Vitals: Temperature 97.7 F 01/30/22 05:44 Temperature Source Temporal Artery S can 01/30/22 05:44 Pulse Rate 80 01/30/22 05:44 Respiratory Rate 18 01/30/22 05:56 Respiratory Effort Non-Labored 01/30/22 05:56 Respiratory Depth Normal 01/30/22 05:56 Respiratory Patter n 01/30/22 05:56 Blood Pressure 154/83 01/30/22 05:44 Blood Pressure Angelique n 106 01/30/22 05:44 Pulse Oximetry 93 01/30/22 05:56 Oxygen Delivery Me thod 01/30/22 05:44 Oxygen Flow Rate 1 01/30/22 05:44 Exam: Pre-Anes Outpt Exam: alert, oriented x 3, clear to auscultation bilaterally and regular rate & rhythm Cardiac Studies: Echocardiogram 12/03/20 Echocardiogram Limited Views 02/16/21 Echocardiogram Ultrasound 08/20/19 Sestamibi Stress Test (Cardiology) 05/26 Anesthesia Procedures Nerve Block: Nerve Block 1: Main Anesthesia: general anesthesia Time Out Performed: Yes Consent: requested by attending/covering physician, from patient, risks and benefits reviewed and patient agrees to proceed Nerve block location: interscalene (right) Anesthesia monitors applied: pulse oximetry, EKG, BP cuff and oxygen Nerve block position: semi sitting Anesthetic Used: ropivicaine 0.5% Amount of anesthesia used (mL): 30 Ultrasound used to: recognize landmarks and visualize and ID brachial plexus Nerve Stimulator Used?: No Interscalene/Femoral BLK: 2 stimuplex 22 g needle used for position and inplane approach Injection: neg aspiration of heme Patient Tolerated Procedure: well Complications: none
--- NOTE | 2022-01-30 09:24 | PM.OP ---
Operative Report Date of procedure: January 30, 2022 Pre-op diagnosis: Preop Diagnosis Rotator cuff tear arthropathy right shoulder Post-op diagnosis: same Post-op findings: The patient had a complete tear of the supraspinatus and infraspinatus musculature. He had severe wear of the glenohumeral joint and undersurface wear beneath the acromion with with superior wear and excessive superior slope of the glenoid. Procedure done: Right reverse total shoulder Implants: 1) Tornier Aequalis Ascend Flex 60 stem 2) Flex Shoulder System reverse tray 3) Flex Shoulder System 42 mm +6 mm reversed insert 4) Perform Reversed 99 mm full wedge augment baseplate 5) Aequalis PerForm Reversed 42 mm standard glenosphere 6) Glenoid screws: central 30 mm, superior 34 mm inferior 34 mm, anterior 14 mm, posterior 18 mm Pathology: none sent Surgeon: Maximo Marin Anesthesia: General and Nerve Block (Interscalene block) Estimated blood loss (mL): 250 Condition: stable Disposition: PACU Procedure: An intrascalene blocks provided the holding area. The patient was taken to the operating room and given a general anesthesia. They were given 2 g of Ancef. A Avendano stand was covered and use to support support the arm A timeout was performed. A 10 cm long incision was made over the deltopectoral groove and dissection carried out with a scalpel blade to the deltopectoral interval. The cephalic vein was identified and retracted laterally. Digital dissection was accomplished to free lesions beneath the deltoid and beneath the coracobrachialis musculature. An [place] medium tissue protector was used to retract the pectoralis major and the deltoid. The biceps tendon was absent.. The subscapularis and a capsule was then peeled off of the lesser tuberosity and fixed with 3 tape sutures in a locking Krak?w fashion from superior to inferior. Capsular release was accomplished across the inferior capsule from the glenoid. Utilizing electrocautery the glenoid was exposed circumferentially. The centering guide was used to place the central guidepin at a for the full wedge augmented baseplate in accordance with our preoperative plan to bring the glenoid down to neutral tilt. Glenoid reaming was done to accommodate the wedged baseplate. A 29 mm mm Aequalis PerForm baseplate was secured with a 6.5 x 30 mm central screw, a superior locking 34 mm screw, an inferior locking 3414 mm screw, an anterior 18 mm screw and a posterior [] mm screw. A standard [] mm Aequalis perFORM Reversed Glenosphere was then placed. Attention was then focused on the humerus. Sequential and broaching of the canal was accomplished up to a size 6B stem with satisfactory stability.. A trial reduction with the above reversed insert provided adequate stability. The final humeral stem, reverse tray and insert were press-fit into place and the shoulder reduced with a stable reduction. 4 drill holes were then made in the bicipital groove. Sutures through the subscapularis were then passed through tunnels at the most superior suture through the most proximal hole. The second pair of sutures through the second hole, the third pair of sutures to the third hole in the fourth suture through the fourth hole. They were tied over a small Mark 4-hole mini plate. The wound was irrigated with a gentamycin antibiotic solution. The deltopectoral interval was closed with 0 Vicryl. The subcutaneous tissues were closed with 2-0 Stratafix. The skin was closed with a running 4-0 Stratafix. Sterile dressings were applied. The patient was placed in a [], extubated and taken to recovery room in stable condition.
--- NOTE | 2022-01-30 09:40 | XRR_ITS ---
PROCEDURE INFORMATION: Exam: XR Right Shoulder Exam date and time: 01/30/2022 9:47 AM Age: 86 years old Clinical indication: Device placement; Joint replacement hardware; Prior surgery; Surgery date: Post-operative (0-2 days); Surgery type: History--post op/rt reverse total shoulder; Additional info: Right total shoulder, ap with 30 degrees humeral external rotation TECHNIQUE: Imaging protocol: Radiologic exam of the Right shoulder. Views: 2 or more views. COMPARISON: CT shoulder RT wo con* [id number] 01/24/2022 8:34 AM FINDINGS: Bones/joints: Right shoulder arthroplasty noted in appropriate alignment. Degenerative changes in the acromioclavicular joint. Lungs: Scarring in the partially visualized right lung. Soft tissues: Expected postsurgical subcutaneous emphysema noted. XR/XR shoulder RT min 2V* [id number] IMPRESSION: Expected postsurgical changes status post right shoulder arthroplasty.
[2022-01-30] MEDS: sodium chloride 0.9% 1,000 ML 80 ML IV ×2 (12:27→22:33)
[2022-01-30] MEDS: albuterol 2.5 mg/3 mL Neb INHALATION ×2 (13:06→20:35)
--- NOTE | 2022-01-30 15:17 | ANE.PACU2 ---
Inpatient post-anesthesia follow up: Airway intact: Yes Vital signs: Temperature 97.4 F Pulse Rate 90 Respiratory Rate 16 Blood Pressure 153/71 Pulse Oximetry 96 Oxygen Delivery Me thod Nasal Cannula Oxygen Flow Rate 2 Fraction of Inspir ed Oxygen Hydration adequate: Yes Nausea and vomiting: No Pain level: 1 Mental status: Baseline
[2022-01-30 16:37] LABS: Glucose Point of Care 192 mg/dL (70-110)
[2022-01-30] MEDS: aspirin 81 mg EC Tablet PO (17:42)
[2022-01-30] MEDS: tamsulosin 0.4 mg Capsule PO (17:42)
[2022-01-30] MEDS: fluoxetine 20 mg Capsule PO (17:42)
[2022-01-30] MEDS: insulin lispro 100 unit/1 mL SUBCUT ×2 (17:46→21:15)
[2022-01-30] MEDS: budesonide 0.5 mg/2 mL Neb INHALATION (20:35)
[2022-01-30 20:51] LABS: Glucose Point of Care 211 mg/dL (70-110)
[2022-01-30] MEDS: carvedilol 12.5 mg Tablet PO (21:15)
[2022-01-30] MEDS: diazePAM 5 mg Tablet PO (21:15)
[2022-01-31] VITALS (7 sets, daily range): BP systolic 134–138; BP diastolic 66–70; PULSE 72–83; RESP 16–18; TEMP 36.5–36.6; O2SAT 94–98
--- NOTE | 2022-01-31 03:01 | PC.NURSE ---
Patient complaining of not being able to empty bladder and having the urge to pee. Bladder scan showed almost 800ml. Notified Dr Marin, orders received to place avalos catheter.
[2022-01-31] MEDS: FUROsemide 20 mg Tablet PO (06:12)
[2022-01-31] MEDS: pantoprazole DR 40 mg Tablet PO (06:12)
[2022-01-31] MEDS: lisinopril 20 mg Tablet 40 MG PO (06:12)
[2022-01-31] MEDS: acetaminophen 500 mg Tablet 1000 MG PO (06:12)
[2022-01-31] MEDS: docusate sodium 100 mg Capsule PO (06:12)
[2022-01-31] MEDS: montelukast sodium 10 mg Tablet PO (06:13)
[2022-01-31] MEDS: ceFAZolin 2,000 MG in sodium chloride 0.9% (plus) 50 ML 100 MG IV (06:14)
[2022-01-31 06:49] LABS: Glucose Point of Care 155 mg/dL (70-110)
[2022-01-31] MEDS: budesonide 0.5 mg/2 mL Neb INHALATION (08:09)
[2022-01-31] MEDS: albuterol 2.5 mg/3 mL Neb INHALATION ×2 (08:09→11:24)
--- NOTE | 2022-01-31 08:09 | PM.DCS ---
Discharge Providers Date of Admission: 01/30/22 10:24 Date of Discharge: January 31, 2022 Attending Provider at Admission: Maximo Seay MD Attending Provider at Discharge: Maximo Seay MD Primary Care Provider: Salas Quevedo MD Diagnoses at Discharge Discharge Diagnosis (1) Status post replacement of right shoulder joint: Status: Acute (2) Rotator cuff tear arthropathy of right shoulder: Status: Resolved Reason for Visit Reason for Visit: M19.011 Hospital Course Hospital Course The patient tolerated surgery well. They remained hemodynamically stable. They was begun on aspirin and Kytril compression dressing for DVT prophylaxis. The patient was mobilized with occupational therapy. As the pain was adequately controlled and they were fully mobile they were discharged home. Physical Exam Narrative: On the day of discharge the patient's dressing was clean and dry. The patient's would fire his deltoid and their biceps. No distal neurovascular deficits were noted. Urinary Catheter Management: Ying: Cath Placed During This Visit: yes Reason for Continuing Indwelling Catheter: Acute Urinary Retention or Obstruction Urinary Catheter Date of Insertion: 01/31/22 Urinary Catheter Time of Insertion: 03:06 Discharge Data Studies Completed and Pending Completed Studies During Hospitalization Category Date Time Status XR shoulder RT min 2V* [id number] Routine Exams 01/30/22 09:40 Completed Radiology Impressions Shoulder X-Ray 01/30/22 09:40 IMPRESSION: Expected postsurgical changes status post right shoulder arthroplasty. Laboratory Results WBC 8.2 10^3/uL (4.0-10.0) 01/20/22 11:00 RBC 3.31 10^6/uL (4.1-5.3) L 01/20/22 11:00 Hgb 10.6 g/dL (11.7-16.6) L 01/20/22 11:00 Hct 33.3 % (42.0-52.0) L 01/20/22 11:00 MCV 100.6 fl (80-94) H 01/20/22 11:00 MCH 32.0 pg (28.0-34.0) 01/20/22 11:00 MCHC 31.8 g/dL (30.0-36.0) 01/20/22 11:00 RDW 13.9 % (12.1-15.1) 01/20/22 11:00 Plt Count 231 10^3/cmm (130-400) 01/20/22 11:00 MPV 10.0 fL (7.4-10.4) 01/20/22 11:00 Neut % (Auto) 65.5 % 01/20/22 11:00 Lymph % (Auto) 22.1 % 01/20/22 11:00 [place] % (Auto) 6.9 % 01/20/22 11:00 Eos % (Auto) 4.3 % 01/20/22 11:00 Baso % (Auto) 1.0 % 01/20/22 11:00 Neut # (Auto) 5.38 10^3/uL (1.8-7.7) 01/20/22 11:00 Lymph # (Auto) 1.8 10^3/uL (0.8-4.8) 01/20/22 11:00 [place] # (Auto) 0.6 10^3/uL (0.2-0.9) 01/20/22 11:00 Eos # (Auto) 0.4 10^3/uL (0.0-0.8) 01/20/22 11:00 Baso # (Auto) 0.1 10^3/uL (0.0-0.1) 01/20/22 11:00 Nucleated RBC % (auto) 0 % 01/20/22 11:00 Nucleated RBCs # 0.0 /100WBC 01/20/22 11:00 Sodium 136 mmol/L (136-145) 01/20/22 11:00 Potassium 4.4 mmol/L (3.5-5.1) 01/20/22 11:00 Chloride 101 mmol/L (98-107) 01/20/22 11:00 Carbon Dioxide 27 mmol/L (22-29) 01/20/22 11:00 Anion Gap 12.4 (5-19) 01/20/22 11:00 BUN 31 mg/dL (8-23) H 01/20/22 11:00 Creatinine 1.3 mg/dL (0.7-1.2) H 01/20/22 11:00 GFR Calculation Not Reportable 01/20/22 11:00 Glucose 158 mg/dL (65-115) H 01/20/22 11:00 POC Glucose 155 mg/dL (70-110) H 01/31/22 06:37 Calculated Osmolality 292 mOsm/kg (285-295) 01/20/22 11:00 Calcium 9.2 mg/dL (8.5-10.5) 01/20/22 11:00 Vitals Last Vital Signs Temp 97.7 F 01/31/22 04:00 Pulse 72 01/31/22 04:00 Resp 16 01/31/22 04:00 BP 138/66 01/31/22 04:00 Pulse Ox 97 01/31/22 04:00 O2 Del Method 01/31/22 04:00 O2 Flow Rate 1 01/31/22 04:00 Discharge Plan Discharge Patient Disposition: Home Condition: Stable Prescriptions: New oxycodone 5 mg Tablet 5 mg PO Q4H PRN (Reason: Moderate Pain) 7 Days Qty: 40 0RF acetaminophen 500 mg Tablet 1,000 mg PO Q8H 14 Days Qty: 84 0RF Continued insulin aspart U-100 [Novolog U-100 Insulin aspart] 100 unit/mL solution 10 unit SUBCUT TID PRN (Reason: hyperglycemia) Qty: 10 6RF diazepam [Valium] 5 mg tablet 5 mg PO .hs atorvastatin 20 mg tablet 20 mg PO DAILY metformin 500 mg tablet 1,000 mg PO BID Rx Instructions: Takes 1000 mg am, 500 mg pm aspirin [Adult Low Dose Aspirin] 81 mg tablet,delayed release (DR/EC) 81 mg PO BID fluticasone furoate-vilanterol [Breo Ellipta] 200-25 mcg/dose blister with device 1 inh inhalation DAILY Qty: 60 3RF allopurinol 100 mg tablet 100 mg PO DAILY Qty: 30 11RF Rx Instructions: takes every other day furosemide 20 mg tablet 20 mg PO QAM Qty: 30 11RF budesonide-formoterol [Symbicort] 80-4.5 mcg/actuation HFA aerosol inhaler 1 inh inhalation BID Qty: 10.2 3RF tamsulosin 0.4 mg Capsule 0.4 mg PO QPM montelukast 10 mg Tablet 10 mg PO QAM carvedilol 12.5 mg tablet 12.5 mg PO BID lisinopril 40 mg tablet 40 mg PO QAM fluoxetine [Prozac] 20 mg capsule 20 mg PO QPM docusate sodium [Stool Softener] 100 mg Tablet 100 mg PO QAM ascorbic acid (vitamin C) [Vitamin C] 500 mg Tablet,Chewable 500 mg PO DAILY benzonatate 100 mg capsule 100 mg PO PRN PRN (Reason: Cough) Rx Instructions: take 1 capsule BY MOUTH THREE TIMES DAILY as needed for cough ezetimibe 10 mg tablet 10 mg PO DAILY Levemir FlexTouch U-100 Insuln 100 unit/mL (3 mL) insulin pen 40 unit SUBCUT DAILY Rx Instructions: 3 mos w 3 rf: 340 B pricing. pantoprazole [Protonix] 40 mg tablet,delayed release (DR/EC) 40 mg PO QAM Discontinued acetaminophen 325 mg tablet 325 mg PO BEDTIME Discharge Orders: Discharge Order (Routine); Ordered 01/31/22 Ordered By: Maximo Seay Referrals: Maximo Seay MD [Physician] - 02/14/22 10:15 am Discharge Diet: Advance as tolerated Discharge Activity: Limit activity as instructed Patient Instructions: Opioid Safety Activity Restrictions/Additional Instructions: Okay to shower. No soaking incision in tub Apply FirstIce up to 20 min/hr for pain and swelling Take Tylenol 500mg (up to 2 tabs) 3 times a day for mild pain take oxycodone for breakthrough pain. Exercises per Occupational Therapy IF HAVE ANY PROBLEMS OR QUESTIONS CALL [facility] SENIOR NUCLEAR MEDICINE TECHNOLOGIST AT AND ASK TO HAVE DR. SEAY PAGED. Discharge Attestations Time Spent in Discharge Care*: other Quality Metrics Clinical Quality Measures [ No reported AMI, CVA or VTE this stay] Coding Level of Care Code Acute [facility] [place] note Diagnoses Status post replacement of right shoulder joint Z96.611 Rotator cuff tear arthropathy of right shoulder M75.101; M12.811
[2022-01-31] MEDS: allopurinol 100 mg Tablet PO (08:20)
[2022-01-31] MEDS: aspirin 81 mg EC Tablet PO (08:20)
[2022-01-31] MEDS: atorvastatin 40 mg Tablet 20 MG PO (08:20)
[2022-01-31] MEDS: insulin lispro 100 unit/1 mL SUBCUT (08:21)
[2022-01-31] MEDS: ezetimibe 10 mg Tablet PO (08:29)
[2022-01-31] MEDS: carvedilol 12.5 mg Tablet PO (08:29)
--- NOTE | 2022-01-31 11:29 | PC.CHAP ---
Pastoral Care Encounter/Spiritual Assessment Type of Contact [] Declined pump service supervisor visit [] Patient/Family/Request visit [] Outpatient visit [] Follow-up visit [] Physician referral [] Code/Alert [x] Routine visit [] Staff referral [] Actively dying [] Patient sleeping [] Family support [] [] Out of room [] Palliative care [] [] Receiving care in room [] Pre-surgical visit [] Trauma [] Long length of stay [] ICU visit [] Other: Relational/Emotional Strength [] Patient feels connected with others/family/visitors/staff [] Distress [] Loneliness/isolation [] Abandonment Spirituality of Patient [x] Person of Carie [] Attends Baptism of their Faithx] Believes in Prayer [] Reads Bible or Tenriism materials [] There are Spiritual issues to be addressed Nurse First Aid Interventions [x] Prayer [] Active listening [] Non-anxious presence [] Spiritual/emotional support [] Crisis/trauma care [] Spiritual counseling [] Bereavement support [] Provided bereavement packet [] Provided Bible/devotional materials [] Provided toy/stuffed animal, coloring book to patient or family member [] Provided Communion [] Anointing/[place] [] Salvation [x] Completed spiritual assessment [] Other: Impact on Illness or Injury [] Angry [] Fearful [] Anxious [] Often cries [] Exhaustion [] Unable to work [] Unable to attend jehovah's witness [] Unable to walk/stand [] Unable to read [] Unable to drive [] Unable to eat/drink [] Unable to sleep [] Unable to be with family [] Patient intubated [] Other: Summary Time spent with patient 5 nmin
== END 2022-01-31 12:07 | disposition home health service (06) ==
LOC: MEDSURG 10:24
PROVIDERS: Anesthesiology; Admitting Provider Orthopaedic Surgery; PCP Family Medicine; Visit Provider Orthopaedic Surgery
PROC: (CPT 23472; principal; 2022-01-30 07:00)
DX: M75.101 Unspecified rotator cuff tear or rupture of right shoulder, not specified as traumatic (principal); M12.811 Other specific arthropathies, not elsewhere classified, right shoulder; J44.9 Chronic obstructive pulmonary disease, unspecified; Z99.81 Dependence on supplemental oxygen; I11.0 Hypertensive heart disease with heart failure; I50.9 Heart failure, unspecified; K21.9 Gastro-esophageal reflux disease without esophagitis; E11.9 Type 2 diabetes mellitus without complications; Z79.4 Long term (current) use of insulin; Z79.82 Long term (current) use of aspirin; I25.110 Atherosclerotic heart disease of native coronary artery with unstable angina pectoris; E78.5 Hyperlipidemia, unspecified
CPT/HCPCS: 23472; 36416; 51702; 73030; 80048; 82962; 85025; 94640; 96372; 97166; C1713; C1776; G0378; J0690; J1580; J1815; J2370; J2704; J2710; J2795; J3010; J3490; J7030; J7613; J7626

== ENCOUNTER → 2022-03-14 10:19 | Outpatient (BNVA) | payer MEDICARE, OTHER, SELFPAY | PROVIDERS: PCP Family Medicine; Visit Provider Orthopaedic Surgery | DX: Z96.611 Presence of right artificial shoulder joint (principal) | CPT/HCPCS: 73030; 99024 ==

== ENCOUNTER → 2022-04-03 08:10 | Outpatient (BNVA) | payer MEDICARE, OTHER, SELFPAY | PROVIDERS: PCP Family Medicine; Visit Provider Internal Medicine Pulmonary Disease | DX: J98.4 Other disorders of lung (principal); J84.10 Pulmonary fibrosis, unspecified; J96.11 Chronic respiratory failure with hypoxia; J45.909 Unspecified asthma, uncomplicated; U09.9 Post COVID-19 condition, unspecified; Z87.891 Personal history of nicotine dependence; Z99.81 Dependence on supplemental oxygen | CPT/HCPCS: 99214 ==

== ENCOUNTER → 2022-04-18 15:20 | Outpatient (BNVA) | payer MEDICARE, OTHER, SELFPAY | PROVIDERS: PCP Family Medicine; Visit Provider Orthopaedic Surgery | DX: Z96.611 Presence of right artificial shoulder joint (principal) | CPT/HCPCS: 99024 ==

== ENCOUNTER 2022-05-03 10:02 | Outpatient (CLI) | payer MEDICARE, OTHER, SELFPAY | END 2022-05-03 10:03 | disposition home or self-care (01) | LOC: RT 10:08 | PROVIDERS: PCP Family Medicine; Visit Provider Internal Medicine Pulmonary Disease | DX: J98.4 Other disorders of lung (principal); J84.10 Pulmonary fibrosis, unspecified; J96.11 Chronic respiratory failure with hypoxia; J45.909 Unspecified asthma, uncomplicated | CPT/HCPCS: 94060; 94618; 94726; 94729 ==

== ENCOUNTER → 2022-05-16 15:02 | Outpatient (BNVA) | payer MEDICARE, OTHER, SELFPAY | PROVIDERS: PCP Family Medicine; Visit Provider Orthopaedic Surgery | DX: Z47.89 Encounter for other orthopedic aftercare (principal); Z96.611 Presence of right artificial shoulder joint | CPT/HCPCS: 99212 ==

== ENCOUNTER → 2022-06-21 10:46 | Outpatient (BNVA) | payer MEDICARE, OTHER, SELFPAY | PROVIDERS: PCP Family Medicine; Visit Provider Family Medicine | DX: E11.9 Type 2 diabetes mellitus without complications (principal); I10 Essential (primary) hypertension; I50.9 Heart failure, unspecified; Z79.4 Long term (current) use of insulin | CPT/HCPCS: 80053; 80061; 83036; 85025 ==

== ENCOUNTER → 2022-07-31 10:17 | Outpatient (BNVA) | payer MEDICARE, OTHER, SELFPAY | PROVIDERS: PCP Family Medicine; Visit Provider Internal Medicine Pulmonary Disease | DX: J96.11 Chronic respiratory failure with hypoxia (principal); J98.4 Other disorders of lung; J84.10 Pulmonary fibrosis, unspecified; J45.909 Unspecified asthma, uncomplicated; Z87.891 Personal history of nicotine dependence; Z86.16 Personal history of COVID-19; Z57.2 Occupational exposure to dust | CPT/HCPCS: 99214 ==

== ENCOUNTER → 2022-08-22 11:53 | Outpatient (BNVA) | payer MEDICARE, OTHER, SELFPAY | PROVIDERS: PCP Family Medicine; Visit Provider Internal Medicine Cardiovascular Disease | DX: I25.10 Atherosclerotic heart disease of native coronary artery without angina pectoris (principal); Z96.611 Presence of right artificial shoulder joint; J45.909 Unspecified asthma, uncomplicated; J96.11 Chronic respiratory failure with hypoxia; J84.10 Pulmonary fibrosis, unspecified; E78.5 Hyperlipidemia, unspecified; I10 Essential (primary) hypertension; E11.9 Type 2 diabetes mellitus without complications; Z79.4 Long term (current) use of insulin; N17.9 Acute kidney failure, unspecified; Z86.16 Personal history of COVID-19; Z87.891 Personal history of nicotine dependence | CPT/HCPCS: 99214 ==

== ENCOUNTER → 2022-08-31 10:02 | Outpatient (BNVA) | payer MEDICARE, OTHER, SELFPAY | PROVIDERS: PCP Family Medicine; Visit Provider Family Medicine | DX: J84.10 Pulmonary fibrosis, unspecified (principal); I50.9 Heart failure, unspecified; I11.0 Hypertensive heart disease with heart failure; D64.9 Anemia, unspecified | CPT/HCPCS: 80053; 85025 ==

== ENCOUNTER → 2022-11-30 11:44 | Outpatient (BNVA) | payer MEDICARE, OTHER, SELFPAY | PROVIDERS: PCP Family Medicine; Visit Provider Family Medicine | DX: J30.2 Other seasonal allergic rhinitis (principal); J34.89 Other specified disorders of nose and nasal sinuses; D64.9 Anemia, unspecified; J96.11 Chronic respiratory failure with hypoxia; J84.10 Pulmonary fibrosis, unspecified; E11.9 Type 2 diabetes mellitus without complications; Z79.4 Long term (current) use of insulin | CPT/HCPCS: 80053; 83036; 85025 ==

== ENCOUNTER → 2023-02-20 09:50 | Outpatient (BNVA) | payer MEDICARE, OTHER, SELFPAY | PROVIDERS: PCP Family Medicine; Visit Provider Internal Medicine Cardiovascular Disease | DX: I25.10 Atherosclerotic heart disease of native coronary artery without angina pectoris (principal); J96.11 Chronic respiratory failure with hypoxia; E11.9 Type 2 diabetes mellitus without complications; Z79.4 Long term (current) use of insulin; E78.2 Mixed hyperlipidemia; I10 Essential (primary) hypertension; D63.8 Anemia in other chronic diseases classified elsewhere; Z87.891 Personal history of nicotine dependence | CPT/HCPCS: 99214 ==

== ENCOUNTER → 2023-04-03 11:40 | Outpatient (BNVA) | payer MEDICARE, OTHER, SELFPAY | PROVIDERS: PCP Family Medicine; Visit Provider Family Medicine | DX: I10 Essential (primary) hypertension (principal); I50.9 Heart failure, unspecified; E78.2 Mixed hyperlipidemia; E11.9 Type 2 diabetes mellitus without complications; Z79.4 Long term (current) use of insulin; D63.8 Anemia in other chronic diseases classified elsewhere; Z12.5 Encounter for screening for malignant neoplasm of prostate | CPT/HCPCS: 80053; 84153; 85025 ==

== ENCOUNTER 2023-05-22 17:08 | Emergency (ER) | payer MEDICARE, OTHER, SELFPAY ==
[2023-05-22 17:09] VITALS: BP 124/66; PULSE 76; RESP 18; TEMP 36.7; O2SAT 91
--- NOTE | 2023-05-22 17:28 | XRR_ITS ---
PROCEDURE INFORMATION: Exam: XR Chest Exam date and time: 05/22/2023 5:55 PM Age: 87 years old Clinical indication: Dyspnea and shortness of breath TECHNIQUE: Imaging protocol: Radiologic exam of the chest. Views: 1 view. COMPARISON: CR XR chest 2V* [id number] 12/01/2021 11:51 AM FINDINGS: Lungs: Moderate interstitial opacities appear similar compared to 202 and are likely chronic. Lung volumes are decreased suggesting interstitial fibrosis. No definitive consolidation the bases are difficult to assess given extensive chronic changes. Pleural spaces: Unremarkable. No pleural effusion. No pneumothorax. Heart/Mediastinum: The cardiomediastinal silhouette is unchanged compared to prior. Bones/joints: Unremarkable. XR/XR chest 1V portable [id number] IMPRESSION: No definitive evidence of acute cardiopulmonary disease. Extensive underlying chronic changes limit evaluation and suggest underlying pulmonary fibrosis.
[2023-05-22 17:40] LABS: ABG PCO2 37.9 mmHg (35-45); ABG PH Result 7.38 (7.35-7.45); Arterial Blood Gas Hematocrit 31.6 % (42-52); Base Excess ABG -2.2 mmol/L (-2.0-2.0); Blood Gas Allen Test Pos; Blood Gas Operator Identificat WALCI; Blood Gas Sample Site Radial, right; Blood Gas Sample Type Arterial; Carboxyhemoglobin 0.5 %THgb (0.4-20.1); HCO3 ABG 22.6 mmol/L (22-26); HGB O2 Sat 95.2 % (95-100); Ionized Calcium Level - ABG 1.1 mmol/L (1.1-1.4); Methemoglobin 0.7 % (0.4-1.5); Oxygen Device NC; Oxygen Saturation ABG 96.3; Potassium Level - ABG 4.6 mmol/L (3.5-5.0); Total Hemoglobin 10.3 g/dL (14-18)
[2023-05-22 17:42] VITALS: BP 114/57; PULSE 71; O2SAT 96
[2023-05-22 18:03] LABS: Basophils # 0.1 10^3/uL (0.0-0.1); Basophils % 1.2 %; Eosinophils # 0.6 10^3/uL (0.0-0.8); Eosinophils % 7.1 %; Hematocrit 33.7 % (37-53); Lymphocytes # 2.1 10^3/uL (0.8-4.8); Lymphocytes % 23.6 %; Mean Corpuscular HGB Conc 30.9 g/dL (30-55); Mean Corpuscular Volume 100.3 fl (82-101); Mean Platelet Volume 10.1 fL (7.4-10.4); Monocytes # 0.7 10^3/uL (0.2-0.9); Monocytes % 8.1 %; Neutrophils # 5.32 10^3/uL (1.8-7.7); Neutrophils % 59.9 %; Nucleated Red Blood Cells % 0 %; Platelet Count 217 10^3/cmm (157-399); Red Blood Count 3.36 10^6/uL (3.85-5.65); Red Cell Distribution Width 15.1 % (12.1-15.1); White Blood Count 8.89 10^3/uL (3.29-11.43)
[2023-05-22 18:23] LABS: Alanine Aminotransferase 17 U/L (0-41); Albumin Level 3.8 g/dL (3.5-5.2); Alkaline Phosphatase 94 U/L (40-130); Anion Gap 17.9 (5-19); Aspartate Amino Transferase 29 U/L (0-40); Blood Urea Nitrogen 45 mg/dL (8-23); Calcium 8.4 mg/dL (8.5-10.5); Carbon Dioxide 24 mmol/L (22-29); Chloride 105 mmol/L (98-107); Creatinine Clr Calc Pharmacy 27.5963; Globulin 2.8 g/dL (1.3-4.6); Glucose 146 mg/dL (65-115); NT Pro B Type Natriuretic Pept 169 pg/mL (0-450); Osmolality Calculated 308 mOsm/kg (285-295); Potassium 4.9 mmol/L (3.5-5.1); Sodium 142 mmol/L (136-145); Total Bilirubin 0.4 mg/dL (0.15-1.2); Total Protein 6.6 g/dL (6.6-8.7)
[2023-05-22 18:26] LABS: Influenza A by IFA negative (Negative); Influenza B by IFA negative (Negative)
[2023-05-22 18:27] LABS: SARS Covid-2 Antigen negative (Negative)
[2023-05-22 18:50] VITALS: BP 113/53; PULSE 63; O2SAT 98
--- NOTE | 2023-05-22 19:15 | ED_ITS ---
HPI - SOB/Dyspnea 2 General: Chief Complaint: Shortness of Breath/Dyspnea Stated Complaint: sob, lost voice Time Seen by Provider: 05/22/23 17:20 History of Present Illness: HPI Narrative: Patient presents to the ER with complaints of cough and increased shortness of breath. Patient says he was sleeping and he woke up gasping for air and it startled him causing anxiety made him gasp for air more. Patient went to the urgent care but they sent him over here to be further evaluated. Patient denies any fever, patient does have pulmonary fibrosis, patient is felt weak and dizzy occasionally patient's been off of home oxygen for about 2 months but does have a home portable unit that he can use as needed. Patient has a appointment with Dr. Sexton tomorrow afternoon. Review of Systems 2 General: Reports: 10 or more systems reviewed and unremarkable except in HPI and below PFSH ED 2 PFSH: Medical History Hypertension -on oral antihypertensives Hyperlipidemia -on statin Type 2 diabetes mellitus Atherosclerotic heart disease of [place] coronary artery without angina pectoris EKG in August 2019- NSR with some non specific T wave changes Osteoarthritis Hands, hips, knees and spine, lumbar spondylosis Edema, peripheral -likely secondary to acute CHF exacerbation ASHD (arteriosclerotic heart disease) -follows up with Dr. Loo Diabetes -insulin requiring Gout GERD (gastroesophageal reflux disease) Surgical History History of cholecystectomy History of hemorrhoidectomy History of hip surgery History of rotator cuff surgery History of knee surgery History of cataract surgery Family History Other CAD (coronary artery disease) Cancer Diabetes Hyperlipidemia Hypertension Social History Smoking and tobacco/nicotine status: former use of tobacco/nicotine Quit status (tobacco/nicotine): has quit using Year quit tobacco: 1983 Former quit date comment: HX of 2 ppd X 30 years Alcohol intake: never Substance/Drug Use: never Physical Exam 2 Const: COMMON NORMALS: no acute distress, average body habitus, patient oriented x3, no limitations, healthy appearing, alert and well nourished HENMT: COMMON NORMALS: normocephalic, atraumatic, hearing grossly normal bilaterally, external ears normal, Normal external nose present, moist oral mucous membranes and oropharynx normal HEAD & SCALP: normocephalic and atraumatic NOSE: Normal external nose present EXTERNAL EAR: Yes external ears normal Neck/C-Spine: COMMON NORMALS: no JVD Chest: COMMONS NORMALS: normal inspection of the chest and normal palpation of entire chest wall Resp: COMMON NORMALS: normal respiratory effort, No retractions, No use of accessory muscles and clear to auscultation bilaterally AUSCULTATION: clear to auscultation bilaterally Cardio: COMMON NORMALS: no JVD, regular rate, regular rhythm, S1 normal heart sound present, S2 normal heart sound present, No gallops present (Cardio), No clicks present (Cardio), No murmurs present (Cardio) and No rub (Cardio) R ATE: regular rate RHYTHM: regular rhythm HEART SOUNDS: S1 normal heart sound present and S2 normal heart sound present GI: COMMON NORMALS: Normal to inspection, nondistended, normoactive bowel sounds present, Soft to palpation, non-tender, No hepatosplenomegaly present and no masses PALPATION: Yes Soft to palpation and Yes No hepatosplenomegaly present Neuro: COMMON NORMALS: patient oriented x3 SENSORIUM/ORIENTATION: Yes alert Course 2 Vital Signs: Vital signs: Vital Signs Temperature 98.0 F 05/22/23 17:09 Pulse Rate 71 05/22/23 19:37 Respiratory Rate 18 05/22/23 17:09 Blood Pressure 127/94 05/22/23 19:37 Pulse Oximetry 97 05/22/23 19:37 Oxygen Delivery Me thod Room Air 05/22/23 18:50 MDM - SOB/Dyspnea Medical Decision Making Patient had lab work and chest x-ray which showed no acute pathology. Patient was placed on 2 L of oxygen and Is sat upwards of about 98%. Patient does have home oxygen at home that he can use as needed. Patient has appointment already with Dr. Sexton tomorrow afternoon. Patient be discharged home to follow-up with Dr. Piper. Differential Diagnosis Unlikely acute exacerbation of chronic obstructive airways disease, congestive heart failure, community acquired pneumonia, asthma with exacerbation or pulmonary embolism Medical Records I reviewed the patient's medical records. Lab Data I reviewed the patient's lab results. 05/22/23 17:40 05/22/23 17:40 Labs/Radiology: Radiology Impressions Chest X-Ray 05/22/23 17:28 IMPRESSION: No definitive evidence of acute cardiopulmonary disease. Extensive underlying chronic changes limit evaluation and suggest underlying pulmonary fibrosis. Laboratory Results WBC 8.89 10^3/uL (3.29-11.43) 05/22/23 17:40 RBC 3.36 10^6/uL (3.85-5.65) L 05/22/23 17:40 Hgb 10.40 g/dL (11.27-16.99) L 05/22/23 17:40 Hct 33.7 % (37-53) L 05/22/23 17:40 MCV 100.3 fl (82-101) 05/22/23 17:40 MCH 31.0 pg (27-33) 05/22/23 17:40 MCHC 30.9 g/dL (30-55) 05/22/23 17:40 RDW 15.1 % (12.1-15.1) 05/22/23 17:40 Plt Count 217 10^3/cmm (157-399) 05/22/23 17:40 MPV 10.1 fL (7.4-10.4) 05/22/23 17:40 Neut % (Auto) 59.9 % 05/22/23 17:40 Lymph % (Auto) 23.6 % 05/22/23 17:40 Sumner % (Auto) 8.1 % 05/22/23 17:40 Eos % (Auto) 7.1 % 05/22/23 17:40 Baso % (Auto) 1.2 % 05/22/23 17:40 Neut # (Auto) 5.32 10^3/uL (1.8-7.7) 05/22/23 17:40 Lymph # (Auto) 2.1 10^3/uL (0.8-4.8) 05/22/23 17:40 Sumner # (Auto) 0.7 10^3/uL (0.2-0.9) 05/22/23 17:40 Eos # (Auto) 0.6 10^3/uL (0.0-0.8) 05/22/23 17:40 Baso # (Auto) 0.1 10^3/uL (0.0-0.1) 05/22/23 17:40 Nucleated RBC % (auto) 0 % 05/22/23 17:40 Nucleated RBCs # 0.0 /100WBC 05/22/23 17:40 Specimen Type Arterial 05/22/23 17:29 Sample Site Radial, right 05/22/23 17:29 ABG pH 7.38 (7.35-7.45) 05/22/23 17: ABG pCO2 37.9 mmHg (35-45) 05/22/23 17: ABG pO2 86.0 mmHg (80.0-100.0) 05/22/23 17: ABG HCO3 22.6 mmol/L (22-26) 05/22/23 17: ABG O2 Saturation 96.3 05/22/23 17: ABG Base Excess -2.2 mmol/L (-2.0-2.0) L 05/22/23 17: Messi Test Pos 05/22/23 17:29 A-a O2 Gradient 2.0 mmHg (5-10) L 05/22/23 17:29 Hematocrit 31.6 % (42-52) L 05/22/23 17:29 Hgb O2 Saturation 95.2 % (95-100) 05/22/23 17:29 Carboxyhemoglobin 0.5 %THgb (0.4-20.1) 05/22/23 17:29 Methemoglobin 0.7 % (0.4-1.5) 05/22/23 17:29 Total Hemoglobin 10.3 g/dL (14-18) L 05/22/23 17:29 Sodium 142.0 mmol/L (131-143) 05/22/23 17:29 Potassium 4.6 mmol/L (3.5-5.0) 05/22/23 17:29 Glucose 155.0 mg/dL (70-115) H 05/22/23 17:29 Ionized Calcium 1.1 mmol/L (1.1-1.4) 05/22/23 17:29 O2 Delivery Device Nc 05/22/23 17:29 O2 Liters/Min 2.0 % 05/22/23 17:29 Retail Cosmetics Sales Beauty Advisor ID [employer] 05/22/23 17:29 Sodium 142 mmol/L (136-145) 05/22/23 17:40 Potassium 4.9 mmol/L (3.5-5.1) 05/22/23 17:40 Chloride 105 mmol/L (98-107) 05/22/23 17:40 Carbon Dioxide 24 mmol/L (22-29) 05/22/23 17:40 Anion Gap 17.9 (5-19) 05/22/23 17:40 BUN 45 mg/dL (8-23) H 05/22/23 17:40 Creatinine 2.0 mg/dL (0.7-1.2) H 05/22/23 17:40 GFR Calculation Not Reportable 05/22/23 17:40 Glucose 146 mg/dL (65-115) H 05/22/23 17:40 Calculated Osmolality 308 mOsm/kg (285-295) H 05/22/23 17:40 Calcium 8.4 mg/dL (8.5-10.5) L 05/22/23 17:40 Total Bilirubin 0.4 mg/dL (0.15-1.2) 05/22/23 17:40 AST 29 U/L (0-40) 05/22/23 17:40 ALT 17 U/L (0-41) 05/22/23 17:40 Alkaline Phosphatase 94 U/L (40-130) 05/22/23 17:40 NT-Pro-B Natriuret Pep 169 pg/mL (0-450) 05/22/23 17:40 Total Protein 6.6 g/dL (6.6-8.7) 05/22/23 17:40 Albumin 3.8 g/dL (3.5-5.2) 05/22/23 17:40 Globulin 2.8 g/dL (1.3-4.6) 05/22/23 17:40 Influenza Type A Ag negative (Negative) 05/22/23 17:41 Influenza Type B Ag negative (Negative) 05/22/23 17:41 SARS-CoV-2 Ag (Rapid) negative (Negative) 05/22/23 17:41 All radiology interpretation(s) finalized by discharge Discharge Plan Discharge Patient Disposition: Home Clinical Impression: Fibrotic lung diseases, Acute dyspnea Condition: Stable Prescriptions: No Action insulin aspart U-100 [Novolog U-100 Insulin aspart] 100 unit/mL solution 10 unit SUBCUT TID PRN (Reason: hyperglycemia) Qty: 10 6RF aspirin [Adult Low Dose Aspirin] 81 mg tablet,delayed release (DR/EC) 81 mg PO BID fexofenadine [Agnes Allergy] 60 mg tablet 60 mg PO BID budesonide-formoterol [Symbicort] 80-4.5 mcg/actuation HFA aerosol inhaler 1 puff inhalation BID hydrocortisone 2.5 % lotion 1 applic topical BID PRN (Reason: skin irritation) Qty: 118 11RF RSVPreF3 antigen-AS01E (PF) 120 mcg/0.5 mL suspension for reconstitution 0.5 ml IM ONCE Qty: 1 0RF pantoprazole 40 mg tablet,delayed release (DR/EC) See Rx Instructions .ROUTE .COMPLEX Qty: 90 11RF Dose Instruction: TAKE ONE TABLET BY MOUTH DAILY Rx Instructions: TAKE ONE TABLET BY MOUTH DAILY tamsulosin 0.4 mg capsule 0.4 mg PO QPM Qty: 90 3RF furosemide 20 mg tablet See Rx Instructions .ROUTE .COMPLEX Qty: 30 11RF Dose Instruction: TAKE 1 TABLET BY MOUTH EVERY MORNING Rx Instructions: TAKE 1 TABLET BY MOUTH EVERY MORNING benzonatate 100 mg capsule See Rx Instructions .ROUTE .COMPLEX Qty: 90 12RF Dose Instruction: take 1 capsule BY MOUTH THREE TIMES DAILY as needed for cough Rx Instructions: take 1 capsule BY MOUTH THREE TIMES DAILY as needed for cough allopurinol 100 mg tablet See Rx Instructions .ROUTE .COMPLEX Qty: 30 11RF Dose Instruction: TAKE ONE TABLET BY MOUTH EVERY DAY Rx Instructions: TAKE ONE TABLET BY MOUTH EVERY DAY lisinopril 40 mg tablet See Rx Instructions .ROUTE .COMPLEX Qty: 90 3RF Dose Instruction: TAKE 1 TABLET BY MOUTH EVERY DAY Rx Instructions: TAKE 1 TABLET BY MOUTH EVERY DAY diazepam [Valium] 5 mg tablet 5 mg PO .hs PRN (Reason: anxiety) Qty: 30 5RF Levemir FlexPen 100 unit/mL (3 mL) insulin pen See Rx Instructions .ROUTE .COMPLEX Qty: 45 11RF Dose Instruction: inject 60 units (0.6ml) SUBCUTANEOUSLY EVERY DAY Rx Instructions: inject 60 units (0.6ml) SUBCUTANEOUSLY EVERY DAY ezetimibe 10 mg tablet See Rx Instructions .ROUTE .COMPLEX Qty: 90 2RF Dose Instruction: TAKE 1 TABLET BY MOUTH EVERY MORNING Rx Instructions: TAKE 1 TABLET BY MOUTH EVERY MORNING metformin 500 mg tablet See Rx Instructions .ROUTE .COMPLEX Qty: 360 3RF Dose Instruction: TAKE TWO TABLETS BY MOUTH TWICE DAILY Rx Instructions: TAKE TWO TABLETS BY MOUTH TWICE DAILY carvedilol 12.5 mg tablet See Rx Instructions .ROUTE .COMPLEX Qty: 60 9RF Dose Instruction: TAKE 1 TABLET BY MOUTH TWICE DAILY Rx Instructions: TAKE 1 TABLET BY MOUTH TWICE DAILY docusate sodium [Stool Softener] 100 mg Tablet 100 mg PO QAM ascorbic acid (vitamin C) [Vitamin C] 500 mg Tablet,Chewable 500 mg PO DAILY benzonatate 100 mg capsule 100 mg PO PRN PRN (Reason: Cough) Rx Instructions: take 1 capsule BY MOUTH THREE TIMES DAILY as needed for cough Discharge Orders: Discharge ED (Routine); Ordered 05/22/23 Ordered By: Nile Medel Referrals: Salas Quevedo MD [Primary Care Provider] - 1 week Patient Instructions: Pulmonary Fibrosis (ED) Activity Restrictions/Additional Instructions: Please keep your appoint with Dr. Sexton tomorrow afternoon. Please use your home oxygen at 2 L per nasal cannula as needed until Dr. Sexton's appointment. Please follow-up with your family practice physician within the next 7 to 10 days Coding Level of Care Code ED Senior Administrative Support for Telly Tatum
[2023-05-22 19:37] VITALS: BP 127/94; PULSE 71; O2SAT 97
== END 2023-05-22 19:37 | disposition home or self-care (01) ==
PROVIDERS: Emergency Provider Emergency Medicine; PCP Family Medicine
DX: J84.10 Pulmonary fibrosis, unspecified (principal); R06.00 Dyspnea, unspecified; Z79.82 Long term (current) use of aspirin; Z79.4 Long term (current) use of insulin; Z79.84 Long term (current) use of oral hypoglycemic drugs; Z11.52 Encounter for screening for COVID-19; Z87.891 Personal history of nicotine dependence; I10 Essential (primary) hypertension; E78.5 Hyperlipidemia, unspecified; E11.9 Type 2 diabetes mellitus without complications; I25.10 Atherosclerotic heart disease of native coronary artery without angina pectoris
CPT/HCPCS: 36415; 36600; 71045; 80051; 80053; 82330; 82805; 83880; 85025; 87426; 87804; 99284

== ENCOUNTER → 2023-05-23 13:34 | Outpatient (BNVA) | payer MEDICARE, OTHER, SELFPAY | PROVIDERS: PCP Family Medicine; Visit Provider Internal Medicine Pulmonary Disease | DX: J98.4 Other disorders of lung (principal); J84.10 Pulmonary fibrosis, unspecified; J96.11 Chronic respiratory failure with hypoxia; J45.909 Unspecified asthma, uncomplicated; Z87.891 Personal history of nicotine dependence | CPT/HCPCS: 99214 ==

== ENCOUNTER → 2023-08-02 11:11 | Outpatient (BNVA) | payer MEDICARE, OTHER, SELFPAY | PROVIDERS: PCP Family Medicine; Visit Provider Family Medicine | DX: R30.0 Dysuria (principal) | CPT/HCPCS: 81000 ==

== ENCOUNTER → 2023-08-22 10:59 | Outpatient (BNVA) | payer MEDICARE, OTHER, SELFPAY | PROVIDERS: PCP Family Medicine; Visit Provider Internal Medicine Cardiovascular Disease | DX: R06.00 Dyspnea, unspecified (principal) | CPT/HCPCS: 36415; 80048; 83880; 99214 ==

== ENCOUNTER 2023-09-10 13:49 | Outpatient (CLI) | payer MEDICARE, OTHER, SELFPAY ==
--- NOTE | 2023-09-10 14:15 | USCV_ITS ---
Ryan Tim Age: 87 Gender: M : 1935 Exam Date: 09/10/2023 14:20 Ordering Phys: Kevin Loo MD ([email or web address]) Technologist: CT Exam Location: [facility] – [place] Indication: sob BP: 126 / 78 HR: 66 Rhythm: Sinus Technical Quality: Adequate MEASUREMENTS (Male / Female) Normal Values 2D ECHO LVOT Diameter 2.5 cm LV Ejection Fraction MOD 2C 76.8 % LV Ejection Fraction 2C AL 78.4 % LA Diameter 3.3 cm RA Systolic Volume 4C AL 31.5 ml RA Systolic Volume 4C MOD 31.1 ml LA Sys Volume AL 41.6 cm cubed LA Sys Volume Index AL 19.7 cm cubed/m squared Aorta at Sinotubular Diameter 2.5 cm M-MODE LA Ao Ratio MM 1.9 AV Cusp Separation MM 2.3 cm DOPPLER AV Peak Velocity 122.0 cm/s LVOT Peak Velocity 105.0 cm/s AV Area Cont Eq vti 4.9 cm squared AV Area Cont Eq pk 4.1 cm squared MV Peak Velocity 101.0 cm/s MV Area PHT 2.2 cm squared Mitral E to A Ratio 0.7 TV Peak Velocity 90.0 cm/s TR Peak Velocity 125.0 cm/s TR Peak Gradient 6.3 mmHg Right Atrial Pressure 3.0 mmHg Pulmonary Artery Systolic Pressu 9.3 mmHg PV Peak Velocity 101.0 cm/s FINDINGS Left Ventricle Normal left ventricular size and systolic function, EF 76%. No regional wall motion abnormalities. Grade I/IV diastolic dysfunction (abnormal relaxation filling pattern), normal to mildly elevated filling pressures. Right Ventricle The right ventricle is normal in size and function. Right Atrium The right atrium is normal in size. Left Atrium The left atrium is normal in size. Mitral Valve Mild mitral annular calcification. Aortic Valve No gross abnormalities. Tricuspid Valve Trace to mild tricuspid valve regurgitation. Pulmonic Valve Trace pulmonary valve regurgitation. Pericardium Normal pericardium without effusion. Aorta Normal ascending aorta dimension. IVC The inferior vena cava appears normal. CONCLUSIONS Normal left ventricular size and systolic function, EF 76%. No regional wall motion abnormalities. Grade I/IV diastolic dysfunction (abnormal relaxation filling pattern), normal to mildly elevated filling pressures. Mild mitral annular calcification. Trace to mild tricuspid valve regurgitation. Estimated pulmonary artery peak systolic pressure within normal limits There is no pericardial effusion. There are no intracardiac masses. Dr Kevin Loo MD FACC (Electronically Signed) Final Date: 18 September 2023 19:58 S
== END 2023-09-10 13:50 | disposition home or self-care (01) ==
LOC: RAD 13:49
PROVIDERS: PCP Family Medicine; Visit Provider Internal Medicine Cardiovascular Disease
DX: I50.30 Unspecified diastolic (congestive) heart failure (principal)
CPT/HCPCS: 36415; 80048; 83880; 93306; 99214

== ENCOUNTER → 2023-09-25 10:44 | Outpatient (BNVA) | payer MEDICARE, SELFPAY | PROVIDERS: PCP Family Medicine; Visit Provider Internal Medicine Critical Care Medicine | DX: J96.11 Chronic respiratory failure with hypoxia (principal); J98.4 Other disorders of lung; J84.10 Pulmonary fibrosis, unspecified; J44.9 Chronic obstructive pulmonary disease, unspecified; U09.9 Post COVID-19 condition, unspecified; I51.89 Other ill-defined heart diseases; R42 Dizziness and giddiness | CPT/HCPCS: 99214 ==

== ENCOUNTER 2023-10-01 11:19 | Emergency (ER) | payer MEDICARE, OTHER, SELFPAY ==
[2023-10-01 12:02] VITALS: BP 90/69; PULSE 76; RESP 18; TEMP 36.7; O2SAT 93
[2023-10-01 12:28] VITALS: BP 125/69; PULSE 67; O2SAT 96
--- NOTE | 2023-10-01 12:35 | XRR_ITS ---
PROCEDURE INFORMATION: Exam: XR Lumbosacral Spine Exam date and time: 10/01/2023 12:51 PM Age: 87 years old Clinical indication: Injury or trauma; Fall; Blunt trauma (contusions or hematomas) TECHNIQUE: Imaging protocol: Radiologic exam of the lumbosacral spine. Views: 2 or 3 views. COMPARISON: CR XR hip BI 3-4V wo/w pel [id number] 10/01/2023 12:45 PM FINDINGS: Bones/joints: Grade 1 retrolisthesis of L3 on L4. Straightening of the normal lordosis, likely positional. Vertebral body heights are preserved. No acute fracture. Multilevel degenerative disc disease and facet arthrosis. Soft tissues: Unremarkable. XR/XR lumbar spine 2-3V* [id number] IMPRESSION: No acute findings.
--- NOTE | 2023-10-01 12:35 | XRR_ITS ---
PROCEDURE INFORMATION: Exam: XR Bilateral Hips Exam date and time: 10/01/2023 12:45 PM Age: 87 years old Clinical indication: Injury or trauma; Fall; Blunt trauma (contusions or hematomas); Bilateral; Pelvic region; Prior surgery; Surgery date: 6+ months; Surgery type: Right hip TECHNIQUE: Imaging protocol: Radiologic exam of the bilateral hips. Views: 2 views of hips with pelvis when performed. COMPARISON: CT abdomen w con* [id number] 03/26/2020 9:45 AM FINDINGS: Bones/joints: Status post right hip arthroplasty. Hardware is intact. No acute fracture or dislocation. Soft tissues: Unremarkable. XR/XR hip BI 3-4V wo/w pel [id number] IMPRESSION: No acute fracture or dislocation.
--- NOTE | 2023-10-01 12:35 | W.ED.FALL ---
HPI - Fall General: Chief Complaint: Fall Stated Complaint: Hip and back pain Time Seen by Provider: 10/01/23 12:02 Source: patient and family () Mode of arrival: ambulatory Limitations: no limitations History of Present Illness: Patient is a nice 87-year-old male who presents to the ED today along with his for evaluation of lower back and bilateral hip pain following a fall a month ago with another fall yesterday. Both were trip and fall instances. He denies striking his head or LOC. His only complaint is the back and hip pains. He states he has been seen by his primary care provider but no x-rays were performed and he is requesting these today. He is ambulatory here with the help of his walker/cane that he normally uses. He denies numbness, tingling, loss of sensation to his legs. Denies color/temperature changes. He does not describe any sensations of buttock claudication. He is not having any issues with urinary retention or fecal incontinence. MD complaint: fall Onset (ago): month(s) Fall from: standing Fall witnessed: yes, by family Place fall occurred: home Loss of consciousness: None Prolonged down time: no Symptoms prior to fall: none Context: tripped/slipped Location of injury: back and other (bilateral hips) Severity: moderate Associated symptoms-after fall: Reports no associated symptoms and difficulty walking (chronically uses a walker); Denies abdominal pain, chest pain, headache(s), hematuria or neck pain Review of Systems Const: Denies: fever(s), chills, body aches, fatigue or malaise Card: Denies: chest pain Resp: Denies: dyspnea GI: Denies: abdominal pain : Denies: flank pain, dysuria, hematuria or hematospermia Musc: Reports: back pain and joint pain (bilateral hip pain); Denies: neck pain, extremity pain, extremity swelling, joint swelling or joint redness Skin/Breast: Denies: rash Neuro: Reports: difficulty walking (chronically uses a walker); Denies: headache(s), numbness in extremities, weakness in extremities or sensory changes [facility] ED PFSH: Medical History Hypertension -on oral antihypertensives Hyperlipidemia -on statin Type 2 diabetes mellitus Atherosclerotic heart disease of [place] coronary artery without angina pectoris EKG in August 2019- NSR with some non specific T wave changes Osteoarthritis Hands, hips, knees and spine, lumbar spondylosis Edema, peripheral -likely secondary to acute CHF exacerbation ASHD (arteriosclerotic heart disease) -follows up with Dr. Loo Diabetes -insulin requiring Gout GERD (gastroesophageal reflux disease) Surgical History History of cholecystectomy History of hemorrhoidectomy History of hip surgery History of rotator cuff surgery History of knee surgery History of cataract surgery Family History Other CAD (coronary artery disease) Cancer Diabetes Hyperlipidemia Hypertension Social History Smoking and tobacco/nicotine status: former use of tobacco/nicotine Quit status (tobacco/nicotine): has quit using Year quit tobacco: 1983 Former quit date comment: HX of 2 ppd X 30 years Alcohol intake: never Substance/Drug Use: never Physical Exam Const: COMMON NORMALS: no acute distress, average body habitus, patient oriented x3, no limitations, healthy appearing, alert and well nourished ORIENTATION/CONSCIOUSNESS: Yes awake, Yes oriented to person, Yes oriented to place and Yes oriented to time HENMT: COMMON NORMALS: normocephalic and atraumatic HEAD & SCALP: normal to inspection, normocephalic and atraumatic Neck/C-Spine: COMMON NORMALS: full ROM CERVICAL SPINE: No pain with cervical ROM : COMMON NORMALS: Yes no CVA tenderness BLADDER/KIDNEY EXAM: Yes no CVA tenderness Back/Pelvis: COMMON NORMALS: no CVA tenderness, thoracic and lumbar spine normal to inspection and straight leg raise negative bilaterally THORACIC SPINE/UPPER BACK: No thoracic spinal tenderness LUMBAR SPINE/LOWER BACK: Yes paraspinal muscle tenderness PELVIS: Yes buttocks normal and Yes sciatic notch tenderness SACRUM: no tenderness COCCYX: no tenderness Extremity: COMMON NORMALS: normal to inspection and capillary refill normal GENERAL: Yes normal exam except as noted RIGHT LOWER EXTREMITY: Yes hip joint LEFT LOWER EXTREMITY: Yes hip joint OTHER: bilateral hip pain without dec ROM; bilateral LEs are NV intact with normal peripheral pulses, cap refill, and sensation Neuro: COMMON NORMALS: patient oriented x3, moves all extremities, no focal motor deficits and no sensory deficits noted SENSORIUM/ORIENTATION: Yes alert, Yes oriented to person, Yes oriented to place and Yes oriented to time Skin: COMMON NORMALS: no rashes or lesions noted GENERAL SKIN EXAM: no rashes or lesions noted Course Vital Signs: Vital signs: Vital Signs Temperature 98.1 F 10/01/23 12:02 Pulse Rate 67 10/01/23 12:28 Respiratory Rate 18 10/01/23 12:02 Blood Pressure 125/69 10/01/23 12:28 Pulse Oximetry 96 10/01/23 12:28 Oxygen Delivery Me thod Room Air 10/01/23 12:02 MDM - Fall Medical Decision Making Patient here for low back/bilateral hip pain following a fall a month ago. Another fall yesterday. No other complaints. Ambulatory here with help of cane/walker that he normally uses. XRs are unremarkable. He will be allowed discharge to follow up with his PCP. Return precautions given. Medical Records I reviewed the patient's medical records. Lab Data Radiology Impressions Hip/Pelvis X-Ray 10/01/23 12:35 IMPRESSION: No acute fracture or dislocation. Lumbar Spine X-Ray 10/01/23 12:35 IMPRESSION: No acute findings. All radiology interpretation(s) finalized by discharge Discharge Plan Discharge Patient Disposition: Home Clinical Impression: Bilateral hip pain Condition: Stable Prescriptions: No Action insulin aspart U-100 [Novolog U-100 Insulin aspart] 100 unit/mL solution 10 unit SUBCUT TID PRN (Reason: hyperglycemia) Qty: 10 6RF aspirin [Adult Low Dose Aspirin] 81 mg tablet,delayed release (DR/EC) 81 mg PO BID fexofenadine [Agnes Allergy] 60 mg tablet 60 mg PO BID budesonide-formoterol [Symbicort] 80-4.5 mcg/actuation HFA aerosol inhaler 1 puff inhalation BID Qty: 10.2 4RF mupirocin 2 % ointment 1 applic topical BID Qty: 15 0RF ipratropium-albuterol 0.5 mg-3 mg(2.5 mg base)/3 mL solution for nebulization 3 ml inhalation BID Qty: 180 3RF hydrocortisone 2.5 % lotion 1 applic topical BID PRN (Reason: skin irritation) Qty: 118 11RF RSVPreF3 antigen-AS01E (PF) 120 mcg/0.5 mL suspension for reconstitution 0.5 ml IM ONCE Qty: 1 0RF pantoprazole 40 mg tablet,delayed release (DR/EC) See Rx Instructions .ROUTE .COMPLEX Qty: 90 11RF Dose Instruction: TAKE ONE TABLET BY MOUTH DAILY Rx Instructions: TAKE ONE TABLET BY MOUTH DAILY tamsulosin 0.4 mg capsule 0.4 mg PO QPM Qty: 90 3RF furosemide 20 mg tablet See Rx Instructions .ROUTE .COMPLEX Qty: 30 11RF Dose Instruction: TAKE 1 TABLET BY MOUTH EVERY MORNING Rx Instructions: TAKE 1 TABLET BY MOUTH EVERY MORNING benzonatate 100 mg capsule See Rx Instructions .ROUTE .COMPLEX Qty: 90 12RF Dose Instruction: take 1 capsule BY MOUTH THREE TIMES DAILY as needed for cough Rx Instructions: take 1 capsule BY MOUTH THREE TIMES DAILY as needed for cough allopurinol 100 mg tablet See Rx Instructions .ROUTE .COMPLEX Qty: 30 11RF Dose Instruction: TAKE ONE TABLET BY MOUTH EVERY DAY Rx Instructions: TAKE ONE TABLET BY MOUTH EVERY DAY lisinopril 40 mg tablet See Rx Instructions .ROUTE .COMPLEX Qty: 90 3RF Dose Instruction: TAKE 1 TABLET BY MOUTH EVERY DAY Rx Instructions: TAKE 1 TABLET BY MOUTH EVERY DAY diazepam [Valium] 5 mg tablet 5 mg PO .hs PRN (Reason: anxiety) Qty: 30 5RF Levemir FlexPen 100 unit/mL (3 mL) insulin pen See Rx Instructions .ROUTE .COMPLEX Qty: 45 11RF Dose Instruction: inject 60 units (0.6ml) SUBCUTANEOUSLY EVERY DAY Rx Instructions: inject 60 units (0.6ml) SUBCUTANEOUSLY EVERY DAY ezetimibe 10 mg tablet See Rx Instructions .ROUTE .COMPLEX Qty: 90 2RF Dose Instruction: TAKE 1 TABLET BY MOUTH EVERY MORNING Rx Instructions: TAKE 1 TABLET BY MOUTH EVERY MORNING carvedilol 12.5 mg tablet See Rx Instructions .ROUTE .COMPLEX Qty: 60 9RF Dose Instruction: TAKE 1 TABLET BY MOUTH TWICE DAILY Rx Instructions: TAKE 1 TABLET BY MOUTH TWICE DAILY insulin glargine [Lantus Solostar U-100 Insulin] 100 unit/mL (3 mL) insulin pen 60 unit SUBCUT DAILY Qty: 15 11RF fluorouracil [Efudex] 5 % cream 1 applic topical BID 14 Days Qty: 40 1RF docusate sodium [Stool Softener] 100 mg Tablet 100 mg PO QAM Hold Instructions: Home Medication placed on hold at Doctor's office ascorbic acid (vitamin C) [Vitamin C] 500 mg Tablet,Chewable 500 mg PO DAILY benzonatate 100 mg capsule 100 mg PO PRN PRN (Reason: Cough) Rx Instructions: take 1 capsule BY MOUTH THREE TIMES DAILY as needed for cough Discharge Orders: Discharge ED (Routine); Ordered 10/01/23 Ordered By: Deena Arnett Referrals: Salas Quevedo MD [Primary Care Provider] - Coding Level of Care Code ED Title I Paraprofessional for Patienceg Deepti
[2023-10-01 13:43] VITALS: BP 125/69; PULSE 67; RESP 18; TEMP 36.7; O2SAT 96
== END 2023-10-01 13:42 | disposition home or self-care (01) ==
PROVIDERS: Emergency Provider Physician Assistant; PCP Family Medicine
DX: M25.551 Pain in right hip (principal); M25.552 Pain in left hip; Z79.82 Long term (current) use of aspirin; Z79.4 Long term (current) use of insulin; Z87.891 Personal history of nicotine dependence; E11.9 Type 2 diabetes mellitus without complications; I10 Essential (primary) hypertension; E78.5 Hyperlipidemia, unspecified; I25.10 Atherosclerotic heart disease of native coronary artery without angina pectoris
CPT/HCPCS: 72100; 73522; 99284

== ENCOUNTER 2023-10-02 10:29 | Outpatient (CLI) | payer MEDICARE, OTHER, SELFPAY | END 2023-10-02 10:30 | disposition home or self-care (01) | LOC: SLEEP 10:32 | PROVIDERS: PCP Family Medicine; Visit Provider Internal Medicine Critical Care Medicine | DX: J96.11 Chronic respiratory failure with hypoxia (principal); J98.4 Other disorders of lung; J84.10 Pulmonary fibrosis, unspecified; J44.9 Chronic obstructive pulmonary disease, unspecified; U09.9 Post COVID-19 condition, unspecified; I51.89 Other ill-defined heart diseases; R42 Dizziness and giddiness | CPT/HCPCS: 94762 ==

== ENCOUNTER 2023-10-09 06:00 | Outpatient (CLI) | payer MEDICARE, OTHER, SELFPAY | END 2023-10-09 06:01 | disposition home or self-care (01) | LOC: RAD 11-21 09:40 | PROVIDERS: PCP Family Medicine; Visit Provider Family Medicine | DX: I10 Essential (primary) hypertension (principal); N17.9 Acute kidney failure, unspecified; E11.9 Type 2 diabetes mellitus without complications; Z79.4 Long term (current) use of insulin | CPT/HCPCS: 80048; 83036 ==

== ENCOUNTER 2023-10-12 14:18 | Outpatient (CLI) | payer MEDICARE, OTHER, SELFPAY ==
--- NOTE | 2023-10-12 14:30 | CT_ITS ---
WS: [id number] CT RIGHT HIP, NONCONTRAST HISTORY: hip pain Technique: All CT scans at [facility] use at least one of these dose optimization techniques: automated exposure control; mA and/or kV adjustment per patient size (includes targeted exams where dose is matched to clinical indication); or iterative reconstruction. DLP: 1241.76 mGy.cm COMPARISON: Radiograph 10/01/2023 Status post RIGHT hip arthroplasty. Artifact from the arthroplasty device. No lucency around the orth opedic hardware. Femoral head component appears normally seated at the acetabulum. No acute fractures identified. Symphysis pubis and pubic rami appear to be intact. Atherosclerotic calcification in the iliac artery and femoral artery. No soft tissue hematoma. CT/CT hip RT wo con* [id number] IMPRESSION: 1. Status post RIGHT hip arthroplasty. 2. No acute fractures are identified. There is limitation of this examination due to the artifact from the hardware. No dislocation or fracture appreciated.
--- NOTE | 2023-10-12 15:00 | CT_ITS ---
WS: [id number] CT LUMBAR SPINE, noncontrast. HISTORY: back pain TECHNIQUE: Contiguous 2.0 mm axial imaging are performed. Sagittal and coronal reformats are submitte d and reviewed. All CT scans at [facility] use at least one of these dose optimization techni ques: automated exposure control; mA and/or kV adjustment per patient size (includes targeted exams w here dose is matched to clinical indication); or iterative reconstruction. IV contrast: None DLP: 1241.76 mGy.cm COMPARISON: None available. Advanced degenerative disc disease and straightening of the normal lumbar lordosis. L3 and L4 retroli sthesis by 3 mm. Vacuum disc phenomenon at all levels in the lumbar spine. Hypertrophic endplate oste ophytes with facet disease. Bones are osteopenic. No acute fracture. L1-2: Moderate annular disc bulging asymmetric to the LEFT. Mild to moderate central, bilateral subar ticular recess and mild foraminal stenosis. L2-3: Diffuse annular disc bulging effacing ventral CSF. Central and bilateral foraminal stenosis and subarticular recess stenosis. L3-4: Diffuse annular disc bulging with osteophytic ridging and ligamentum flavum hypertrophy. Facet disease. Moderate to severe central with bilateral subarticular recess and foraminal stenosis. L4-5: Diffuse osteophytic ridging with annular disc bulging. Moderate to severe central with bilatera l subarticular recess and foraminal stenosis. Facet arthritis. L5-S1: Mild annular disc bulging with a broad-based moderate central disc protrusion. Mild central st enosis. Moderate bilateral subarticular recess foraminal stenosis. No sacral fractures identified. Bones are osteopenic. Incompletely visualized cystic mass associated with the RIGHT kidney. CT/CT lumbar spine wo con* [id number] IMPRESSION: 1. No acute lumbar spine fracture. 2. Advanced degenerative disc disease and facet arthritis. 3. Multilevel areas of central, subarticular recess and foraminal stenosis as above. 4. Most significant stenosis at L3-4 through L5-S1. 5. No sacral fracture.
== END 2023-10-12 14:19 | disposition home or self-care (01) ==
LOC: RAD 14:19
PROVIDERS: PCP Family Medicine; Visit Provider Family Medicine
DX: M51.36 Other intervertebral disc degeneration, lumbar region (principal); M47.896 Other spondylosis, lumbar region; M99.63 Osseous and subluxation stenosis of intervertebral foramina of lumbar region; M51.26 Other intervertebral disc displacement, lumbar region
CPT/HCPCS: 72131; 73700

== ENCOUNTER → 2024-01-08 13:47 | Outpatient (BNVA) | payer MEDICARE, OTHER, SELFPAY | PROVIDERS: PCP Family Medicine; Visit Provider Family Medicine | DX: Z00.00 Encounter for general adult medical examination without abnormal findings (principal); I10 Essential (primary) hypertension; I50.9 Heart failure, unspecified; E11.9 Type 2 diabetes mellitus without complications; Z79.4 Long term (current) use of insulin; E78.2 Mixed hyperlipidemia | CPT/HCPCS: 80053; 80061; 83036; 84153; 84550; 85025 ==

== ENCOUNTER → 2024-02-27 11:22 | Outpatient (BNVA) | payer MEDICARE, OTHER, SELFPAY | PROVIDERS: PCP Family Medicine; Visit Provider Internal Medicine Cardiovascular Disease | DX: I11.0 Hypertensive heart disease with heart failure (principal); I50.9 Heart failure, unspecified; J44.9 Chronic obstructive pulmonary disease, unspecified; I25.10 Atherosclerotic heart disease of native coronary artery without angina pectoris; E78.2 Mixed hyperlipidemia; E11.9 Type 2 diabetes mellitus without complications; Z79.4 Long term (current) use of insulin | CPT/HCPCS: 99214 ==

== ENCOUNTER 2024-05-13 11:11 | Emergency (ER) | payer MEDICARE, OTHER, SELFPAY ==
--- NOTE | 2024-05-13 11:13 | XRR_ITS ---
PROCEDURE INFORMATION: Exam: XR Left Hip Exam date and time: 05/13/2024 12:10 PM Age: 88 years old Clinical indication: Injury or trauma; Fall; Blunt trauma (contusions or hematomas); Left; Injury date: Several months ago; Prior surgery; Surgery date: 6+ months; Surgery type: RT hip TECHNIQUE: Imaging protocol: Radiologic exam of the left hip. Views: 2 or 3 views hip with pelvis when performed. COMPARISON: CR XR hip BI 3-4V wo/w pel [id number] 10/01/2023 12:45 PM FINDINGS: Bones/joints: Unremarkable. No acute fracture. Soft tissues: Unremarkable. XR/XR hip LT 2-3V wo/w pel* [id number] IMPRESSION: No acute findings.
[2024-05-13 11:17] VITALS: BP 149/80; PULSE 89; TEMP 36.5; O2SAT 94
--- NOTE | 2024-05-13 11:47 | XR_ITS ---
WS: [email or web address] XR lumbar spine 2-3V* [id number] REASON FOR EXAM: fall FINDINGS: The lumbar spine appears unchanged compared to 10/01/2023. There is multilevel degenerative spondylosis with disc space narrowing, endplate sclerosis, and osteophytosis. No significant compression deformity. Right intrarenal calculus. XR/XR lumbar spine 2-3V* [id number] IMPRESSION: Stable multilevel degenerative spondylosis with no acute abnormality.
--- NOTE | 2024-05-13 11:47 | XR_ITS ---
WS: [id number] XR thoracic spine 3V* [id number] REASON FOR EXAM: fall FINDINGS: There is significant degenerative spondylosis in the mid and lower thoracic spine with disc space narrowing and osteophytosis. No significant/acute subacute vertebral body compression deformity. Increased density in the right lung apex. This appears to be chronic fibronodular change with apical cap which is been seen on multiple previous chest x-rays and appears unchanged. XR/XR thoracic spine 3V* [id number] IMPRESSION: Significant degenerative spondylosis of the thoracic spine. No acute abnormality.
--- NOTE | 2024-05-13 13:41 | W.ED.BACK ---
HPI - Back Pain/Injury General: Chief Complaint: Back Pain/Injury Stated Complaint: falls, L hip pain, back pain Time Seen by Provider: 05/13/24 13:15 Source: patient and family Mode of arrival: ambulatory Limitations: no limitations History of Present Illness: Patient is a very nice loquacious 88-year-old male who presents to the ED today with a complaint of chronic back pain as well as left hip pain. Patient feels like symptoms started following a fall over a year ago. He has subsequently had another fall over the past several months. He is ambulatory here with the help of his cane which he normally uses. Patient has various other complaints all of which are chronic including balance issues, some intermittent urinary dribbling, and constipation. Patient does state his primary care provider does do routine prostate screenings. Patient has no acute complaints today. His main reason for seeking medical evaluation was for x-rays of his back and hip. MD elicited complaint: back pain and other (hip pain) Pertinent past history: prior back pain Onset (ago): month(s) Timing: constant Severity: moderate Similar Symptoms Previously: Yes Location: lumbar spine and thoracic spine Radiation: none Exacerbating factors: walking Relieving factors: none Associated symptoms: Deny abdominal pain, chills, dysuria, fatigue, fever(s), urinary urgency or vomiting Work related injury: No Related Data Home Medications ?Medication ?Instructions ?Recorded ?Confirmed aspirin 81 mg tablet,delayed 81 mg PO BID 04/15/19 03/10/24 release (Adult Low Dose Aspirin) docusate sodium 100 mg tablet 100 mg PO QAM 02/16/21 03/10/24 (Stool Softener) Held on 07/03/23. Instructions: Home Medication placed on hold at Doctor's office ascorbic acid (vitamin C) 500 mg 500 mg PO DAILY 01/20/22 03/10/24 chewable tablet (Vitamin C) fexofenadine 60 mg tablet (Agnes 60 mg PO BID 08/22/22 03/10/24 Allergy) Previous Rx's ?Medication ?Instructions ?Recorded insulin aspart U-100 100 unit/mL 10 unit (0.1 mL) SUBCUT TID PRN 05/23/21 subcutaneous solution (Novolog hyperglycemia #10 mL U-100 Insulin aspart) hydrocortisone 2.5 % lotion 1 applic topical BID PRN skin 04/26/22 irritation #118 mL lisinopril 40 mg tablet See Rx Instructions .Route 02/13/23 .COMPLEX #90 tabs RSVPreF3 antigen-AS01E 0.5 ml IM ONCE #1 ea 04/03/23 adjuvant(PF) 120 mcg/0.5 mL IM suspension, kit insulin detemir U-100 100 unit/mL See Rx Instructions .Route 04/24/23 (3 mL) subcutaneous pen (Levemir .COMPLEX #45 mL FlexPen) budesonide-formoterol HFA 80 1 puff inhalation BID #10.2 grams 05/23/23 mcg-4.5 mcg/actuation aerosol inhaler (Symbicort) mupirocin 2 % topical ointment 1 applic topical BID #15 grams 09/03/23 furosemide 20 mg tablet See Rx Instructions .Route 10/12/23 .COMPLEX #90 tabs pantoprazole 40 mg tablet,delayed See Rx Instructions .Route 10/12/23 release .COMPLEX #90 tabs fluorouracil 5 % topical cream See Rx Instructions .Route 12/24/23 .COMPLEX #40 grams RSVPreF3 antigen-AS01E 0.5 ml IM ONCE #1 ea 01/08/24 adjuvant(PF) 120 mcg/0.5 mL IM suspension, kit tamsulosin 0.4 mg capsule 0.4 mg PO QPM #90 caps 02/14/24 ezetimibe 10 mg tablet See Rx Instructions .Route 02/20/24 .COMPLEX #90 tabs ciprofloxacin HCl 500 mg tablet 500 mg PO BID #10 tabs 02/25/24 allopurinol 100 mg tablet See Rx Instructions .Route 02/27/24 .COMPLEX #270 tabs ipratropium 0.5 mg-albuterol 3 mg 3 ml inhalation BID #180 mL 02/27/24 (2.5 mg base)/3 mL nebulization soln benzonatate 100 mg capsule 100 mg PO TID PRN Cough #90 caps 03/06/24 prednisone 10 mg tablet 10 mg PO DAILY 5 days #5 tabs 03/06/24 insulin glargine 100 unit/mL (3 See Rx Instructions .Route 03/17/24 mL) subcutaneous pen (Lantus .COMPLEX #15 mL Solostar U-100 Insulin) diazepam 5 mg tablet (Valium) 5 mg PO .hs PRN anxiety #30 tabs 03/31/24 benzonatate 100 mg capsule See Rx Instructions .Route 04/14/24 .COMPLEX #90 caps carvedilol 12.5 mg tablet See Rx Instructions .Route 04/14/24 .COMPLEX #60 tabs Allergies Allergy/AdvReac Type Severity Reaction Status Date / Time aspirin Allergy Unknown unknown Verified 05/13/24 11:28 cefuroxime (From Ceftin) Allergy Unknown unknown Verified 05/13/24 11:28 fluvastatin (From Lescol) Allergy Unknown unknown Verified 05/13/24 11:28 Sulfa (Sulfonamide Allergy Unknown unknown Verified 05/13/24 11:28 Antibiotics) povidone-iodine (From Allergy Unknown Verified 05/13/24 11:28 Betadine) soap (From Betadine) Allergy Unknown Verified 05/13/24 11:28 gabapentin AdvReac Intermediate hallucinati Verified 05/13/24 11:28 on sulfamethoxazole (From AdvReac Intermediate kidney Verified 05/13/24 11:28 Bactrim) failure trimethoprim (From Bactrim) AdvReac Intermediate kidney Verified 05/13/24 11:28 failure Review of Systems Const: Denies: fever(s), chills, body aches, fatigue or malaise Card: Denies: chest pain Resp: Denies: dyspnea GI: Reports: constipation; Denies: abdominal pain, vomiting or diarrhea : Reports: urinary dribbling (occasional); Denies: flank pain, difficulty urinating, dysuria, urinary frequency, urinary urgency, difficulty starting urination or oliguria Musc: Reports: back pain and joint pain (L hip); Denies: neck pain, extremity pain, extremity swelling, joint swelling, joint redness or joint warmth Skin/Breast: Denies: rash Neuro: Denies: headache(s) or dizziness PFSH ED PFSH: Medical History Hypertension -on oral antihypertensives Hyperlipidemia -on statin Type 2 diabetes mellitus Atherosclerotic heart disease of crow coronary artery without angina pectoris EKG in August 2019- NSR with some non specific T wave changes Osteoarthritis Hands, hips, knees and spine, lumbar spondylosis Edema, peripheral -likely secondary to acute CHF exacerbation ASHD (arteriosclerotic heart disease) -follows up with Dr. Loo Diabetes -insulin requiring Gout GERD (gastroesophageal reflux disease) Surgical History History of cholecystectomy History of hemorrhoidectomy History of hip surgery History of rotator cuff surgery History of knee surgery History of cataract surgery Family History Other CAD (coronary artery disease) Cancer Diabetes Hyperlipidemia Hypertension Social History Smoking and tobacco/nicotine status: former use of tobacco/nicotine Quit status (tobacco/nicotine): has quit using Year quit tobacco: 1983 Former quit date comment: HX of 2 ppd X 30 years Alcohol intake: never Substance/Drug Use: never Physical Exam Const: COMMON NORMALS: no acute distress, average body habitus, patient oriented x3, no limitations, healthy appearing, alert and well nourished GENERAL APPEARANCE: cooperative ORIENTATION/CONSCIOUSNESS: Yes awake, Yes oriented to person, Yes oriented to place and Yes oriented to time HENMT: COMMON NORMALS: normocephalic and atraumatic HEAD & SCALP: normal to inspection, normocephalic and atraumatic Eye: GENERAL EYE: appearance normal, both eyes and all related structures Neck/C-Spine: COMMON NORMALS: full ROM Resp: COMMON NORMALS: normal respiratory effort and clear to auscultation bilaterally AUSCULTATION: clear to auscultation bilaterally Cardio: COMMON NORMALS: regular rate and regular rhythm RATE: regular rate RHYTHM: regular rhythm GI: COMMON NORMALS: Normal to inspection, nondistended, normoactive bowel sounds present, Soft to palpation, non-tender and no masses PALPATION: Yes Soft to palpation : COMMON NORMALS: Yes no CVA tenderness BLADDER/KIDNEY EXAM: Yes no CVA tenderness Back/Pelvis: COMMON NORMALS: no CVA tenderness and thoracic and lumbar spine normal to inspection THORACIC SPINE/UPPER BACK: No thoracic spinal tenderness and No paraspinal muscle tenderness LUMBAR SPINE/LOWER BACK: Yes lumbar spinal tenderness and Yes straight leg raise negative bilaterally PELVIS: Yes buttocks normal and No sciatic notch tenderness SACROILIAC JOINTS: Yes SI joints normal SACRUM: no tenderness COCCYX: no tenderness Extremity: COMMON NORMALS: normal to inspection, full ROM, capillary refill normal, no joint enlargement, no clubbing, cyanosis or edema, no calf tenderness and no pedal edema GENERAL: Yes normal exam except as noted LEFT LOWER EXTREMITY: Yes hip joint (ambulatory on hip without much trouble using his cane) Left hip: Yes inspection (normal gross inspection), Yes ROM (fairly normal) and Yes neurovascular exam (normal) Neuro: COMMON NORMALS: patient oriented x3, moves all extremities, no focal motor deficits, no sensory deficits noted and gait normal SENSORIUM/ORIENTATION: Yes alert, Yes oriented to person, Yes oriented to place and Yes oriented to time Skin: COMMON NORMALS: no rashes or lesions noted GENERAL SKIN EXAM: no rashes or lesions noted Course Vital Signs: Vital signs: Vital Signs Temperature 97.7 F 05/13/24 11:17 Pulse Rate 89 05/13/24 11:17 Blood Pressure 149/80 05/13/24 11:17 Pulse Oximetry 94 05/13/24 11:17 Oxygen Delivery Me thod Room Air 05/13/24 11:17 MDM - Back Pain/Injury Medical Decision Making Patient here with a few various chronic complaints but his main complaint is his chronic back and hip pain. States he has not been using any [id number] analgesics to help with discomfort. Recommend he start using extra strength Tylenol to see how this helps. Recommend he follow-up with primary care for further evaluation and treatment. This could include physical therapy, pain management referral, orthopedic referral. His other chronic complaints were discussed and these can be followed up with primary care as well. I do not any suspicion for any life-threatening or emergent etiology at this time. Medical Records I reviewed the patient's medical records. Labs Radiology Impressions Hip/Pelvis X-Ray 05/13/24 11:13 IMPRESSION: No acute findings. Lumbar Spine X-Ray 05/13/24 11:47 IMPRESSION: Stable multilevel degenerative spondylosis with no acute abnormality. Thoracic Spine X-Ray 05/13/24 11:47 IMPRESSION: Significant degenerative spondylosis of the thoracic spine. No acute abnormality. All radiology interpretation(s) finalized by discharge Discharge Plan Discharge Patient Disposition: Home Clinical Impression: Chronic back pain, Left hip pain Condition: Stable Prescriptions: No Action insulin aspart U-100 [Novolog U-100 Insulin aspart] 100 unit/mL solution 10 unit SUBCUT TID PRN (Reason: hyperglycemia) Qty: 10 6RF aspirin [Adult Low Dose Aspirin] 81 mg tablet,delayed release (DR/EC) 81 mg PO BID fexofenadine [Agnes Allergy] 60 mg tablet 60 mg PO BID budesonide-formoterol [Symbicort] 80-4.5 mcg/actuation HFA aerosol inhaler 1 puff inhalation BID Qty: 10.2 4RF mupirocin 2 % ointment 1 applic topical BID Qty: 15 0RF hydrocortisone 2.5 % lotion 1 applic topical BID PRN (Reason: skin irritation) Qty: 118 11RF RSVPreF3 antigen-AS01E (PF) 120 mcg/0.5 mL suspension for reconstitution 0.5 ml IM ONCE Qty: 1 0RF ipratropium-albuterol 0.5 mg-3 mg(2.5 mg base)/3 mL solution for nebulization 3 ml inhalation BID Qty: 180 3RF RSVPreF3 antigen-AS01E (PF) 120 mcg/0.5 mL suspension for reconstitution 0.5 ml IM ONCE Qty: 1 0RF prednisone 10 mg tablet 10 mg PO DAILY 5 Days Qty: 5 0RF benzonatate 100 mg capsule 100 mg PO TID PRN (Reason: Cough) Qty: 90 0RF Rx Instructions: take 1 capsule BY MOUTH THREE TIMES DAILY as needed for cough lisinopril 40 mg tablet See Rx Instructions .ROUTE .COMPLEX Qty: 90 3RF Dose Instruction: TAKE 1 TABLET BY MOUTH EVERY DAY Rx Instructions: TAKE 1 TABLET BY MOUTH EVERY DAY Levemir FlexPen 100 unit/mL (3 mL) insulin pen See Rx Instructions .ROUTE .COMPLEX Qty: 45 11RF Dose Instruction: inject 60 units (0.6ml) SUBCUTANEOUSLY EVERY DAY Rx Instructions: inject 60 units (0.6ml) SUBCUTANEOUSLY EVERY DAY pantoprazole 40 mg tablet,delayed release (DR/EC) See Rx Instructions .ROUTE .COMPLEX Qty: 90 3RF Dose Instruction: TAKE 1 TABLET BY MOUTH ONCE DAILY Rx Instructions: TAKE 1 TABLET BY MOUTH ONCE DAILY furosemide 20 mg tablet See Rx Instructions .ROUTE .COMPLEX Qty: 90 3RF Dose Instruction: TAKE 1 TABLET BY MOUTH ONCE DAILY in THE morning Rx Instructions: TAKE 1 TABLET BY MOUTH ONCE DAILY in THE morning fluorouracil 5 % cream See Rx Instructions .ROUTE .COMPLEX Qty: 40 1RF Dose Instruction: apply topically TWICE DAILY FOR TWO weeks Rx Instructions: apply topically TWICE DAILY FOR TWO weeks tamsulosin 0.4 mg capsule 0.4 mg PO QPM Qty: 90 3RF ezetimibe 10 mg tablet See Rx Instructions .ROUTE .COMPLEX Qty: 90 2RF Dose Instruction: TAKE 1 TABLET BY MOUTH EVERY MORNING Rx Instructions: TAKE 1 TABLET BY MOUTH EVERY MORNING ciprofloxacin HCl 500 mg tablet 500 mg PO BID Qty: 10 0RF allopurinol 100 mg tablet See Rx Instructions .ROUTE .COMPLEX Qty: 270 3RF Dose Instruction: TAKE 1 TABLET BY MOUTH EVERY DAY Rx Instructions: TAKE 1 TABLET BY MOUTH EVERY DAY insulin glargine [Lantus Solostar U-100 Insulin] 100 unit/mL (3 mL) insulin pen See Rx Instructions .ROUTE .COMPLEX Qty: 15 11RF Dose Instruction: INJECT 60 UNITS (0.6mL) SUBCUTANEOUSLY DAILY Rx Instructions: INJECT 60 UNITS (0.6mL) SUBCUTANEOUSLY DAILY diazepam [Valium] 5 mg tablet 5 mg PO .hs PRN (Reason: anxiety) Qty: 30 5RF benzonatate 100 mg capsule See Rx Instructions .ROUTE .COMPLEX Qty: 90 12RF Dose Instruction: take 1 capsule BY MOUTH THREE TIMES DAILY as needed for cough Rx Instructions: take 1 capsule BY MOUTH THREE TIMES DAILY as needed for cough carvedilol 12.5 mg tablet See Rx Instructions .ROUTE .COMPLEX Qty: 60 9RF Dose Instruction: TAKE 1 TABLET BY MOUTH TWICE DAILY Rx Instructions: TAKE 1 TABLET BY MOUTH TWICE DAILY docusate sodium [Stool Softener] 100 mg Tablet 100 mg PO QAM ascorbic acid (vitamin C) [Vitamin C] 500 mg Tablet,Chewable 500 mg PO DAILY Discharge Orders: Discharge ED (Routine); Ordered 05/13/24 Ordered By: Deena Arnett Referrals: Salas Quevedo MD [Primary Care Provider] - Activity Restrictions/Additional Instructions: As we discussed, we did obtain x-rays of his left hip as well as his mid and lower back. Degenerative changes noted. We discussed following up with Dr. Quevedo for further evaluation. This could include physical therapy, referrals to orthopedics and/or pain management. There were some other issues that patient spoke about on today's visit including some possible swelling to his right breast, chronic balance issues, urinary dribbling, chronic constipation. These can also be followed up with his primary care provider. Print Language: Japanese Coding Level of Care Code ED Ems Coordinator for Telly Tatum
[2024-05-13 14:02] VITALS: BP 130/76; PULSE 72; O2SAT 94
== END 2024-05-13 14:03 | disposition home or self-care (01) ==
PROVIDERS: Emergency Provider Physician Assistant; PCP Family Medicine
DX: M54.9 Dorsalgia, unspecified (principal); M25.552 Pain in left hip; Z79.82 Long term (current) use of aspirin; Z79.4 Long term (current) use of insulin; Z87.891 Personal history of nicotine dependence; E78.5 Hyperlipidemia, unspecified; I25.10 Atherosclerotic heart disease of native coronary artery without angina pectoris; E11.9 Type 2 diabetes mellitus without complications; I10 Essential (primary) hypertension
CPT/HCPCS: 72072; 72100; 73502; 99284

== ENCOUNTER → 2024-06-09 14:38 | Outpatient (BNVA) | payer MEDICARE, OTHER, SELFPAY | PROVIDERS: PCP Family Medicine; Visit Provider Family Medicine | DX: I10 Essential (primary) hypertension (principal); E11.9 Type 2 diabetes mellitus without complications; Z79.4 Long term (current) use of insulin; N18.32 Chronic kidney disease, stage 3b | CPT/HCPCS: 82043; 85025 ==

== ENCOUNTER 2024-06-10 15:18 | Outpatient (CLI) | payer MEDICARE, OTHER, SELFPAY ==
--- NOTE | 2024-06-10 15:21 | XR_ITS ---
WS: [id number] XR lumbar spine 6V w f/e [id number] REASON FOR EXAM: lumbar spondylolisthesis FINDINGS: Mild rotatory dextroscoliosis. Exaggeration of the normal lordosis. No significant vertebral body compression deformity or focal lesion. Moderate osteophytosis L1-L5. 2 to 3 mm of anterolisthesis of L3 in relation to L2. 3-4 mm of anterolisthesis of L4 in relation to L3. Mild narrowing of the disc spaces at L1-L2 and L2-L3. Significant narrowing of the disc spaces at L3-L4 and L4-L5. These listheses are stable in flexion and extension. No other significant vertebral body movement in flexion or extension. 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 Left renal calculus unchanged compared to 05/13/2024. XR/XR lumbar spine 6V w f/e [id number] IMPRESSION: Multilevel degenerative spondylosis as above.
== END 2024-06-10 15:19 | disposition home or self-care (01) ==
LOC: RAD 15:20
PROVIDERS: PCP Family Medicine; Visit Provider Family Medicine
DX: M43.16 Spondylolisthesis, lumbar region (principal); M41.86 Other forms of scoliosis, lumbar region; M25.78 Osteophyte, vertebrae; R93.7 Abnormal findings on diagnostic imaging of other parts of musculoskeletal system; N20.0 Calculus of kidney; M51.369 Other intervertebral disc degeneration, lumbar region without mention of lumbar back pain or lower extremity pain
CPT/HCPCS: 72114

== ENCOUNTER → 2024-06-12 12:12 | Outpatient (BNVA) | payer MEDICARE, OTHER, SELFPAY | PROVIDERS: PCP Family Medicine; Visit Provider Family Medicine | DX: I10 Essential (primary) hypertension (principal); E11.9 Type 2 diabetes mellitus without complications; Z79.4 Long term (current) use of insulin; N18.32 Chronic kidney disease, stage 3b; E78.2 Mixed hyperlipidemia; I50.9 Heart failure, unspecified | CPT/HCPCS: 80053; 82306; 82607; 83036; 83540; 84439; 84443; 85025 ==

== ENCOUNTER 2024-06-17 09:56 | Outpatient (CLI) | payer MEDICARE, OTHER, SELFPAY ==
--- NOTE | 2024-06-17 10:01 | US_ITS ---
WS: [id number] DIAGNOSTIC BILATERAL DIGITAL BREAST TOMOSYNTHESIS MAMMOGRAPHY WITH CAD RIGHT breast ultrasound, limited HISTORY: RIGHT breast mass. 88-year-old male patient. COMPARISON: None available. TECHNIQUE: Bilateral craniocaudad, mediolateral oblique, and mediolateral views are submitted with tomosynthesis and SM. Computer aided detection utilized. Breast composition: There are scattered areas of fibroglandular density. Spiculated high density mass posterior to the RIGHT nipple. No nipple retraction and no calcifications. This corresponds to the palpable abnormality. No similar findings on the LEFT. No suspicious grouping of calcifications. RIGHT breast ultrasound, limited. Irregular hypoechoic mass posterior to the RIGHT nipple corresponds to the mammographic and palpable abnormality. This is most consistent with gynecomastia and measures 1.1 x 1.0 x 0.7 cm. No similar finding on the LEFT. US/US breast BI limited* [id number] IMPRESSION: BI-RADS: 2 - Benign. FOLLOW UP: See Report RIGHT breast mass is most consistent with gynecomastia. No follow-up necessary unless this mass increases in size or becomes painful.
--- NOTE | 2024-06-17 12:30 | MM_ITS ---
WS: [id number] DIAGNOSTIC BILATERAL DIGITAL BREAST TOMOSYNTHESIS MAMMOGRAPHY WITH CAD RIGHT breast ultrasound, limited HISTORY: RIGHT breast mass. 88-year-old male patient. COMPARISON: None available. TECHNIQUE: Bilateral craniocaudad, mediolateral oblique, and mediolateral views are submitted with tomosynthesis and SM. Computer aided detection utilized. Breast composition: There are scattered areas of fibroglandular density. Spiculated high density mass posterior to the RIGHT nipple. No nipple retraction and no calcifications. This corresponds to the palpable abnormality. No similar findings on the LEFT. No suspicious grouping of calcifications. RIGHT breast ultrasound, limited. Irregular hypoechoic mass posterior to the RIGHT nipple corresponds to the mammographic and palpable abnormality. This is most consistent with gynecomastia and measures 1.1 x 1.0 x 0.7 cm. No similar finding on the LEFT. MM/MM diag BI tomosynthesis [id number] IMPRESSION: BI-RADS: 2 - Benign. FOLLOW UP: See Report RIGHT breast mass is most consistent with gynecomastia. No follow-up necessary unless this mass increases in size or becomes painful.
== END 2024-06-17 09:57 | disposition home or self-care (01) ==
LOC: RAD 09:58
PROVIDERS: PCP Family Medicine; Visit Provider Family Medicine
DX: N63.10 Unspecified lump in the right breast, unspecified quadrant (principal); R92.323 Mammographic fibroglandular density, bilateral breasts
CPT/HCPCS: 76642; 77062; 77065; G0279

== ENCOUNTER 2024-06-18 10:37 | Outpatient (CLI) | payer MEDICARE, OTHER, SELFPAY ==
--- NOTE | 2024-06-18 11:00 | MR_ITS ---
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 TECHNIQUE: Sagittal and axial multisequence imaging is submitted. Component of cervical stenosis at C5-6. Disc spaces are narrowed and desiccated in the cervical and thoracic spines. Retrolisthesis of L3 by 3 mm. 2 mm retrolisthesis of L4. No acute fractures. Mild reactive marrow edema in the anterior endplates of L2 and L3. Disc spaces are significantly narrowed and desiccated, most significant at L3-4 and L4-5. Conus terminates normally at L1-2 disc level. T12-L1: Diffuse annular disc bulging with moderate ligamentum flavum hypertrophy. Central and subarticular recess stenosis, RIGHT greater than LEFT is mild. L1-L2: Diffuse mild annular disc bulging with osteophytic ridging, ligamentum flavum and facet arthritis. Moderate central, bilateral subarticular recess stenosis and mild foraminal stenosis. Encroachment upon the traversing L2 nerve roots. L2-L3: Marked annular disc bulging with osteophytic ridging, marked ligamentum flavum and facet arthritis. Severe central and bilateral subarticular recess stenosis and mild foraminal stenosis. There is significant contact on the traversing L3 nerve roots. L3-L4: Diffuse annular disc bulging with osteophytic ridging, marked ligamentum flavum and facet arthritis. Severe central, bilateral subarticular recess and foraminal stenosis. L4-L5: Diffuse annular disc bulging, osteophytic ridging with ligamentum flavum and facet arthritis. Moderate to severe central with bilateral subarticular recess and foraminal stenosis. L5-S1: Mild annular disc bulge with a central disc protrusion. Thecal sac is slightly elongated. Fluid in the LEFT facet joint. Disc contacting the S1 nerve roots. Mild central with moderate to severe subarticular recess and foraminal stenosis. Bilateral renal cysts. MR/MR lumbar spine wo con* [id number] IMPRESSION: 1. 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 Stenosis at each level due to combination of disc disease osteo phyte, ligamentum flavum and facet arthritis. 2. L2-3: Severe central, bilateral subarticular recess and mild foraminal sten osis. 3. L3-4: Severe central, bilateral subarticular recess and foraminal stenosis. 4. L4-5: Moderate to severe central with bilateral subarticular recess and for aminal stenosis. 5. L5-S1: Mild central with moderate to severe subarticular recess and foramin al stenosis. 6. L1-2: Moderate central and bilateral subarticular recess and mild foraminal stenosis. 7. T12-L1: Mild central and subarticular recess stenosis.
== END 2024-06-18 10:38 | disposition home or self-care (01) ==
LOC: RAD 10:37
PROVIDERS: PCP Family Medicine; Visit Provider Family Medicine
DX: M43.16 Spondylolisthesis, lumbar region (principal); M47.896 Other spondylosis, lumbar region; M51.369 Other intervertebral disc degeneration, lumbar region without mention of lumbar back pain or lower extremity pain; M48.061 Spinal stenosis, lumbar region without neurogenic claudication; M24.28 Disorder of ligament, vertebrae; M48.07 Spinal stenosis, lumbosacral region; M48.05 Spinal stenosis, thoracolumbar region; M48.02 Spinal stenosis, cervical region; M51.34 Other intervertebral disc degeneration, thoracic region; M50.30 Other cervical disc degeneration, unspecified cervical region; M51.35 Other intervertebral disc degeneration, thoracolumbar region; M25.78 Osteophyte, vertebrae; M51.379 Other intervertebral disc degeneration, lumbosacral region without mention of lumbar back pain or lower extremity pain; N28.1 Cyst of kidney, acquired
CPT/HCPCS: 72148

== ENCOUNTER → 2024-11-18 09:44 | Outpatient (BNVA) | payer MEDICARE, OTHER, SELFPAY | PROVIDERS: PCP Family Medicine; Referring Provider Family Medicine; Visit Provider Anesthesiology Pain Medicine | DX: M48.062 Spinal stenosis, lumbar region with neurogenic claudication (principal); M47.816 Spondylosis without myelopathy or radiculopathy, lumbar region | CPT/HCPCS: 99204 ==